=== PATIENT | female | born 1980 ===

== ENCOUNTER 2020-06-16 13:31 | Outpatient (REF) | payer OTHER, SELFPAY ==
--- NOTE | 2020-06-16 13:36 | CT_ITS ---
EXAMINATION: CT CHEST WITHOUT CONTRAST CLINICAL INFORMATION: Pulmonary nodule COMPARISON: Previous chest x-ray July 2018 TECHNIQUE: Multidetector volumetric CT imaging of the chest was done. Axial MIP volume rendering provided. Sagittal and coronal reformatted images were obtained. This CT examination was performed using dose optimization techniques as appropriate, variously including the following: *Automated exposure control *Adjustment of mA and/or kV according to patient size (this includes techniques or standardized protocols for targeted exams where dose is matched to indication/reason for exam; i.e. 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 The lungs are otherwise clear. MEDIASTINUM: The mediastinum is normal. PLEURA: There is no pleural effusion. No pleural mass or thickening. AXILLA: No lymphadenopathy. UPPER ABDOMEN: Unremarkable. OSSEOUS STRUCTURES: There is curvature of the thoracic spine to the right. CT/CT chest wo con IMPRESSION: Small right upper lobe pulmonary nodule. Comparison with outside exam recommended. According to the UPDATED 2017 Fleischner Society recommendations, the advised follow-up imaging for less than 6 mm nodule: Low risk, no chest CT follow-up needed and high risk, optional chest CT follow-up in 12 months.
== END 2020-06-16 13:32 | disposition home or self-care (01) ==
LOC: HO.CT 13:31
PROVIDERS: Visit Provider Internal Medicine Pulmonary Disease
DX: R91.1 Solitary pulmonary nodule (principal)
CPT/HCPCS: 71250

== ENCOUNTER → 2020-06-30 11:39 | Outpatient (BNVA) | payer OTHER, SELFPAY | PROVIDERS: Visit Provider Internal Medicine Pulmonary Disease | DX: R91.1 Solitary pulmonary nodule (principal) | CPT/HCPCS: 99212 ==

== ENCOUNTER → 2020-12-18 10:45 | Outpatient (BNVA) | payer OTHER, SELFPAY | PROVIDERS: Visit Provider Internal Medicine Pulmonary Disease ==

== ENCOUNTER 2021-06-29 09:28 | Outpatient (REF) | payer OTHER, SELFPAY ==
--- NOTE | ~2021-06-29 | CT_ITS ---
EXAMINATION: CT CHEST WITHOUT CONTRAST CLINICAL INFORMATION: Solitary pulmonary nodule COMPARISON: None TECHNIQUE: Multidetector volumetric CT imaging of the chest was done. Axial MIP volume rendering provided. Sagittal and coronal reformatted images were obtained. This CT examination was performed using dose optimization techniques as appropriate, variously including the following: *Automated exposure control *Adjustment of mA and/or kV according to patient size (this includes techniques or standardized protocols for targeted exams where dose is matched to indication/reason for exam; i.e. extremities or head) *Use of iterative reconstruction technique DLP: 128 mGy-cm FINDINGS: LUNGS: Stable 5 mm part solid nodule within the middle lobe is seen on series 5, image 208. There are bilateral patchy and rounded groundglass opacities showing peripheral predominance. One of the groundglass opacities within the left upper lobe shows early central consolidative change measuring up to 10 mm. No bronchial wall thickening or bronchiectasis. No pneumothorax. MEDIASTINUM: Normal heart size. No pericardial effusion. No mediastinal or hilar adenopathy. PLEURA: There is no pleural effusion. No pleural mass or thickening. AXILLA: No lymphadenopathy. UPPER ABDOMEN: Unremarkable. OSSEOUS STRUCTURES: No acute or suspicious osseous abnormalities. CT/CT chest wo con IMPRESSION: * Stable 5 mm part solid nodule within the middle lobe. * New bilateral peripherally predominant groundglass opacities, with early patchy central consolidative change within one of the patchy opacities within the left upper lobe. Suspect atypical infectious process. Early/mild COVID pneumonitis typically shows these findings.
== END 2021-06-29 09:29 | disposition home or self-care (01) ==
LOC: HO.CT 09:28
PROVIDERS: Visit Provider Internal Medicine Pulmonary Disease
DX: R91.1 Solitary pulmonary nodule (principal)
CPT/HCPCS: 71250

== ENCOUNTER → 2021-07-16 11:44 | Outpatient (BNVA) | payer OTHER, SELFPAY | PROVIDERS: PCP Physician Assistant Medical; Visit Provider Internal Medicine Pulmonary Disease ==

== ENCOUNTER 2021-10-26 10:14 | Outpatient (REF) | payer OTHER, SELFPAY ==
[2021-10-26 12:53] LABS: C Reactive Protein 0.04 mg/dL (< or = 0.50)
[2021-10-26 13:17] LABS: Erythrocyte Sedimentation Rate 9 MM/HR (0-20)
[2021-10-26 13:39] LABS: Creatinine Urine 43.28 mg/dL; Microalbumin Urine < 5.0 mg/L
[2021-10-27 12:31] LABS: Anti Nuclear Antibody Screen NEGATIVE (NEGATIVE)
== END 2021-10-26 10:15 | disposition home or self-care (01) ==
LOC: HO.LAB 10:14
PROVIDERS: PCP Physician Assistant Medical; Visit Provider Internal Medicine Rheumatology
DX: M25.569 Pain in unspecified knee (principal); M79.603 Pain in arm, unspecified; R31.29 Other microscopic hematuria
CPT/HCPCS: 36415; 82043; 85652; 86038; 86039; 86140; 99202

== ENCOUNTER 2022-01-27 08:50 | Outpatient (REF) | payer OTHER, SELFPAY ==
--- NOTE | ~2022-01-27 | XR_ITS ---
EXAMINATION: XR KNEE, RIGHT XR KNEE, LEFT CLINICAL INFORMATION: Bilateral knee pain COMPARISON: None TECHNIQUE: Each knee is imaged in 3 views. There are total of 6 views. FINDINGS: Right: Normal bony mineralization. No fracture, dislocation, or effusion. No focal joint narrowing or erosive change or chondrocalcinosis. No lateralization or tilting patella. Left: Normal bony mineralization. No fracture, dislocation, or effusion. No focal joint narrowing or erosive change or chondrocalcinosis. No lateralization or tilting patella. XR/XR knee RT 3V IMPRESSION: Normal bilateral knees.
--- NOTE | ~2022-01-27 | XR_ITS ---
EXAMINATION: XR KNEE, RIGHT XR KNEE, LEFT CLINICAL INFORMATION: Bilateral knee pain COMPARISON: None TECHNIQUE: Each knee is imaged in 3 views. There are total of 6 views. FINDINGS: Right: Normal bony mineralization. No fracture, dislocation, or effusion. No focal joint narrowing or erosive change or chondrocalcinosis. No lateralization or tilting patella. Left: Normal bony mineralization. No fracture, dislocation, or effusion. No focal joint narrowing or erosive change or chondrocalcinosis. No lateralization or tilting patella. XR/XR knee LT 3V IMPRESSION: Normal bilateral knees.
== END 2022-01-27 08:51 | disposition home or self-care (01) ==
LOC: HO.XRAY 08:50
PROVIDERS: PCP Physician Assistant Medical; Visit Provider Internal Medicine Rheumatology
DX: M25.562 Pain in left knee (principal); M25.561 Pain in right knee
CPT/HCPCS: 73562

== ENCOUNTER → 2022-02-17 08:47 | Outpatient (BNVA) | payer OTHER, SELFPAY | PROVIDERS: PCP Physician Assistant Medical; Visit Provider Internal Medicine Rheumatology | DX: R20.0 Anesthesia of skin (principal); L30.9 Dermatitis, unspecified; R21 Rash and other nonspecific skin eruption; M25.531 Pain in right wrist | CPT/HCPCS: 99212 ==

== ENCOUNTER → 2022-03-30 12:54 | Outpatient (BNVA) | payer OTHER, SELFPAY | PROVIDERS: PCP Physician Assistant Medical; Visit Provider Internal Medicine Pulmonary Disease | DX: R91.1 Solitary pulmonary nodule (principal); J38.3 Other diseases of vocal cords; L30.9 Dermatitis, unspecified | CPT/HCPCS: 36415; 82785; 85025; 86003; 99212 ==

== ENCOUNTER 2022-03-30 13:18 | Outpatient (REF) | payer OTHER, SELFPAY ==
[2022-03-30 13:30] LABS: MANUAL DIFF FLAG NO
[2022-03-30 14:47] LABS: Basophils Percent Auto 0.2 % (0-2); Eosinophils Absolute Auto 0.2 X10*3/uL (0.0-0.4); Eosinophils Percent Auto 3.4 % (0-4); Hematocrit 38.3 % (37.0-47.0); Hemoglobin 13.3 g/dl (12.0-16.0); Lymphocytes Absolute Auto 1.6 X10*3/uL (1.2-4.9); Lymphocytes Percent Auto 37.2 % (20-40); Mean Corpuscular HGB Conc 34.7 g/dl (31.0-35.0); Mean Corpuscular Hemoglobin 33.2 pg (27.0-33.0); Mean Corpuscular Volume 95.5 fL (80.0-98.0); Mean Platelet Volume 10.3 fL (9.4-12.3); Monocytes Absolute Auto 0.3 X10*3/uL (0.1-1.2); Monocytes Percent Auto 6.4 % (2-11); Neutrophils Absolute Auto 2.3 x10*3/uL (2.0-8.3); Neutrophils Percent Auto 52.8 % (45-73); Platelet Count 260 X10*3/uL (160-400); Red Blood Count 4.01 X10*6/uL (4.20-5.50); Red Cell Distribution Width 11.8 % (11.0-16.0); White Blood Count 4.4 X10*3/uL (4.8-10.8)
== END 2022-03-30 13:19 | disposition home or self-care (01) ==
LOC: HO.LAB 13:18
PROVIDERS: PCP Physician Assistant Medical; Visit Provider Internal Medicine Pulmonary Disease
DX: Z13.89 Encounter for screening for other disorder (principal)
CPT/HCPCS: 36415; 82785; 85025; 86003

== ENCOUNTER → 2022-05-31 09:50 | Outpatient (BNVA) | payer OTHER, SELFPAY | PROVIDERS: PCP Physician Assistant Medical; Referring Provider Physician Assistant Medical; Visit Provider Internal Medicine Rheumatology | DX: M25.539 Pain in unspecified wrist (principal); M77.8 Other enthesopathies, not elsewhere classified | CPT/HCPCS: 99212 ==

== ENCOUNTER 2022-06-09 09:58 | Outpatient (REF) | payer OTHER, SELFPAY ==
--- NOTE | ~2022-06-09 | CT_ITS ---
EXAMINATION: CT CHEST WITHOUT CONTRAST CLINICAL INFORMATION: Post Covid condition COMPARISON: Previous chest CT scans June 2020 and June 2021 TECHNIQUE: Multidetector volumetric CT imaging of the chest was done. Axial MIP volume rendering provided. Sagittal and coronal reformatted images were obtained. This CT examination was performed using dose optimization techniques as appropriate, variously including the following: *Automated exposure control *Adjustment of mA and/or kV according to patient size (this includes techniques or standardized protocols for targeted exams where dose is matched to indication/reason for exam; i.e. 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 This is stable. The lungs are otherwise clear. Previously identified areas of groundglass attenuation June 2021 are no longer seen. No endobronchial or endotracheal lesion. No evidence of interstitial or fibrotic lung disease, emphysema or bronchiectasis. MEDIASTINUM: The mediastinum is normal. CORONARY ARTERY CALCIFICATION: None visualized on this study. PLEURA: There is no pleural effusion. No pleural mass or thickening. AXILLA: No lymphadenopathy. UPPER ABDOMEN: Unremarkable. OSSEOUS STRUCTURES: Unremarkable. CT/CT chest wo IV con IMPRESSION: Stable 5 mm right middle lobe nodule previous exams. The lungs are otherwise clear. Previously identified groundglass opacities on June 2021 exam have resolved area Fleischner guidelines were followed.
== END 2022-06-09 09:59 | disposition home or self-care (01) ==
LOC: HO.CT 09:58
PROVIDERS: Visit Provider Internal Medicine Pulmonary Disease
DX: U09.9 Post COVID-19 condition, unspecified (principal)
CPT/HCPCS: 71250

== ENCOUNTER 2022-06-22 11:10 | Outpatient (REF) | payer OTHER, SELFPAY | END 2022-06-22 11:11 | disposition home or self-care (01) | LOC: HO.MRI 11:10 | PROVIDERS: Visit Provider Internal Medicine Rheumatology | DX: R91.1 Solitary pulmonary nodule (principal); J38.3 Other diseases of vocal cords; G47.30 Sleep apnea, unspecified; M25.531 Pain in right wrist | CPT/HCPCS: 99212 ==

== ENCOUNTER 2022-08-05 13:11 | Outpatient (REF) | payer OTHER, SELFPAY ==
[2022-08-05 15:28] LABS: Lipase 32 U/L (8-78)
[2022-08-05 16:29] LABS: Folate 17.1 ng/mL (> or = 4.0); Vitamin B12 684 pg/mL (200-900)
[2022-08-08 14:13] LABS: Thyroid Peroxidase Antibodies 3 IU/mL (<9)
[2022-08-08 21:19] LABS: Transglutaminase IgA <1.0 U/mL
[2022-08-11 14:49] LABS: Vitamin D 25-OH, D2 5 ng/mL; Vitamin D 25-OH, D3 20 ng/mL; Vitamin D 25-OH, Total 25 ng/mL (30-100)
== END 2022-08-05 13:12 | disposition home or self-care (01) ==
LOC: HO.LAB 13:11
PROVIDERS: PCP Physician Assistant Medical; Visit Provider Nurse Practitioner Family
DX: R10.13 Epigastric pain (principal); K58.2 Mixed irritable bowel syndrome; K21.9 Gastro-esophageal reflux disease without esophagitis; R19.7 Diarrhea, unspecified; R79.89 Other specified abnormal findings of blood chemistry; E55.9 Vitamin D deficiency, unspecified
CPT/HCPCS: 36415; 82306; 82607; 82746; 83690; 86364; 86376; 99202

== ENCOUNTER 2022-08-08 12:10 | Outpatient (REF) | payer OTHER, SELFPAY ==
[2022-08-17 23:07] LABS: Pancreatic Elastase-1 >500 mcg/g
== END 2022-08-08 12:11 | disposition home or self-care (01) ==
LOC: HO.LNP 12:10
PROVIDERS: Visit Provider Nurse Practitioner Family
DX: R10.9 Unspecified abdominal pain (principal)
CPT/HCPCS: 82656

== ENCOUNTER → 2022-08-23 10:40 | Outpatient (BNVA) | payer OTHER, SELFPAY | PROVIDERS: PCP Physician Assistant Medical; Visit Provider Nurse Practitioner Family | DX: K58.1 Irritable bowel syndrome with constipation (principal); K21.9 Gastro-esophageal reflux disease without esophagitis; R10.13 Epigastric pain | CPT/HCPCS: 99212 ==

== ENCOUNTER 2022-10-11 11:20 | Outpatient (REF) | payer OTHER, SELFPAY ==
[2022-10-13 11:59] LABS: H Pylori Breath Test Negative (Negative)
== END 2022-10-11 11:21 | disposition home or self-care (01) ==
LOC: HO.LNP 11:20
PROVIDERS: PCP Physician Assistant Medical; Visit Provider Nurse Practitioner Family
DX: K58.2 Mixed irritable bowel syndrome (principal); K21.9 Gastro-esophageal reflux disease without esophagitis; R10.13 Epigastric pain
CPT/HCPCS: 83013; 99212

== ENCOUNTER → 2022-12-07 12:44 | Outpatient (REF) | payer OTHER, SELFPAY | LOC: HO.SL 12:44 | PROVIDERS: PCP Physician Assistant Medical; Visit Provider Internal Medicine Pulmonary Disease | DX: Z13.89 Encounter for screening for other disorder (principal) ==

== ENCOUNTER 2023-01-16 08:52 | Outpatient (AMB) | payer OTHER, SELFPAY ==
[2023-01-16 09:00] VITALS: BP 108/62; PULSE 79; BMI 24.3
--- NOTE | 2023-01-16 09:00 | MHC.OFFVIS ---
Intake Vital Signs 01/16/23 09:00 Height 5 ft Weight 124 lb 5.451 oz BMI 24.3 BP 108/62 Blood Pressure Location Lt brachial Position Sitting Pulse 79 Intake Visit Reasons: Follow Up Intake Note: Alyssa presents in office as a est.patient for a f/u PT CC: pt reports having a lot of gas & on/off abdominal pain pt denies any other GI Issues Cost Analyst Required: No Accompanied by: Self / Same As Patient Allergies No Known Allergies [No Known Allergies*] Allergy (Verified 01/16/23 09:00) HPI Follow Up HPI Details LAST VISIT IBS (irritable bowel syndrome) Occasional postprandial abdominal cramping. Patient was encouraged to try to decrease her stress and use techniques that help her dealing with stress. Patient reports abdominal bloating postprandially. Discussed with patient again low FODMAP diet his. Food recommended as well as food to avoid discussed with patient GERD (gastroesophageal reflux disease) Patient continues to have epigastric discomfort with dyspepsia, without dysphagia or odynophagia. Patient was encouraged to avoid dietary triggers. Patient admits to eating a large amount of chocolate and sometimes been on food and eating large amounts. Discussed with patient avoiding late night snacking, staying upright for minimum 3 hours after meals discussed with her. Will do H pylori testing in treat empirically if positive. Epigastric discomfort Patient reports epigastric discomfort. Patient was encouraged to eat small amounts. Avoid dietary triggers like chocolate and other food that may be aggravating. H pylori testing, treatment pending on results. I will start her on Nexium. Patient was encouraged to take it every morning half an hour before breakfast. I will see her in 2 months, sooner on as needed basis. Patient is agreeable to this plan and verbalizes understanding of instructions. She was given the opportunity to ask questions and all questions answered. ? Thank you for allowing me to participate in her care Plan Orders Orders H Pylori Breath Test 10/11/22 Medications New esomeprazole magnesium (Nexium 24HR) 20 mg PO DAILY 30 tabs 2RF TODAY'S VISIT: Patient is here today for follow-up. Patient reports that she has been feeling better, however she had few episodes where she had severe postprandial epigastric discomfort. Patient believes that this might of happen due to what she ate. Patient states that 1 time she ate excessive quantity of peanut butter sauce and had severe epigastric discomfort and postprandial abdominal bloating. Patient is experiencing tremendous amount of stress traveling to [place] with her son who is autistic. Patient voices frustration with his health and sometimes behavior and inability to help him. Patient reports that at the time when she had abdominal discomfort her pain was in the right upper quadrant. She felt very bloated/swollen. Patient also reports that she is trying to fast with nothing to eat from 18:00 to 06:00. Patient states that at one time she ate yogurt before 06:00 and states that she had epigastric discomfort and bloating. Patient denies any nausea or vomiting. Reports occasional dyspepsia without dysphagia or odynophagia. Patient denies melena, hematochezia, unintentional weight loss or ribbon like stools. 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) Do you presently have visiting nurse or other home services: No 75 years or older and lives alone: No Alcohol intake: never Patient Tobacco Use Status: Never used Tobacco e-Cigarette/Vaping Use: Never Used service: No Review of Systems Const Denies weight gain and Denies weight loss ENT Reports no additional complaints, Denies dysphagia and Denies odynophagia Card Reports no additional complaints Resp Reports no additional complaints GI Reports abdominal pain, Denies belching, Denies melena, Reports bloating, Denies change in bowel habits, Denies dysphagia, Denies excessive flatus, Denies dyspepsia, Reports heartburn, Denies diarrhea, Denies loose stools, Denies nausea, Denies odynophagia and Denies vomiting Reports no additional complaints Musc Reports no additional complaints Neuro Reports no additional complaints Psych Reports no additional complaints Endo Reports no additional complaints Physical Exam Vital Signs: Last Vital Signs Pulse 79 01/16/23 09:00 BP 108/62 01/16/23 09:00 BMI result Body Mass Index 24.3 Const General: healthy appearing, no acute distress and well developed Nutritional Appearance: well nourished Orientation/consciousness: patient oriented x3 HEENT Head: Yes normal to inspection, Yes normocephalic and Yes atraumatic Face and sinus: Yes normal facial exam Mouth: Normal oral and palatal mucosa present Throat: Yes posterior oropharynx normal, Yes tonsils normal and Yes uvula midline Eyes General: appearance normal, both eyes and all related structures Neck Neck: Yes normal visual inspection, Yes full ROM and Yes trachea midline Thyroid: Thyroid normal Resp Effort & Inspection: normal respiratory effort, able to speak in complete sentences, no tracheal deviation and symmetric chest movement Auscultation: clear to auscultation bilaterally Cardio Rate: regular rate Heart sounds: S1 normal heart sound present and S2 normal heart sound present GI Inspection: Yes normal to inspection and No distended Palpation (GI): Soft to palpation, not firm, nontender and No hepatosplenomegaly present Auscultation: normal bowel sounds General: Yes no CVA tenderness Back/Spine/Pelvis Back: no CVA tenderness Skin General skin exam: elasticity normal, turgor normal and dry skin Neuro General: patient oriented x3 Psych Appearance: grossly normal Mental Status: mental status grossly normal Speech and movement: Normal speech and movement present Affect: normal affect Assessment & Plan Assessment & Plan (1) IBS (irritable bowel syndrome): Code(s): K58.9 - Irritable bowel syndrome without diarrhea Qualifiers: Irritable bowel syndrome type: without diarrhea Qualified Code(s): K58.9 - Irritable bowel syndrome without diarrhea Plan: Continue low FODMAP diet. Patient does have list of food that is recommended as well as list of food to avoid at home. Patient admits that she could be better with making choices on what she eats. (2) GERD (gastroesophageal reflux disease): Code(s): K21.9 - Gastro-esophageal reflux disease without esophagitis Qualifiers: Esophagitis presence: esophagitis presence not specified Qualified Code(s): K21.9 - Gastro-esophageal reflux disease without esophagitis Plan: Continue avoiding dietary triggers. Staying upright for minimum 3 hours after meals discussed with patient. Patient was encouraged to eat smaller meals. Continue Nexium (3) Epigastric discomfort: Code(s): R10.13 - Epigastric pain Plan: As mentioned above patient will need to control the month of food that she eats. Avoid dietary triggers. Patient does report epigastric pain and right upper quadrant discomfort postprandially I will send her abdominal ultrasound to rule out cholelithiasis, cholecystitis, biliary colic. Abdominal exam negative for Delgado sign. I will see her in 3 months, sooner on as needed basis. Patient is agreeable to this plan and verbalizes understanding of instructions. She was given the opportunity to ask questions and all questions answered. Thank you for allowing me to participate in her care Orders: Orders US abdomen complete Today R10.9 - Unspecified abdominal pain Coding Level of Care Code Est Pt Level 4 (27577) Diagnoses IBS (irritable bowel syndrome) K58.9 Irritable bowel syndrome type: without diarrhea GERD (gastroesophageal reflux disease) K21.9 Esophagitis presence: esophagitis presence not specified Epigastric discomfort R10.13 Time Spent (min) 35 Comment 25 minutes spent with patient and additional 10 minutes spent reviewing her records
== END 2023-01-16 12:12 | disposition home or self-care (01) ==
PROVIDERS: PCP Physician Assistant Medical; Visit Provider Nurse Practitioner Family
DX: K58.9 Irritable bowel syndrome, unspecified (principal); K21.9 Gastro-esophageal reflux disease without esophagitis; R10.13 Epigastric pain
CPT/HCPCS: 99214

== ENCOUNTER → 2023-01-16 08:52 | Outpatient (BNVA) | payer OTHER, SELFPAY | PROVIDERS: PCP Physician Assistant Medical; Visit Provider Nurse Practitioner Family | DX: K58.9 Irritable bowel syndrome, unspecified (principal); K21.9 Gastro-esophageal reflux disease without esophagitis; R10.13 Epigastric pain | CPT/HCPCS: 99212 ==

== ENCOUNTER 2023-01-31 08:29 | Outpatient (REF) | payer OTHER, SELFPAY ==
--- NOTE | ~2023-01-31 | US_ITS ---
EXAMINATION: US ABDOMEN COMPLETE CLINICAL INFORMATION: Unspecified abdominal pain. COMPARISON: CT abdomen/pelvis 06/30/2018. TECHNIQUE: Real-time imaging of the abdominal viscera. FINDINGS: PANCREAS: Normal. ABDOMINAL AORTA: The proximal, mid, and distal segments are normal in caliber. INFERIOR VENA CAVA: Visualized portions are normal. LIVER: The liver is normal in size. The liver contour is normal. Slightly increased liver parenchymal echogenicity. No focal hepatic lesion. There is no intrahepatic biliary duct dilatation seen. GALLBLADDER: Normal. The gallbladder is physiologically distended without evidence of stones, sludge, polyps, wall thickening or pericholecystic fluid. COMMON BILE DUCT: Normal in caliber measuring 0.3 cm in diameter. RIGHT KIDNEY: Normal. No hydronephrosis. No renal calculi or focal parenchymal lesions. The kidney measures 10.0 cm in maximum dimension. LEFT KIDNEY: Normal. No hydronephrosis. No renal calculi or focal parenchymal lesions. The kidney measures 10.5 cm in maximum dimension. SPLEEN: Normal. The spleen measures 9.2 cm in maximum dimension. FREE FLUID: None. US/US abdomen complete IMPRESSION: 1. Slightly increased liver parenchymal echogenicity which is nonspecific but could be seen in the setting of hepatic steatosis or hepatocellular disease. Correlate with liver function tests. 2. Otherwise, normal examination.
== END 2023-01-31 08:30 | disposition home or self-care (01) ==
LOC: HO.US 08:29
PROVIDERS: PCP Physician Assistant Medical; Visit Provider Nurse Practitioner Family
DX: R10.9 Unspecified abdominal pain (principal)
CPT/HCPCS: 76700

== ENCOUNTER → 2023-03-23 10:02 | Outpatient (REF) | payer OTHER, SELFPAY | LOC: HO.SL 10:02 | PROVIDERS: PCP Physician Assistant Medical; Visit Provider Internal Medicine Pulmonary Disease | DX: G47.30 Sleep apnea, unspecified (principal); G47.10 Hypersomnia, unspecified | CPT/HCPCS: 95806 ==

== ENCOUNTER → 2023-03-23 10:15 | Outpatient (BNV) | payer OTHER, SELFPAY | PROVIDERS: PCP Physician Assistant Medical; Visit Provider Internal Medicine | DX: G47.10 Hypersomnia, unspecified (principal); R06.83 Snoring | CPT/HCPCS: 95806 ==

== ENCOUNTER 2023-03-28 10:22 | Outpatient (AMB) | payer OTHER, SELFPAY ==
--- NOTE | 2023-03-28 10:29 | MHC.OFFVIS ---
Intake Vital Signs 03/28/23 10:32 Height 5 ft Weight 119 lb 0.794 oz BMI 23.2 Blood Pressure Location Lt brachial Position Sitting Intake Visit Reasons: 3 month fu Intake Note: Alyssa presents in the office as a 3 month follow up. CC: She states that she has been doing okay but now she has been fasting and drinking barrow warm water. She started getting a burning in her throat and she states the heartburn was very severe. Before that she was having nausea and then she had a pain in the right side of her abdomen. Lots of gasses for no reason. She feels like her throat has been burning a lot lately. Supervisor Screen Printing Required: No Allergies No Known Allergies [No Known Allergies*] Allergy (Verified 03/28/23 10:33) HPI 3 month fu HPI Details LAST VISIT IBS (irritable bowel syndrome) Continue low FODMAP diet. Patient does have list of food that is recommended as well as list of food to avoid at home. Patient admits that she could be better with making choices on what she eats. GERD (gastroesophageal reflux disease) Continue avoiding dietary triggers. Staying upright for minimum 3 hours after meals discussed with patient. Patient was encouraged to eat smaller meals. Continue Nexium Epigastric discomfort As mentioned above patient will need to control the month of food that she eats. Avoid dietary triggers. Patient does report epigastric pain and right upper quadrant discomfort postprandially I will send her abdominal ultrasound to rule out cholelithiasis, cholecystitis, biliary colic. Abdominal exam negative for Delgado sign. I will see her in 3 months, sooner on as needed basis. Patient is agreeable to this plan and verbalizes understanding of instructions. She was given the opportunity to ask questions and all questions answered. ? TODAY'S VISIT: Patient is here today for follow-up. Patient reports that she was doing well, however few weeks ago patient started having epigastric discomfort. She stopped taking her PPI and states that she has been going on under lot of stress. Her parents are all way and she is taking care of her autistic son herself. Patient worries a lot about him. Patient reports that she has been eating healthier. Avoiding eating anything spicy. Occasionally patient will snack on crackers. Patient states that she sometimes is under lot of stress and she will binge eat then. Patient reports sore throat. Patient states that she has been doing fasting and drinking lemon water in the morning. Patient states that she has been exercising and trying to relieve the stress by exercise and meditate. Patient denies any nausea or vomiting. Reports Martin spending epigastric pain and occasional bloating. Patient reports that she is moving her bowels normally without any issues. Patient reports dyspepsia without dysphagia or odynophagia. 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) Do you presently have visiting nurse or other home services: No Alcohol intake: never Patient Tobacco Use Status: Never used Tobacco e-Cigarette/Vaping Use: Never Used service: No Review of Systems Const Denies weight gain and Denies weight loss ENT Reports no additional complaints, Denies dysphagia and Denies odynophagia Card Reports no additional complaints Resp Reports no additional complaints GI Reports abdominal pain (Epigastric), Denies belching, Denies melena, Denies bloating, Denies change in bowel habits, Denies dysphagia, Denies excessive flatus, Reports dyspepsia, Reports heartburn, Denies diarrhea, Denies loose stools, Denies nausea, Denies odynophagia and Denies vomiting Reports no additional complaints Musc Reports no additional complaints Neuro Reports no additional complaints Psych Reports no additional complaints Endo Reports no additional complaints Physical Exam Vital Signs: BMI result Body Mass Index 23.2 Const General: healthy appearing, no acute distress, well developed and anxious Nutritional Appearance: well nourished Orientation/consciousness: patient oriented x3 HEENT Head: Yes normal to inspection, Yes normocephalic and Yes atraumatic Face and sinus: Yes normal facial exam Mouth: Normal oral and palatal mucosa present Throat: Yes posterior oropharynx normal, Yes tonsils normal and Yes uvula midline Eyes General: appearance normal, both eyes and all related structures Neck Neck: Yes normal visual inspection, Yes full ROM and Yes trachea midline Thyroid: Thyroid normal Resp Effort & Inspection: normal respiratory effort, able to speak in complete sentences, no tracheal deviation and symmetric chest movement Auscultation: clear to auscultation bilaterally Cardio Rate: regular rate Heart sounds: S1 normal heart sound present and S2 normal heart sound present GI Inspection: Yes normal to inspection and No distended Palpation (GI): Soft to palpation, not firm, nontender and No hepatosplenomegaly present Auscultation: normal bowel sounds General: Yes no CVA tenderness Back/Spine/Pelvis Back: no CVA tenderness Skin General skin exam: elasticity normal, turgor normal and dry skin Neuro General: patient oriented x3 Psych Appearance: grossly normal Mental Status: mental status grossly normal Speech and movement: Normal speech and movement present Assessment & Plan Assessment & Plan (1) IBS (irritable bowel syndrome): Code(s): K58.9 - Irritable bowel syndrome without diarrhea Qualifiers: Irritable bowel syndrome type: without diarrhea Qualified Code(s): K58.9 - Irritable bowel syndrome without diarrhea Plan: Discussed with patient will FODMAP diet. Patient will continue avoiding carbs and sugars. (2) GERD (gastroesophageal reflux disease): Code(s): K21.9 - Gastro-esophageal reflux disease without esophagitis Qualifiers: Esophagitis presence: esophagitis presence not specified Qualified Code(s): K21.9 - Gastro-esophageal reflux disease without esophagitis Plan: Patient will start taking Nexium again. Discussed with patient avoiding dietary triggers in late night snacking. Staying upright for minimum 3 hours after meals discussed with patient. Patient will be sent for upper endoscopy to rule out esophagitis, gastritis, duodenitis, peptic or gastric ulcers, Plunkett's, H pylori. (3) Epigastric discomfort: Code(s): R10.13 - Epigastric pain Plan: Continue avoiding dietary triggers. Patient will avoid eating late at night and avoid binge eating. I will see patient after upper endoscopy, sooner on as needed basis. Patient is agreeable to this plan and verbalizes understanding of instructions. She was given the opportunity to ask questions and all questions answered. Thank you for allowing me to participate in her care Medications: Refilled esomeprazole magnesium (Nexium 24HR) 20 mg PO DAILY 30 tabs 2RF Coding Level of Care Code Est Pt Level 4 (17103) Diagnoses Irritable bowel syndrome without diarrhea K58.9 Irritable bowel syndrome type: without diarrhea Gastroesophageal reflux disease, unspecified whether esophagitis present K21.9 Esophagitis presence: esophagitis presence not specified Epigastric discomfort R10.13 Time Spent (min) 40 Comment 25 minutes spent with patient and additional 15 minutes spent reviewing her records
[2023-03-28 10:32] VITALS: BMI 23.2
== END 2023-03-28 11:59 | disposition home or self-care (01) ==
PROVIDERS: PCP Physician Assistant Medical; Visit Provider Nurse Practitioner Family
DX: K58.9 Irritable bowel syndrome, unspecified (principal); K21.9 Gastro-esophageal reflux disease without esophagitis; R10.13 Epigastric pain
CPT/HCPCS: 99214

== ENCOUNTER → 2023-03-28 10:22 | Outpatient (BNVA) | payer OTHER, SELFPAY | PROVIDERS: PCP Physician Assistant Medical; Visit Provider Nurse Practitioner Family | DX: K21.9 Gastro-esophageal reflux disease without esophagitis (principal); K58.9 Irritable bowel syndrome, unspecified; R10.13 Epigastric pain | CPT/HCPCS: 99212 ==

== ENCOUNTER 2023-05-10 10:05 | Outpatient (AMB) | payer OTHER, SELFPAY ==
--- NOTE | 2023-05-10 10:11 | A.OFFVIS_ITS ---
Intake Vital Signs 05/10/23 10:12 Height 5 ft Weight 124 lb 12.506 oz BMI 24.4 BP 112/68 Blood Pressure Location Rt brachial Position Sitting Pulse 91 Pulse Source Pulse Oximeter Temp 97.5 F Temp Source Skin Pulse Oximetry (%) 99 Intake Visit Reasons: Arthralgia Intake Note: Pt last seen 05/31/[address] Thibodeaux, presents today for follow up. C/o pain in right wrist, right great toe pain. Difficulty when doing yoga. Meloxicam 7.5 mg daily. Canadian [employer] Tier Required: Yes Canadian Bacon Tier Name: Dustin [id number] Accompanied by: Self / Same As Patient Allergies No Known Allergies [No Known Allergies*] Allergy (Verified 05/10/23 10:17) Medication List - Last Reconciled 05/10/23 by Jennifer Krishnan MD acetaminophen (Tylenol Extra Strength) 1,000 mg PO Q6H PRN albuterol sulfate 90 mcg/actuation 2 puffs inhalation Q4-6H PRN 30 days Brace,wrist As directed esomeprazole magnesium (Nexium 24HR) 20 mg PO DAILY polyethylene glycol 3350 (Miralax) 17 grams PO DAILY sennosides (Natural Senna Laxative) 17.2 mg (2 x 8.6 mg) PO BEDTIME HPI HPI Comments History of Present Illness Details Patient returns for follow-up. She was last seen by Dr. Thibodeaux last year. The right wrist MRI was done in August of 2022 which showed right ECU tenosynovitis and a longitudinal tear. Patient states that she was doing well until 3 weeks ago when she started having recurrent right wrist pain and swelling. She denies any other painful or swollen joints. Per last office note by Dr. Thibodeaux: The patient returns with complaints of right wrist pain. This has been bothering her now since February. Initially it was seemingly associated with trying to do some weightlifting. Now it continues to be a problem with some lateral wrist pain when she uses the hand more rigorously. This would include lifting her arm overhead and combing her hair, lifting objects out in front of her, and writing. She has not really seen any swelling. There are very occasional paresthesias in the fingers. There is a tendency for the pain to radiate on the volar aspect up to the elbow and also down to the fingers. She has not noticed any triggering. There has not been any swelling, redness or bruising of the fingers, knuckles or wrist area. She does take occasional ibuprofen for this but is afraid to take it more often because of a history of heartburn. She also uses Tylenol with some benefit. She did see her primary doctor and also an orthopedist at [facility]. They x-rayed the wrist and was normal. They ordered nerve conduction studies which were done last week at [facility]. [facility] Medical History (Updated 05/10/23 @ 10:53 by Jennifer Krishnan MD) Microscopic hematuria Surgical History Hx of colonoscopy Social History Household Members: Children Housing: Apartment Are you a primary home health care physician to a significant other at home: Yes (son sid) Do you presently have visiting nurse or other home services: No 75 years or older and lives alone: No Alcohol intake: never Patient Tobacco Use Status: Never used Tobacco e-Cigarette/Vaping Use: Never Used service: No Review of Systems [facility] [place], [place] Reports arthralgias and Reports joint swelling Physical Exam Vital Signs: Last Vital Signs Temp 97.5 F 05/10/23 10:12 Pulse 91 05/10/23 10:12 BP 112/68 05/10/23 10:12 Pulse Ox 99 05/10/23 10:12 BMI result Body Mass Index 24.4 Const General: cooperative and healthy appearing Nutritional Appearance: average body habitus Orientation/consciousness: patient oriented x3 Limitations: no limitations HEENT Head: Yes normocephalic and Yes atraumatic Mouth: moist mucous membranes Resp Effort & Inspection: normal respiratory effort and able to speak in complete sentences Skin General skin exam: no rashes or lesions noted Neuro General: patient oriented x3 Extrem Other: Upon evaluation of the wrist. Patient has normal range of motion of her LEs. She has prominence of the right ulnar styloid but there is no associated swelling, warmth or tenderness. No active synovitis otherwise Normal nailfold capillaroscopy Results Reviewed Results Reviewed: [facility] Result Report Patient: Alyssa Dean Date of Service:D 04/04/22 ? ? Patient Gender: Female Ordering Provider: Tristen Alejandro : 1980 ? ? ? Final X-RAY EXAM OF WRIST, COMPLETE Exam Date: 04/04/2022 1:04 PM Ordering Diagnosis: Right wrist pain ? Right wrist, 3 views. ? History pain. ? Comparison with prior examination from 08/26/2020. There is no evidence of fractures, dislocations or abnormal soft tissue calcifications. Alignment is maintained. ? CONCLUSIONS: Normal examination of the right wrist. ? Reading Radiologist: Electronically signed by: MD ike Arellano Nerve conduction study/EMG from [facility] on 05/26/2022: Normal motor and sensory nerve conduction study of the right upper extremity. Normal EMG of the right C5-T1 innervated muscles Labs from [facility]: 05/05/22: Lyme antibody negative, ESR 3, CRP<0.29 Laboratory Tests 10/26/21 10/26/21 10/26/21 11:41 11:41 11:41 ESR 9 C-Reactive Protein 0.04 ANNA Screen NEGATIVE Right wrist MRI 07/26/2022? Impression:? Longitudinal partial tear of the distal extensor carpi ulnaris tendon with marked associated tenosynovitis.? No appreciable subluxation Assessment & Plan Assessment & Plan (1) Flexor carpi ulnaris tendinitis: Code(s): M77.8 - Other enthesopathies, not elsewhere classified Plan: This is a 42-year-old female with (2) Extensor carpi ulnaris tendinitis: Code(s): M77.8 - Other enthesopathies, not elsewhere classified Plan: 42-year-old female presents for evaluation right wrist swelling and tenderness at the ulnar styloid. Right wrist MRI showed right ECU tenosynovitis and a longitudinal partial tear. Symptoms of pain and swelling self-resolved without any treatment. Today there is no tenderness, erythema, warmth or swelling of that area she has normal range of motion of her wrist. There is no active synovitis otherwise. At this point her symptoms are rather consistent with an injury. This might still be a very early inflammatory arthritis. Advised patient to come back to the office as needed if she develops any new or worsening joint pain, stiffness or swelling Plan I spent 26 minutes reviewing patient's chart, evaluating patient, counseling patient and documenting in the chart Coding Level of Care Code Est Pt Level 4 (71388) Diagnoses Flexor carpi ulnaris tendinitis M77.8 Extensor carpi ulnaris tendinitis M77.8
[2023-05-10 10:12] VITALS: BP 112/68; PULSE 91; TEMP 36.4; O2SAT 99; BMI 24.4
== END 2023-05-10 10:50 | disposition home or self-care (01) ==
PROVIDERS: PCP Physician Assistant Medical; Visit Provider Student in an Organized Health Care Education/Training Program
DX: M77.8 Other enthesopathies, not elsewhere classified (principal)
CPT/HCPCS: 99214

== ENCOUNTER → 2023-05-10 10:05 | Outpatient (BNVA) | payer OTHER, SELFPAY | PROVIDERS: PCP Physician Assistant Medical; Visit Provider Student in an Organized Health Care Education/Training Program | DX: M77.8 Other enthesopathies, not elsewhere classified (principal) | CPT/HCPCS: 99212 ==

== ENCOUNTER 2023-05-25 12:47 | Day surgery (SDC) | payer OTHER, SELFPAY ==
[2023-05-23 13:15] VITALS: BMI 23.2
--- NOTE | 2023-05-24 10:56 | HO.ANESPROP2 ---
Documented by User: Angela Johnson NP 05/24/23 10:57 HPI - Anesthesia Eval Consult details Narrative: 42yo F for Upper Endoscopy PMFSH Active Problems Active Problems: All Active Problems (Updated 05/10/23 @ 10:53 by Jennifer Krishnan MD) Extensor carpi ulnaris tendinitis (Acute) Sleep-disordered breathing (Acute) Vocal cord dysfunction (Acute) Eczema (Acute) Pain in wrist joint (Acute) Microscopic hematuria (Acute) Post covid-19 condition, unspecified (Acute) Pulmonary nodule (Acute) Past Medical History Medical History Hx of solitary pulmonary nodule Microscopic hematuria Surgical History Surgical History Hx of colonoscopy Social History Social History Household Members: Children Housing: Apartment Are you a primary reproductive healthcare assistant to a significant other at home: Yes (son autist) Do you presently have visiting nurse or other home services: No Alcohol intake: never Patient Tobacco Use Status: Never used Tobacco e-Cigarette/Vaping Use: Never Used Use of substances other than those prescribed or required for medical reasons: No Are you DNR?: No Advance Directives: No Advance Directives Information Provided: Yes service: No Meds Allergies Allergy/AdvReac Type Severity Reaction Status Date / Time No Known Allergies Allergy Verified 05/10/23 10:17 [No Known Allergies*] Home Medications Medication Instructions Recorded Confirmed Last Taken Type acetaminophen 500 mg tablet 1,000 mg PO Q6H PRN 10/26/21 02/17/22 Unknown History (Tylenol Extra Strength) Exam Exam Date and Time: May 24, 2023 1056 Height,Weight and Vital Signs: Height 5 ft Weight 53.977 kg Assessment and Plan Assessment Anesthesia Assessment: Chart Reviewed Documented by User: Doris Feliz MD 05/25/23 13:34 [facility] Past Medical History Medical History Hx of solitary pulmonary nodule Microscopic hematuria Family History Family history of problems with anesthesia: No Surgical History Surgical History Hx of colonoscopy History of Problems with Anesthesia: No Social History Social History Household Members: Children Housing: Apartment Are you a primary reproductive healthcare assistant to a significant other at home: Yes (son autist) Do you presently have visiting nurse or other home services: No Alcohol intake: never Patient Tobacco Use Status: Never used Tobacco e-Cigarette/Vaping Use: Never Used Use of substances other than those prescribed or required for medical reasons: No Are you DNR?: No Advance Directives: No Advance Directives Information Provided: Yes service: No Meds Allergies Allergy/AdvReac Type Severity Reaction Status Date / Time No Known Allergies Allergy Verified 05/10/23 10:17 [No Known Allergies*] Home Medications Medication Instructions Recorded Confirmed Last Taken Type acetaminophen 500 mg tablet 1,000 mg PO Q6H PRN 10/26/21 02/17/22 Unknown History (Tylenol Extra Strength) Exam Airway Mallampati Class: II TM Dist: >3cm Neck ROM: Full Heart: rrr Lungs: cta Assessment and Plan Assessment Anesthesia Assessment: Anesthesia Plan Discussed Final Anesthetic Review Family History of Problems with Anesthesia: No History of Problems with Anesthesia: No ASA Class: II Final Preanesthetic Review: No Changes in Pt Med Stat, Meds/Allgs Chart Reviewed, Consent Obtained/Reviewed and Anes Risks/Benef Reviewed Patient Risk: Low Procedure Risk: Low Anesthetic Plan Anesthetic Plan: MAC: Disposition: Standard PACU
[2023-05-25 13:04] LABS: UPreg QC Valid YES; Urine Pregnancy NEGATIVE (NEGATIVE)
[2023-05-25 13:06] VITALS: BP 101/55; PULSE 73; RESP 16; TEMP 36.8; O2SAT 97
[2023-05-25] MEDS: Lactated Ringers 1,000 ML 100 ML IVCONT (13:14)
--- NOTE | 2023-05-25 13:28 | P.HPSUR_ITS ---
Pre-Procedural Eval Section A Date of Service: 05/25/23 Section B Chief Complaint: Gastro-esophageal reflux disease without esophagit Relevant Family History (Specify if Yes): No Relevant Social History: None Present Medications: see Short Stay Collaborative assessment Medical History: Significant History (Hx of solitary pulmonary nodule Microscopic hematuria) History of Previous Operations: Relevant previous surgery/procedure and date(s) (colonoscopy) Allergies: Allergies Allergy/AdvReac Type Severity Reaction Status Date / Time No Known Allergies Allergy Verified 05/10/23 10:17 [No Known Allergies*] Review of Systems Sugical H&P ROS: Negative: Constitution, Cardiovascular, Respiratory, Neurological, Psychiatric, Hem-Onc, Allergic/Immunologic, Gastrointestinal, Genitourinary, Musculoskeletal, Integumentary, Endocrine and Eyes/Ears/Nose/Thro at Exam Surgical H&P Exam: Normal: HEENT, Normal: Heart, Normal: Lungs, Normal: Extremities, Normal: Abdomen, Normal: Skin and Normal: Neurological Plan Diagnosis/Plan: Unchanged I have reviewed the history and physical and performed a pertinent physical examination on my patient. No changes have occurred unless specified. Time Spent With Patient Time: Total time managing care of this patient today ____ minutes.
[2023-05-25 13:38] VITALS: BMI 23.2
--- NOTE | 2023-05-25 13:57 | W.PM.OPN ---
Operative Note Operative Note Date of Service: 05/25/23 Narrative: Procedure Description: EGD Indication: GERD Anesthesia: MAC FLEXIBLE TRANSORAL UPPER GASTROINTESTINAL ENDOSCOPY UPPER ENDOSCOPY Consent: Indications for the procedure and potential complications of bleeding, perforation, reaction to medications and missed diagnosis were discussed with the patient and informed consent was obtained. Instrument: Olympus GIF H 190 J mid size upper endoscope Monitoring: Vital signs and clinical assessment, continuous EKG monitoring, Pulse oximetry, Carbon Dioxide monitoring and blood pressure monitoring were done throughout the procedure. Procedure: The patient was placed in the left lateral decubitis position and pre-procedure medications were administered and a bite block was placed. The endoscope was inserted into the mouth and advanced under direct vision to the third part of duodenum. A careful inspection was made as the upper endoscope was withdrawn including a retroflexed examination of the proximal stomach; Findings and interventions are described below. Findings: Larynx:normal Esophagus: GE junction at 36 cm, diaphragm hiatus at 36 cm, irregular Z line, bx taken from GEJ, distal and proximal esophagus Stomach: Mild patchy gastric erythema. Biopsies were obtained. Grade 2 flap valve on retroflexed examination of the cardia. Small pancreatic rest noted near antrum. Duodenum: Normal bulb and descending duodenum, bx taken Intervention: Biopsies as noted above Impression/Findings: pancreatic rest mild gastritis PLAN: await bx her sx are controlled right now, can decide on treatment plan once bx back --not been taking PPI
[2023-05-25 14:05] VITALS: BP 93/49; PULSE 71; RESP 16; TEMP 36.8; O2SAT 97
[2023-05-25 14:20] VITALS: BP 107/64; PULSE 70; RESP 14; O2SAT 98
[2023-05-25 14:35] VITALS: BP 105/66; PULSE 70; RESP 18; TEMP 36.7; O2SAT 98
== END 2023-05-25 15:10 | disposition home or self-care (01) ==
PROVIDERS: Nurse Practitioner; PCP Physician Assistant Medical; Visit Provider Internal Medicine Gastroenterology
PROC: 0DJ08ZZ Inspection of Upper Intestinal Tract, Via Natural or Artificial Opening Endoscopic (ICD-10-PCS; CPT 43235; principal; 2023-05-25 13:50)
DX: K29.70 Gastritis, unspecified, without bleeding (principal); K22.89 Other specified disease of esophagus; K86.89 Other specified diseases of pancreas; K21.9 Gastro-esophageal reflux disease without esophagitis
CPT/HCPCS: 43239; 81025; 88305; 88342; J2704

== ENCOUNTER → 2023-05-25 12:47 | Outpatient (BNV) | payer OTHER, SELFPAY | PROVIDERS: PCP Physician Assistant Medical; Visit Provider Internal Medicine Gastroenterology | DX: K21.9 Gastro-esophageal reflux disease without esophagitis (principal); K29.70 Gastritis, unspecified, without bleeding; K86.89 Other specified diseases of pancreas | CPT/HCPCS: 43239 ==

== ENCOUNTER 2023-07-12 09:41 | Outpatient (REF) | payer OTHER, SELFPAY ==
--- NOTE | ~2023-07-12 | CT_ITS ---
EXAMINATION: CT CHEST WITHOUT CONTRAST CLINICAL INFORMATION: Follow up lung nodules. COMPARISON: CT chest 06/09/2022 along with studies dating back to 06/16/2020. TECHNIQUE: Multidetector volumetric CT imaging of the chest was done. Axial MIP volume rendering provided. Sagittal and coronal reformatted images were obtained. This CT examination was performed using dose optimization techniques as appropriate, variously including the following: *Automated exposure control *Adjustment of mA and/or kV according to patient size (this includes techniques or standardized protocols for targeted exams where dose is matched to indication/reason for exam; i.e. extremities or head) *Use of iterative reconstruction technique DLP: 122 mGy-cm FINDINGS: LUNGS: A 5 mm nodule in the right middle lobe is unchanged compared with the prior (7:242 compare prior 7:261). In fact, this is unchanged on scans dating back to 2019. A tiny 3 mm perifissural lymph node along the major fissure at the right lung base is unchanged (7:337 compare prior 7:358). No new or concerning lung masses are seen. Gallbladder is unremarkable. MEDIASTINUM: The mediastinum is normal. CORONARY ARTERY CALCIFICATION: None visualized on this study. PLEURA: There is no pleural effusion. No pleural mass or thickening. AXILLA: No lymphadenopathy. UPPER ABDOMEN: Unremarkable. OSSEOUS STRUCTURES: Unremarkable. CT/CT chest wo IV con IMPRESSION: 1. Stable 5 mm right middle lobe nodule. No new or concerning lung masses are seen. 2. Incidental note made of a tiny 3 mm perifissural lymph node along the major fissure at the right lung base unchanged. 3. No concerning or worrisome finding is present. Fleischner guidelines were followed.
== END 2023-07-12 09:42 | disposition home or self-care (01) ==
LOC: HO.CT 09:41
PROVIDERS: PCP Physician Assistant Medical; Visit Provider Internal Medicine Pulmonary Disease
DX: R91.1 Solitary pulmonary nodule (principal)
CPT/HCPCS: 71250

== ENCOUNTER 2023-07-18 09:46 | Outpatient (AMB) | payer OTHER, SELFPAY ==
--- NOTE | 2023-07-18 10:00 | A.OFFVIS_ITS ---
Intake Vital Signs 07/18/23 10:02 Height 5 ft 1 in Weight 121 lb 4.068 oz BMI 22.9 BP 128/61 Blood Pressure Location Lt brachial Position Sitting Pulse 87 Intake Visit Reasons: S/P EGD, Dr. Valdez Intake Note: Alyssa presents in the office as a follow up EGD. CC: She states that she heard the nurses talking when she was knocked out. She heard about something on her pancreas. She missed her last appt because she nd her son had COVID. Assisted Living Home Director Required: No Allergies No Known Allergies [No Known Allergies*] Allergy (Verified 07/18/23 10:00) HPI S/P EGD, Dr. Valdez HPI Details LAST VISIT IBS (irritable bowel syndrome) Discussed with patient will FODMAP diet. Patient will continue avoiding carbs and sugars. GERD (gastroesophageal reflux disease) Patient will start taking Nexium again. Discussed with patient avoiding dietary triggers in late night snacking. Staying upright for minimum 3 hours after meals discussed with patient. Patient will be sent for upper endoscopy to rule out esophagitis, gastritis, duodenitis, peptic or gastric ulcers, Plunkett's, H pylori. Epigastric discomfort Continue avoiding dietary triggers. Patient will avoid eating late at night and avoid binge eating. I will see patient after upper endoscopy, sooner on as needed basis. Patient is agreeable to this plan and verbalizes understanding of instructions. She was given the opportunity to ask questions and all questions answered. ? Thank you for allowing me to participate in her care Plan Medications Refilled esomeprazole magnesium (Nexium 24HR) 20 mg PO DAILY 30 tabs 2RF UPPER ENDOSCOPY Findings: Larynx:normal Esophagus: GE junction at 36 cm, diaphragm hiatus at 36 cm, irregular Z line, bx taken from GEJ, distal and proximal esophagus Stomach: Mild patchy gastric erythema. Biopsies were obtained. Grade 2 flap valve on retroflexed examination of the cardia. Small pancreatic rest noted near antrum. Duodenum: Normal bulb and descending duodenum, bx taken Intervention: Biopsies as noted above Impression/Findings: pancreatic rest mild gastritis PATHOLOGY RESULTS Diagnosis A. Duodenum, biopsy: Duodenal mucosa with preserved villi and no specific change. B. Stomach, biopsy: Gastric antral mucosa with reactive changes and minimal chronic inactive gastritis; negative for H pylori, intestinal metaplasia and dysplasia. C. Gastroesophageal junction, biopsy: Squamocolumnar mucosa with mild chronic inflammation; negative for intestinal metaplasia and dysplasia. D. Esophagus, distal, biopsy: Squamous mucosa with no specific change; no columnar mucosa present. E. Esophagus, proximal, biopsy: Squamous mucosa, and columnar mucosa consistent with inlet patch; negative for intestinal metaplasia and dysplasia TODAY'S VISIT Patient is here today for follow-up and to discuss upper endoscopy results. Upper endoscopy results discussed with patient. Patient reports that she has been feeling better. Change her diet. Patient stopped eating chocolate, however patient does admit to eating crackers at time. She likes to binge eat and back sometimes. Patient denies dyspepsia, dysphagia or odynophagia. Patient denies melena, hematochezia, unintentional weight loss or ribbon like stools. Occasional postprandial abdominal bloating depending on what she eats. Patient reports that she is moving her bowels better now. Patient reports drinking plenty fluids. Patient reports to have a good appetite. Patient is not taking her Nexium. 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 Hx of solitary pulmonary nodule Microscopic hematuria Surgical History History of esophagogastroduodenoscopy (EGD) Hx of colonoscopy Social History Household Members: Children Housing: Apartment Are you a primary child care provider to a significant other at home: Yes (son sid) Do you presently have visiting nurse or other home services: No 75 years or older and lives alone: No Alcohol intake: never Patient Tobacco Use Status: Never used Tobacco e-Cigarette/Vaping Use: Never Used service: No Review of Systems Const Denies weight gain and Denies weight loss ENT Reports no additional complaints, Denies dysphagia and Denies odynophagia Card Reports no additional complaints Resp Reports no additional complaints GI Denies abdominal pain, Denies belching, Denies melena, Denies bloating, Denies change in bowel habits, Denies dysphagia, Denies excessive flatus, Denies dyspepsia, Denies heartburn, Denies diarrhea, Denies loose stools, Denies nausea, Denies odynophagia and Denies vomiting Reports no additional complaints Musc Reports no additional complaints Neuro Reports no additional complaints Psych Reports no additional complaints Endo Reports no additional complaints Physical Exam Vital Signs: Last Vital Signs Pulse 87 07/18/23 10:02 BP 128/61 07/18/23 10:02 BMI result Body Mass Index 22.9 Const General: healthy appearing, no acute distress and well developed Nutritional Appearance: well nourished Orientation/consciousness: patient oriented x3 HEENT Head: Yes normal to inspection, Yes normocephalic and Yes atraumatic Face and sinus: Yes normal facial exam Mouth: Normal oral and palatal mucosa present Throat: Yes posterior oropharynx normal, Yes tonsils normal and Yes uvula midline Eyes General: appearance normal, both eyes and all related structures Neck Neck: Yes normal visual inspection, Yes full ROM and Yes trachea midline Thyroid: Thyroid normal Resp Effort & Inspection: normal respiratory effort, able to speak in complete sentences, no tracheal deviation and symmetric chest movement Auscultation: clear to auscultation bilaterally Cardio Rate: regular rate GI Inspection: Yes normal to inspection and No distended Palpation (GI): Soft to palpation, not firm, nontender and No hepatosplenomegaly present Auscultation: normal bowel sounds General: Yes no CVA tenderness Back/Spine/Pelvis Back: no CVA tenderness Skin General skin exam: elasticity normal, turgor normal and dry skin Neuro General: patient oriented x3 Psych Appearance: grossly normal Mental Status: mental status grossly normal 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 (2) IBS (irritable bowel syndrome): Code(s): K58.9 - Irritable bowel syndrome without diarrhea Qualifiers: Irritable bowel syndrome type: without diarrhea Qualified Code(s): K58.9 - Irritable bowel syndrome without diarrhea (3) GERD (gastroesophageal reflux disease): Code(s): K21.9 - Gastro-esophageal reflux disease without esophagitis Qualifiers: Esophagitis presence: without esophagitis Qualified Code(s): K21.9 - Gastro-esophageal reflux disease without esophagitis (4) Epigastric discomfort: Code(s): R10.13 - Epigastric pain (5) Dyspepsia: Code(s): R10.13 - Epigastric pain (6) Postprandial abdominal bloating: Code(s): R14.0 - Abdominal distension (gaseous) Plan Discussed with patient the importance of avoiding dietary trigger. Avoiding carbs as much as possible and lactose. I will have patient try mastic gum if she read her not take PPI. Patient has no esophagitis, mild inflammation at GE junction and in and home without H pylori. Pancreatic rest found in and some of the stomach without any dysplasia. That could also be contributing to her dyspepsia. Patient was encouraged to avoid dietary triggers. I will see patient in 3 months, sooner on as needed basis. Patient is agreeable to this plan and verbalizes understanding of instructions. She was given the opportunity to ask questions and all questions answered. 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
[2023-07-18 10:02] VITALS: BP 128/61; PULSE 87; BMI 22.9
== END 2023-07-18 10:40 | disposition home or self-care (01) ==
PROVIDERS: PCP Physician Assistant Medical; Visit Provider Nurse Practitioner Family
DX: Q45.3 Other congenital malformations of pancreas and pancreatic duct (principal); K58.9 Irritable bowel syndrome, unspecified; K21.9 Gastro-esophageal reflux disease without esophagitis; R10.13 Epigastric pain; R14.0 Abdominal distension (gaseous)
CPT/HCPCS: 99214

== ENCOUNTER → 2023-07-18 09:46 | Outpatient (BNVA) | payer OTHER, SELFPAY | PROVIDERS: PCP Physician Assistant Medical; Visit Provider Nurse Practitioner Family | DX: Q45.3 Other congenital malformations of pancreas and pancreatic duct (principal); K58.9 Irritable bowel syndrome, unspecified; K21.9 Gastro-esophageal reflux disease without esophagitis; R10.13 Epigastric pain; R14.0 Abdominal distension (gaseous) | CPT/HCPCS: 99212 ==

== ENCOUNTER 2023-08-03 10:08 | Outpatient (AMB) | payer OTHER, SELFPAY ==
--- NOTE | 2023-08-03 10:10 | MHC.OFFVIS ---
Intake Vital Signs 08/03/23 10:12 Weight 121 lb 4.068 oz BP 100/60 Blood Pressure Location Lt brachial Position Sitting Pulse 87 Pulse Source Pulse Oximeter Pulse Oximetry (%) 97 Oxygen Delivery Method Room Air Intake Visit Reasons: CT Chest Follow Up Allergies No Known Allergies [No Known Allergies*] Allergy (Verified 08/03/23 10:14) Medication List - Last Reconciled 08/03/23 by Rebekah Plummer LPN acetaminophen (Tylenol Extra Strength) 1,000 mg PO Q6H PRN Brace,wrist As directed cetirizine 10 mg PO DAILY cholecalciferol (vitamin D3) (Vitamin D3) 20 mcg PO DAILY esomeprazole magnesium 20 mg PO DAILY PRN ketoconazole 2% 1 appl topical 2XW polyethylene glycol 3350 (Miralax) 17 grams PO DAILY PRN sennosides (Natural Senna Laxative) 17.2 mg PO BEDTIME PRN tretinoin 0.1% (Retin-A) [address] HPI CT Chest Follow Up HPI Details 42-year-old lady, nonsmoker, with prior secondhand exposure to tobacco for about 11 years and current cannabis use, followed for pulmonary nodules on the background of family history of first-degree relative with lung cancer and sleep difficulties. Patient did have her sleep study that demonstrated no underlying obstructive sleep apnea. She does complain of difficulty staying asleep. Patient did have follow-up CT scan in July of 2023 that showed stable pulmonary nodules. 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 Microscopic hematuria Surgical History History of esophagogastroduodenoscopy (EGD) Hx of colonoscopy Social History Household Members: Children Housing: Apartment Are you a primary child care assistant to a significant other at home: Yes (son sid) Do you presently have visiting nurse or other home services: No 75 years or older and lives alone: No Alcohol intake: never Patient Tobacco Use Status: Never used Tobacco e-Cigarette/Vaping Use: Never Used service: No Review of Systems Const Denies daytime sleepiness, Denies excessive sweating, Denies fatigue, Denies fever(s), Denies lethargy, Denies malaise, Denies night sweats, Denies snoring, Denies weight loss and Reports other (Difficulty staying asleep) Eyes Denies blurry vision and Denies itchy eyes ENT Denies nasal congestion, Denies post nasal drip, Denies sinus pain, Denies sinus pressure and Denies other ( Thrush) Card Denies chest pain, Denies pedal edema, Denies dyspnea, Denies orthopnea and Denies paroxysmal nocturnal dyspnea Resp Denies cough, Denies hemoptysis, Denies excessive phlegm production, Denies dyspnea, Denies snoring and Denies wheezing GI Denies abdominal pain and Denies heartburn Musc Denies myalgias, Denies arthralgias and Denies joint swelling Skin/Breast Denies rash Neuro Denies memory loss and Denies seizure-like activity Psych Denies abnormal sleep pattern, Denies anxiety and Denies memory loss Endo Denies excessive sweating, Denies fatigue and Denies heat intolerance Daniel/Lymph Denies easy bruising Aller/Immun Denies itchy eyes, Denies seasonal rhinorrhea and Denies wheezing Physical Exam Vital Signs: Last Vital Signs Pulse 87 08/03/23 10:12 BP 100/60 08/03/23 10:12 Pulse Ox 97 08/03/23 10:12 Oxygen Delivery Method Room Air 08/03/23 10:12 Const General: no acute distress and alert Nutritional Appearance: not obese Orientation/consciousness: Other orientation findings ( oriented) HEENT Head: Yes atraumatic Eyes General: appearance normal, both eyes and all related structures Sclerae: sclerae normal EOM: EOMs intact bilaterally Neck Neck: Yes supple Lymphatic: no lymphadenopathy noted Resp Effort & Inspection: normal respiratory effort and no use of accessory muscles Auscultation: clear to auscultation bilaterally Cardio Rate: regular rate Rhythm: regular rhythm Heart sounds: no gallops, no murmurs and no rubs Skin General skin exam: other ( warm) Extrem General: No clubbing, No cyanosis and No edema Assessment & Plan Assessment & Plan (1) Insomnia: Code(s): G47.00 - Insomnia, unspecified Plan: Secondary insomnia with difficulty staying asleep. Will try empiric trazodone. (2) Pulmonary nodule: Code(s): R91.1 - Solitary pulmonary nodule Plan: Results of follow-up CT chest reviewed, stable pulmonary nodules. Will repeat scan in 12 months. Medications: New trazodone 50 mg PO BEDTIME PRN 30 tabs 6RF sleep Coding Level of Care Code Est Pt Level 4 (23109) Diagnoses Insomnia G47.00 Pulmonary nodule R91.1
[2023-08-03 10:12] VITALS: BP 100/60; PULSE 87; O2SAT 97
== END 2023-08-03 10:29 | disposition home or self-care (01) ==
PROVIDERS: PCP Physician Assistant Medical; Visit Provider Internal Medicine Pulmonary Disease
DX: G47.00 Insomnia, unspecified (principal); R91.1 Solitary pulmonary nodule
CPT/HCPCS: 99214

== ENCOUNTER → 2023-08-03 10:08 | Outpatient (BNVA) | payer OTHER, SELFPAY | PROVIDERS: PCP Physician Assistant Medical; Visit Provider Internal Medicine Pulmonary Disease | DX: G47.00 Insomnia, unspecified (principal); R91.1 Solitary pulmonary nodule | CPT/HCPCS: 99212 ==

== ENCOUNTER 2023-10-17 10:08 | Outpatient (AMB) | payer OTHER, SELFPAY ==
--- NOTE | 2023-10-17 10:10 | A.OFFVIS_ITS ---
Intake Vital Signs 10/17/23 10:13 Height 5 ft 1 in Weight 119 lb 0.794 oz BMI 22.5 BP 130/58 L Blood Pressure Location Lt brachial Position Sitting Pulse 99 Intake Visit Reasons: 3 month follow up Intake Note: Alyssa presents in the office as a 3 month follow up. CC: She states that she is having some concerns - she states that she is having a lot of gas. She states that it is all the time and embarrassing. She states that she just lets it go and she is unable to hold it. No diarrhea and no accidents with her bowels. She states that she is constantly urinating as well but she knows that is a OBGYN concern. 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 Avoiding carbs as much as possible and lactose. I will have patient try mastic gum if she read her not take PPI. Patient has no esophagitis, mild inflammation at GE junction and in and home without H pylori. Pancreatic rest found in and some of the stomach without any dysplasia. That could also be contributing to her dyspepsia. Patient was encouraged to avoid dietary triggers. I will see patient in 3 months, sooner on as needed basis. Patient is agreeable to this plan and verbalizes understanding of instructions. She was given the opportunity to ask questions and all questions answered. TODAY'S VISIT Patient is here today for follow-up. Patient continue to have postprandial abdominal bloating and feels like she is very gassy. Patient continues to eat carbohydrates even though she tries to stay away from it. Patient reports that she is moving her bowels better now. Occasionally taking MiraLax on as needed basis. Patient denies diarrhea or constipation. Occasional acid reflux trying to stay away from food causes. Patient no longer is taking any PPI. 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 Hx of solitary pulmonary nodule Microscopic hematuria Surgical History History of esophagogastroduodenoscopy (EGD) Hx of colonoscopy Social History Household Members: Children Housing: Apartment Are you a primary infant childcare provider to a significant other at home: Yes (son sid) Do you presently have visiting nurse or other home services: No 75 years or older and lives alone: No Alcohol intake: never Patient Tobacco Use Status: Never used Tobacco e-Cigarette/Vaping Use: Never Used service: No Review of Systems Const Denies weight gain and Denies weight loss ENT Reports no additional complaints, Denies dysphagia and Denies odynophagia Card Reports no additional complaints Resp Reports no additional complaints GI Denies abdominal pain, Denies belching, Denies melena, Reports bloating, Denies change in bowel habits, Reports tenesmus, Denies dysphagia, Denies excessive flatus, Denies dyspepsia, Denies heartburn, Denies diarrhea, Denies loose stools, Denies nausea, Denies odynophagia and Denies vomiting Reports no additional complaints Musc Reports no additional complaints Neuro Reports no additional complaints Psych Reports no additional complaints Endo Reports no additional complaints Physical Exam Vital Signs: Last Vital Signs Pulse 99 10/17/23 10:13 BP 130/58 L 10/17/23 10:13 BMI result Body Mass Index 22.5 Const General: healthy appearing, no acute distress and well developed Nutritional Appearance: well nourished Orientation/consciousness: patient oriented x3 Resp Effort & Inspection: normal respiratory effort, able to speak in complete sentences, no tracheal deviation and symmetric chest movement Auscultation: clear to auscultation bilaterally Cardio Rate: regular rate GI Inspection: Yes normal to inspection and No distended Palpation (GI): Soft to palpation, not firm, nontender and No hepatosplenomegaly present Auscultation: normal bowel sounds General: Yes no CVA tenderness Back/Spine/Pelvis Back: no CVA tenderness Skin General skin exam: elasticity normal, turgor normal and dry skin Neuro General: patient oriented x3 Psych Appearance: grossly normal Mental Status: mental status grossly normal 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 (2) IBS (irritable bowel syndrome): Code(s): K58.9 - Irritable bowel syndrome without diarrhea Qualifiers: Irritable bowel syndrome type: without diarrhea Qualified Code(s): K58.9 - Irritable bowel syndrome without diarrhea (3) GERD (gastroesophageal reflux disease): Code(s): K21.9 - Gastro-esophageal reflux disease without esophagitis Qualifiers: Esophagitis presence: esophagitis presence not specified Qualified Code(s): K21.9 - Gastro-esophageal reflux disease without esophagitis (4) Epigastric discomfort: Code(s): R10.13 - Epigastric pain (5) Dyspepsia: Code(s): R10.13 - Epigastric pain (6) Postprandial abdominal bloating: Code(s): R14.0 - Abdominal distension (gaseous) Plan Continue avoiding dietary triggers in late night snacking. Continue avoiding carbs and lactose. Continue MiraLax as needed. Stress reduction as this seems to be contributing to patient's GI symptoms. I will see patient in 4 months, sooner on as needed basis. Patient is agreeable to this plan and verbalizes understanding of instructions. She was given the opportunity to ask questions and all questions answered. 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
[2023-10-17 10:13] VITALS: BP 130/58; PULSE 99; BMI 22.5
== END 2023-10-17 10:45 | disposition home or self-care (01) ==
PROVIDERS: PCP Physician Assistant Medical; Visit Provider Nurse Practitioner Family
DX: Q45.3 Other congenital malformations of pancreas and pancreatic duct (principal); K58.9 Irritable bowel syndrome, unspecified; K21.9 Gastro-esophageal reflux disease without esophagitis; R10.13 Epigastric pain; R14.0 Abdominal distension (gaseous)
CPT/HCPCS: 99213

== ENCOUNTER → 2023-10-17 10:08 | Outpatient (BNVA) | payer OTHER, SELFPAY | PROVIDERS: PCP Physician Assistant Medical; Visit Provider Nurse Practitioner Family | DX: Q45.3 Other congenital malformations of pancreas and pancreatic duct (principal); K58.9 Irritable bowel syndrome, unspecified; K21.9 Gastro-esophageal reflux disease without esophagitis; R10.13 Epigastric pain; R14.0 Abdominal distension (gaseous) | CPT/HCPCS: 99212 ==

== ENCOUNTER 2023-11-03 11:21 | Outpatient (AMB) | payer OTHER, SELFPAY ==
--- NOTE | 2023-11-03 11:22 | MHC.OFFVIS ---
Vital Signs 11/03/23 11:28 Height 5 ft 1 in Weight 123 lb 0.287 oz BMI 23.2 BP 120/67 Blood Pressure Location Lt brachial Position Sitting Pulse 80 Intake Visit Reasons: abdominal pain Intake Note: This patient presents for an assessment for abdominal pain. Patient c/o; reports dysphagia, reports abdominal pain, reports chronic pain LUQ, reports no nausea or vomiting, reports was driving this morning and she started to get the pain on her pancreas , reports pain intermittent. 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 Continue avoiding carbs and lactose. Continue MiraLax as needed. Stress reduction as this seems to be contributing to patient's GI symptoms. I will see patient in 4 months, sooner on as needed basis. Patient is agreeable to this plan and verbalizes understanding of instructions. She was given the opportunity to ask questions and all questions answered. ? TODAY'S VISIT Patient is here today for requested visit. Patient called couple days ago requesting visit for symptoms of abdominal pain and bloating. Lipase and liver profile ordered couple days ago. Patient has not done it yet. Patient reports left lower quadrant pain, able to move the bathrooms however she admits to be constipated. Able to have a bowel movement if she strains. Patient is not taking MiraLax. She is worried that she has pancreatitis. Patient denies any nausea or vomiting. Denies any epigastric pain. No left upper quadrant pain or tenderness. Patient reports that her son was out from school last week and he was home with her the whole time during school vacation. Patient gets very stressed out when he is home. He is 9 years old now and he is autistic and handful. Patient states that her parents were able to help her that week with him. Patient reports that she is trying to eat good, however she did eat lot of bread last week and also onions with her son wishes. Patient reports to be very bloated feeling like there is all in the left lumbar region. Patient denies melena, hematochezia. Reports occasional dyspepsia depending on what she eats without dysphagia or odynophagia. 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 Hx of solitary pulmonary nodule Microscopic hematuria Surgical History History of esophagogastroduodenoscopy (EGD) Hx of colonoscopy Social History Household Members: Children Housing: Apartment Are you a primary critical care educator to a significant other at home: Yes (son sid) Do you presently have visiting nurse or other home services: No 75 years or older and lives alone: No Alcohol intake: never Patient Tobacco Use Status: Never used Tobacco e-Cigarette/Vaping Use: Never Used service: No Review of Systems Const Denies weight gain and Denies weight loss ENT Reports no additional complaints, Denies dysphagia and Denies odynophagia Card Reports no additional complaints Resp Reports no additional complaints GI Reports abdominal pain (LLQ), Denies belching, Denies melena, Reports bloating, Denies change in bowel habits, Reports constipation, Denies dysphagia, Denies excessive flatus, Reports dyspepsia, Denies heartburn, Denies diarrhea, Denies loose stools, Denies nausea, Denies odynophagia and Denies vomiting Reports no additional complaints Musc Reports no additional complaints Neuro Reports no additional complaints Psych Reports no additional complaints Endo Reports no additional complaints Physical Exam Vital Signs: Last Vital Signs Pulse 80 11/03/23 11:28 BP 120/67 11/03/23 11:28 BMI result Body Mass Index 23.2 Const General: healthy appearing, no acute distress and well developed Nutritional Appearance: well nourished Orientation/consciousness: patient oriented x3 Resp Effort & Inspection: normal respiratory effort, able to speak in complete sentences, no tracheal deviation and symmetric chest movement Auscultation: clear to auscultation bilaterally Cardio Rate: regular rate GI Inspection: Yes normal to inspection and No distended Palpation (GI): Soft to palpation, not firm, nontender and No hepatosplenomegaly present Auscultation: normal bowel sounds General: Yes no CVA tenderness Back/Spine/Pelvis Back: no CVA tenderness Skin General skin exam: elasticity normal, turgor normal and dry skin Neuro General: patient oriented x3 Psych Appearance: grossly normal Mental Status: mental status grossly normal Affect: Anxious affect present 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 Category: Medical (2) IBS (irritable bowel syndrome): Code(s): K58.9 - Irritable bowel syndrome without diarrhea Qualifiers: Irritable bowel syndrome type: without diarrhea Qualified Code(s): K58.9 - Irritable bowel syndrome without diarrhea (3) GERD (gastroesophageal reflux disease): Code(s): K21.9 - Gastro-esophageal reflux disease without esophagitis Qualifiers: Esophagitis presence: esophagitis presence not specified Qualified Code(s): K21.9 - Gastro-esophageal reflux disease without esophagitis (4) Epigastric discomfort: Code(s): R10.13 - Epigastric pain (5) Dyspepsia: Code(s): R10.13 - Epigastric pain (6) Postprandial abdominal bloating: Code(s): R14.0 - Abdominal distension (gaseous) Plan Patient was advised to take MiraLax daily and she can take docusate sodium in the evening. Patient was encouraged to go to the lab today and get blood work done. Lipase and liver profile was ordered. Patient has no tenderness to abdominal area. Hypoactive bowel sounds which tells me that she is constipated. Continue low FODMAP diet as discussed previously with patient. Stress reduction. Patient reports to me that she was told by a doctor that she might be autistic. Patient is upset about this. Patient admits to feeling anxious almost all the time. We did discuss in the past about her trying to going see someone so she can talk to and patient states that she does not feel comfortable talking to anybody. Patient has follow-up appointment in February with me. I will call patient with her lab results as well as her CT scan results. She is agreeable to this plan and verbalizes understanding of instructions. She was given the opportunity to ask questions and all questions answered. 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
[2023-11-03 11:28] VITALS: BP 120/67; PULSE 80; BMI 23.2
== END 2023-11-03 12:06 | disposition home or self-care (01) ==
PROVIDERS: PCP Physician Assistant Medical; Visit Provider Nurse Practitioner Family
DX: Q45.3 Other congenital malformations of pancreas and pancreatic duct (principal); K58.9 Irritable bowel syndrome, unspecified; K21.9 Gastro-esophageal reflux disease without esophagitis; R10.13 Epigastric pain; R14.0 Abdominal distension (gaseous)
CPT/HCPCS: 99214

== ENCOUNTER 2023-11-03 11:21 | Outpatient (REF) | payer OTHER, SELFPAY ==
[2023-11-03 13:22] LABS: Alanine Aminotransferase 16 U/L (0-31); Albumin Level 4.1 g/dL (3.5-5.0); Alkaline Phosphatase 73 U/L (39-117); Aspartate Amino Transferase 22 U/L (5-31); Bilirubin Direct 0.2 mg/dL (0.0-0.5); Bilirubin Total 0.7 mg/dL (0.0-1.0); Lipase 44 U/L (8-78); Total Protein 7.4 g/dL (6.5-8.0)
[2023-11-08 13:08] LABS: Vitamin D 25-OH, D2 4 ng/mL; Vitamin D 25-OH, D3 20 ng/mL; Vitamin D 25-OH, Total 24 ng/mL (30-100)
== END 2023-11-03 11:22 | disposition home or self-care (01) ==
LOC: HO.LAB 11:21
PROVIDERS: PCP Physician Assistant Medical; Visit Provider Nurse Practitioner Family
DX: R10.13 Epigastric pain (principal); R10.9 Unspecified abdominal pain; R14.0 Abdominal distension (gaseous); K21.9 Gastro-esophageal reflux disease without esophagitis; K58.9 Irritable bowel syndrome, unspecified; Q45.3 Other congenital malformations of pancreas and pancreatic duct; R74.01 Elevation of levels of liver transaminase levels; E55.9 Vitamin D deficiency, unspecified
CPT/HCPCS: 36415; 80076; 82306; 83690

== ENCOUNTER 2023-11-22 11:50 | Outpatient (REF) | payer OTHER, SELFPAY ==
--- NOTE | ~2023-11-22 | CT_ITS ---
EXAMINATION: CT ABDOMEN AND PELVIS WITH CONTRAST CLINICAL INFORMATION: Unspecified abdominal pain COMPARISON: CT chest from 07/12/2023 ultrasound abdomen from 01/31/2023 TECHNIQUE: Multidetector volumetric images were obtained from the superior aspect of the liver through the pubic symphysis following administration 85 mL of Omnipaque 350 intravenous contrast. Sagittal and coronal reformatted images were obtained on the technologist's workstation. Oral contrast: No This CT examination was performed using dose optimization techniques as appropriate, variously including the following: *Automated exposure control *Adjustment of mA and/or kV according to patient size (this includes techniques or standardized protocols for targeted exams where dose is matched to indication/reason for exam; i.e. extremities or head) *Use of iterative reconstruction technique DLP: 293 mGy-cm FINDINGS: LUNG BASES: Atelectatic changes left lower lobe. No pneumothorax. No large effusion. Slight elevation the right hemidiaphragm. LIVER, GALLBLADDER, AND BILIARY TREE: The liver is normal in size and shape. Slightly decreased hepatic attenuation suggesting hepatic steatosis. No focal hepatic lesion or biliary ductal dilatation is present. The gallbladder is unremarkable with no evidence of radiopaque gallstones, gallbladder wall thickening, or obvious pericholecystic inflammatory changes. PANCREAS: Unremarkable. SPLEEN: Unremarkable. ADRENAL GLANDS: Unremarkable. KIDNEYS AND URETERS: The kidneys are normal in size, shape, and attenuation. No hydronephrosis, hydroureter, or calculi seen. No perinephric stranding. BLADDER: Unremarkable. GASTROINTESTINAL TRACT: Moderate fecal loading throughout the colon. The small and large bowel are unremarkable. The appendix is unremarkable. ABDOMINAL WALL: No significant hernia is appreciated. LYMPH NODES: No enlarged lymph nodes per size criteria. VASCULAR: Abdominal aorta is nonaneurysmal. PELVIC VISCERA: Anteverted uterus. Bilateral adnexal/ovarian hypodense foci the largest on the right side measuring 1.5 cm. Findings are overwhelmingly likely to represent a normal ovarian follicle. No follow-up imaging recommended. OSSEOUS STRUCTURES: Unremarkable. CT/CT abdomen pelvis w IV con IMPRESSION: 1. No acute process of the abdomen or pelvis identified. 2. Slightly decreased hepatic attenuation suggesting hepatic steatosis. 3. Moderate fecal loading throughout the colon.
[2023-11-22] MEDS: iohexoL 350 MG/ML 100 ML INFUS..BTL 85 ML IV (14:40)
[2023-11-22] MEDS: Barium Sulfate Oral (Berry) 450 ML ORAL.SUSP 900 ML PO (14:41)
== END 2023-11-22 11:51 | disposition home or self-care (01) ==
LOC: HO.CT 11:50
PROVIDERS: Visit Provider Nurse Practitioner Family
DX: R10.32 Left lower quadrant pain (principal)
CPT/HCPCS: 74177; Q9967

== ENCOUNTER 2024-02-13 09:38 | Outpatient (AMB) | payer OTHER, SELFPAY ==
[2024-02-13 10:07] VITALS: BP 97/76; PULSE 87; BMI 22.5
--- NOTE | 2024-02-13 10:07 | MHC.OFFVIS ---
Vital Signs 02/13/24 10:07 Height 5 ft 1 in Weight 119 lb BMI 22.5 BP 97/76 Blood Pressure Location Lt brachial Position Sitting Pulse 87 Intake Visit Reasons: difficulty swallowing Intake Note: Alyssa presents in the office as a follow up for Difficulty Swallowing. CC: She is here because she is having trouble swallowing for 4 days straight. She states that it started. Before that she was having pains in the stomach that feels like someone is punching her abdomen - lots of burning in the stomach. Son is becoming more aggressive. She has not been avoiding onions and red sauce. She states that she feels like there is a ball in her throat. She states that a year or so ago and she fasted for judaism reasons - she states that she was almost to 60 hrs - she was unable to lift a finger and very weak. 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 Patient was encouraged to go to the lab today and get blood work done. Lipase and liver profile was ordered. Patient has no tenderness to abdominal area. Hypoactive bowel sounds which tells me that she is constipated. Continue low FODMAP diet as discussed previously with patient. Stress reduction. Patient reports to me that she was told by a doctor that she might be autistic. Patient is upset about this. Patient admits to feeling anxious almost all the time. We did discuss in the past about her trying to going see someone so she can talk to and patient states that she does not feel comfortable talking to anybody. Patient has follow-up appointment in February with me. I will call patient with her lab results as well as her CT scan results. She is agreeable to this plan and verbalizes understanding of instructions. She was given the opportunity to ask questions and all questions answered. ? Thank you for allowing me to participate in her care Orders Orders CT abdomen pelvis w IV con Today R10.32, R10.9 Medications New docusate sodium 100 mg PO DAILY 30 caps 3RF K59.00 TODAY'S VISIT: Patient is here today for requested visit. Patient reports that she has been feeling very sick in the past few days. Patient reports that her symptoms started about 4 days ago. Epigastric discomfort and cramping severe no matter what she eats. Patient reports that she is under a lot of stress currently. Patient states that her son is autistic and becomes more aggressive towards for. Patient had support from her parents, however they left the country to travel for couple months. Patient is not taking any PPIs at this point or any H2 blockers. Patient reports that she is having hard time making decision of what food to eat. We have discussed in the past low FODMAP diet and avoiding onions and red sauce. Patient states that she is and was eating that frequently. Patient reports that now she is having trouble swallowing certain food. Patient denies any odynophagia. Reports reflux and dyspepsia pretty severe. Patient reports that she is moving her bowels okay for the most part. Occasional constipation. Discussed with patient her last CT scan that showed moderate stool in her colon. Patient admits that she is not feeling like she empties her bowels completely. 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 Hx of solitary pulmonary nodule Microscopic hematuria Surgical History History of esophagogastroduodenoscopy (EGD) Hx of colonoscopy Social History Household Members: Children Housing: Apartment Are you a primary care professional to a significant other at home: Yes (son sid) Do you presently have visiting nurse or other home services: No Alcohol intake: never Patient Tobacco Use Status: Never used Tobacco e-Cigarette/Vaping Use: Never Used service: No Review of Systems Const Denies weight gain and Denies weight loss ENT Reports no additional complaints, Reports dysphagia and Denies odynophagia Card Reports no additional complaints Resp Reports no additional complaints GI Reports abdominal pain (Epigastric), Denies belching, Denies melena, Reports bloating, Denies change in bowel habits, Reports constipation, Reports dysphagia, Denies excessive flatus, Reports dyspepsia, Reports heartburn, Denies diarrhea, Denies loose stools, Denies nausea, Denies odynophagia and Denies vomiting Reports no additional complaints Musc Reports no additional complaints Neuro Reports no additional complaints Psych Reports no additional complaints Endo Reports no additional complaints Physical Exam Vital Signs: Last Vital Signs Pulse 87 02/13/24 10:07 BP 97/76 02/13/24 10:07 BMI result Body Mass Index 22.5 Const General: healthy appearing, no acute distress and well developed Nutritional Appearance: well nourished Orientation/consciousness: patient oriented x3 Resp Effort & Inspection: normal respiratory effort, able to speak in complete sentences, no tracheal deviation and symmetric chest movement Auscultation: clear to auscultation bilaterally Cardio Rate: regular rate GI Inspection: Yes normal to inspection and No distended Palpation (GI): Soft to palpation, not firm, nontender and No hepatosplenomegaly present Auscultation: normal bowel sounds General: Yes no CVA tenderness Back/Spine/Pelvis Back: no CVA tenderness Skin General skin exam: elasticity normal, turgor normal and dry skin Neuro General: patient oriented x3 Psych Appearance: grossly normal Mental Status: mental status grossly normal Affect: Anxious affect present Results Reviewed Results Reviewed: CT SCAN OF ABDOMEN AND PELVIS FINDINGS: LUNG BASES: Atelectatic changes left lower lobe. No pneumothorax. No large effusion. Slight elevation the right hemidiaphragm. LIVER, GALLBLADDER, AND BILIARY TREE: The liver is normal in size and shape. Slightly decreased hepatic attenuation suggesting hepatic steatosis. No focal hepatic lesion or biliary ductal dilatation is present. The gallbladder is unremarkable with no evidence of radiopaque gallstones, gallbladder wall thickening, or obvious pericholecystic inflammatory changes. PANCREAS: Unremarkable. SPLEEN: Unremarkable. ADRENAL GLANDS: Unremarkable. KIDNEYS AND URETERS: The kidneys are normal in size, shape, and attenuation. No hydronephrosis, hydroureter, or calculi seen. No perinephric stranding. BLADDER: Unremarkable. GASTROINTESTINAL TRACT: Moderate fecal loading throughout the colon. The small and large bowel are unremarkable. The appendix is unremarkable. ABDOMINAL WALL: No significant hernia is appreciated. LYMPH NODES: No enlarged lymph nodes per size criteria. VASCULAR: Abdominal aorta is nonaneurysmal. PELVIC VISCERA: Anteverted uterus. Bilateral adnexal/ovarian hypodense foci the largest on the right side measuring 1.5 cm. Findings are overwhelmingly likely to represent a normal ovarian follicle. No follow-up imaging recommended. OSSEOUS STRUCTURES: Unremarkable. CT/CT abdomen pelvis w IV con IMPRESSION: 1. No acute process of the abdomen or pelvis identified. 2. Slightly decreased hepatic attenuation suggesting hepatic steatosis. 3. Moderate fecal loading throughout the colon. 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 Category: Medical (2) IBS (irritable bowel syndrome): Code(s): K58.9 - Irritable bowel syndrome without diarrhea Qualifiers: Irritable bowel syndrome type: without diarrhea Qualified Code(s): K58.9 - Irritable bowel syndrome without diarrhea (3) GERD (gastroesophageal reflux disease): Code(s): K21.9 - Gastro-esophageal reflux disease without esophagitis Qualifiers: Esophagitis presence: esophagitis presence not specified Qualified Code(s): K21.9 - Gastro-esophageal reflux disease without esophagitis (4) Epigastric discomfort: Code(s): R10.13 - Epigastric pain (5) Dyspepsia: Code(s): R10.13 - Epigastric pain (6) Postprandial abdominal bloating: Code(s): R14.0 - Abdominal distension (gaseous) (7) Dysphagia: Code(s): R13.10 - Dysphagia, unspecified Qualifiers: Dysphagia type: pharyngoesophageal phase Qualified Code(s): R13.14 - Dysphagia, pharyngoesophageal phase Plan Patient will start taking Nexium every day. Avoid dietary triggers and late night snacking. Staying upright for minimum 3 hours after meals discussed with patient. Will check vitamin-D, B12, folate. Patient feels like she is anemic will check CBC. Patient also states that her white count has been low. Will send her for barium swallow. Patient will return to the office in 2 months, sooner on as needed basis. Patient is agreeable to this plan and verbalizes understanding of instructions. She was given the opportunity to ask questions and all questions answered. Thank you for allowing me to participate in her care Orders: Orders Vitamin D 25-OH (D2 and D3) 02/15/24 E55.9 - Vitamin D deficiency, unspecified TSH reflex Free T4 02/15/24 K59.00 - Constipation, unspecified FL barium swallow 02/13/24 R13.10 - Dysphagia, unspecified Complete Blood Count no Diff 02/15/24 K21.9 - Gastro-esophageal reflux disease without esophagitis Vitamin B12 and Folate 02/15/24 R19.7 - Diarrhea, unspecified Medications: New esomeprazole magnesium (Nexium) 20 mg PO DAILY 30 caps 4RF K21.9 - Gastro-esophageal reflux disease without esophagitis Coding Level of Care Code Est Pt Level 4 (79089) Diagnoses 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
== END 2024-02-13 10:49 | disposition home or self-care (01) ==
PROVIDERS: Visit Provider Nurse Practitioner Family
DX: Q45.3 Other congenital malformations of pancreas and pancreatic duct (principal); K58.9 Irritable bowel syndrome, unspecified; K21.9 Gastro-esophageal reflux disease without esophagitis; R10.13 Epigastric pain; R14.0 Abdominal distension (gaseous); R13.14 Dysphagia, pharyngoesophageal phase
CPT/HCPCS: 99214

== ENCOUNTER → 2024-02-13 09:38 | Outpatient (BNVA) | payer OTHER, SELFPAY | PROVIDERS: Visit Provider Nurse Practitioner Family | DX: R13.14 Dysphagia, pharyngoesophageal phase (principal); R10.13 Epigastric pain; K21.9 Gastro-esophageal reflux disease without esophagitis; K58.9 Irritable bowel syndrome, unspecified; R14.0 Abdominal distension (gaseous); Q45.3 Other congenital malformations of pancreas and pancreatic duct | CPT/HCPCS: 99212 ==

== ENCOUNTER 2024-02-15 08:43 | Outpatient (REF) | payer OTHER, SELFPAY ==
[2024-02-15 09:36] LABS: Hemoglobin 13.1 g/dl (12.0-16.0); Mean Corpuscular HGB Conc 35.4 g/dl (31.0-35.0); Mean Corpuscular Volume 90.5 fL (80.0-98.0); Mean Platelet Volume 9.7 fL (9.4-12.3); Platelet Count 241 X10*3/uL (160-400); Red Blood Count 4.09 X10*6/uL (4.20-5.50); Red Cell Distribution Width 11.9 % (11.0-16.0); White Blood Count 3.6 X10*3/uL (4.8-10.8)
[2024-02-15 10:30] LABS: TSH reflex Free T4 1.54 uIU/mL (0.32-4.0)
[2024-02-15 11:16] LABS: Folate 14.7 ng/mL (> or = 4.0); Vitamin B12 612 pg/mL (200-900)
[2024-02-20 13:48] LABS: Vitamin D 25-OH, D2 <4 ng/mL; Vitamin D 25-OH, D3 25 ng/mL; Vitamin D 25-OH, Total 25 ng/mL (30-100)
== END 2024-02-15 08:44 | disposition home or self-care (01) ==
LOC: HO.LAB 08:43
PROVIDERS: PCP Physician Assistant Medical; Visit Provider Nurse Practitioner Family
DX: K21.9 Gastro-esophageal reflux disease without esophagitis (principal); K59.00 Constipation, unspecified; R19.7 Diarrhea, unspecified; E55.9 Vitamin D deficiency, unspecified
CPT/HCPCS: 36415; 82306; 82607; 82746; 84443; 85027

== ENCOUNTER 2024-03-08 09:07 | Outpatient (REF) | payer OTHER, SELFPAY ==
--- NOTE | ~2024-03-08 | FL_ITS ---
EXAMINATION: XR FLUOROSCOPY UPPER GI WITH AIR CLINICAL INFORMATION: Dysphagia. Globus sensation. COMPARISON: None TECHNIQUE: Fluoroscopic air contrast upper GI examination was performed utilizing standard techniques with thin and thick barium and effervescent granules. Numerous spot images were obtained. FINDINGS: Lateral cine images of the oropharynx and hypopharynx demonstrate normal swallow mechanism with normal epiglottic inversion and soft palate elevation. No tracheal penetration, glottic or subglottic aspiration identified. No nasopharyngeal reflux present. Hypopharyngeal structures appear normal without evidence of mass or diverticulum. There was no significant cricopharyngeal achalasia. Dual and single contrast images of the esophagus demonstrate normal caliber, contour, and mucosal pattern. No evidence of stricture, mass, or ulcerations identified. Esophageal peristalsis was normal. No evidence of hiatus hernia identified. No significant gastroesophageal reflux was seen during the course of the examination and on reflux views. Dual contrast and single contrast images of the stomach demonstrated a normal contour. The gastric rugal folds have a thickened appearance, representing gastritis. There are multiple tiny foci of contrast pooling in the fundus of the stomach that could represent small superficial apthous ulcers. No masses are present. Contrast freely passed into the gastric antrum and duodenal bulb without delay. Single and air-contrast images of the duodenal bulb demonstrate no abnormality. The duodenal sweep has a normal appearance, course, and mucosal fold appearance. The imaged proximal jejunum has a normal fold pattern and caliber. FLUOROSCOPY TIME: 3 minutes 56 seconds Number of Spot Images: 7 Number of Cine: 12 DOSE AREA PRODUCT: 1548 uGy-m2 (microgray-meter squared) FL/FL barium swallow with air IMPRESSION: 1. Thickened appearance of the gastric rugal folds. In addition there are multiple tiny foci of contrast pooling in the fundus of the stomach. These findings are suggestive of erosive gastritis. Recommend correlation with EGD. This procedure was performed by Miles Jorge PA-C, and supervised by Dr. Valiente Electronically signed by: Hamlet Valiente MD 03/08/2024 03:53 PM EDT
== END 2024-03-08 09:08 | disposition home or self-care (01) ==
LOC: HO.XRAY 09:07
PROVIDERS: PCP Physician Assistant Medical; Visit Provider Nurse Practitioner Family
DX: R13.10 Dysphagia, unspecified (principal)
CPT/HCPCS: 74221

== ENCOUNTER → 2024-03-08 09:08 | Outpatient (BNV) | payer OTHER, SELFPAY | PROVIDERS: PCP Physician Assistant Medical; Visit Provider Radiology Diagnostic Radiology | DX: R13.10 Dysphagia, unspecified (principal) | CPT/HCPCS: 74246 ==

== ENCOUNTER 2024-04-03 13:08 | Outpatient (AMB) | payer OTHER, SELFPAY ==
[2024-04-03 13:19] VITALS: BP 110/76; PULSE 82; O2SAT 98; BMI 23.2
--- NOTE | 2024-04-03 13:19 | A.OFFVIS_ITS ---
Vital Signs 04/03/24 13:19 Height 5 ft 1 in Weight 123 lb 0.287 oz BMI 23.2 BP 110/76 Blood Pressure Location Rt brachial Position Sitting Pulse 82 Pulse Source Pulse Oximeter Pulse Oximetry (%) 98 Oxygen Delivery Method Room Air Intake Visit Reasons: 1 month follow up Intake Note: Alyssa presents in office today for a scheduled 1 mos FUV. CC: Pt is here to discuss the results of their recent BA FL. Pt reports that they are still having difficulties with their BM and flatulence. Pt is also having a lot of stress per recent life events. Pt is taking omeprazole however now taking on a PRN basis. Pt would also like to discuss their last EGD results. Pt is concerned about the results and possibly needing a second opinion. Pt would also like to discuss their new Rx for paroxetine. Pt would like to make sure that this is OK for them to take. 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 Avoid dietary triggers and late night snacking. Staying upright for minimum 3 hours after meals discussed with patient. Will check vitamin-D, B12, folate. Patient feels like she is anemic will check CBC. Patient also states that her white count has been low. Will send her for barium swallow. Patient will return to the office in 2 months, sooner on as needed basis. Patient is agreeable to this plan and verbalizes understanding of instructions. She was given the opportunity to ask questions and all questions answered. ? Thank you for allowing me to participate in her care Orders Orders Vitamin D 25-OH (D2 and D3) 02/15/24 E55.9 TSH reflex Free T4 02/15/24 K59.00 FL barium swallow 02/13/24 R13.10 Complete Blood Count no Diff 02/15/24 K21.9 Vitamin B12 and Folate 02/15/24 R19.7 Medications New esomeprazole magnesium (Nexium) 20 mg PO DAILY 30 caps 4RF K21.9 TODAY'S VISIT: Patient is here today for follow-up and to discuss lab results and barium swallow results. Patient continues to have epigastric pain. Patient states that she is under lot of stress and sometimes is not eating like she should. She admits sometimes eating on a go and whatever it is available. Patient still is dealing with stressful situations with her son. Now that he is in school thinks will be little better and she will be able to have some time for herself. Patient states that she is not taking PPI only occasionally when she feels the symptoms. Patient denies any nausea or vomiting. Denies melena, hematochezia, unintentional weight loss or ribbon like stools. Patient is concerned about her epigastric pain any time she eats she does admit to eat sweets and lot of pasta. Did rule out celiac in the past and H pylori. Barium swallow did not show any significant reflux, did show possible gastritis due to contrast pooling in the fundus of the stomach. 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 Hx of solitary pulmonary nodule Microscopic hematuria Surgical History History of esophagogastroduodenoscopy (EGD) Hx of colonoscopy Social History Household Members: Children Housing: Apartment Are you a primary complex care nurse practitioner to a significant other at home: Yes (son sid) Do you presently have visiting nurse or other home services: No 75 years or older and lives alone: No Alcohol intake: never Patient Tobacco Use Status: Never used Tobacco e-Cigarette/Vaping Use: Never Used service: No Review of Systems Const Denies weight gain and Denies weight loss ENT Reports no additional complaints, Denies dysphagia and Denies odynophagia Card Reports no additional complaints Resp Reports no additional complaints GI Reports abdominal pain (Epigastric), Denies belching, Denies melena, Reports bloating, Denies change in bowel habits, Denies dysphagia, Denies excessive flatus, Reports dyspepsia, Reports heartburn, Denies diarrhea, Denies loose stools, Denies nausea, Denies odynophagia and Denies vomiting Musc Reports no additional complaints Neuro Reports no additional complaints Psych Reports no additional complaints Endo Reports no additional complaints Physical Exam Vital Signs: Last Vital Signs Pulse 82 04/03/24 13:19 BP 110/76 04/03/24 13:19 Pulse Ox 98 04/03/24 13:19 Oxygen Delivery Method Room Air 04/03/24 13:19 BMI result Body Mass Index 23.2 Const General: healthy appearing, no acute distress and well developed Nutritional Appearance: well nourished Orientation/consciousness: patient oriented x3 Resp Effort & Inspection: normal respiratory effort, able to speak in complete sentences, no tracheal deviation and symmetric chest movement Auscultation: clear to auscultation bilaterally Cardio Rate: regular rate GI Inspection: Yes normal to inspection and No distended Palpation (GI): Soft to palpation, not firm, nontender and No hepatosplenomegaly present Auscultation: normal bowel sounds General: Yes no CVA tenderness Back/Spine/Pelvis Back: no CVA tenderness Skin General skin exam: elasticity normal, turgor normal and dry skin Neuro General: patient oriented x3 Psych Appearance: grossly normal Mental Status: mental status grossly normal Affect: Anxious affect present Results Reviewed Results Reviewed: UPPER GI IMPRESSION: 1. Thickened appearance of the gastric rugal folds. In addition there are multiple tiny foci of contrast pooling in the fundus of the stomach. These findings are suggestive of erosive gastritis. Recommend correlation with EGD. 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 Category: Medical (2) IBS (irritable bowel syndrome): Code(s): K58.9 - Irritable bowel syndrome, unspecified Qualifiers: Irritable bowel syndrome type: without diarrhea Qualified Code(s): K58.9 - Irritable bowel syndrome without diarrhea (3) GERD (gastroesophageal reflux disease): Code(s): K21.9 - Gastro-esophageal reflux disease without esophagitis Qualifiers: Esophagitis presence: esophagitis presence not specified Qualified Code(s): K21.9 - Gastro-esophageal reflux disease without esophagitis (4) Epigastric discomfort: Code(s): R10.13 - Epigastric pain (5) Dyspepsia: Code(s): R10.13 - Epigastric pain (6) Postprandial abdominal bloating: Code(s): R14.0 - Abdominal distension (gaseous) (7) Dysphagia: Code(s): R13.10 - Dysphagia, unspecified Qualifiers: Dysphagia type: pharyngoesophageal phase Qualified Code(s): R13.14 - Dysphagia, pharyngoesophageal phase Plan Patient will start taking PPI daily. Encouraged her to avoid dietary triggers. Smaller meals and more often. If patient will continue symptoms we can give her famotidine or sucralfate. Patient does not like to take any medications we will hold off on sending it to pharmacy. Patient will avoid eating late at night. Staying upright for minimum 3 hours after meals discussed with patient. Patient will be sent for upper endoscopy to rule out duodenitis, gastritis, celiac, esophagitis, Plunkett's, H pylori. Patient is agreeable to this plan and verbalizes understanding of instructions. She was given the opportunity to ask questions and all questions answered. 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
== END 2024-04-03 14:53 | disposition home or self-care (01) ==
PROVIDERS: Visit Provider Nurse Practitioner Family
DX: Q45.3 Other congenital malformations of pancreas and pancreatic duct (principal); K58.9 Irritable bowel syndrome, unspecified; K21.9 Gastro-esophageal reflux disease without esophagitis; R10.13 Epigastric pain; R14.0 Abdominal distension (gaseous); R13.14 Dysphagia, pharyngoesophageal phase
CPT/HCPCS: 99214

== ENCOUNTER → 2024-04-03 13:08 | Outpatient (BNVA) | payer OTHER, SELFPAY | PROVIDERS: Visit Provider Nurse Practitioner Family | DX: K58.9 Irritable bowel syndrome, unspecified (principal); K21.9 Gastro-esophageal reflux disease without esophagitis; Q45.3 Other congenital malformations of pancreas and pancreatic duct; R10.13 Epigastric pain; R14.0 Abdominal distension (gaseous); R13.14 Dysphagia, pharyngoesophageal phase | CPT/HCPCS: 99212 ==

== ENCOUNTER 2024-04-11 09:33 | Day surgery (SDC) | payer OTHER, SELFPAY ==
[2024-04-09 14:48] VITALS: BMI 23.2
--- NOTE | 2024-04-09 14:56 | HO.ANESPROP2 ---
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 Hx of solitary pulmonary nodule Microscopic hematuria Family History Family history of problems with anesthesia: No Surgical History Surgical History History of esophagogastroduodenoscopy (EGD) Hx of colonoscopy History of Problems with Anesthesia: No Social History Social History Household Members: Children Housing: Apartment Are you a primary home health care respiratory therapist to a significant other at home: Yes (son sid) Do you presently have visiting nurse or other home services: No Alcohol intake: never Patient Tobacco Use Status: Never used Tobacco e-Cigarette/Vaping Use: Never Used Use of substances other than those prescribed or required for medical reasons: No Are you DNR?: No Advance Directives: No Advance Directives Information Provided: Yes Recently lost weight without trying: No Nutrition Risks: No Nutritional Risk service: No Meds Allergies Allergy/AdvReac Type Severity Reaction Status Date / Time Milk Containing Products Allergy Mild Unknown Verified 04/03/24 13:19 (Dairy) Home Medications ?Medication ?Instructions ?Recorded ?Confirmed ?Last Taken ?Type acetaminophen 500 mg tablet 1,000 mg PO Q6H PRN Pain 10/26/21 04/09/24 Unknown History (Tylenol Extra Strength) cetirizine 10 mg tablet 10 mg PO DAILY 07/18/23 04/09/24 Unknown History ketoconazole 2 % shampoo 1 appl topical 2XW 07/18/23 04/09/24 Unknown History polyethylene glycol 3350 17 17 g PO DAILY PRN Constipation 07/18/23 04/09/24 Unknown History gram/dose oral powder (Miralax) sennosides 8.6 mg tablet (Natural 17.2 mg PO BEDTIME PRN constipation 07/18/23 04/09/24 Unknown History Senna Laxative) tretinoin 0.1 % topical cream 1 appl topical BEDTIME 08/03/23 04/09/24 Unknown History (Retin-A) cholecalciferol (vitamin D3) 25 25 mcg PO DAILY 04/03/24 04/09/24 Unknown History mcg (1,000 unit) tablet (Vitamin D3) paroxetine HCl 10 mg tablet 10 mg PO DAILY 04/03/24 04/09/24 Unknown History trazodone 50 mg tablet 50 - 150 mg PO BEDTIME PRN Insomnia 04/03/24 04/09/24 Unknown History Exam Height,Weight and Vital Signs: Height 5 ft 1 in Weight 55.792 kg Assessment and Plan Assessment Anesthesia Assessment: Chart Reviewed Final Anesthetic Review Family History of Problems with Anesthesia: No History of Problems with Anesthesia: No Documented by User: Tammy Spicer MD 04/11/24 10:44 [facility] Past Medical History Medical History History of episiotomy 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 Hx of solitary pulmonary nodule Microscopic hematuria Surgical History Surgical History History of esophagogastroduodenoscopy (EGD) Hx of colonoscopy Social History Social History Household Members: Children Housing: Apartment Are you a primary home health care respiratory therapist to a significant other at home: Yes (son autist) Do you presently have visiting nurse or other home services: No Alcohol intake: never Patient Tobacco Use Status: Never used Tobacco e-Cigarette/Vaping Use: Never Used Use of substances other than those prescribed or required for medical reasons: No Are you DNR?: No Advance Directives: No Advance Directives Information Provided: Yes Recently lost weight without trying: No Nutrition Risks: No Nutritional Risk service: No Meds Allergies Allergy/AdvReac Type Severity Reaction Status Date / Time Milk Containing Products Allergy Mild Unknown Verified 04/03/24 13:19 (Dairy) Home Medications ?Medication ?Instructions ?Recorded ?Confirmed ?Last Taken ?Type acetaminophen 500 mg tablet 1,000 mg PO Q6H PRN Pain 10/26/21 04/09/24 Unknown History (Tylenol Extra Strength) cetirizine 10 mg tablet 10 mg PO DAILY 07/18/23 04/09/24 Unknown History ketoconazole 2 % shampoo 1 appl topical 2XW 07/18/23 04/09/24 Unknown History polyethylene glycol 3350 17 17 g PO DAILY PRN Constipation 07/18/23 04/09/24 Unknown History gram/dose oral powder (Miralax) sennosides 8.6 mg tablet (Natural 17.2 mg PO BEDTIME PRN constipation 07/18/23 04/09/24 Unknown History Senna Laxative) tretinoin 0.1 % topical cream 1 appl topical BEDTIME 08/03/23 04/09/24 Unknown History (Retin-A) cholecalciferol (vitamin D3) 25 25 mcg PO DAILY 04/03/24 04/09/24 Unknown History mcg (1,000 unit) tablet (Vitamin D3) paroxetine HCl 10 mg tablet 10 mg PO DAILY 04/03/24 04/09/24 Unknown History trazodone 50 mg tablet 50 - 150 mg PO BEDTIME PRN Insomnia 04/03/24 04/09/24 Unknown History Exam Airway Mallampati Class: II TM Dist: >3cm Neck ROM: Full Loose/Missing/Broken Teeth: No Heart: RRR Lungs: CTA Assessment and Plan Assessment Anesthesia Assessment: Anesthesia Plan Discussed Final Anesthetic Review NPO: Yes ASA Class: II Final Preanesthetic Review: Meds/Allgs Chart Reviewed, Consent Obtained/Reviewed and Anes Risks/Benef Reviewed Patient Risk: Low Procedure Risk: Intermediate Anesthetic Plan Anesthetic Plan: MAC: Disposition: Standard PACU
[2024-04-11 09:58] VITALS: BMI 24.2
[2024-04-11 10:19] LABS: UPreg QC Valid YES; Urine Pregnancy NEGATIVE (NEGATIVE)
[2024-04-11 10:27] VITALS: BP 89/57; PULSE 76; RESP 16; TEMP 36.4; O2SAT 100
[2024-04-11 10:29] VITALS: BP 85/55; PULSE 70
[2024-04-11 10:32] VITALS: BP 88/56; PULSE 68
[2024-04-11] MEDS: Lactated Ringers 1,000 ML 100 ML IVCONT (10:41)
--- NOTE | 2024-04-11 10:41 | PC.NURSE ---
anti aware of bp. patient is asymptomatic.
--- NOTE | 2024-04-11 10:53 | MHC.SHP ---
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 Hx of solitary pulmonary nodule Microscopic hematuria) History of Previous Operations: Relevant previous surgery/procedure and date(s) (History of esophagogastroduodenoscopy (EGD) Hx of colonoscopy) Allergies: Allergies Allergy/AdvReac Type Severity Reaction Status Date / Time Milk Containing Products Allergy Mild Unknown Verified 04/03/24 13:19 (Dairy) Review of Systems Sugical H&P ROS: Negative: Constitution, Cardiovascular, Respiratory, Neurological, Psychiatric, Hem-Onc, Allergic/Immunologic, Gastrointestinal, Genitourinary, Musculoskeletal, Integumentary, Endocrine and Eyes/Ears/Nose/Throat Exam Surgical H&P Exam: Normal: HEENT, Normal: Heart, Normal: Lungs, Normal: Extremities, Normal: Abdomen, Normal: Skin and Normal: Neurological Plan Diagnosis/Plan: Unchanged I have reviewed the history and physical and performed a pertinent physical examination on my patient. No changes have occurred unless specified. Time Spent With Patient Time: Total time managing care of this patient today ____ minutes.
--- NOTE | 2024-04-11 11:25 | W.PM.OPN ---
Operative Note Operative Note Date of Service: 04/11/24 Narrative: Procedure Description: EGD Indication: dyspepsia Anesthesia: MAC FLEXIBLE TRANSORAL UPPER GASTROINTESTINAL ENDOSCOPY UPPER ENDOSCOPY Consent: Indications for the procedure and potential complications of bleeding, perforation, reaction to medications and missed diagnosis were discussed with the patient and informed consent was obtained. Instrument: Olympus GIF H 190 J mid size upper endoscope Monitoring: Vital signs and clinical assessment, continuous EKG monitoring, Pulse oximetry, Carbon Dioxide monitoring and blood pressure monitoring were done throughout the procedure. Procedure: The patient was placed in the left lateral decubitis position and pre-procedure medications were administered and a bite block was placed. The endoscope was inserted into the mouth and advanced under direct vision to the third part of duodenum. A careful inspection was made as the upper endoscope was withdrawn including a retroflexed examination of the proximal stomach; Findings and interventions are described below. Findings: Larynx: mild erythema over the cords Esophagus: GE junction at 37 cm, diaphragm hiatus at 37 cm, bx taken from GEj, distal and proximal esophagus. 3-4 mm papilloma noted at 22 cm and removed with cold forceps. Few proximal inlet patches noted. Stomach: patch erythema . Biopsies were obtained. Grade 2 flap valve on retroflexed examination of the cardia. Duodenum: Normal bulb and descending duodenum, Intervention: Biopsies as noted above, Impression/Findings: gastritis esophageal papilloma esophageal inlet patches PLAN: confirm PPI compliance, and correct administration, maybe change the preparation GERD precautions repeat EGD in 1 year due to papilloma
[2024-04-11 11:30] VITALS: BP 100/62; PULSE 76; RESP 16; TEMP 36.4; O2SAT 97
[2024-04-11 11:45] VITALS: BP 114/75; PULSE 76; RESP 16; TEMP 36.4; O2SAT 100
== END 2024-04-11 12:25 | disposition home or self-care (01) ==
PROVIDERS: Nurse Practitioner; PCP Physician Assistant Medical; Visit Provider Internal Medicine Gastroenterology
PROC: 0DJ08ZZ Inspection of Upper Intestinal Tract, Via Natural or Artificial Opening Endoscopic (ICD-10-PCS; CPT 43235; principal; 2024-04-11 10:30)
DX: R10.13 Epigastric pain (principal); R14.0 Abdominal distension (gaseous); K44.9 Diaphragmatic hernia without obstruction or gangrene; R13.14 Dysphagia, pharyngoesophageal phase; J38.3 Other diseases of vocal cords; D13.0 Benign neoplasm of esophagus; K21.9 Gastro-esophageal reflux disease without esophagitis; K29.60 Other gastritis without bleeding; Q39.8 Other congenital malformations of esophagus; Q45.3 Other congenital malformations of pancreas and pancreatic duct; R91.1 Solitary pulmonary nodule; R31.29 Other microscopic hematuria; K58.9 Irritable bowel syndrome, unspecified; Z79.899 Other long term (current) drug therapy
CPT/HCPCS: 43239; 81025; 88305; 88313; 88342; J1100; J1596; J2003; J2704

== ENCOUNTER → 2024-04-11 09:33 | Outpatient (BNV) | payer OTHER, SELFPAY | PROVIDERS: PCP Physician Assistant Medical; Visit Provider Internal Medicine Gastroenterology | DX: K30 Functional dyspepsia (principal); K29.70 Gastritis, unspecified, without bleeding; K22.81 Esophageal polyp; Q39.8 Other congenital malformations of esophagus | CPT/HCPCS: 43239 ==

== ENCOUNTER 2024-05-10 14:12 | Outpatient (AMB) | payer OTHER, SELFPAY ==
--- NOTE | 2024-05-10 14:16 | MHC.OFFVIS ---
Vital Signs 05/10/24 14:22 Height 5 ft 8 in Weight 126 lb 5.198 oz BMI 19.2 BP 90/60 Blood Pressure Location Rt brachial Position Sitting Respiration 16 Pulse 82 Pulse Source Pulse Oximeter Pulse Oximetry (%) 98 Oxygen Delivery Method Room Air Intake Visit Reasons: Hand pain Intake Note: Patient presents for hand pain. Allergies Milk Containing Products (Dairy) Allergy (Mild, Verified 05/10/24 14:19) Unknown Medication List - Last Reconciled 05/10/24 by Kirti Mercado MD acetaminophen (Tylenol Extra Strength) 1,000 mg PO Q6H PRN Brace,wrist As directed cetirizine 10 mg PO DAILY cholecalciferol (vitamin D3) (Vitamin D3) 25 mcg PO DAILY esomeprazole magnesium (Nexium) 20 mg PO DAILY ketoconazole 2% 1 appl topical 2XW paroxetine HCl 10 mg PO DAILY polyethylene glycol 3350 (Miralax) 17 grams PO DAILY PRN sennosides (Natural Senna Laxative) 17.2 mg PO BEDTIME PRN trazodone 50 - 150 mg PO BEDTIME PRN HPI Comments Details: Patient is a 43-year-old female with history of extensor carpi ulnaris tendinitis who presents today for follow-up Interval History: Last seen 05/[address] Jennifer Krishnan. At that time she was following up for extensive carpi ulnaris tendinitis. With improvement in her symptoms. Today patient presents with left forearm pain. She is an avid exercise person. Does Pilates and yoga. States that she has been noticing pain in her left forearm for the past 2 weeks inability to turn her arm or lift heavy objects. She denies prolonged morning stiffness of the hands or involving any other joint. Rheumatologic History: Patient initially presented in October 2021 with arm pain. Evaluation including MRI showed flexor carpi ulnaris tendinitis. No other evidence to suggest autoimmune disease such as rheumatoid arthritis. 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 Hx of solitary pulmonary nodule Microscopic hematuria Surgical History History of esophagogastroduodenoscopy (EGD) Hx of colonoscopy Family History (Updated 05/10/24 @ 14:22 by DERRICK Dimas) Father Cancer of lung Cancer of kidney Social History Household Members: Children Housing: Apartment Are you a primary ocular care technician to a significant other at home: Yes (son sid) Do you presently have visiting nurse or other home services: No 75 years or older and lives alone: No Alcohol intake: never Patient Tobacco Use Status: Never used Tobacco e-Cigarette/Vaping Use: Never Used service: No Review of Systems Const Details: Review of Systems Constitutional: Denies fever, chills, weight loss ENT: Denies vision changes, eye pain or eye redness, dental caries, dry mouth GI: Denies nausea, vomiting, diarrhea, abdominal pain, change in BM Pulm: Denies SOB, HWANG, hemoptysis, wheezing Cards: Denies chest pain, palpitations Skin: Denies Raynaud's, rash, nail changes, photosensitivity, RN NEUROLOGY: Denies headaches, weakness, paresthesias, recurrent falls MSK: as per HPI All other systems reviewed and are unremarkable except noted above Physical Exam Vital Signs: Last Vital Signs Pulse 82 05/10/24 14:22 Resp 16 05/10/24 14:22 BP 90/60 05/10/24 14:22 Pulse Ox 98 05/10/24 14:22 Oxygen Delivery Method Room Air 05/10/24 14:22 BMI result Body Mass Index 19.2 Physical Examination CONSTITUITIONAL Patient alert and cooperative. Well appearing and in no apparent painful distress HEENT Conjunctiva and sclera clear. ?Pupils equal round and reactive to light. ?No lymphadenopathy. ?Normal dentition. No oral or nasal ulcers noted. No evidence of discoid rash to the naveen of ears CHEST/RESPIRATORY SYSTEM Normal respiratory effort and able to speak in complete sentences. ?Clear to auscultation bilaterally. ?No crackles, rales, rhonchi, wheezes heard. CARDIAC SYSTEM Regular rate and rhythm. ?S1 and S2 heard no murmurs. 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 ?No deformities noted. ?No synovitis noted to the MCPs, PIPs or DIPs. ?No tenderness to palpation of these joints. Wrists: ?Full range of motion at the wrists without pain. ?No tenderness to palpation or synovitis noted to the wrists. Elbows: Full range of motion without pain. No tenderness, weakness, swelling, increased warmth or erythema. Pain with resisted pronation and pain with palpation of the anterior forearm. Shoulders: Full range of motion without pain. No tenderness, weakness, swelling, increased warmth or erythema. Hips: Full range of motion without pain. Hip bursa: No tenderness to palpation Knees: ?Full range of motion. ?No tenderness, swelling, increased warmth or erythema.?No effusion or crepitations Ankles: Full range of motion. ?No tenderness, swelling, increased warmth or erythema.? Feet: ?Negative squeeze test. ?No tenderness to palpation or swelling of the MTPs. Tender points:??No tenderness to palpation of the neck, shoulders, chest, elbows, hips, buttocks or knees. SKIN Skin intact without rashes. 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 Likely on a background of her Pilates and yoga activities. 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 Does a lot of the alveolar lifting. Recommended her resting the arm for 2 weeks at least. Ibuprofen prescribed. PT prescribed. (2) Extensor carpi ulnaris tendinitis: Code(s): M77.8 - Other enthesopathies, not elsewhere classified Category: Medical Plan: #Extensor carpi ulnaris tendinitis This has improved since the last visit. No evidence of tendinitis on exam today. I know there was concern for potential autoimmune cause but at this time I do not think she has an autoimmune cause for her recurrent tendinitis of different areas. She is very active and I think these could all be exercise or trauma induced. 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
[2024-05-10 14:22] VITALS: BP 90/60; PULSE 82; RESP 16; O2SAT 98; BMI 19.2
== END 2024-05-10 15:15 | disposition home or self-care (01) ==
LOC: HO.RHE 14:12
PROVIDERS: PCP Physician Assistant Medical; Visit Provider Student in an Organized Health Care Education/Training Program
DX: G56.12 Other lesions of median nerve, left upper limb (principal); M77.8 Other enthesopathies, not elsewhere classified
CPT/HCPCS: 99214

== ENCOUNTER → 2024-05-10 14:12 | Outpatient (BNVA) | payer OTHER, SELFPAY | PROVIDERS: PCP Physician Assistant Medical; Visit Provider Student in an Organized Health Care Education/Training Program | DX: M77.8 Other enthesopathies, not elsewhere classified (principal); G56.12 Other lesions of median nerve, left upper limb | CPT/HCPCS: 99212 ==

== ENCOUNTER 2024-06-12 12:50 | Outpatient (AMB) | payer OTHER, SELFPAY ==
--- NOTE | 2024-06-12 12:51 | MHC.OFFVIS ---
Vital Signs 06/12/24 12:53 Height 5 ft 8 in Weight 123 lb 7.342 oz BMI 18.8 BP 94/60 Blood Pressure Location Lt brachial Position Sitting Pulse 83 Intake Visit Reasons: Pt req earlier appt. FUV. Intake Note: Alyssa presents in the office as a follow up - patient requested sooner appt. CC: Pains in the stomach, she does not empty her bowels fully when she has a BM. She states that she feels like someone is punching her in the stomach. Belching when she wakes up in the morning and wants to discuss her EGD results. Supervisor Correspondence Section Required: No Allergies Milk Containing Products (Dairy) Allergy (Mild, Verified 06/12/24 12:54) Unknown HPI HPI Pt req earlier appt. FUV.: Details: LAST VISIT: Chronic idiopathic constipation Continue Senokot. Patient was also encouraged to increase fluid intake and activity to promote better bowel motility. IBS (irritable bowel syndrome) Continue low FODMAP diet. Patient was also encouraged to lose weight. Increase fluid intake and activity to promote better bowel motility. GERD (gastroesophageal reflux disease) Omeprazole 20 mg half an hour before breakfast and half an hour before dinner. Discussed with patient triggers and late night snacking. Staying upright for minimum 3 hours after meals discussed with patient. I will see patient in 6 months, sooner on as needed basis. Patient is agreeable to this plan and verbalizes understanding of instructions. She was given the opportunity to ask questions and all questions answered. ? Thank you for allowing me to participate in her care Plan Medications New omeprazole 20 mg PO BID 180 caps 0RF Refilled sennosides (Natural Senna Laxative) 17.2 mg (2 x 8.6 mg) PO BEDTIME 180 tabs 3RF constipation K59.00 - Constipation, unspecified Discontinued polyethylene glycol 3350 Discontinued Reason: Patient no longer taking 17 grams PO DAILY 510 grams 2RF UPPER ENDOSCOPY Findings: Larynx: mild erythema over the cords Esophagus: GE junction at 37 cm, diaphragm hiatus at 37 cm, bx taken from GEj, distal and proximal esophagus. 3-4 mm papilloma noted at 22 cm and removed with cold forceps. Few proximal inlet patches noted. Stomach: patch erythema . Biopsies were obtained. Grade 2 flap valve on retroflexed examination of the cardia. Duodenum: Normal bulb and descending duodenum, Intervention: Biopsies as noted above, Impression/Findings: gastritis esophageal papilloma esophageal inlet patches PLAN: confirm PPI compliance, and correct administration, maybe change the preparation GERD precautions repeat EGD in 1 year due to papilloma PATHOLOGY Diagnosis A. Duodenum, biopsy: Duodenal mucosa with mildly increased intraepithelial lymphocytes and preserved villous architecture. See comment. B. Stomach, biopsy: Antral-type and oxyntic mucosa with moderate chronic inactive inflammation; no Helicobacter organisms seen. C. EG junction, biopsy: - Cardiac-type mucosa with moderate chronic inactive inflammation; no intestinal metaplasia seen. - Squamous mucosa within normal limits. D. Esophagus, distal, biopsy: Squamous epithelium within normal limits; no inflammation seen. E. Esophagus, ?papilloma?: Squamous papilloma; no atypia identified. F. Esophagus, proximal, biopsy: Squamous epithelium within normal limits; no inflammation seen. COMMENT: The findings in the duodenum are non-specific. The differential diagnosis is broad and includes infection (e.g. viral or H. pylori), medication/drugs (e.g. NSAIDs), gluten sensitivity/celiac disease, bacterial overgrowth, tropical sprue, immunodeficiency syndromes (e.g. IgA deficiency, CVID), autoimmune enteropathy, Crohns and collagen vascular disease, among others. Please correlate with clinical and other laboratory findings TODAY'S VISIT Patient is here today for follow-up and to discuss upper endoscopy results. Patient reports that she continues to have epigastric pain postprandially. Patient stopped taking esomeprazole as she found it that it was not effective. She was taken 20 mg daily. Upper endoscopy discussed with patient as mentioned above patient had papilloma at 22 cm that was removed. Biopsy did not show any atypical cells. Patient admits that she occasionally will eat spicy food. Patient reports occasional dyspepsia without dysphagia or odynophagia. Occasional nausea in the morning. Reports postprandial abdominal bloating. Patient denies melena, hematochezia, unintentional weight loss or ribbon like stools. Patient reports changes in the bowel pattern. More constipated now. More frequent abdominal bloating. Occasional postprandial loose stool depending on what she eats. 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 at home: Yes (son sid) Do you presently have visiting nurse or other home services: No Alcohol intake: never Patient Tobacco Use Status: Never used Tobacco e-Cigarette/Vaping Use: Never Used service: No Review of Systems Const Denies weight gain and Denies weight loss ENT Reports no additional complaints, Denies dysphagia and Denies odynophagia Card Reports no additional complaints Resp Reports no additional complaints GI Reports abdominal pain (epigastric), Denies belching, Denies melena, Reports bloating, Denies change in bowel habits, Reports constipation, Denies dysphagia, Denies excessive flatus, Reports dyspepsia, Reports heartburn, Denies diarrhea, Denies loose stools, Denies nausea, Denies odynophagia and Denies vomiting Reports no additional complaints Musc Reports no additional complaints Neuro Reports no additional complaints Psych Reports no additional complaints Endo Reports no additional complaints Physical Exam Vital Signs: Last Vital Signs Pulse 83 06/12/24 12:53 BP 94/60 06/12/24 12:53 BMI result Body Mass Index 18.8 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 Category: Medical (2) IBS (irritable bowel syndrome): Code(s): K58.9 - Irritable bowel syndrome, unspecified Qualifiers: Irritable bowel syndrome type: with constipation Qualified Code(s): K58.1 - Irritable bowel syndrome with constipation (3) GERD (gastroesophageal reflux disease): Code(s): K21.9 - Gastro-esophageal reflux disease without esophagitis Qualifiers: Esophagitis presence: esophagitis presence not specified Qualified Code(s): K21.9 - Gastro-esophageal reflux disease without esophagitis (4) Epigastric discomfort: Code(s): R10.13 - Epigastric pain (5) Dyspepsia: Code(s): R10.13 - Epigastric pain (6) Postprandial abdominal bloating: Code(s): R14.0 - Abdominal distension (gaseous) (7) Squamous cell papilloma of esophagus: Code(s): D13.0 - Benign neoplasm of esophagus Category: Medical (8) Esophageal inlet patch: Code(s): Q39.8 - Other congenital malformations of esophagus Category: Medical Plan Long discussion and education about compliance with PPI therapy. Mild gastritis with inactive chronic inflammation in her stomach without H pylori seen on upper endoscopy. Patient will start pantoprazole daily. Patient was encouraged to avoid dietary triggers and late night snacking. Staying upright for minimum 3 hours after meals discussed with patient. Patient will take famotidine at bedtime. Will do this treatment for 2 months and have patient return for re-evaluation and hopefully she will have improvement in symptoms. Patient was also encouraged to increase fluid intake and activity to promote better bowel motility. Patient can increase fiber intake or take [id number] fiber with probiotics. Follow-up in 2 months. Will send patient for a colonoscopy. Message sent to surgical schedulers to book procedure for end of October/November. Patient is agreeable to plan of care and verbalizes understanding of instructions. He was given the opportunity to ask questions and all questions answered. 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
[2024-06-12 12:53] VITALS: BP 94/60; PULSE 83; BMI 18.8
== END 2024-06-12 13:27 | disposition home or self-care (01) ==
PROVIDERS: PCP Physician Assistant Medical; Visit Provider Nurse Practitioner Family
DX: Q45.3 Other congenital malformations of pancreas and pancreatic duct (principal); K58.1 Irritable bowel syndrome with constipation; K21.9 Gastro-esophageal reflux disease without esophagitis; R10.13 Epigastric pain; R14.0 Abdominal distension (gaseous); D13.0 Benign neoplasm of esophagus; Q39.8 Other congenital malformations of esophagus
CPT/HCPCS: 99214

== ENCOUNTER → 2024-06-12 12:50 | Outpatient (BNVA) | payer OTHER, SELFPAY | PROVIDERS: PCP Physician Assistant Medical; Visit Provider Nurse Practitioner Family ==

== ENCOUNTER 2024-08-02 12:55 | Outpatient (REF) | payer OTHER, SELFPAY ==
--- NOTE | ~2024-08-02 | CT_ITS ---
CLINICAL HISTORY: R91.1 - Solitary pulmonary nodule CT chest without contrast Comparison: None Findings: The heart size is normal. The visualized thyroid and mediastinum are unremarkable. No consolidation or effusion. No pulmonary nodules are noted. The visualized upper abdomen is unremarkable. The bones are intact. IMPRESSION: 1. Unremarkable chest CT. This document has been electronically signed by: Kamar Marx MD on 08/05/2024 09:14:18
--- OUTSIDE RECORDS SUMMARY | 2024-08-02 14:43 | XMS_ITS | Clinical Summary ---
Author Organization [facility] Address [address] [place] [address] Care Team Providers Care Storage Receipt Poster Name Role Phone Tristen Alejandro PA-C Primary Care Provider Allergies No known active allergies Medications Medication Sig Dispensed Refills Start Date End Date Status ProAir HFA 108 (90 Base) MCG/ACT inhaler INHALE 2 PUFF EVERY 4 TO 6 HOURS NEEDED FOR SHORTNESS OF BREATH OR WHEEZING 0 12/10/2021 Active diclofenac (VOLTAREN) 75 MG EC tablet Take 75 mg by mouth 2 (two) times a day. 0 11/29/2021 Active lansoprazole (PREVACID) 30 MG capsule 0 02/07/2022 Active topiramate (TOPAMAX) 25 MG tablet 0 02/11/2022 Active Active Problems No known active problems Family History Medical History Relation Name Comments Cancer Father KIDNEY/LUNG Hypertension Father Diabetes Mother Relation Name Status Comments Father Mother Social History Tobacco Use Types Packs/Day Years Used Date Smoking Tobacco: Never Smokeless Tobacco: Never Alcohol Use Standard Drinks/Week Comments Not Currently 0 (1 standard drink = 0.6 oz pur e alcohol) Sex and Gender Information Value Date Recorded Sex Assigned at Not on file Gender Identity Not on file Sexual Orientation Not on file Job Start Date Occupation Industry Not on file Not on file Not on file Last Filed Vital Signs Vital Sign Reading Time Taken Comments Blood Pressure 113/70 02/18/2022 1:15 PM EDT Pulse 82 02/18/2022 1:15 PM EDT Temperature 36.5 ??C (97.7 ??F) 02/18/2022 1:15 PM ED T Respiratory Rate - - Oxygen Saturation 99% 02/18/2022 1:15 PM EDT Inhaled Oxygen Concentration - - Weight 59.1 kg (130 lb 6.4 oz) 02/18/2022 1:15 P M EDT Height 149.9 cm (4' 11 ) 02/18/2022 1:15 PM EDT Body Mass Index 26.34 02/18/2022 1:15 PM EDT Plan of Treatment Health Maintenance Due Date Last Done Comments Hepatitis B Vaccines (1 of 3 - 3-dose series) 1979 Hepatitis C Screening 1979 COVID-19 Vaccine (#1) 05/24/1980 Depression Screening 1991 Preventative Health Evaluation 11/21/1997 DTap / Tdap / Td (1 - Tdap) 11/21/1998 Cervical Cancer Screening (P ap Smear) 11/21/2000 Influenza Vaccine (#1) 2024 Pneumococcal Vaccine Aged Out No long er eligible based on patient's age to complete this topic RSV Ped < 20 months Aged Out No longe r eligible based on patient's age to complete this topic Care Teams Storage Receipt Poster Relationship Specialty Start Date End Date Tristen Alejandro PA-C PCP - General Medical Services 10/13/21
--- OUTSIDE RECORDS SUMMARY | 2024-08-02 14:43 | XMS_ITS | Clinical Summary ---
Author Organization [facility] Address [address] [place] [address] Phone Care Team Providers Care Needle Control Cheniller Name Role Phone Dexter Jones MD Primary Care Provider [phone] Allergies Active Allergy Reactions Criticality Noted Date Comments Lactose 03/27/2018 Medications Medication Sig Dispensed Refills Start Date End Date Status cholecalciferol (VITAMIN D-3) 25 mcg (1,000 unit) tablet Take 1 tablet (1,000 Units total) by mouth 1 (one) time each day. 01/17/2024 Active docusate sodium (COLACE) 100 mg capsule Take 1 capsule (100 mg total) by mouth 1 (one) time each day. 11/03/2023 Active IBUPROFEN ORAL Take 1 tablet by mouth every 6 hours as needed for Pain for up to 30 days. 06/30/2021 Active ketoconazole (NIZORAL) 2 % shampoo Use as a shampoo 3 x weekly 06/24/2021 Active PARoxetine (PAXIL) 10 mg tablet Take 1 Tablet by mouth every morning for 180 days. - Oral Active traZODone (DESYREL) 50 mg tablet Take 1-3 Tablets by mouth at bedtime as needed for Sleep. - Oral Active Active Problems Problem Noted Date Diagnosed Date Early menopause occurring in patient age younger than 45 years 09/14/2022 Overview (04/15/2024): 2023 FSH 114 Fibromyalgia 01/04/2022 Pelvic pain 12/24/2021 Overview (04/15/2024): Last Assessment & Plan: Pelvic ultrasound ordered to assess low pelvic discomfort. I discussed with the patient that based on her description of the pain it may very well be musculoskeletal. She was instructed to take Tylenol and/or Motrin and use heat pads. She is to follow-up with PCP if symptoms worsen. Irregular menses 12/24/2021 Overview (04/15/2024): Last Assessment & Plan: Discussed normal frequency and length of menses Counseled on the effects of stress, changes in sleep, diet, and exercise on the endocrine system GC/CT, TSH and prolactin recently found to be normal. Testosterone ordered today to r/o PCOS Discussed with patient that irregular bleeding is very likely related to the tremendous stress she has been under since her Father moved in with her last year. Discussed relaxation techniques. I encouraged the patient to seek out resources to help her care for her Father to decrease her burden. We discussed the importance of regular menses to prevent endometrial hyperplasia or malignancy in the future. We discussed the use of hormonal contraceptive options for cycle control. She would like to defer treatment at this time. She will return for further discussion of treatment options if menses become less frequently than she is getting now (she states she gets her menses at least every 2-3 months). Wheeze 07/14/2021 Pelvic mass 10/25/2020 Overview (04/15/2024): Last Assessment & Plan: I explained to Alyssa that there is no evidence of Java Analyst involvement with the mass that is described. Given its very small size, I agree with Dr. Alejo that this likely represents an incidental finding of no clinical significance. I recommended she follow up with Dr. lAejo or Dr. Love if she has further abdominal pain or rectal bleeding. She agreed. Abnormal EEG 04/20/2020 Overview (04/15/2024): EEG 03/11/2020 low-voltage fast EEG with occasional generalized paroxysmal theta bursts. Nonintractable headache 04/20/2020 Chronic abdominal pain 08/27/2018 Pulmonary nodule 08/27/2018 Anxiety 06/13/2018 Overview (04/15/2024): 07/05/2019 Followed by [facility]- therapy q 1-2 wks , Awaiting psychiatric eval to begin med regime GERD (gastroesophageal reflux disease) 8 Hematochezia 06/13/2018 Introital dyspareunia 06/13/2018 Lactose intolerance 06/13/2018 Low back pain 06/13/2018 Small intestinal bacterial overgrowth 06/13/2018 Urinary incontinence 06/13/2018 Rosacea 03/28/2018 Varicose vein of leg 03/27/2018 Encounters Date Type Department Care Team Description 05/23/2024 10:20 AM EST - 05/23/2024 11:59 PM [facility] Hospital Encounter [facility] [address] [phone] Encounter for screening mammogram for breast cancer Discharge Disposition: Home or Self Care 05/23/2024 Telephone Obstetrics & Gynecology - [address] [phone] Silke Gerber CNM Breast Problem 05/17/2024 Telephone Adult Medicine [address] [phone] Tristen Alejandro PA PT1 05/17/2024 Telephone Adult Medicine [address] [phone] Tristen Alejandro PA Fitting for DME 05/16/2024 Telephone Adult Medicine [address] [phone] Tristen Alejandro PA pain 05/13/2024 Telephone Adult Medicine [address] [phone] Tristen Alejandro PA Forms/questionnaire s from Last 3 Months Surgical History Surgery Date Site/Laterality Comments COLONOSCOPY 02/10/2017 PROCEDURE: HISTORICAL COLONOSCOPY; COMMENT: Normal UPPER GASTROINTESTINAL ENDOSCOPY 08/29/2016 PROCEDURE: UPPER GI ENDOSCOPY/EXAM; COMMENT: abnormal - H Pylori ESOPHAGOGASTRODUODENOSCOPY 08/11/2021 PROCEDURE: SD EGD TRANSORAL BIOPSY SINGLE/MULTIPLE; COMMENT: normal, random biopsy pending ESOPHAGOGASTRODUODENOSCOPY 12/30/2021 PROCEDURE: SD EGD TRANSORAL BIOPSY SINGLE/MULTIPLE; COMMENT: normal, biopsy pending OTHER SURGICAL HISTORY 05/25/2023 PROCEDURE: OUTSIDE ENDOSCOPY; COMMENT: dr. dolan mild gastritis OTHER SURGICAL HISTORY 04/11/2024 PROCEDURE: OUTSIDE ENDOSCOPY; COMMENT: dr. gore -gastritis, esophageal papilloma, esophageal inlet patches Medical History Medical History Date Comments GERD (gastroesophageal reflu x disease) DX:GERD (gastroesophageal re flux disease) Lactose intolerance DX:Lactose i ntolerance Anxiety DX:Anxiety Abdominal pain 03/27/2018 DX:Abdominal miladys n Anxiety 06/13/2018 DX:Anxiety GERD (gastroesophageal reflu x disease) 06/13/2018 DX:GERD (gastroesophageal re flux disease) Hematochezia 06/13/2018 DX:Hematochezia History of Helicobacter pylo ri infection 06/13/2018 DX:History of Helicobacter p ylori infection Introital dyspareunia 06/13/2018 DX:[place] al dyspareunia Lactose intolerance 06/13/2018 DX:Lactose i ntolerance Low back pain 06/13/2018 DX:Low back pain Psychosocial stressors 03/28/2018 DX:Psycho social stressors; COMMENT: Living in snf wih 3 year old son who has autism Rosacea 03/28/2018 DX:Rosacea Small intestinal bacterial overgrowth 06/13/2018 DX:Small intestinal bacterial overgrowth Urinary incontinence 06/13/2018 DX:Urinary incontinence Varicose vein of leg 03/27/2018 DX:Varicose vein of leg Homeless 08/27/2018 DX:Homeless Pulmonary nodule 08/27/2018 DX:Pulmonary no dule 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 Liver disease Maternal Grandfather Diabetes Mother Breast cancer Mother's side cousin in 50s Other: autism Son Colon cancer Neg Hx Ovarian cancer Neg Hx Relation Name Status Comments Brother 1 Alive Brother 2 Alive Father Alive Maternal Grandfather Maternal Grandmother Mother Alive Mother's side Alive Paternal Grandfather Paternal Grandmother Sister Alive Son Social History Tobacco Use Types Packs/Day Years Used Date Smoking Tobacco: Never Smokeless Tobacco: Never Alcohol Use Standard Drinks/Week Comments No 0 (1 standard drink = 0.6 oz pur e alcohol) Sex and Gender Information Value Date Recorded Sex Assigned at Not on file Gender Identity Not on file Sexual Orientation Not on file Job Start Date Occupation Industry Not on file Not on file Not on file Obstetrics History Para Term AB IAB SAB Ectopic Multiple Livin g Live Births 1 Last Filed Vital Signs Vital Sign Reading Time Taken Comments Blood Pressure 100/65 04/10/2024 11:13 AM EDT Pulse 84 04/10/2024 11:13 AM EDT Temperature - - Respiratory Rate - - Oxygen Saturation - - Inhaled Oxygen Concentration - - Weight 68 kg (150 lb) 05/23/2024 10:37 AM EST Height 152.4 cm (5') 05/23/2024 10:37 AM EST Body Mass Index 29.29 05/23/2024 10:37 AM EST Plan of Treatment Upcoming Encounters Date Type Department Care Team (Late st Contact Info) Description 08/28/2024 10:30 AM EST Office Visit Adult Medicine [facility] [address] [place] [address] Tristen Alejandro PA [address] [place] [address] Health Maintenance Due Date Last Done Comments DTaP,Tdap,and Td Vaccines (1 - Tdap) 11/21/1998 Hepatitis B Vaccines (1 of 3 - 19+ 3-dose series) 11/21/1998 Social Influencers of Health Screening 06/18/2022 COVID-19 Vaccine ( - season) 2024 Influenza Vaccine (#1) 2024 Depression Screening 06/28/2025 06/28/2024, 03/27/20 Breast Cancer Screening 05/23/2026 05/23/20, 05/17/2023, 02/20/2020, Additional history exists Cervical Cancer Screening: HPV 09/25/2028 09/26/2023 Cholesterol Screening (Lipid Panel) 04/10/2029 04/10/2024, 04/10/2024 Colorectal Cancer Screening: Colonoscopy 01/21/2031 01/21/2021 HIV Screening Completed 04/30/2021 Hepatitis C Screening Completed 04/30/2021 HIB Vaccines Aged Out No longer eligi ble based on patient's age to complete this topic HPV Vaccines Aged Out No longer eligi ble based on patient's age to complete this topic Hepatitis A Vaccines Aged Out No long er eligible based on patient's age to complete this topic IPV Vaccines Aged Out No longer eligi ble based on patient's age to complete this topic MMR Vaccines Aged Out No longer eligi ble based on patient's age to complete this topic Meningococcal ACWY Vaccine Aged Out N o longer eligible based on patient's age to complete this topic Pneumococcal Vaccine: Pediatrics (0 to 5 Years) and At-Risk Patients (6 to 64 Years) Aged Out No longer eligible based on patient's age to complete this topic RSV Immunization Patients Under 20 months Aged Out No longer eligible based on patient's age to complete this topic Varicella Vaccines Aged Out No longer eligible based on patient's age to complete this topic Procedures Procedure Name Priority Date/Time Associated Diagnosis Comments EXTERNAL ENDOSCOPY REPORT 06/12/2024 MG MAMMO DIGITAL SCREENING W APPLE BILAT Routine 05/23/2024 10:44 AM EST Encounter for screening mammogram for breast cancer LIPID PANEL Routine 04/10/2024 DEPRESSION SCREENING Routine 03/27/2024 HPV Routine 09/26/2023 HEPATITIS C SCREENING Routine 04/30/2021 HIV SCREENING Routine 04/30/2021 COLONOSCOPY Routine 01/21/2021 from Last 3 Months or Most Recently Relevant to Health Maintenance Results * External Endoscopy (06/12/2024) Anatomical Region Laterality Modality Endoscopy Provider [facility]~PROCEDURE ORD ERABLES * MG Mammo Digital Screening w Apple bilat (05/23/2024 10:44 AM EST) Anatomical Region Laterality Modality Breast Bilateral Mammography 05/23/2024 2:45 PM EST Impressions 05/23/2024 2:50 PM EST No mammographic evidence of malignancy. ?? No suspicious interval change. A negative mammogram in the presence of a clinically suspicious palpable abnormality does not preclude the possibility of malignancy or alter the indications for biopsy. ASSESSMENT: ?? BI-RADS 1: NEGATIVE RECOMMENDATION(S): 1: Routine screening mammogram BILATERAL in 1 year. -------- FINAL REPORT -------- Dictated By: Levi Boyd Dictated Date: 05/23/2024 14:45 ET Assigned Physician: Levi Boyd Reviewed and Electronically Signed By: Levi Boyd Signed Date: 05/23/2024 14:50 ET Workstation ID: [id number] Transcribed By: Self Edit Transcribed Date: 05/23/2024 14:45 ET Narrative 05/23/2024 2:50 PM EST EXAM: ??SCREENING MAMMOGRAPHY, BILATERAL HISTORY: ??SCREENING. ??Cousin with history of breast cancer. COMPARISON: ??05/17/2023, 05/13/2022, 07/13/2021, 07/28/2020 TECHNIQUE: Synthesized CC and MLO projections of each breast. ??Tomosynthesis of each breast in the CC and MLO projections. ADDITIONAL IMAGING: None Computer-aided detection was employed with the iCAD ??profound AI 3-D. TISSUE DENSITY: There are scattered areas of fibroglandular density. (BI-RADS category B) FINDINGS: RIGHT BREAST: No suspicious mass. No suspicious calcification. No distortion. ?? No additional suspicious right breast findings LEFT BREAST: No suspicious mass. No suspicious calcification. No distortion. ?? No additional suspicious left breast findings Procedure Note Levi Boyd MD - 05/23/2024 EXAM: SCREENING MAMMOGRAPHY, BILATERAL HISTORY: SCREENING. Cousin with history of breast cancer. COMPARISON: 05/17/2023, 05/13/2022, 07/13/2021, 07/28/2020 TECHNIQUE: Synthesized CC and MLO projections of each breast.Tomosynthesis of each breast in the CC and MLO projections. ADDITIONAL IMAGING: None Computer-aided detection was employed with the iCAD profound AI 3-D. TISSUE DENSITY: There are scattered areas of fibroglandular density.(BI-RADS category B) FINDINGS: RIGHT BREAST: No suspicious mass. No suspicious calcification. No distortion. Noadditional suspicious right breast findings LEFT BREAST: No suspicious mass. No suspicious calcification. No distortion. Noadditional suspicious left breast findings IMPRESSION: No mammographic evidence of malignancy. No suspicious interval change. A negative mammogram in the presence of a clinically suspicious palpableabnormality does not preclude the possibility of malignancy or alter theindications for biopsy. ASSESSMENT: BI-RADS 1: NEGATIVE RECOMMENDATION(S): 1: Routine screening mammogram BILATERAL in 1 year. -------- FINAL REPORT -------- Dictated By: Levi Boyd Dictated Date: 05/23/2024 14:45 ET Assigned Physician: Levi Boyd Reviewed and Electronically Signed By: Levi Boyd Signed Date: 05/23/2024 14:50 ET Workstation ID: [id number] Transcribed By: Self Edit Transcribed Date: 05/23/2024 14:45 ET Tristen FLOREZ IMG BI PROCEDURES * (ABNORMAL) Lipid panel (04/10/2024) [facility] LDL/HDL Ratio 2 0 - 4 Triglycerides 69 0 - 150 mg/dL Cholesterol 257(A) 0 - 200 mg/dL HDL 116 40 mg/dL LDL Cholesterol 128(A) 0 - 100 mg/dL Blood Venous blood specimen / Unknown Historical Provider LAB BLOOD ORDERAB LES * Depression Screening (03/27/2024) [facility] Depression Screening abstracted Historical Provider MD TETE ALY [facility] Cervical Cancer Screening: HPV (09/26/2023) [facility] Cervical Cancer Screening: HPV negative, abstracted Historical Provider MD TETE ALY [facility] HIV Screening (04/30/2021) HIV Screening abstracted Historical Provider MD TETE ALY E * Hepatitis C Screening (04/30/2021) Hepatitis C Screening abstracted Historical Provider MD TETE ALY E * Colonoscopy (01/21/2021) Colonoscopy no interpretation , abstracted Anatomical Region Laterality Modality Other Historical Provider MD TETE ALY E from Last 3 Months or Most Recently Relevant to Health Maintenance Care Teams Needle Control Cheniller Relationship Specialty Start Date End Date Dexter Jones MD [address] [place] [address] PCP - General Family Medicine 07/12/24
== END 2024-08-02 12:56 | disposition home or self-care (01) ==
LOC: HO.CT 12:55
PROVIDERS: PCP Family Medicine; Visit Provider Internal Medicine Pulmonary Disease
DX: R91.1 Solitary pulmonary nodule (principal)
CPT/HCPCS: 71250

== ENCOUNTER → 2024-08-02 13:01 | Outpatient (BNV) | payer OTHER, SELFPAY | PROVIDERS: PCP Family Medicine; Visit Provider Radiology Diagnostic Radiology | DX: R91.1 Solitary pulmonary nodule (principal) | CPT/HCPCS: 71250 ==

== ENCOUNTER 2024-08-27 12:48 | Outpatient (AMB) | payer OTHER, SELFPAY ==
[2024-08-27 12:59] VITALS: BP 110/60; PULSE 90; O2SAT 96; BMI 29.6
--- NOTE | 2024-08-27 12:59 | MHC.OFFVIS ---
Vital Signs 08/27/24 12:59 Height 4 ft 8 in Weight 132 lb BMI 29.6 BP 110/60 Blood Pressure Location Rt brachial Position Sitting Pulse 90 Pulse Source Doppler Pulse Oximetry (%) 96 Oxygen Delivery Method Room Air Intake Visit Reasons: dyspnea Allergies Milk Containing Products (Dairy) Allergy (Mild, Verified 08/27/24 13:03) Unknown HPI HPI dyspnea: Details: 42-year-old lady, nonsmoker, with prior secondhand exposure to tobacco for about 11 years and current cannabis use, followed for pulmonary nodules on the background of family history of first-degree relative with lung cancer and sleep difficulties. Patient did have her sleep study that demonstrated no underlying obstructive sleep apnea. After the last office visit patient had follow-up CT scan in December of 2024 that did not demonstrate pulmonary nodules. Today she has complain of bronchitic symptoms. 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 Hx of solitary pulmonary nodule Microscopic hematuria Surgical History History of esophagogastroduodenoscopy (EGD) Hx of colonoscopy Family History Father Cancer of lung Cancer of kidney Social History Household Members: Children Housing: Apartment Are you a primary home care provider to a significant other at home: Yes (son autist) Do you presently have visiting nurse or other home services: No 75 years or older and lives alone: No Alcohol intake: never Patient Tobacco Use Status: Never used Tobacco e-Cigarette/Vaping Use: Never Used service: No Review of Systems Const Denies daytime sleepiness, Denies excessive sweating, Denies fatigue, Denies fever(s), Denies lethargy, Denies malaise, Denies night sweats, Denies snoring and Denies weight loss Eyes Denies blurry vision and Denies itchy eyes ENT Denies nasal congestion, Denies post nasal drip, Denies sinus pain, Denies sinus pressure and Denies other ( Thrush) Card Denies chest pain, Denies pedal edema, Denies dyspnea, Denies orthopnea and Denies paroxysmal nocturnal dyspnea Resp Denies cough, Denies hemoptysis, Denies excessive phlegm production, Denies dyspnea, Denies snoring and Denies wheezing GI Denies abdominal pain and Denies heartburn Musc Denies myalgias, Denies arthralgias and Denies joint swelling Skin/Breast Denies rash Neuro Denies memory loss and Denies seizure-like activity Psych Denies abnormal sleep pattern, Denies anxiety and Denies memory loss Endo Denies excessive sweating, Denies fatigue and Denies heat intolerance Daniel/Lymph Denies easy bruising Aller/Immun Denies itchy eyes, Denies seasonal rhinorrhea and Denies wheezing Physical Exam Vital Signs: Last Vital Signs Pulse 90 08/27/24 12:59 BP 110/60 08/27/24 12:59 Pulse Ox 96 08/27/24 12:59 Oxygen Delivery Method Room Air 08/27/24 12:59 BMI result Body Mass Index 29.6 Const General: no acute distress and alert Nutritional Appearance: not obese Orientation/consciousness: Other orientation findings ( oriented) HEENT Head: Yes atraumatic Eyes General: appearance normal, both eyes and all related structures Sclerae: sclerae normal EOM: EOMs intact bilaterally Neck Neck: Yes supple Lymphatic: no lymphadenopathy noted Resp Effort & Inspection: normal respiratory effort and no use of accessory muscles Auscultation: clear to auscultation bilaterally Cardio Rate: regular rate Rhythm: regular rhythm Heart sounds: no gallops, no murmurs and no rubs Skin General skin exam: other ( warm) Extrem General: No clubbing, No cyanosis and No edema Assessment & Plan Assessment & Plan (1) Pulmonary nodule: Code(s): R91.1 - Solitary pulmonary nodule Category: Medical Plan: Results of CT chest from July of 2024 reviewed, no worrisome nodules noted. Does not require imaging follow-up at this time. (2) Bronchitis: Code(s): J40 - Bronchitis, not specified as acute or chronic Category: Medical Plan: Will treat with a course of prednisone. Medications: New prednisone 40 mg (2 x 20 mg) PO DAILY 10 tabs 0RF Coding Level of Care Code Est Pt Level 4 (34639) Diagnoses Pulmonary nodule R91.1 Bronchitis J40
--- OUTSIDE RECORDS SUMMARY | 2024-08-27 13:40 | XMS_ITS | Encounter Summary ---
Author Organization [facility] Address [address] [place] [address] Care Team Providers Care Computer Operator Name Role Phone Tristen Alejandro PA-C Primary Care Provider [phone] Reason for Visit * Reason Comments E-prescribe Rx Request Encounter Details Date Type Department Care Team Description 04/01/2021 Refill Adult Medicine [facility] [address] [place] [id number] Tristen Alejandro PA-C [address] [place] [id number] E-prescribe Rx Request Social History Tobacco Use Types Packs/Day Years Used Date Smoking Tobacco: Never Smokeless Tobacco: Never Alcohol Use Standard Drinks/Week Comments No 0 (1 standard drink = 0.6 oz pur e alcohol) Alcohol Habits Answer Date Recorded How often do you have a drink containing alcohol ? Never 03/24/2020 How many drinks containing a lcohol do you have on a typical day when you are drinking? Not asked 03/24/2020 How often do you have six or more drinks on one occasion? Not asked 03/24/2020 Intimate Partner Violence Answer Date R ecorded Within the last year, have y ou been afraid of your partner or ex-partner? No 07/05/2019 Within the last year, have y ou been humiliated or emotionally abused in other ways by your partner or ex-partner? No Within the last year, have y ou been kicked, hit, slapped, or otherwise physically hurt by your partner or ex-partner? No 07/05/2019 Within the last year, have y ou been raped or forced to have any kind of sexual activity by your partner or ex-partner? No 07/05/2019 Sex Assigned at Date Recorded Not on file Job Start Date Occupation Industry Not on file Not on file Not on file documented as of this encounter Miscellaneous Notes * Telephone Encounter - Kerry Camarena M.A. - 04/03/2021 8:38 PM EDT pt states not taking Lexapro. Refused and sent to pcp for fyi * Telephone Encounter - Raeann Kam - 04/02/2021 4:29 PM EDT PATIENT DOES NOT WANT TO TAKE THIS MEDICATION AND STATES SHE HAS NOT TAKEN IT documented in this encounter Plan of Treatment Not on file documented as of this encounter Visit Diagnoses Not on filedocumented in this encounter Additional Health Concerns Infection Onset Date Last Indicated Resolved Time COVID-19 Comment:Patient reports positive COVID test on 06/1206/12/2021 06/18/2021 08/24/2021 1:[address] COVID-19 Comment:Positive test on 06/0806/08/2023 06/09/2023 11:25 AM EDT documented as of this encounter Care Teams Computer Operator Relationship Specialty Start Date End Date Tristen Alejandro PA-C [address] [place] [id number] PCP - General Internal Medicine 11/18/20 documented as of this encounter
--- OUTSIDE RECORDS SUMMARY | 2024-08-27 13:40 | XMS_ITS | Encounter Summary ---
Author Organization [facility] Address [address] [place] [address] Care Team Providers Care Manager Security And Safety Name Role Phone Radha Ramirez MD Primary Care Provider [phone] Tristen Alejandro PA-C Primary Care Provider [phone] Radha Ramirez MD Primary Care Provider [phone] Tristen Alejandro PA-C Primary Care Provider [phone] Encounter Details Date Type Department Care Team Description 10/01/2020 SCAN Medical Records [address] [place] [address] Isauro Kaur MD Social History Tobacco Use Types Packs/Day Years [...] file Not on file Not on file COVID-19 Exposure Response Date Recorded In the last month, have you been in contact with someone who was confirmed or suspected to have Coronavirus / COVID-19? No / Unsure 09/23/2020 1:20 PM EDT documented as of this encounter Plan of Treatment Not on file documented as of this encounter Visit Diagnoses Not on filedocumented in this encounter Additional Health Concerns Infection Onset Date Last Indicated Resolved Time COVID-19 Comment:Patient reports positive COVID test on 06/1206/12/2021 06/18/2021 08/24/2021 1:[address] COVID-19 Comment:Positive test on 06/0806/08/2023 06/09/2023 11:25 AM EDT documented as of this encounter Care Teams Manager Security And Safety Relationship Specialty Start Date End Date Radha Ramirez MD [address] [place] [address] PCP - General Internal Medicine 07/08/20 10/27/20 Tristen Alejandro PA-C [address] [place] [address] PCP - General Internal Medicine 10/28/20 11/16/20 Radha Ramirez MD [address] [place] [address] PCP - General Internal Medicine 11/17/20 11/17/20 Tristen Alejandro PA-C [address] [place] [address] PCP - General Internal Medicine 11/18/20 documented as of this encounter
--- OUTSIDE RECORDS SUMMARY | 2024-08-27 13:40 | XMS_ITS | Encounter Summary ---
Author Organization [facility] Address [address] [place] [address] Care Team Providers Care Wheel Polisher Name Role Phone Tristen Aljeandro PA-C Primary Care Provider [phone] Encounter Details Date Type Department Care Team Description 04/07/2022 Orders Only Medical Records [address] [place] [address] Abstract, Provider Bloating Social History Tobacco Use Types Packs/Day Years [...] Exposure Response Date Recorded In the last 10 days, have larry u been in contact with someone who was confirmed or suspected to have Coronavirus/COVID-19? No / Unsure 04/04/2022 12:54 PM EDT documented as of this encounter Plan of Treatment Not on file documented as of this encounter Procedures Procedure Name Priority Date/Time Associated Diagnosis Comments CHG RADIOLOGIC EXAM UPR GI T RC DOUBLE CONTRAST STUDY Routine 04/07/2022 Bloating documented in this encounter Results * CHG RADIOLOGIC EXAM UPR GI TRC DOUBLE CONTRAST STUDY (04/07/2022) Irena Lozano MD OUTSIDE RADIOLOGY documented in this encounter Visit Diagnoses Diagnosis Bloating Flatulence, eructation, and gas pain documented in this encounter Additional Health Concerns Infection Onset Date Last Indicated Resolved Time COVID-19 Comment:Positive test on 06/0806/08/2023 06/09/2023 4 11:25 AM EDT documented as of this encounter Care Teams Wheel Polisher Relationship Specialty Start Date End Date Tristen Alejandro PA-C [address] [place] [address] PCP - General Internal Medicine 11/18/20 documented as of this encounter
--- OUTSIDE RECORDS SUMMARY | 2024-08-27 13:40 | XMS_ITS | Encounter Summary ---
Author Organization [facility] Address [address] [place] [address] Care Team Providers Care Extrusion Engineer Name Role Phone Tristen Alejandro PA-C Primary Care Provider [phone] Encounter Details Date Type Department Care Team Description 05/25/2023 Hospital Medical Records [address] [place] [address] Ankush Valdez MD Social History Tobacco Use Types Packs/Day [...] Recorded In the last 10 days, have yo u been in contact with someone who was confirmed or suspected to have Coronavirus/COVID-19? No / Unsure 05/11/2023 10:06 AM EDT documented as of this encounter Plan of Treatment Not on file documented as of this encounter Visit Diagnoses Not on filedocumented in this encounter Additional Health Concerns Infection Onset Date Last Indicated Resolved Time COVID-19 Comment:Positive test on 06/0806/08/2023 06/09/2023 11:25 AM EDT documented as of this encounter Care Teams Extrusion Engineer Relationship Specialty Start Date End Date Tristen Alejandro PA-C [address] [place] [address] PCP - General Internal Medicine 11/18/20 documented as of this encounter
--- OUTSIDE RECORDS SUMMARY | 2024-08-27 13:40 | XMS_ITS | Encounter Summary ---
Author Organization [facility] Address [address] [place] [address] Care Team Providers Care Soda Column Operator Name Role Phone Tristen Alejandro PA-C Primary Care Provider [phone] Reason for Visit * Reason Onset Date Comments Letter 06/06/2022 Encounter Details Date Type Department Care Team Description 06/06/2022 Telephone Adult Medicine [facility] [address] [place], [place] [id number] Tristen Alejandro PA-C [address] [place] [address] Letter Social History Tobacco Use Types Packs/Day Years [...] encounter Miscellaneous Notes * Telephone Encounter - Giovanna Rodriguez - 06/20/2022 2:40 PM EST No release has been scanned in to emr and the original letter is no longer in ppu Not sure what happened with letter * Telephone Encounter - La SommerP.NJose - 06/20/2022 1:59 PM EST Spoke with Giovanna Bermudez and she will check to see if MARIMAR is scanned and ok to fax if it was signed... * Telephone Encounter - Mavis Mccallum - 06/20/2022 11:16 AM EST Patient states she came in and signed an MARIMAR. Patient was wondering if letter has been sent yet. Please advise * Telephone Encounter - Miles Delcid - 06/10/2022 2:00 PM EST Patient coming in Monday to sign release , states she was already called about this today and will be coming in 06/13/22 to sign release , States if not 06/13/22 then 06/14/22 please advise * Telephone Encounter - Giovanna Rodriguez - 06/09/2022 4:46 PM EST Was there a signed release giving us permission to fax?? Otherwise We can not fax it , will place in ppu * Telephone Encounter - Sheba Griffith - 06/09/2022 11:23 AM EST Patient would like this faxed to: [phone] as soon as possible. Jury Duty date is scheduled for06/24/22 * Telephone Encounter - Tristen Alejandro PA-C - 06/07/2022 3:50 PM EST Ok will print * Telephone Encounter - Malik Barrera - 06/07/2022 3:18 PM EST Bsr sent to [facility] pool, re routed. Patient would like a call once we received a fax confirmation * Telephone Encounter - Miles Delcid - 06/06/2022 1:33 PM EST Letter requested for: Excusing from Jury Reason for letter: Mental Health Issues Specific notations needed in body of letter: Patient is excused from jury service Date needed for completion: as soon as possible When completed: Fax to other office/MD at fax # [phone] Badge # [id number] [phone] attention to office submissioner Requiring letter to be signed by provider to make it so she cant do to jury service documented in this encounter Plan of Treatment Not on file documented as of this encounter Visit Diagnoses Not on filedocumented in this encounter Additional Health Concerns Infection Onset Date Last Indicated Resolved Time COVID-19 Comment:Positive test on 06/0806/08/2023 06/09/2023 11:25 AM EDT documented as of this encounter Care Teams Soda Column Operator Relationship Specialty Start Date End Date Tristen Alejandro PA-C [address] [place] [address] PCP - General Internal Medicine 11/18/20 documented as of this encounter
--- OUTSIDE RECORDS SUMMARY | 2024-08-27 13:40 | XMS_ITS | Encounter Summary ---
Author Organization [facility] Address [address] [place] [address] Care Team Prov[address] Care [address] Mechanical Engineer Name Role Phone Tristen Alejandro PA-C Primary Care Provider [phone] Encounter Details Date Type Department Care Team Description 07/16/2021 Cardiac Cath Lab Manager Report Medical Records [address] [place] [address] Emre Geronimo MD Social History Tobacco Use Types Packs/Day [...] have Coronavirus / COVID-19? No / Unsure 07/14/2021 12:47 PM EST documented as of this encounter Plan of [...] documented as of this encounter Care Teams Rd Mechanical Engineer Relationship Specialty Start Date End Date Tristen Alejandro PA-C [address] [place] [address] PCP - General Internal Medicine 11/18/20 documented as of this encounter
--- OUTSIDE RECORDS SUMMARY | 2024-08-27 13:40 | XMS_ITS | Encounter Summary ---
Author Organization [facility] Address [address] [place] [address] Care Team Providers Care Bedspread Inspector Name Role Phone Tristen Alejandro PA-C Primary Care Provider [phone] Reason for Visit * Reason Onset Date Comments APPOINTMENT 07/05/2021 Encounter Details Date Type Department Care Team Description 07/05/2021 Telephone OBGYN - [place] [address] [place], [place] [id number] Benny Hernandez, DO APPOINTMENT Social History Tobacco Use Types Packs/Day Years [...] or suspected to have Coronavirus / COVID-19? Yes 06/30/2021 10:14 AM EST documented as of this encounter Miscellaneous Notes * Telephone Encounter - Celia Conner - 07/05/2021 10:35 AM EST Pt trying to be seen sooner by adult med, asking for a call back to be seen by Aretha Torres, may bereached at the above number documented in this encounter Plan of Treatment Not on file documented as of this encounter Visit Diagnoses Not on filedocumented in this encounter Additional Health Concerns Infection Onset Date Last Indicated Resolved Time COVID-19 Comment:Patient reports positive COVID test on 06/1206/12/2021 06/18/2021 08/24/2021 1:[address] COVID-19 Comment:Positive test on 06/0806/08/2023 06/09/2023 11:25 AM EDT documented as of this encounter Care Teams Bedspread Inspector Relationship Specialty Start Date End Date Tristen Alejandro PA-C [address] [place] [address] PCP - General Internal Medicine 11/18/20 documented as of this encounter
--- OUTSIDE RECORDS SUMMARY | 2024-08-27 13:40 | XMS_ITS | Encounter Summary ---
Author Organization [facility] Address [address] [place] [address] Care Team Providers Care Salon Designer Name Role Phone Tristen Alejandro PA-C Primary Care Provider [phone] Reason for Visit * Reason Onset Date Comments Provider Call Back 07/19/2022 Encounter Details Date Type Department Care Team Description 07/19/2022 Telephone Gastroenterology - [place] [address] [facility] [address] [place] [address] Irena Lozaon MD Provider Call Back Social History Tobacco Use Types Packs/Day Years [...] In the last 10 days, have larry amin been in contact with someone who was confirmed or suspected to have Coronavirus/COVID-19? No / Unsure 07/12/2022 9:50 AM EST documented as of this encounter Miscellaneous Notes * Telephone Encounter - Cyndee Gaitan M.A. - 07/25/2022 10:43 AM EST Tried calling Patient to see how she is feeling since beginning the gaviscon, left a message to call the office * Telephone Encounter - Cyndee Gaitan M.A. - 07/20/2022 11:12 AM EST I know I did make her aware of this she wanted me toask from that time and all the stress she has been having if she could have a Ulcer now from all the stress she has been going through * Telephone Encounter - Cyndee Gaitan M.A. - 07/20/2022 10:14 AM EST Patient states she would like to try the liquid gaviscon, Patient is asking do you think this couldbe a ulcer she did have a upper 12/30/21. Is there any other way she can rule out if there is a ulcer other then a Upper please advise Medication is pending * Telephone Encounter - Cyndee Gaitan M.A. - 07/19/2022 3:06 PM EST Patient states Famotidine is not working for her after she eats she feels like as if she was punch in the stomach , along with back pain and feeling nausous. Pain last for a a few hours. Patient is also is gassy and is belching a lot. Please advise * Telephone Encounter - Daisha Lomeli - 07/19/2022 2:47 PM EST Pt called st famotidine (PEPCID) 20 MG tablet is not working and it feels like she is being punchedin the stomach for a long time after eating along with back pain nausea and a lot of belching. Please advise [phone] documented in this encounter Plan of Treatment Not on file documented as of this encounter Visit Diagnoses Not on filedocumented in this encounter Additional Health Concerns Infection Onset Date Last Indicated Resolved Time COVID-19 Comment:Positive test on 06/0806/08/2023 06/09/2023 4 11:25 AM EDT documented as of this encounter Care Teams Salon Designer Relationship Specialty Start Date End Date Tristen Alejandro PA-C [address] [place] [address] PCP - General Internal Medicine 11/18/20 documented as of this encounter
--- OUTSIDE RECORDS SUMMARY | 2024-08-27 13:40 | XMS_ITS | Encounter Summary ---
Author Organization [facility] Address [address] [place] [address] Care Team Providers Care Senior Mobile Developer Name Role Phone Tristen Alejandro PA-C Primary Care Provider [phone] Reason for Visit * Reason Comments E-prescribe Rx Request Encounter Details Date Type Department Care Team Description 02/08/2023 Refill Gastroenterology - [address] [place] [address] Irena Lozano MD E-prescribe Rx Request Social History Tobacco Use [...] suspected to have Coronavirus/COVID-19? No / Unsure 01/26/2023 1:18 PM EDT documented as of this encounter Miscellaneous Notes * Telephone Encounter - Cyndee Gaitan M.A. - 02/08/2023 10:01 AM EDT Thomas - 09/29/2022 Nov - unknown documented in this encounter Plan of Treatment Not on file documented as of this encounter Visit Diagnoses Not on filedocumented in this encounter Additional Health Concerns Infection Onset Date Last Indicated Resolved Time COVID-19 Comment:Positive test on 06/0806/08/2023 06/09/2023 11:25 AM EDT documented as of this encounter Care Teams Senior Mobile Developer Relationship Specialty Start Date End Date Tristen Alejandro PA-C [address] [place] [address] PCP - General Internal Medicine 11/18/20 documented as of this encounter
--- OUTSIDE RECORDS SUMMARY | 2024-08-27 13:40 | XMS_ITS | Encounter Summary ---
Author Organization [facility] Address [address] [place] [address] Care Team Providers Care Miller Kiln Dried Salt Name Role Phone Radha Ramirez MD Primary Care Provider [phone] Tristen Alejandro PA-C Primary Care Provider [phone] Radha Ramirez MD Primary Care Provider [phone] Tristen Alejandro PA-C Primary Care Provider [phone] Radha Ramirez MD Primary Care Provider [phone] Tristen Alejandro PA-C Primary Care Provider [phone] Reason for Visit * Reason Onset Date Comments TEST RESULTS 02/14/2020 Encounter Details Date Type Department Care Team Description 02/14/2020 Telephone Gastroenterology - [place] [address] [facility] [address] [place] [address] Francisco Chau MD [address] [place] [address] [id number] TEST RESULTS Social History Tobacco Use Types Packs/Day Years [...] encounter Miscellaneous Notes * Telephone Encounter - Dilma Hoang M.A. - 02/18/2020 10:55 AM EDT Called patient left message for a call back * Telephone Encounter - Bhavik Crow PA-C - 02/17/2020 2:[address] Chau sent her the results 6 days ago. It states: The gastric biopsies taken during the endoscopy show mild inflammation which may have been caused by irritants. These irritants are such as gastric acid, bile, nonsteroidal medications example ibuprofen, Aleve, caffeine, nicotine or alcohol. Please try to avoid these irritants as much as possible. You may also use an ayol-wcb-liwebnv acid reducing agent such as Zantac or Pepcid, Tums, omeprazole etc. when necessary. ??Please follow up in order to discuss these findings with the referring physician at [facility] gastroenterology clinic. Pt can make a f/u appt with me if still having problems. Can be a video visit * Telephone Encounter - Dilma Hoang M.A. - 02/17/2020 9:37 AM EDT Patient would like results of EDG. Patient is still having syptoms. I asked Lucille to rebook her follow up * Telephone Encounter - Lucille Qureshi - 02/17/2020 9:26 AM EDT Patient called again for the results of this test. Patient continues to have pain and is concerned about her symptoms. Patient would like a call back from the doctor. * Telephone Encounter - Von Leo - 02/14/2020 2:56 PM EDT Inform patient: ANY URGENT OR ABNORMAL RESULTS WIILL RESULT IN A CALL BACK TO THE PATIENT ARON. Type of test: :EDG Date test was performed: 01/28/2020 Where was the test performed: [facility] Who ordered this test?: Anahi Chau Is the doctor here today?: YES Can the message wait until the doctor returns?: NO IF PATIENT'S PCP IS NOT IN INSTRUCT PATIENT THAT THEY WILL RECEIVE A CALL BACK WHEN THE PCP IS IN THE OFFICE NEXT. documented in this encounter Plan of Treatment Not on file documented as of this encounter Visit Diagnoses Not on filedocumented in this encounter Additional Health Concerns Infection Onset Date Last Indicated Resolved Time COVID-19 Comment:Patient reports positive COVID test on 06/1206/12/2021 06/18/2021 08/24/2021 1:[address] COVID-19 Comment:Positive test on 06/0806/08/2023 06/09/2023 11:25 AM EDT documented as of this encounter Care Teams Miller Kiln Dried Salt Relationship Specialty Start Date End Date Radha Ramirez MD [address] [place] [address] PCP - General Internal Medicine 03/27/19 05/03/20 Tristen Alejandro PA-C [address] [place] [address] PCP - General Internal Medicine 05/04/20 07/07/20 Radha Ramirez MD [address] [place] [address] PCP - General Internal Medicine 07/08/20 10/27/20 Tristen Alejandro PA-C [address] [place] [address] PCP - General Internal Medicine 10/28/20 11/16/20 Radha Ramirez MD [address] [place] [address] PCP - General Internal Medicine 11/17/20 11/17/20 Tristen Alejandro PA-C [address] [place] [address] PCP - General Internal Medicine 11/18/20 documented as of this encounter
--- OUTSIDE RECORDS SUMMARY | 2024-08-27 13:40 | XMS_ITS | Encounter Summary ---
Author Organization [facility] Address [address] [place] [address] Care Team Providers Care Devops Name Role Phone Radha Ramirez MD Primary Care Provider [phone] Tristen Alejandro PA-C Primary Care Provider [phone] Radha Ramirez MD Primary Care Provider [phone] Tristen Alejandro PA-C Primary Care Provider [phone] Radha Ramirez MD Primary Care Provider [phone] Tristen Alejandro PA-C Primary Care Provider [phone] Reason for Visit * Reason Onset Date Comments APPOINTMENT 02/07/2020 Encounter Details Date Type Department Care Team Description 02/07/2020 Telephone Medicine/Pediatrics [address] [id number] Radha Ramirez MD [address] [place] [address] [id number] APPOINTMENT Social History Tobacco Use Types Packs/Day [...] encounter Miscellaneous Notes * Telephone Encounter - Nely Duncan - 02/07/2020 10:34 AM EDT Once the referrals department works on this order we will notify patient of referral details. Orders are worked in the order they are received. Thank You, Nely Referrals Utility Hand * Telephone Encounter - Amanda Vargas R.N. - 02/07/2020 10:26 AM EDT Spoke wit patient and informed if symptoms r worsening should go to ER also infomred will get letter in mail with appt day and time takes a few weeks to get all approval for insurance and set up appt,. But will send message to refferals. * Telephone Encounter - Sangeeta Mendiola NP - 02/07/2020 10:19 AM EDT I did have a suspicion for anxiety component when I saw her. But if sx worsen please go to ED * Telephone Encounter - Sangeeta Mendiola NP - 02/07/2020 10:17 AM EDT Can we please triage - go to ED if worsening. Also is there a scheduling pool to route this to regarding status of referral? * Telephone Encounter - Hailee Cohen - 02/07/2020 10:13 AM EDT Pt calling in states she seen Sangeeta Pickering On 02/02 was referred out to Neurology and States provider told her to cb on Monday if she hadnt heard about appt. Caller also states that she is feeling even more dizziness than the day of appt. documented in this encounter Plan of Treatment Not on file documented as of this encounter Visit Diagnoses Not on filedocumented in this encounter Additional Health Concerns Infection Onset Date Last Indicated Resolved Time COVID-19 Comment:Patient reports positive COVID test on 06/1206/12/2021 06/18/2021 08/24/2021 1:[address] COVID-19 Comment:Positive test on 06/0806/08/2023 06/09/2023 11:25 AM EDT documented as of this encounter Care Teams Devops Relationship Specialty Start Date End Date Radha Ramirez MD [address] [place] [address] PCP - General Internal Medicine 03/27/19 05/03/20 Tristen Alejandro PA-C [address] [place] [address] PCP - General Internal Medicine 05/04/20 07/07/20 Radha Ramirez MD [address] [place] [address] PCP - General Internal Medicine 07/08/20 10/27/20 Tristen Alejandro PA-C [address] [place] [address] PCP - General Internal Medicine 10/28/20 11/16/20 Radha Ramirez MD [address] [place] [address] PCP - General Internal Medicine 11/17/20 11/17/20 Tristen Alejandro PA-C [address] [place] [address] PCP - General Internal Medicine 11/18/20 documented as of this encounter
--- OUTSIDE RECORDS SUMMARY | 2024-08-27 13:40 | XMS_ITS | Encounter Summary ---
Author Organization [facility] Address [address] [place] [address] Care Team Providers Care Simulation Tech Name Role Phone Radha Ramirez MD Primary Care Provider [phone] Tristen Alejandro PA-C Primary Care Provider [phone] Radha Ramirez MD Primary Care Provider [phone] Tristen Alejandro PA-C Primary Care Provider [phone] Radha Ramirez MD Primary Care Provider [phone] Tristen Alejandro PA-C Primary Care Provider [phone] Encounter Details Date Type Department Care Team Description 02/27/2020 Integration Analyst Report Medical Records [address] [place] [address] Clare Mejia MD Social History Tobacco Use Types Packs/Day [...] on file documented as of this encounter Plan of [...] documented as of this encounter Care Teams Simulation Tech Relationship Specialty Start Date End Date Radha Ramirez MD [address] [place] [address] PCP - General Internal Medicine 03/27/19 05/03/20 Tristen Alejandro PA-C [address] [place] [address] PCP - General Internal Medicine 05/04/20 07/07/20 Radha Ramirez MD [address] [place] [address] PCP - General Internal Medicine 07/08/20 10/27/20 Tristen Alejandro PA-C [address] [place] [address] PCP - General Internal Medicine 10/28/20 11/16/20 Radha Ramirez MD [address] [place] [address] PCP - General Internal Medicine 11/17/20 11/17/20 Tristen Alejandro PA-C [address] [place] [address] PCP - General Internal Medicine 11/18/20 documented as of this encounter
--- OUTSIDE RECORDS SUMMARY | 2024-08-27 13:40 | XMS_ITS | Encounter Summary ---
Author Organization [facility] Address [address] [place] [address] Care Team Providers Care Emergency Management Program Specialist Name Role Phone Tristen Alejandro PA-C Primary Care Provider [phone] Encounter Details Date Type Department Care Team Description 05/13/2022 Orders Only OBGYN - [facility] [address] [place] [address] Alison Palomino, [facility] [address] [place] [address] Mastalgia Social History Tobacco Use Types Packs/Day Years [...] suspected to have Coronavirus/COVID-19? No / Unsure 05/05/2022 12:16 PM EDT documented as of this encounter Plan of Treatment Not on file documented as of this encounter Procedures Procedure Name Priority Date/Time Associated Diagnosis Comments SONO BREAST, COMPLETE Routine 05/13/2022 Mastalgia DX MAMMO INCL CAD BI Routine 05/13/2022 Mastalgia documented in this encounter Results * SONO BREAST, COMPLETE (05/13/2022) Alison Palomino CNM MAMMOGRAPHY * DX MAMMO INCL CAD BI (05/13/2022) Alison Palomino CNM MAMMOGRAPHY documented in this encounter Visit Diagnoses Diagnosis Mastalgia Mastodynia documented in this encounter Additional Health Concerns Infection Onset Date Last Indicated Resolved Time COVID-19 Comment:Positive test on 06/0806/08/2023 06/09/2023 4 11:25 AM EDT documented as of this encounter Care Teams Emergency Management Program Specialist Relationship Specialty Start Date End Date Tristen Alejandro PA-C [address] [place] [address] PCP - General Internal Medicine 11/18/20 documented as of this encounter
--- OUTSIDE RECORDS SUMMARY | 2024-08-27 13:40 | XMS_ITS | Encounter Summary ---
Author Organization [facility] Address [address] [place] [address] Care Team Providers Care Control Tower Operator Name Role Phone Tristen Alejandro PA-C Primary Care Provider [phone] Radha Ramirez MD Primary Care Provider [phone] Tristen Alejandro PA-C Primary Care Provider [phone] Encounter Details Date Type Department Care Team Description 11/02/2020 Release of Information Medical Records [address] [place] [id number] [place] [address] Social History Tobacco Use Types Packs/Day Years [...] have Coronavirus / COVID-19? No / Unsure 11/02/2020 10:05 AM EDT documented as of this encounter [...] documented as of this encounter Care Teams Control Tower Operator Relationship Specialty Start Date End Date Tristen Alejandro PA-C [address] [place] [address] PCP - General Internal Medicine 10/28/20 11/16/20 Radha Ramirez MD [address] [place] [address] PCP - General Internal Medicine 11/17/20 11/17/20 Tristen Alejandro PA-C [address] [place] [address] PCP - General Internal Medicine 11/18/20 documented as of this encounter
--- OUTSIDE RECORDS SUMMARY | 2024-08-27 13:40 | XMS_ITS | Encounter Summary ---
Author Organization [facility] Address [address] [place] [address] Care Team Providers Care It Consulting Director Name Role Phone Tristen Alejandro PA-C Primary Care Provider [phone] Encounter Details Date Type Department Care Team Description 01/18/2022 Teacher Asst Report Medical Records [address] [place] [address] Meir Georges MD Social History Tobacco Use Types Packs/Day [...] suspected to have Coronavirus/COVID-19? No / Unsure 01/04/2022 9:44 AM EDT documented as of this encounter Plan of Treatment Not on file documented as of this encounter Visit Diagnoses Not on filedocumented in this encounter Additional Health Concerns Infection Onset Date Last Indicated Resolved Time COVID-19 Comment:Positive test on 06/0806/08/2023 06/09/2023 11:25 AM EDT documented as of this encounter Care Teams It Consulting Director Relationship Specialty Start Date End Date Tristen Alejandro PA-C [address] [place] [address] PCP - General Internal Medicine 11/18/20 documented as of this encounter
--- OUTSIDE RECORDS SUMMARY | 2024-08-27 13:40 | XMS_ITS | Encounter Summary ---
Author Organization [facility] Address [address] [place] [address] Care Team Providers Care County Home Demonstration Agent Name Role Phone Tristen Alejandro PA-C Primary Care Provider [phone] Encounter Details Date Type Department Care Team Description 05/10/2023 Acid Pump Operator Report Medical Records [address] [place] [address] Jennifer Krishnan MD Social History Tobacco Use Types Packs/Day [...] documented as of this encounter Care Teams County Home Demonstration Agent Relationship Specialty Start Date End Date Tristen Alejandro PA-C [address] [place] [address] PCP - General Internal Medicine 11/18/20 documented as of this encounter
--- OUTSIDE RECORDS SUMMARY | 2024-08-27 13:40 | XMS_ITS | Encounter Summary ---
Author Organization [facility] Address [address] [place] [address] Care Team Providers Care Robot Designer Name Role Phone Tristen Alejandro PA-C Primary Care Provider [phone] Encounter Details Date Type Department Care Team Description 08/13/2021 Orders Only Medical Records [address] [place] [address] Irena Lozano MD Social History Tobacco Use Types Packs/Day [...] have Coronavirus / COVID-19? No / Unsure 08/09/2021 12:19 PM EST documented as of this encounter Plan of Treatment Not on file documented as of this encounter Procedures Procedure Name Priority Date/Time Associated Diagnosis Comments OUTSIDE PATHOLOGY Routine 08/11/2021 documented in this encounter Results * OUTSIDE PATHOLOGY (08/11/2021) Irena Lozano MD OUTSIDE LAB documented in this encounter Visit Diagnoses Not on filedocumented in this encounter Additional Health Concerns Infection Onset Date Last Indicated Resolved Time COVID-19 Comment:Patient reports positive COVID test on 06/1206/12/2021 06/18/2021 08/24/2021 1:[address] COVID-19 Comment:Positive test on 06/0806/08/2023 06/09/2023 11:25 AM EDT documented as of this encounter Care Teams Robot Designer Relationship Specialty Start Date End Date Tristen Alejandro PA-C [address] [place] [address] PCP - General Internal Medicine 11/18/20 documented as of this encounter
--- OUTSIDE RECORDS SUMMARY | 2024-08-27 13:40 | XMS_ITS | Encounter Summary ---
Author Organization [facility] Address [address] [place] [address] Care Team Providers Care Mule Driver Name Role Phone Rupa Potter MD Primary Care Provider Un available Radha Ramirez MD Primary Care Provider Tristen Alejandro PA-C Primary Care Provider [phone] Radha Ramirez MD Primary Care Provider Tristen Alejandro PA-C Primary Care Provider [phone] Radha Ramirez MD Primary Care Provider Tristen Alejandro PA-C Primary Care Provider [phone] Reason for Visit * Reason Onset Date Comments Pain, LLQ ABDOMINAL 06/30/2018 nausea 06/30/2018 Encounter Details Date Type Department Care Team Description 06/30/2018 Telephone Adult Urgent Care - [address] [address] Rupa Potter MD Pain, LLQ ABDOMINAL; nausea Social History Tobacco Use Types Packs/Day Years [...] encounter Miscellaneous Notes * Telephone Encounter - Gwen Lomeli L.P.N. - 06/30/2018 8:48 AM EST Left lower back area X 2 weeks Nausea Almost fainted Feels like something in her back 7-8/10 pain scale States pain comes and goes Patient advised to seek care at the Emergency Room. * Telephone Encounter - Karlene Castaneda - 06/30/2018 8:37 AM EST Symptoms patient is presenting: left side pain. Makes her feel something she needs to pass out. If pain or injury related was it due to an accident at work or from a motor vehicle accident? NO If yes, gather 3rd democrat insurance information Date of accident/Injury: na How long has patient had these symptoms?: this week PCP: Rupa Potter Payor: [employer] FFS / Plan: [employer] / Product Type: MEDICAID RISK documented in this encounter Plan of Treatment Not on file documented as of this encounter Visit Diagnoses Not on filedocumented in this encounter Additional Health Concerns Infection Onset Date Last Indicated Resolved Time COVID-19 Comment:Patient reports positive COVID test on 06/1206/12/2021 06/18/2021 08/24/2021 1:[address] COVID-19 Comment:Positive test on 06/0806/08/2023 06/09/2023 11:25 AM EDT documented as of this encounter Care Teams Mule Driver Relationship Specialty Start Date End Date Rupa Potter MD PCP - General Internal Medicine 04/08/18 Radha Ramirez MD [address] [place] [address] PCP - General Internal Medicine 03/27/19 05/03/20 Tristen Alejandro PA-C [address] [place] [address] PCP - General Internal Medicine 05/04/20 07/07/20 Radha Ramirez MD [address] [place] [address] PCP - General Internal Medicine 07/08/20 10/27/20 Tristen Alejandro PA-C [address] [place] [address] PCP - General Internal Medicine 10/28/20 11/16/20 Radha Ramirez MD [address] [place] [address] PCP - General Internal Medicine 11/17/20 11/17/20 Tristen Alejandro PA-C [address] [place] [address] PCP - General Internal Medicine 11/18/20 documented as of this encounter
--- OUTSIDE RECORDS SUMMARY | 2024-08-27 13:40 | XMS_ITS | Encounter Summary ---
Author Organization [facility] Address [address] [place] [address] Care Team Providers Care Serology Teacher Name Role Phone Radha Ramirez MD Primary Care Provider [phone] Tristen Alejandro PA-C Primary Care Provider [phone] Radha Ramirez MD Primary Care Provider [phone] Tristen Alejandro PA-C Primary Care Provider [phone] Radha Ramirez MD Primary Care Provider [phone] Tristen Alejandro PA-C Primary Care Provider [phone] Reason for Visit * Reason Onset Date Comments TEST RESULTS 04/29/2019 Encounter Details Date Type Department Care Team Description 04/29/2019 Telephone Adult Medicine [address] [id number] Radha Ramirez MD [address] [place] [address] [id number] TEST RESULTS Social History Tobacco Use Types [...] encounter Miscellaneous Notes * Telephone Encounter - Sangeeta Mendiola NP - 04/29/2019 2:[address] scan just done less than hr ago. Waiting on reults. * Telephone Encounter - Autumn Guy M.A. - 04/29/2019 2:25 PM EDT Patient just had this doen at 2 p.m., would you please call her when you receive the results. Sandro * Telephone Encounter - Gail Guardado - 04/29/2019 2:10 PM EDT Inform patient: ANY URGENT OR ABNORMAL RESULTS WIILL RESULT IN A CALL BACK TO THE PATIENT ARON. Patient very anxious to get the results ARON. Asking for a call Type of test: :ct scan Date test was performed: 04/29/19 Where was the test performed: rb Who ordered this test?: Viola Mendiola Is the doctor here today?: YES Can [...] documented as of this encounter Care Teams Serology Teacher Relationship Specialty Start Date End Date Radha Ramirez MD [address] [place] [address] PCP - General Internal Medicine 03/27/19 05/03/20 Tristen Alejandro PA-C [address] [place] [address] PCP - General Internal Medicine 05/04/20 07/07/20 Radha Ramirez MD [address] [place] [address] PCP - General Internal Medicine 07/08/20 10/27/20 Tristen Alejandro PA-C [address] [place] [address] PCP - General Internal Medicine 10/28/20 11/16/20 Radha Ramirez MD [address] [place] [address] PCP - General Internal Medicine 11/17/20 11/17/20 Tristen Alejandro PA-C [address] [place] [address] PCP - General Internal Medicine 11/18/20 documented as of this encounter
--- OUTSIDE RECORDS SUMMARY | 2024-08-27 13:40 | XMS_ITS | Encounter Summary ---
Author Organization [facility] Address [address] [place] [address] Care Team Providers Care Tint Layer Name Role Phone Rupa Potter MD Primary Care Provider Un available Radha Ramirez MD Primary Care Provider [phone] Tristen Alejandro PA-C Primary Care Provider [phone] Radha Ramirez MD Primary Care Provider Tristen Alejandro PA-C Primary Care Provider [phone] Radha Ramirez MD Primary Care Provider [phone] Tristen Alejandro PA-C Primary Care Provider [phone] Reason for Visit * Reason Onset Date Comments Abdominal Pain 11/12/2018 vaginal problems 11/12/2018 Walk In 11/12/2018 Encounter Details Date Type Department Care Team Description 11/12/2018 Telephone Adult Medicine [address] [phone] Rupa Potter MD Abdominal Pain; vaginal problems; Walk In Social History Tobacco Use Types Packs/Day Years [...] encounter Miscellaneous Notes * Telephone Encounter - Wanda Benton RN - 11/12/2018 10:00 AM EDT Patient has had heavy feeling in her abdomen with nausea x 5 days. Starts with a sharp pin mid upper abdomen hen has feeling like she needs to vomit. No vomiting. No diarrhea. Has had fatigue. Is eating and drinking as normal. Denies fever. Patient states she has had unprotected sex recently and has concern for . Had STD testing after that incident that was negative . Took home pregnancytest yesterday and is negative. Is very anxious about being . States is due for her mense this week. Also had a breakfast sandwich on and is concerned for food born illness. Has frequent urination, no burning with urination but urine has a funny odor. Recent yeast infection that cleared up. Denies chest pain, shortness of breath. Patient scheduled with Raheel menchacaorrow at 10am Patient will call if she develops worsening symptoms * Telephone Encounter - Joy Gamboa - 11/12/2018 9:45 AM EDT Symptoms patient is presenting: PATIENT HAVE ABDOMINAL PAIN If pain or injury related was it due to an accident at work or from a motor vehicle accident? NO If yes, gather 3rd libertarian insurance information Date of accident/Injury: How long has patient had these symptoms?: 11/07/18 PCP: Rupa Potter Payor: [employer] FFS / [facility] [employer] / Product Type: MEDICAID RISK documented [...] documented as of this encounter Care Teams Tint Layer Relationship Specialty Start Date End Date Rupa Potter MD PCP - General Internal Medicine 04/08/18 Radha Ramirez MD [address] [place] [address] PCP - General Internal Medicine 03/27/19 05/03/20 Tristen Alejandro PA-C [address] [place] [address] PCP - General Internal Medicine 05/04/20 07/07/20 Radha Ramirez MD [address] [place] [address] PCP - General Internal Medicine 07/08/20 10/27/20 Tristen Alejandro PA-C [address] [place] [address] PCP - General Internal Medicine 10/28/20 11/16/20 Radha Ramirez MD [address] [place] [address] PCP - General Internal Medicine 11/17/20 11/17/20 Tristen Alejandro PA-C [address] [place] [address] PCP - General Internal Medicine 11/18/20 documented as of this encounter
--- OUTSIDE RECORDS SUMMARY | 2024-08-27 13:40 | XMS_ITS | Encounter Summary ---
Author Organization [facility] Address [address] [place] [address] Care Team Providers Care Certified Adaptive Physical Educator Name Role Phone Tristen Aleajndro PA-C Primary Care Provider [phone] Encounter Details Date Type Department Care Team Description 06/14/2022 Telephone Adult [facility] [address] [place] [address] Tristen Alejandro PA-C [address] [place] [address] Social History Tobacco Use Types Packs/Day Years [...] documented as of this encounter Care Teams Certified Adaptive Physical Educator Relationship Specialty Start Date End Date Tristen Alejandro PA-C [address] [place] [address] PCP - General Internal Medicine 11/18/20 documented as of this encounter
--- OUTSIDE RECORDS SUMMARY | 2024-08-27 13:40 | XMS_ITS | Encounter Summary ---
Author Organization [facility] Address [address] [place] [address] Care Team Providers Care Roller Cleaner Name Role Phone Rupa Potter MD Primary Care Provider Un available Tristen García Primary Care Provider Unavail able Rupa Potter MD Primary Care Provider Un available Radha Ramirez MD Primary Care Provider [phone] Tristen Alejandro PA-C Primary Care Provider [phone] Radha Ramirez MD Primary Care Provider Tristen Alejandro PA-C Primary Care Provider [phone] Radha Ramirez MD Primary Care Provider [phone] Trisetn Alejandro PA-C Primary Care Provider [phone] Encounter Details Date Type Department Care Team Description 08/29/2016 Hospital Medical Records [address] [place] [address] Abstract, Provider Social History Tobacco Use Types Packs/Day Years [...] documented as of this encounter Care Teams Roller Cleaner Relationship Specialty Start Date End Date Rupa Potter MD PCP - General Internal Medicine 03/23/18 Tristen García PCP - General Internal Medicine 03/24/18 04/06/18 Rupa Potter MD PCP - General Internal Medicine 04/08/18 Radha Ramirez MD [address] [place] [address] PCP - General Internal Medicine 03/27/19 05/03/20 Tristen Alejandro PA-C [address] [place] [address] PCP - General Internal Medicine 05/04/20 07/07/20 Radha Ramirez MD [address] [place] [address] PCP - General Internal Medicine 07/08/20 10/27/20 Tristen Alejandro PA-C [address] [place] [address] PCP - General Internal Medicine 10/28/20 11/16/20 Radha Ramirez MD [address] [place] [address] PCP - General Internal Medicine 11/17/20 11/17/20 Tristen Alejandro PA-C [address] [place] [address] PCP - General Internal Medicine 11/18/20 documented as of this encounter
--- OUTSIDE RECORDS SUMMARY | 2024-08-27 13:40 | XMS_ITS | Encounter Summary ---
Author Organization [facility] Address [address] [place] [address] Care Team Providers Care Carcass Trimmer Name Role Phone Tristen Alejandro PA-C Primary Care Provider [phone] Encounter Details Date Type Department Care Team Description 03/07/2022 Telephone Gastroenterology - [place] [address] [facility] [address] [place] [address] Irena Lozano MD Social History Tobacco Use [...] Telephone Encounter - Cyndee Gaitan M.A. - 03/08/2022 1:20 PM EDT Patient is scheduled for Upper GI series over [facility], Patient needs to arrive over atPatient registration for 8:10am. Patient is to have nothing to eat or drink after midnight. Need tobring a photo ID and insurance card. Called and made Patient aware. * Telephone Encounter - Irena Lozano MD - 03/07/2022 6:54 PM EDT Will order an UGI series for further evaluation. This will show if there is an obstruction. * Telephone Encounter - Cyndee Gaitan M.A. - 03/07/2022 3:59 PM EDT Patient is calling in , she states that for the last 4 days. Patient feels like something is stuck in her belly. She becomes bloated after she eats solid foods , very gassy. Lower left abdomin feels like there is pressure as if someone was pressing on her abdomin its not a pain but a discomfort. She had a third opinion on from Dr. Goldsmith regarding Fibromyalgia, he did confirm Patient does have Fibr omyalgia could all her issue she is having be associated with Fibromyalgia ? Patient would like to be seen sooner but I have no sooner appointments available with any provider. Please advise documented in this encounter Plan of Treatment Not on file documented as of this encounter Results * [facility]G RADIOLOGIC EXAM UPR GI TRC DOUBLE CONTRAST STUDY (04/07/2022) Irena Lozano MD OUTSIDE RADIOLOGY documented in this encounter Visit Diagnoses Diagnosis Bloating- Primary Flatulence, eructation, and gas pain documented in this encounter Additional Health Concerns Infection Onset Date Last Indicated Resolved Time COVID-19 Comment:Positive test on 06/0806/08/2023 06/09/2023 11:25 AM EDT documented as of this encounter Care Teams Carcass Trimmer Relationship Specialty Start Date End Date Tristen Alejandro PA-C [address] [place] [address] PCP - General Internal Medicine 11/18/20 documented as of this encounter
--- OUTSIDE RECORDS SUMMARY | 2024-08-27 13:40 | XMS_ITS | Encounter Summary ---
Author Organization [facility] Address [address] [place] [address] Care Team Providers Care Svp Name Role Phone Radha Ramirez MD Primary Care Provider [phone] Tristen Alejandro PA-C Primary Care Provider [phone] Radha Ramirez MD Primary Care Provider [phone] Tristen Alejandro PA-C Primary Care Provider [phone] Encounter Details Date Type Department Care Team Description 10/09/2020 Office Machines Sales Representative Report Medical Records [address] [place] [address] Wilner Gonzalez NP Social History Tobacco Use Types Packs/Day Years [...] have Coronavirus / COVID-19? No / Unsure 10/12/2020 1:31 PM EDT documented as of this encounter [...] documented as of this encounter Care Teams Svp Relationship Specialty Start Date End Date Radha Ramirez MD [address] [place] [address] PCP - General Internal Medicine 07/08/20 10/27/20 Tristen Alejandro PA-C [address] [place] [address] PCP - General Internal Medicine 10/28/20 11/16/20 Radha Ramirez MD [address] [place] [address] PCP - General Internal Medicine 11/17/20 11/17/20 Tristen Alejandro PA-C [address] [place] [address] PCP - General Internal Medicine 11/18/20 documented as of this encounter
--- OUTSIDE RECORDS SUMMARY | 2024-08-27 13:40 | XMS_ITS | Encounter Summary ---
Author Organization [facility] Address [address] [place] [address] Care Team Providers Care Urgent Care Nurse Practitioner Name Role Phone Radha Ramirez MD Primary Care Provider [phone] Tristen Alejandro PA-C Primary Care Provider [phone] Radha Ramirez MD Primary Care Provider [phone] Tristen Alejandro PA-C Primary Care Provider [phone] Radha Ramirez MD Primary Care Provider [phone] Tristen Alejandro PA-C Primary Care Provider [phone] Reason for Visit * Reason Onset Date Comments Balance 10/23/2019 eye problems 10/23/2019 Burning Eyes 10/23/2019 shaking hands 10/23/2019 Encounter Details Date Type Department Care Team Description 10/23/2019 Telephone Adult [address] [id number] Radha Ramirez MD [address] [place] [address] [phone] Balance; eye problems; Burning Eyes; shaking hands Social History Tobacco Use Types Packs/Day Years [...] encounter Miscellaneous Notes * Telephone Encounter - Mellisa Jacome R.N. - 10/23/2019 8:43 AM EDT .Pt is C/O balance is off, she feels like she is moving in slow motion, has generalized weakness, burning in her Eyes and blurred vision in her peripheral vision She has anxiety and called her therapist and is working on her anxiety but wanted her to call her doctor, she is very concerned about the situation in the world , she is alone and has a special needschild at home Pt denies any chest pain or SOB, denies any changes in HR, no recent N/V/D or head trauma, pt has no confusion or changes in speech, no weakness or numbness,in past she has had heaviness in her rightarm , denies headache has problems with the bright sunlight ., has no dizziness , pt has recently added Emergency C to her vitamins and changed or stopped medication or caffeine intake Advised home care following the dizziness Protocol. RN reinforced telephone consultation and advice. Reviewed with the patient the signs and symptoms to watch for that would require immediate attention. If symptoms change, worsen or increase in intensity, to call back immediately. Pt has not traveled , no positive contacts and pt has not been tested or told to quarantine, negative symptom * Telephone Encounter - Makeda Quispe - 10/23/2019 8:37 AM EDT Symptoms patient is having: Pt states for the past four days she has been walking like she is off balance tipsy , her eyes have been burning, shaky hands- holdong a pen feels heavy, today she experienced blurred vision in her left eye. States this happened before in May for 3 days. This is all causing her anxiety For ALL patients calling to schedule any appointment (routine, sick visit, follow up, consult, etc.) in the outpatient setting please ask the following questions. ??? Do you have fever, cough or shortness of breath? NO ??? Have you had close contact with someone with Coronavirus in the last 14 days? NO ??? Have you traveled abroad? NO ??? Have you been to [place] or in contact with anyone who has recently been in [place]? NO If YES to either, send the call to triage and do not book If pain or injury related was it due to an accident at work or from a motor vehicle accident? NO If yes, gather 3rd constitution party insurance information Date of accident/Injury: How long has patient had these symptoms?: PCP: Radha Ramirez Payor: [employer] FFS / Plan: [employer]ANCE / Product Type: MEDICAID RISK documented [...] documented as of this encounter Care Teams Urgent Care Nurse Practitioner Relationship Specialty Start Date End Date Radha Ramirez MD [address] [place] [address] 24454 PCP - General Internal Medicine 03/27/19 05/03/20 Tristen Alejandro PA-C [address] [place] [address] PCP - General Internal Medicine 05/04/20 07/07/20 Radha Ramirez MD [address] [place] [address] 19707 PCP - General Internal Medicine 07/08/20 10/27/20 Tristen Alejandro PA-C [address] [place] [address] 85180 PCP - General Internal Medicine 10/28/20 11/16/20 Radha Ramirez MD [address] [place] [address] 66140 PCP - General Internal Medicine 11/17/20 11/17/20 Tristen Alejandro PA-C [address] [place] [address]94 PCP - General Internal Medicine 11/18/20 documented as of this encounter
--- OUTSIDE RECORDS SUMMARY | 2024-08-27 13:40 | XMS_ITS | Encounter Summary ---
Author Organization [facility] Address [address] [place] [address] Care Team Providers Care Level Vial Curvature Gauger Name Role Phone Tristen Alejandro PA-C Primary Care Provider [phone] Encounter Details Date Type Department Care Team Description 01/05/2022 Orders Only Medical Records [address] [place] [address] Irena Lozano MD Social History Tobacco Use [...] Date/Time Associated Diagnosis Comments OUTSIDE PATHOLOGY Routine 12/30/2021 documented in this encounter Results * OUTSIDE PATHOLOGY (12/30/2021) Irena Lozano MD OUTSIDE LAB documented in this encounter Visit Diagnoses Not on filedocumented in this encounter Additional Health Concerns Infection Onset Date Last Indicated Resolved Time COVID-19 Comment:Positive test on 06/0806/08/2023 06/09/2023 11:25 AM EDT documented as of this encounter Care Teams Level Vial Curvature Gauger Relationship Specialty Start Date End Date Tristen Alejandro PA-C [address] [place] [address] PCP - General Internal Medicine 11/18/20 documented as of this encounter
--- OUTSIDE RECORDS SUMMARY | 2024-08-27 13:40 | XMS_ITS | Encounter Summary ---
Author Organization [facility] Address [address] [place] [address] Care Team Providers Care Swine Extension Field Specialist Name Role Phone Tristen Alejandro PA-C Primary Care Provider [phone] Encounter Details Date Type Department Care Team Description 05/31/2022 Public Policy Associate Report Medical Records [address] [place] [address] Meir Thibodeaux MD Social History Tobacco Use Types Packs/Day [...] documented as of this encounter Care Teams Swine Extension Field Specialist Relationship Specialty Start Date End Date Tristen Alejandro PA-C [address] [place] [address] PCP - General Internal Medicine 11/18/20 documented as of this encounter
--- OUTSIDE RECORDS SUMMARY | 2024-08-27 13:40 | XMS_ITS | Clinical Summary ---
Author Organization [facility] Address [address] [place] [address] Care Team Providers Care Veneer Jointer Operator Name Role Phone Tristen Alejandro PA-C Primary Care Provider [phone] Allergies Active Allergy Reactions Severity Noted Date Comments Lactose 03/27/2018 Medications Medication Sig Dispensed Refills Start Date End Date Status ketoconazole (NIZORAL) 2 % shampoo Use as a shampoo 3 x weekly 120 mL 11 06/24/2021 Active ibuprofen (ADVIL,MOTRIN) 600 MG tablet Take 1 tablet by mouth every 6 hours as needed for Pain for up to 30 days. 30 tablet 0 06/30/2021 Active docusate sodium (COLACE) 100 MG capsule Take 1 Capsule by mouth daily. 0 11/03/2023 Active Cholecalciferol (Vitamin D3) 25 MCG (1000 UT) Tab Take 1 Tablet by mouth daily. 30 Tablet 11 01/17/2024 Active paroxetine (Paxil) 10 MG tablet Take 1 Tablet by mouth every morning for 180 days. 30 Tablet 5 03/27/2024 09/23/2024 Active trazodone (DESYREL) 50 MG tablet Take 1-3 Tablets by mouth at bedtime as needed for Sleep. 90 Tablet 5 03/27/2024 Active Active Problems Problem Noted Date Early menopause occurring in patient age younger than 45 years 09/14/2022 Overview: 2023 FSH 114 Fibromyalgia 01/04/2022 Irregular menses 12/24/2021 Last Assessment & Plan: Discussed normal frequency [...] her menses at least every 2-3 months). Pelvic pain 12/24/2021 Last Assessment & Plan: Pelvic ultrasound ordered to assess low pelvic discomfort. I discussed with the patient that based on her description of the pain it may very well be musculoskeletal. She was instructed to take Tylenol and/or Motrin and use heat pads. She is to follow-up with PCP if symptoms worsen. Wheeze 07/14/2021 Pelvic mass 10/25/2020 Last Assessment & Plan: I explained to Alyssa that there is no evidence of Special Needs Bus Driver involvement with the mass that is described. Given its very small size, I agree with Dr. Alejo that this likely represents an incidental finding of no clinical significance. I recommended she follow up with Dr. Alejo or Dr. Love if she has further abdominal pain or rectal bleeding. She agreed. [facility] Overview: EEG 03/11/2020 low-voltage fast EEG with occasional generalized paroxysmal theta bursts. Nonintractable headache 04/20/2020 Pulmonary nodule/ [address] scan 08/27/2018 Chronic abdominal pain 08/27/2018 GERD (gastroesophageal reflux disease) 1 08/14/2017 Introital dyspareunia 06/13/2018 Anxiety 06/13/2018 Overview: 07/05/2019 Followed by [facility]- therapy q 1-2 wks , Awaiting psychiatric eval to begin med regime Urinary incontinence 06/13/2018 Low back pain 06/13/2018 History of Helicobacter pylori infection 06/13/2018 Overview: Treated 2017. Small intestinal bacterial overgrowth Lactose intolerance 06/13/2018 Hematochezia 06/13/2018 Rosacea 03/28/2018 Psychosocial stressors 03/28/2018 Overview: Living in intermediate wih 3 year old son who has autism 07/05/2019 No longer in a intermediate, but limited family supports in area Varicose vein of leg 03/27/2018 Resolved Problems Problem Noted Date Resolved Date COVID-19 07/14/2021 03/29/2022 Pancreatic abnormality 08/29/2018 9 Overview: On abdominal ultrasound but normal CAT scan, MRCP pending Homeless 08/27/2018 11/27/2018 Abdominal pain 03/27/2018 09/17/2018 Family History Medical History Relation Name Comments Cancer of the Lung Father kidney ca ncer. Hypertension Father High Cholestero l Liver Disease Maternal Grandfather Diabetes Mother CA Breast Mother's side cousin in 50s autism Son CA Colon Negative Hx CA Ovarian Negative Hx Relation Name Status Comments Brother 1 Alive Brother 2 Alive Father Alive Maternal Grandfather Maternal Grandmother Mother Alive Mother's side Alive Paternal Grandfather Paternal Grandmother Sister Alive Son Social History Tobacco Use Types Packs/Day Years Used Date Smoking Tobacco: Never Smokeless Tobacco: Never Tobacco Cessation:Counseling Given: Not Answered Alcohol Use Standard Drinks/Week Comments No 0 [...] Pulse 84 04/10/2024 11:13 AM EDT Temperature 36.3 ??C (97.4 ??F) 04/10/2024 11:13 AM E DT Respiratory Rate 14 04/10/2024 11:13 AM EDT Oxygen Saturation 98% 10/19/2023 1:43 PM EDT Inhaled Oxygen Concentration - - Weight 55.6 kg (122 lb 9.6 oz) 04/10/2024 11:13 AM EDT Height 152.4 cm (5') 04/10/2024 11:13 AM EDT Body Mass Index 23.94 04/10/2024 11:13 AM EDT Plan of Treatment Health Maintenance Due Date Last Done Comments DTAP/TDAP/TD (1 - Tdap) 11/21/1998 INFLUENZA (#1) 2024 09/23/2020 (Refu sed), 03/28/2018 (Refused) MAMMOGRAM 05/17/2024 05/17/2023, 02/2023 (External Completion), 05/13/2022, Additional history exists DEPRESSION SCREENING/FOLLOWUP 07/10/2024 03/27/2024, 08/08/2023, 02/06/2023, Additional history exists SOCIAL NEEDS SCREENING 07/10/2024 08/08/2023 Covid-19 Vaccine (#1) 12/18/2024 Postpo genevieve from 05/24/1980 (Patient Refused) BASELINE HEALTH EXAM 40-64 04/10/202604/10, 03/15/2024, 02/20/2024, Additional history exists CERVICAL CANCER SCREENING 09/25/20262023, 07/31/2020, 06/27/2018 CHOLESTEROL SCREENING 04/10/2029 04/10/2024 , 08/09/2023, 08/12/2022, Additional history exists COLON CANCER SCREENING 01/21/2031 01/21/2021, 2016 PNEUMOCOCCAL VACCINE FOR HIGH RISK PATIENTS (#1) 11/21/2044 Care Teams Veneer Jointer Operator Relationship Specialty Start Date End Date Tristen Alejandro PA-C [address] [place] [address] PCP - General Internal Medicine 11/18/20
--- OUTSIDE RECORDS SUMMARY | 2024-08-27 13:40 | XMS_ITS | Encounter Summary ---
Author Organization [facility] Address [address] [place] [address] Care Team Providers Care Senior Audit Manager Name Role Phone Tristen Alejandro PA-C Primary Care Provider [phone] Encounter Details Date Type Department Care Team Description 01/11/2022 Orders Only Gastroenterology - [place] [address] [facility] [address] [place] [address] Irena Lozano MD Pancreatic mass (Primary Dx) Social History Tobacco Use Types Packs/Day Years [...] documented as of this encounter Results * CONTRAST CAT SCAN OF ABDOMEN (02/22/2022) Irena Lozano MD CT SCANS documented in this encounter Visit Diagnoses Diagnosis Pancreatic mass- Primary Unspecified disease of pancreas documented in this encounter Additional Health Concerns Infection Onset Date Last Indicated Resolved Time COVID-19 Comment:Positive test on 06/0806/08/2023 06/09/2023 4 11:25 AM EDT documented as of this encounter Care Teams Senior Audit Manager Relationship Specialty Start Date End Date Tristen Alejandro PA-C [address] [place] [address] PCP - General Internal Medicine 11/18/20 documented as of this encounter
--- OUTSIDE RECORDS SUMMARY | 2024-08-27 13:40 | XMS_ITS | Encounter Summary ---
Author Organization [facility] Address [address] [place] [address] Care Team Providers Care Senior Net Architect Name Role Phone Rupa Potter MD Primary Care Provider Un available Radha Ramirez MD Primary Care Provider [phone] Tristen Alejandro PA-C Primary Care Provider [phone] Radha Ramirez MD Primary Care Provider [phone] Tristen Alejandro PA-C Primary Care Provider [phone] Radha Ramirez MD Primary Care Provider [phone] Tristen Alejandro PA-C Primary Care Provider [phone] Reason for Visit * Reason Onset Date Comments vaginal problems 11/26/2018 Encounter Details Date Type Department Care Team Description 11/26/2018 Telephone [facility] [place] [id number] Belia Panchal DO vaginal problems Social History Tobacco Use Types Packs/Day Years [...] encounter Miscellaneous Notes * Telephone Encounter - Bhargavi Davis R.N. - 11/28/2018 12:29 PM EDT If pt calls back, she needs an appointment to be seen. Next available with any provider. We cannot order an u/s without pt being seen first * Telephone Encounter - Kia Reyna L.P.N. - 11/26/2018 5:01 PM EDT Left msg to call * Telephone Encounter - Edwina Johnson - 11/26/2018 9:46 AM EDT Chief Complaint/problem: Pt called, recently seen by Dr. Panchal -- pt is asking for Dr. Panchal to order an ultrasound for the ongoing issues she is having (irregular menses) How long has the patient had this problem? ongoing Pt???s PRECISION MECHANICAL INSTRUMENT MAKER provider: Belia Panchal DO Last menstrual period (LMP) or EDC (due date): N/A documented in this encounter Plan of Treatment Not on file documented as of this encounter Visit Diagnoses Not on filedocumented in this encounter Additional Health Concerns Infection Onset Date Last Indicated Resolved Time COVID-19 Comment:Patient reports positive COVID test on 12/4 06/12/2021 06/18/2021 08/24/2021 1:[address] COVID-19 Comment:Positive test on 06/0806/08/2023 06/09/2023 11:25 AM EDT documented as of this encounter Care Teams Senior Net Architect Relationship Specialty Start Date End Date Rupa Potter MD PCP - General Internal Medicine 04/08/18 Radha Ramirez MD [address] [place] [address] PCP - General Internal Medicine 03/27/19 05/03/20 Tristen Alejandro PA-C [address] [place] [address] PCP - General Internal Medicine 05/04/20 07/07/20 Radha Ramirez MD [address] [place] [address] PCP - General Internal Medicine 07/08/20 10/27/20 Tristen Alejandro PA-C [address] [place] [address]88 PCP - General Internal Medicine 10/28/20 11/16/20 Radha Ramirez MD [address] [place] [address] 00[address]36 PCP - General Internal Medicine 11/17/20 11/17/20 Tristen Alejandro PA-C [address] [place] [address] PCP - General Internal Medicine 11/18/20 documented as of this encounter
--- OUTSIDE RECORDS SUMMARY | 2024-08-27 13:40 | XMS_ITS | Encounter Summary ---
Author Organization [facility] Address [address] [place] [address] Care Team Providers Care Paper Cutter Name Role Phone Tristen Alejandro PA-C Primary Care Provider [phone] Reason for Visit * Reason Onset Date Comments Mychart Rx Refill 05/05/2021 Encounter Details Date Type Department Care Team Description 05/05/2021 Refill Adult Medicine [address] [address] Tristen Alejandro PA-C [address] [place] [address] Mychart Rx Refill Social History Tobacco Use Types Packs/Day Years [...] have Coronavirus / COVID-19? No / Unsure 04/30/2021 10:21 AM EDT documented as of this encounter [...] documented as of this encounter Care Teams Paper Cutter Relationship Specialty Start Date End Date Tristen Alejandro PA-C [address] [place] [address] PCP - General Internal Medicine 11/18/20 documented as of this encounter
--- OUTSIDE RECORDS SUMMARY | 2024-08-27 13:40 | XMS_ITS | Encounter Summary ---
Author Organization [facility] Address [address] [place] [address] Care Team Providers Care Beading Installer Name Role Phone Radha Ramirez MD Primary Care Provider [phone] Tristen Alejandro PA-C Primary Care Provider [phone] Radha Ramirez MD Primary Care Provider [phone] Tristen Alejandro PA-C Primary Care Provider [phone] Encounter Details Date Type Department Care Team Description 07/28/2020 Orders Only General Surgery [address] [place] [address] Rebekah Beck MD [address] [place] [address] [id number] Mastalgia Social History Tobacco Use Types Packs/Day [...] have Coronavirus / COVID-19? No / Unsure 07/31/2020 1:29 PM EST documented as of this encounter Plan of Treatment Not on file documented as of this encounter Procedures Procedure Name Priority Date/Time Associated Diagnosis Comments DX MAMMO INCL CAD BI Routine 07/28/2020 Mastalgia documented in this encounter Results * DX MAMMO INCL CAD BI (07/28/2020) Rebekah Beck MD MAMMOGRAPHY documented in this encounter Visit Diagnoses Diagnosis Mastalgia Mastodynia documented in this encounter Additional Health Concerns Infection Onset Date Last Indicated Resolved Time COVID-19 Comment:Patient reports positive COVID test on 06/1206/12/2021 06/18/2021 08/24/2021 1:[address] COVID-19 Comment:Positive test on 06/0806/08/2023 06/09/2023 11:25 AM EDT documented as of this encounter Care Teams Beading Installer Relationship Specialty Start Date End Date Radha Ramirez MD [address] [place] [address] PCP - General Internal Medicine 07/08/20 10/27/20 Tristen Alejandro PA-C [address] [place] [address] PCP - General Internal Medicine 10/28/20 11/16/20 Radha Ramirez MD [address] [place] [address] PCP - General Internal Medicine 11/17/20 11/17/20 Tristen Alejandro PA-C [address] [place] [address] PCP - General Internal Medicine 11/18/20 documented as of this encounter
--- OUTSIDE RECORDS SUMMARY | 2024-08-27 13:40 | XMS_ITS | Encounter Summary ---
Author Organization [facility] Address [address] [place] [address] Care Team Providers Care Furnace Attendant Name Role Phone Tristen Alejandro PA-C Primary Care Provider [phone] Encounter Details Date Type Department Care Team Description 02/22/2022 Orders Only Gastroenterology - [place] [address] [facility] [address] [place] [address] Irena Lozano MD Pancreatic mass Social History Tobacco Use Types Packs/Day Years [...] Procedure Name Priority Date/Time Associated Diagnosis Comments CONTRAST CAT SCAN OF ABDOMEN Routine 02/22/2022 Pancreatic mass documented in this encounter Results * CONTRAST CAT SCAN OF ABDOMEN (02/22/2022) Irena Lozano MD CT SCANS documented in this encounter Visit Diagnoses Diagnosis Pancreatic mass Unspecified disease of pancreas documented in this encounter Additional Health Concerns Infection Onset Date Last Indicated Resolved Time COVID-19 Comment:Positive test on 06/0806/08/2023 06/09/2023 4 11:25 AM EDT documented as of this encounter Care Teams Furnace Attendant Relationship Specialty Start Date End Date Tristen Alejandro PA-C [address] [place] [address] PCP - General Internal Medicine 11/18/20 documented as of this encounter
--- OUTSIDE RECORDS SUMMARY | 2024-08-27 13:40 | XMS_ITS | Encounter Summary ---
Author Organization [facility] Address [address] [place] [address] Care Team Providers Care Manager Freelance Name Role Phone Tristen Alejandro PA-C Primary Care Provider [phone] Encounter Details Date Type Department Care Team Description 04/18/2023 Transfer Records Medical Records [address] [place] [address] Abstract, Provider Social History Tobacco Use Types [...] suspected to have Coronavirus/COVID-19? No / Unsure 03/22/2023 9:44 AM EDT documented as of this encounter Plan of Treatment Not on file documented as of this encounter Visit Diagnoses Not on filedocumented in this encounter Additional Health Concerns Infection Onset Date Last Indicated Resolved Time COVID-19 Comment:Positive test on 06/0806/08/2023 06/09/2023 11:25 AM EDT documented as of this encounter Care Teams Manager Freelance Relationship Specialty Start Date End Date Tristen Alejandro PA-C [address] [place] [address] PCP - General Internal Medicine 11/18/20 documented as of this encounter
--- OUTSIDE RECORDS SUMMARY | 2024-08-27 13:40 | XMS_ITS | Encounter Summary ---
Author Organization [facility] Address [address] [place] [address] Care Team Providers Care Test Engineer Nuclear Equipment Name Role Phone Radha Ramirez MD Primary Care Provider [phone] Tristen Alejandro PA-C Primary Care Provider [phone] Radha Ramirez MD Primary Care Provider [phone] Tristen Alejandro PA-C Primary Care Provider [phone] Encounter Details Date Type Department Care Team Description 07/20/2020 Suspect Artist Supervisor Report Medical Records [address] [place] [address] Wilner Gonzalez NP Social History Tobacco Use [...] have Coronavirus / COVID-19? No / Unsure 07/15/2020 1:46 PM EST documented as of this encounter [...] documented as of this encounter Care Teams Test Engineer Nuclear Equipment Relationship Specialty Start Date End Date Radha Ramirez MD [address] [place] [address] PCP - General Internal Medicine 07/08/20 10/27/20 Tristen Alejandro PA-C [address] [place] [address] PCP - General Internal Medicine 10/28/20 11/16/20 Radha Ramirez MD [address] [place] [address] PCP - General Internal Medicine 11/17/20 11/17/20 Tristen Alejandro PA-C [address] [place] [address] PCP - General Internal Medicine 11/18/20 documented as of this encounter
--- OUTSIDE RECORDS SUMMARY | 2024-08-27 13:41 | XMS_ITS | Encounter Summary ---
Author Organization [facility] Address [address] [place] [address] Care Team Providers Care Colon Therapist Name Role Phone Tristen Alejandro PA-C Primary Care Provider [phone] Encounter Details Date Type Department Care Team Description 09/15/2023 Cattle Examiner Report Medical Records [address] [place] [address] Wilner Gonzalez NP Social History Tobacco Use [...] documented as of this encounter Care Teams Colon Therapist Relationship Specialty Start Date End Date Tristen Alejandro PA-C [address] [place] [address] PCP - General Internal Medicine 11/18/20 documented as of this encounter
--- OUTSIDE RECORDS SUMMARY | 2024-08-27 13:41 | XMS_ITS | Encounter Summary ---
Author Organization [facility] Address [address] [place] [address] Care Team Providers Care Mfts Name Role Phone Tristen Alejandro PA-C Primary Care Provider +1 -[phone] Encounter Details Date Type Department Care Team Description 08/05/2022 Personal Injury Specialist Report Medical Records [address] [place] [address] Kika Sanchez, CHINESE HERBALIST Social History Tobacco Use Types Packs/Day Years [...] AM EST documented as of this encounter Plan of Treatment Not on file documented as of this encounter Visit Diagnoses Not on filedocumented in this encounter Additional Health Concerns Infection Onset Date Last Indicated Resolved Time COVID-19 Comment:Positive test on 06/0806/08/2023 06/09/2023 11:25 AM EDT documented as of this encounter Care Teams Mfts Relationship Specialty Start Date End Date Tristen Alejandro PA-C [address] [place] [address] PCP - General Internal Medicine 11/18/20 documented as of this encounter
--- OUTSIDE RECORDS SUMMARY | 2024-08-27 13:41 | XMS_ITS | Encounter Summary ---
Author Organization [facility] Address [address] [place] [address] Care Team Providers Care Water Chaser Name Role Phone Tristen Alejandro PA-C Primary Care Provider +1 -[phone] Encounter Details Date Type Department Care Team Description 04/11/2024 Hospital Medical Records [address] [place], [place] [id number] [place] [address] Social History Tobacco Use Types Packs/Day Years [...] Diagnoses Not on filedocumented in this encounter Care Teams Water Chaser Relationship Specialty Start Date End Date Tristen Alejandro PA-C [address] [place] [address] PCP - General Internal Medicine 11/18/20 documented as of this encounter
--- OUTSIDE RECORDS SUMMARY | 2024-08-27 13:41 | XMS_ITS | Encounter Summary ---
Author Organization [facility] Address [address] [place] [address] Care Team Providers Care Capital Markets Specialist Name Role Phone Tristen Alejandro PA-C Primary Care Provider +1 -[phone] Encounter Details Date Type Department Care Team Description 03/28/2024 Telephone OBGYN - [facility] [address] [place] [address] Chiara Lees CNM [address] [place] [address] Social History Tobacco Use Types Packs/Day Years [...] on filedocumented in this encounter Care Teams Capital Markets Specialist Relationship Specialty Start Date End Date Tristen Alejandro PA-C [address] [place] [address] PCP - General Internal Medicine 11/18/20 documented as of this encounter
--- OUTSIDE RECORDS SUMMARY | 2024-08-27 13:41 | XMS_ITS | Encounter Summary ---
Author Organization [facility] Address [address] [place] [address] Care Team Providers Care Agronomy Instructor Name Role Phone Tristen Alejandro PA-C Primary Care Provider +1 -[phone] Encounter Details Date Type Department Care Team Description 10/08/[address] [facility] [address] [place] [address] Tristen Alejandro PA-C [address] [place] [address] Social History Tobacco Use Types Packs/Day Years [...] documented as of this encounter Care Teams Agronomy Instructor Relationship Specialty Start Date End Date Tristen Alejandro PA-C [address] [place] [address] PCP - General Internal Medicine 11/18/20 documented as of this encounter
--- OUTSIDE RECORDS SUMMARY | 2024-08-27 13:41 | XMS_ITS | Encounter Summary ---
Author Organization [facility] Address [address] [place] [address] Care Team Providers Care Prefabricated Houses Trimmer Name Role Phone Tristen Alejandro PA-C Primary Care Provider +1 -[phone] Reason for Visit * Reason Onset Date Comments Provider Call Back 08/10/2022 Encounter Details Date Type Department Care Team Description 08/10/2022 Telephone Gastroenterology - [place] 175 [facility] [address] [place] [address] Bhavik Crow PA-C Provider Call Back Social History Tobacco Use [...] suspected to have Coronavirus/COVID-19? No / Unsure 08/12/2022 11:24 AM EST documented as of this encounter Plan of Treatment Not on file documented as of this encounter Visit Diagnoses Not on filedocumented in this encounter Additional Health Concerns Infection Onset Date Last Indicated Resolved Time COVID-19 Comment:Positive test on 06/0806/08/2023 06/09/2023 4 11:25 AM EDT documented as of this encounter Care Teams Prefabricated Houses Trimmer Relationship Specialty Start Date End Date Tristen Alejandro PA-C [address] [place] [address] PCP - General Internal Medicine 11/18/20 documented as of this encounter
--- OUTSIDE RECORDS SUMMARY | 2024-08-27 13:41 | XMS_ITS | Encounter Summary ---
Author Organization [facility] Address [address] [place] [address] Care Team Providers Care Contract Clerk Name Role Phone Tristen Alejandro PA-C Primary Care Provider +1 -[phone] Reason for Visit * Reason Onset Date Comments Prior Authorization 01/17/2024 CTA head and CTA neck Encounter Details Date Type Department Care Team Description 01/17/2024 Telephone Adult Medicine [facility] [address] [place] [address] Tristen Alejandro PA-C [address] [place] [address] Prior Authorization (CTA head and CTA neck) Social History Tobacco Use Types Packs/Day Years [...] encounter Miscellaneous Notes * Telephone Encounter - Kristin Benitez - 01/17/2024 12:56 PM EDT Per [facility] no auth required - call reference # [id number]. Tori is out of [facility]. Orders faxed to [facility] to schedule appt. They will call patient. documented in this encounter Plan of Treatment Not on file documented as of this encounter Visit Diagnoses Not on filedocumented in this encounter Care Teams Contract Clerk Relationship Specialty Start Date End Date Tristen Alejandro PA-C [address] [place] [address] PCP - General Internal Medicine 11/18/20 documented as of this encounter
--- OUTSIDE RECORDS SUMMARY | 2024-08-27 13:41 | XMS_ITS | Encounter Summary ---
Author Organization [facility] Address [address] [place] [address] Care Team Providers Care Team Assembly Line Machine Operator Name Role Phone Tristen Alejandro PA-C Primary Care Provider +1 -[phone] Encounter Details Date Type Department Care Team Description 09/13/2022 Commercial Relationship Manager Report Medical Records [address] [place] [address] Miles Verduzco MD Social History Tobacco Use Types Packs/Day [...] suspected to have Coronavirus/COVID-19? No / Unsure 09/13/2022 9:33 AM EST documented as of this encounter Plan of Treatment Not on file documented as of this encounter Visit Diagnoses Not on filedocumented in this encounter Additional Health Concerns Infection Onset Date Last Indicated Resolved Time COVID-19 Comment:Positive test on 06/0806/08/2023 06/09/2023 11:25 AM EDT documented as of this encounter Care Teams Team Assembly Line Machine Operator Relationship Specialty Start Date End Date Tristen Alejandro PA-C [address] [place] [address] PCP - General Internal Medicine 11/18/20 documented as of this encounter
--- OUTSIDE RECORDS SUMMARY | 2024-08-27 13:41 | XMS_ITS | Encounter Summary ---
Author Organization [facility] Address [address] [place] [address] Care Team Providers Care Neon Tube Bender Name Role Phone Tristen Alejandro PA-C Primary Care Provider +1 -[phone] Reason for Visit * Reason Comments E-prescribe Rx Request Encounter Details Date Type Department Care Team Description 11/02/2022 Refill Adult Medicine [facility] [address] [place] [address] Tristen Alejandro PA-C [address] [place] [address] E-prescribe Rx Request Social History Tobacco Use [...] encounter Miscellaneous Notes * Telephone Encounter - Autumn Guy M.A. - 11/08/2022 3:28 PM EDT Lab Results Component Value Date NA 138 08/12/2022 K 3.7 08/12/2022 CO2 28 08/12/2022 CL 104 08/12/2022 BUN 11 08/12/2022 CREAT 0.66 08/12/2022 GLU 81 08/12/2022 CA 9.0 08/12/2022 GFR 112 08/12/2022 ADENIKE 08/10/22 - PCP NOV 11/10/22 - Crow Gomez * Telephone Encounter - Mavis Xena - 11/07/2022 12:27 PM EDT Patient would like script to be: E-PRESCRIBED/FAXED TO PHARMACY WHEN WAS THE PATIENT'S LAST APPOINTMENT IN ADULT MEDICINE? 08/10/22 WHEN WAS THE LAST TIME THE PATIENT SAW THEIR PCP? Same as above Does patient have an upcoming appointment? Yes 11/10/22 (THE MEDICATION REQUESTED IS ON THE MED LIST ABOVE) All of the medications requested were on the CURRENT MEDS list Did you check the Pharmacy information above?: YES Patient wants: 90 -day supply Is this a mail order prescription request ? NO If the refill is from a FAXED refill request what is the RX # listed on the fax? N/A Patients current insurance carrier is: [facility] / Plan: [facility] / Product Type: MEDICAID RISK documented in this encounter Plan of Treatment Not on file documented as of this encounter Visit Diagnoses Not on filedocumented in this encounter Additional Health Concerns Infection Onset Date Last Indicated Resolved Time COVID-19 Comment:Positive test on 06/0806/08/2023 06/09/2023 11:25 AM EDT documented as of this encounter Care Teams Neon Tube Bender Relationship Specialty Start Date End Date Tristen Alejandro PA-C [address] [place] [address] PCP - General Internal Medicine 11/18/20 documented as of this encounter
--- OUTSIDE RECORDS SUMMARY | 2024-08-27 13:41 | XMS_ITS | Encounter Summary ---
Author Organization [facility] Address [address] [place] [address] Care Team Providers Care Corrugator Machine Operator Name Role Phone Tristen Alejandro PA-C Primary Care Provider +1 -[phone] Reason for Visit * Reason Onset Date Comments REFERRAL 11/01/2023 Testing for auti sm Encounter Details Date Type Department Care Team Description 11/01/2023 Telephone Adult Medicine [facility] [address] [place] [address] Tristen Alejandro PA-C [address] [place] [address] REFERRAL (Testing for autism) Social History Tobacco Use Types Packs/Day Years [...] encounter Miscellaneous Notes * Telephone Encounter - Nimo Rodriges R.N. - 11/01/2023 2:43 PM EDT Last visit with PCP 02/2023 has had multiple visits since with other providers ? Neuro psych eval for testing Left vm for pt to return my call. * Telephone Encounter - Sharron Bentley - 11/01/2023 2:38 PM EDT Patient is asking for a referral to a provider that tests for adult autism. Please advise * Telephone Encounter - Gail Guardado - 11/01/2023 2:28 PM EDT Caller requesting call back from provider: Aidan Alejandro Is the caller the patient? YES Reason: Asking for a referral for a local provider who tests for adults with autism Caller offered to speak with the nurse for assistance: YES Response: Patient offered to speak with nurse for assistance and patient agreed. Message forwarded to nurse. documented in this encounter Plan of Treatment Not on file documented as of this encounter Visit Diagnoses Not on filedocumented in this encounter Care Teams Corrugator Machine Operator Relationship Specialty Start Date End Date Tristen Alejandro PA-C [address] [place] [address] PCP - General Internal Medicine 11/18/20 documented as of this encounter
--- OUTSIDE RECORDS SUMMARY | 2024-08-27 13:41 | XMS_ITS | Clinical Summary ---
Author Organization [facility] Address [address] [place] [address] Phone Care Team Providers Care Core Microarchitect Name Role Phone Dexter Jones MD Primary Care Provider [phone] Allergies Active Allergy Reactions Criticality Noted Date Comments Lactose 03/27/2018 Medications cholecalciferol (VITAMIN D-3) 25 mcg (1,000 unit) [...] Alyssa that there is no evidence of Can Reforming Machine Operator involvement with the mass that is described. [...] 06/13/2018 Overview (04/15/2024): 07/05/2019 Followed by [facility]- therapy q 1-2 wks , Awaiting psychiatric eval to begin med regime GERD (gastroesophageal reflux disease) 8 Hematochezia 06/13/2018 Introital dyspareunia 06/13/2018 Lactose intolerance 06/13/2018 Low back pain 06/13/2018 Small intestinal bacterial overgrowth 06/13/2018 Urinary incontinence 06/13/2018 Rosacea 03/28/2018 Varicose vein of leg 03/27/2018 Surgical History Surgery Date Site/Laterality Comments COLONOSCOPY 02/10/2017 PROCEDURE: HISTORICAL COLONOSCOPY; COMMENT: Normal UPPER GASTROINTESTINAL ENDOSCOPY 08/29/2016 PROCEDURE: UPPER GI ENDOSCOPY/EXAM; COMMENT: abnormal - H Pylori ESOPHAGOGASTRODUODENOSCOPY 08/11/2021 PROCEDURE: TN EGD TRANSORAL BIOPSY SINGLE/MULTIPLE; COMMENT: normal, random biopsy pending ESOPHAGOGASTRODUODENOSCOPY 12/30/2021 PROCEDURE: TN EGD TRANSORAL BIOPSY SINGLE/MULTIPLE; COMMENT: normal, biopsy [...] 03/28/2018 DX:Psycho social stressors; COMMENT: Living in longterm wih 3 year old son who has [...] drink = 0.6 oz pur e alcohol) Comments No Sex and Gender Information Value Date Recorded Sex Assigned at Not on file Legal Sex Female 6:50 PM EST Gender Identity Not on file Sexual Orientation Not on file Obstetrics History Para Term [...] 10:30 AM EST Office Visit Adult Medicine [facility] [address] [place] [address] Tristen Alejandro PA [address] [place] [address] Health Maintenance Due Date Last Done Comments DTaP,Tdap,and Td Vaccines (1 - Tdap) 11/21/1998 Hepatitis B Vaccines (1 of 3 - 19+ 3-dose series) 11/21/1998 Social Influencers of Health Screening 06/18/2022 COVID-19 Vaccine (1 - 2023- season) 2024 Influenza Vaccine (#1) 2024 Depression [...] patient's age to complete this topic Meningococcal B Vacine Aged Out No lo nger eligible based on patient's age to complete [...] Laterality Modality Endoscopy Provider [facility]~PROCEDURE ORDERABLES Final Result * MG Mammo Digital Screening w [employer] [...] Signed Date: 05/23/2024 14:50 ET Workstation ID: [id number] Transcribed By: Self Edit Transcribed Date: 05/23/2024 [...] Signed Date: 05/23/2024 14:50 ET Workstation ID: [id number] Transcribed By: Self Edit Transcribed Date: 05/23/2024 14:45 ET Tristen FLOREZ IMG BI PROCEDURES Final R esult * (ABNORMAL) Lipid panel (04/10/2024) [facility] LDL/HDL Ratio 2 0 - 4 Triglycerides 69 0 - 150 mg/dL Cholesterol 257(A) 0 - 200 mg/dL HDL 116 >=40 mg/dL LDL Cholesterol 128(A) 0 - 100 mg/dL Blood Venous blood specimen / Unknown Result [facility] Provider LAB BLOOD ORDERABLES Geeta l Result * Depression Screening (03/27/2024) [facility] Depression Screening abstracted Result [facility] Provider HEALTH MAINTENANCE Final Result * Cervical Cancer Screening: HPV (09/26/2023) [facility] Cervical Cancer Screening: HPV negative, abstracted Result [facility] Provider HEALTH MAINTENANCE Final Result * HIV Screening (04/30/2021) [facility] HIV Screening abstracted Result [facility] Provider HEALTH MAINTENANCE Final Result * Hepatitis C Screening (04/30/2021) [facility] Hepatitis C Screening abstracted Result [facility] Provider HEALTH MAINTENANCE Final Result * Colonoscopy (01/21/2021) [facility] Colonoscopy no interpretation , abstracted Anatomical Region Laterality Modality Other Result [facility] Provider HEALTH MAINTENANCE Final Result from Last 3 Months or Most Recently Relevant to Health Maintenance Insurance [facility] MEDICAID - [place] Care Teams Core Microarchitect Relationship Specialty Start Date End Date Dexter Jones MD [address] [place] [phone] PCP - General Family Medicine 07/12/24
--- OUTSIDE RECORDS SUMMARY | 2024-08-27 13:41 | XMS_ITS | Encounter Summary ---
Author Organization [facility] Address [address] [place] [address] Care Team Providers Care Construction And Maintenance Inspector Name Role Phone Tristen Alejandro PA-C Primary Care Provider [phone] -[phone] Encounter Details Date Type Department Care Team Description 11/15/2021 Heavy Equipment Field Mechanic Report Medical Records [address] [place] [address] [facility] Social History Tobacco Use Types Packs/Day Years [...] suspected to have Coronavirus/COVID-19? No / Unsure 11/09/2021 11:06 AM EDT documented as of this encounter Plan of Treatment Not on file documented as of this encounter Visit Diagnoses Not on filedocumented in this encounter Additional Health Concerns Infection Onset Date Last Indicated Resolved Time COVID-19 Comment:Positive test on 06/0806/08/2023 06/09/2023 11:25 AM EDT documented as of this encounter Care Teams Construction And Maintenance Inspector Relationship Specialty Start Date End Date Tristen Alejandro PA-C [address] [place] [address] PCP - General Internal Medicine 11/18/20 documented as of this encounter
--- OUTSIDE RECORDS SUMMARY | 2024-08-27 13:41 | XMS_ITS | Encounter Summary ---
Author Organization [facility] Address [address] [place] [address] Care Team Providers Care Lease Purchase Truck Driver Name Role Phone Tristen Alejandro PA-C Primary Care Provider [phone] -[phone] Encounter Details Date Type Department Care Team Description 12/15/2020 Charge Entry Specialist Report Medical Records [address] [place] [address] Wilner Gonzalez NP Social History Tobacco Use [...] have Coronavirus / COVID-19? No / Unsure 11/18/2020 2:05 PM EDT documented as of this encounter [...] documented as of this encounter Care Teams Lease Purchase Truck Driver Relationship Specialty Start Date End Date Tristen Alejandro PA-C [address] [place] [address] PCP - General Internal Medicine 11/18/20 documented as of this encounter
--- OUTSIDE RECORDS SUMMARY | 2024-08-27 13:41 | XMS_ITS | Encounter Summary ---
Author Organization [facility] Address [address] [place] [address] Care Team Providers Care Cloth Bin Packer Name Role Phone Tristen Alejandro PA-C Primary Care Provider [phone] [phone] Reason for Visit * Reason Onset Date Comments Pain, Rib 11/06/2023 Upper left Encounter Details Date Type Department Care Team Description 11/06/2023 Pt. Non Urgent Medical Question Adult Medicine [address] [address] Tristen Alejandro PA-C [address] [place] [address] Social History Tobacco Use Types Packs/Day Years [...] encounter Miscellaneous Notes * Telephone Encounter - Sharron Bentley - 11/06/2023 11:22 AM EDTFrom: Alyssa Dean To: Aidan Alejandro Sent: 11/06/2023 11:20 AM EDT Subject: Alyssa Ramon I hope all is going well. I am reaching out to see if I could be sent for an xray for a pain I am feeling on my upper left rib not sure if it is my pancreas or what? But the pain comes and goes and it lasts for 4 seconds and it is a shooting horrible pain and I am also passing gas a lot . This painhas started since We I already saw Dr Naranjo from [facility] last Monday and she ordered cat scan not sure when I will be able to get it done. Do you think I could have an x ray or something you could do to speed things ups . I also think I got an injury on my right arm I keep hearing crack and when I do flexion movements it hurts a lot but it comes and goes. I really hope you can help me please to rule out there is nothing serious going here i n my upper left rib or right arm .Thanks for all your support Tristen Shah documented in this encounter Plan of Treatment Not on file documented as of this encounter Visit Diagnoses Not on filedocumented in this encounter Care Teams Cloth Bin Packer Relationship Specialty Start Date End Date Tristen Alejandro PA-C [address] [place] [address] PCP - General Internal Medicine 11/18/20 documented as of this encounter
--- OUTSIDE RECORDS SUMMARY | 2024-08-27 13:41 | XMS_ITS | Encounter Summary ---
Author Organization [facility] Address [address] [place] [address] Care Team Providers Care Lumber Sticker Name Role Phone Tristen Alejandro PA-C Primary Care Provider +1 -[phone] Reason for Visit * Reason Onset Date Comments APPOINTMENT 09/19/2022 Encounter Details Date Type Department Care Team Description 09/19/2022 Telephone Gastroenterology - [place] 175 [facility] [address] [place] [address] Tono Kirkland PA-C 175 [facility] [address] [place] [address] APPOINTMENT Social History Tobacco Use Types Packs/Day [...] encounter Miscellaneous Notes * Telephone Encounter - Elysia Bautista - 09/26/2022 8:57 AM EDT Spoke to patient and advised. I have her on a waitlist She will continue to take Protonix. * Telephone Encounter - Tono Kirkland PA-C - 09/23/2022 12:55 PM EDT Patient was last seen in June by Dr. Lozano. He should continue to take the Protonix and if she is having gassiness, that may be related to bowel movements if she is not moving her bowels every day. Would need to do a telehealth visit or an office visit which is ever sooner to further evaluate her symptoms before scheduling an endoscopy as I have not seen this patient previously * Telephone Encounter - Cyndee Gaitan M.A. - 09/23/2022 9:30 AM EDT Patient is calling in she does not know what to do anymore she says she eats very small meals, after se eats she has pain 3-4 hours after. She gets bloated and gassy. Weight loss, She would like to know if she can get set up for a endoscopy? She is becoming very scared * Telephone Encounter - Elysia Bautista - 09/19/2022 3:28 PM EDT Patient was placed on a waitlist. * Telephone Encounter - Lili Gaetano - 09/19/2022 1:52 PM EDT Pt called requesting soon appointment, please place in a cancellation list. Please advise [phone] documented in this encounter Plan of Treatment Not on file documented as of this encounter Visit Diagnoses Not on filedocumented in this encounter Additional Health Concerns Infection Onset Date Last Indicated Resolved Time COVID-19 Comment:Positive test on 06/0806/08/2023 06/09/2023 4 11:25 AM EDT documented as of this encounter Care Teams Lumber Sticker Relationship Specialty Start Date End Date Tristen Alejandro PA-C [address] [place] [address] PCP - General Internal Medicine 11/18/20 documented as of this encounter
--- OUTSIDE RECORDS SUMMARY | 2024-08-27 13:41 | XMS_ITS | Encounter Summary ---
Author Organization [facility] Address [address] [place] [address] Care Team Providers Care Heel Coverer Name Role Phone Tristen Alejandro PA-C Primary Care Provider [phone] [phone] Reason for Visit * Reason Onset Date Comments Provider Call Back 08/03/2022 Encounter Details Date Type Department Care Team Description 08/03/2022 Telephone Gastroenterology - [place] 175 [facility] [address] [place] [address] Irena Lozano MD Provider Call Back Social History Tobacco [...] encounter Miscellaneous Notes * Telephone Encounter - Cindy Mcdonald - 08/03/2022 9:28 AM EST Patient calling, states she is returning Dawns call. Please call number listed documented in this encounter Plan of Treatment Not on file documented as of this encounter Visit Diagnoses Not on filedocumented in this encounter Additional Health Concerns Infection Onset Date Last Indicated Resolved Time COVID-19 Comment:Positive test on 06/0806/08/2023 06/09/2023 11:25 AM EDT documented as of this encounter Care Teams Heel Coverer Relationship Specialty Start Date End Date Tristen Alejandro PA-C [address] [place] [address] PCP - General Internal Medicine 11/18/20 documented as of this encounter
--- OUTSIDE RECORDS SUMMARY | 2024-08-27 13:41 | XMS_ITS | Clinical Summary ---
Author Organization [facility] Address [address] [place] [address] Care Team Providers Care Guide Delegate Name Role Phone Tristen Alejandro PA-C Primary [...] age to complete this topic Care Teams Guide Delegate Relationship Specialty Start Date End Date Tristen Alejandro PA-C PCP - General Medical Services 10/13/21
== END 2024-08-27 13:30 | disposition home or self-care (01) ==
PROVIDERS: PCP Family Medicine; Visit Provider Internal Medicine Pulmonary Disease
DX: R91.1 Solitary pulmonary nodule (principal); J40 Bronchitis, not specified as acute or chronic
CPT/HCPCS: 99214

== ENCOUNTER → 2024-08-27 12:48 | Outpatient (BNVA) | payer OTHER, SELFPAY | PROVIDERS: PCP Family Medicine; Visit Provider Internal Medicine Pulmonary Disease ==

== ENCOUNTER 2024-08-30 12:42 | Outpatient (AMB) | payer OTHER, SELFPAY ==
--- NOTE | 2024-08-30 12:48 | A.OFFVIS_ITS ---
Vital Signs 08/30/24 13:14 Height 5 ft 8 in Weight 133 lb 2.547 oz BMI 20.2 BP 110/82 Blood Pressure Location Rt brachial Position Sitting Pulse 88 Pulse Source Pulse Oximeter Pulse Oximetry (%) 95 Oxygen Delivery Method Room Air Intake Visit Reasons: f/u Intake Note: ESTABLISHED PATIENT for dyspepsia / GERD mgmt. Chief Complaint; C/O similar episodes that they have previously experienced, reoccurrence recently. Sudden onsets of abd pain, burning sensation, belching + gas. Typically lasts anywhere from a half hour to a few hours but subsides. Pt reports this is likely affected by diet and anxiety/stressors. Pt inquiring regarding any potential gallbladder implications. Denies any other GI concerns. 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 Mild gastritis with inactive chronic inflammation in her stomach without H pylori seen on upper endoscopy. Patient will start pantoprazole daily. Patient was encouraged to avoid dietary triggers and late night snacking. Staying upright for minimum 3 hours after meals discussed with patient. Patient will take famotidine at bedtime. Will do this treatment for 2 months and have patient return for re- evaluation and hopefully she will have improvement in symptoms. Patient was also encouraged to increase fluid intake and activity to promote better bowel motility. Patient can increase fiber intake or take [id number] fiber with probiotics. Follow-up in 2 months. Will send patient for a colonoscopy. Message sent to surgical schedulers to book procedure for end of October/November. Patient is agreeable to plan of care and verbalizes understanding of instructions. He was given the opportunity to ask questions and all questions answered. ? Thank you for allowing me to participate in her care Medications New famotidine (Pepcid) 20 mg PO BEDTIME 30 tabs 3RF K21.9 pantoprazole take one tablet half an hour before breakfast 40 mg PO DAILY 30 tabs 3RF K21.9 Discontinued esomeprazole magnesium Discontinued Reason: Doctor's Order 20 mg PO DAILY 30 caps 4RF K21.9 TODAY'S VISIT Patient is here today for follow-up. Patient is reporting great amount of stress. Reports that her father was in the alf and was very sick and she had to visit him often. Patient is also reporting that her son is autistic and is becoming more aggressive and just recently he had to be placed on m edication to come him done. Patient reports that she is worry as patient's son is also having stomach problems and will need to go for colonoscopy that will be in couple weeks. Patient does admit that in the past few weeks she has been running around and has not been following a diet and frequently she will have abdominal pain and bloating as well as epigastric discomfort. Patient reports that she stopped taking pantoprazole, however she called our office couple weeks ago and we recommended for patient to continue taking every morning. Patient reports that she takes famotidine as needed. She reports good effect when she takes famotidine. Patient also feels like pantoprazole is helpful. Patient denies any nausea or vomiting. Reports that she is moving her bowels better, however occasionally she will be constipated. Patient is trying to take probiotic with fiber. Denies melena, hematochezia, unintentional weight loss or ribbon like stools. Patient seen her net lead architect few days ago and was placed on prednisone which she has not started yet. Patient had been coughing and has had mild shortness of breath. 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 Hx of solitary pulmonary nodule Microscopic hematuria Surgical History History of esophagogastroduodenoscopy (EGD) Hx of colonoscopy Family History Father Cancer of lung Cancer of kidney Social History Household Members: Children Housing: Apartment Are you a primary critical care paramedic to a significant other at home: Yes (son sid) Do you presently have visiting nurse or other home services: No 75 years or older and lives alone: No Alcohol intake: never Patient Tobacco Use Status: Never used Tobacco e-Cigarette/Vaping Use: Never Used service: No Review of Systems Const Denies weight gain and Denies weight loss ENT Reports no additional complaints, Denies dysphagia and Denies odynophagia Card Reports no additional complaints Resp Reports no additional complaints GI Reports abdominal pain (epigastric), Denies belching, Denies melena, Reports bloating, Denies change in bowel habits, Reports constipation, Denies dysphagia, Denies excessive flatus, Reports dyspepsia, Reports heartburn, Denies diarrhea, Denies loose stools, Denies nausea, Denies odynophagia and Denies vomiting Reports no additional complaints Musc Reports no additional complaints Neuro Reports no additional complaints Psych Reports no additional complaints Endo Reports no additional complaints Physical Exam Vital Signs: Last Vital Signs Pulse 88 08/30/24 13:14 BP 110/82 08/30/24 13:14 Pulse Ox 95 08/30/24 13:14 Oxygen Delivery Method Room Air 08/30/24 13:14 BMI result Body Mass Index 20.2 Const General: healthy appearing, no acute distress and well developed Nutritional Appearance: well nourished Orientation/consciousness: patient oriented x3 Resp Effort & Inspection: normal respiratory effort, able to speak in complete sentences, no tracheal deviation and symmetric chest movement Auscultation: clear to auscultation bilaterally Cardio Rate: regular rate GI Inspection: Yes normal to inspection and No distended Palpation (GI): Soft to palpation, not firm, nontender and No hepatosplenomegaly present Auscultation: normal bowel sounds General: Yes no CVA tenderness Back/Spine/Pelvis Back: no CVA tenderness Skin General skin exam: elasticity normal, turgor normal and dry skin Neuro General: patient oriented x3 Psych Other: Patient is tearful Appearance: grossly normal Mental Status: mental status grossly normal Affect: Anxious affect present 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 Category: Medical (2) Squamous cell papilloma of esophagus: Code(s): D13.0 - Benign neoplasm of esophagus Category: Medical (3) Esophageal inlet patch: Code(s): Q39.8 - Other congenital malformations of esophagus Category: Medical (4) IBS (irritable bowel syndrome): Code(s): K58.9 - Irritable bowel syndrome, unspecified Qualifiers: Irritable bowel syndrome type: without diarrhea Qualified Code(s): K58.9 - Irritable bowel syndrome, unspecified (5) GERD (gastroesophageal reflux disease): Code(s): K21.9 - Gastro-esophageal reflux disease without esophagitis Qualifiers: Esophagitis presence: esophagitis presence not specified Qualified Code(s): K21.9 - Gastro-esophageal reflux disease without esophagitis (6) Epigastric discomfort: Code(s): R10.13 - Epigastric pain (7) Dyspepsia: Code(s): R10.13 - Epigastric pain (8) Postprandial abdominal bloating: Code(s): R14.0 - Abdominal distension (gaseous) Plan Long discussion with patient about dietary triggers. Patient will try as best as she can to avoid them. Try to reduce stress. Patient was encouraged to call therapist and call services to help her with the care of her child who is autistic. Continue pantoprazole and famotidine. Patient has an appointment in September and we will discuss going for colonoscopy. If she continues with symptoms despite her therapy with PPI and H2 olman we can send her for upper endoscopy. Patient is agreeable to current plan of care and verbalizes understanding of instructions. She was given the opportunity to ask questions and all questions answered. 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
[2024-08-30 13:14] VITALS: BP 110/82; PULSE 88; O2SAT 95; BMI 20.2
--- OUTSIDE RECORDS SUMMARY | 2024-08-30 13:14 | XMS_ITS | Encounter Summary ---
Author Organization [facility] Address [address] [place] [address] Care Team Providers Care Rn Home Care Name Role Phone Tristen Alejandro PA-C Primary Care Provider [phone] Encounter Details Date Type Department Care Team Description 08/13/2021 Orders Only Medical Records [address] [place] [address] Irena Lozano MD Social History Tobacco Use [...] documented as of this encounter Care Teams Rn Home Care Relationship Specialty Start Date End Date Tristen Alejandro PA-C [address] [place] [address] PCP - General Internal Medicine 11/18/20 documented as of this encounter
--- OUTSIDE RECORDS SUMMARY | 2024-08-30 13:14 | XMS_ITS | Encounter Summary ---
Author Organization [facility] Address [address] [place] [address] Care Team Providers Care Dogman/Woman Name Role Phone Rupa Potter MD Primary Care Provider Un available Radha Ramirez MD Primary Care Provider [phone] Tristen Alejandro PA-C Primary Care Provider [phone] Radha Ramirez MD Primary Care Provider [phone] Tristen Alejandro PA-C Primary Care Provider [phone] Radha Ramirez MD Primary Care Provider Tristen Alejandro PA-C Primary Care Provider [phone] Encounter Details Date Type Department Care Team Description 08/17/2018 Orders Only Gastroenterology - [address] [place] [address] Bhavik Crow PA-C Social History Tobacco Use Types Packs/Day Years [...] documented as of this encounter Care Teams Dogman/Woman Relationship Specialty Start Date End Date Rupa Potter MD PCP - General Internal Medicine 04/08/18 Radha Ramirez MD [address] [place] [address] PCP - General Internal Medicine 03/27/19 05/03/20 Tristen Alejandro PA-C [address] [place] [address] PCP - General Internal Medicine 05/04/20 07/07/20 Radha Ramirez MD [address] [place] [address] PCP - General Internal Medicine 07/08/20 10/27/20 Tristen Alejandro PA-C [address] [place] [address] PCP - General Internal Medicine 10/28/20 11/16/20 Radha Ramirez MD [address] [place] [address] PCP - General Internal Medicine 11/17/20 11/17/20 Tristen Alejandro PA-C [address] [place] [address] PCP - General Internal Medicine 11/18/20 documented as of this encounter
--- OUTSIDE RECORDS SUMMARY | 2024-08-30 13:14 | XMS_ITS | Encounter Summary ---
Author Organization [facility] Address [address] [place] [address] Care Team Providers Care Onboarding Specialist Name Role Phone Rupa Potter MD Primary Care Provider Un available Radha Ramirez MD Primary Care Provider Tristen Alejandro PA-C Primary Care Provider [phone] Radha Ramirez MD Primary Care Provider [phone] Tristen Alejandro PA-C Primary Care Provider [phone] Radha Ramirez MD Primary Care Provider Tristen Alejandro PA-C Primary Care Provider [phone] Encounter Details Date Type Department Care Team Description 08/29/2018 Orders Only Gastroenterology - [address] [place] [address] Bhavik Crow PA-C Social History [...] documented as of this encounter Care Teams Onboarding Specialist Relationship Specialty Start Date End Date Rupa Potter MD PCP - General Internal Medicine 04/08/18 Radha Ramirez MD [address] [place] [address] PCP - General Internal Medicine 03/27/19 05/03/20 Tristen Alejandro PA-C [address] [place] [address] PCP - General Internal Medicine 05/04/20 07/07/20 Radha Ramirez MD [address] [place] [address] PCP - General Internal Medicine 07/08/20 10/27/20 Tristen Alejandro PA-C [address] [place] [address] PCP - General Internal Medicine 10/28/20 11/16/20 Radha Ramirez MD [address] [place] [address] PCP - General Internal Medicine 11/17/20 11/17/20 Tristen Alejandro PA-C [address] [place] [address] PCP - General Internal Medicine 11/18/20 documented as of this encounter
--- OUTSIDE RECORDS SUMMARY | 2024-08-30 13:14 | XMS_ITS | Encounter Summary ---
Author Organization [facility] Address [address] [place] [address] Care Team Providers Care Apparatus Operator Name Role Phone Tristen García Primary Care Provider Unavail able Rupa Potter MD Primary Care Provider Un available Radha Ramirez MD Primary Care Provider [phone] Tristen Alejandro PA-C Primary Care Provider [phone] Radha Ramirez MD Primary Care Provider [phone] Tristen Alejandro PA-C Primary Care Provider [phone] Radha Ramirez MD Primary Care Provider [phone] Tristen Alejandro PA-C Primary Care Provider [phone] Encounter Details Date Type Department Care Team Description 03/29/2018 Release of Information Medical Records [address] [place] [address] Abstract, Provider Social History Tobacco Use Types [...] documented as of this encounter Care Teams Apparatus Operator Relationship Specialty Start Date End Date Tristen García PCP - General Internal Medicine 03/24/18 04/06/18 Rupa Potter MD PCP - General Internal Medicine 04/08/18 Radha Ramirez MD [address] [place] [address] PCP - General Internal Medicine 03/27/19 05/03/20 Tristen Alejandro PA-C [address] [place] [address] PCP - General Internal Medicine 05/04/20 07/07/20 Radha Ramirez MD [address] [place] [address] PCP - General Internal Medicine 07/08/20 10/27/20 Tristen Alejandro PA-C [address] [place] [address] PCP - General Internal Medicine 10/28/20 11/16/20 Radha Ramirez MD [address] [place] [address] PCP - General Internal Medicine 11/17/20 11/17/20 Tristen Alejandro PA-C [address] [place] [address] PCP - General Internal Medicine 11/18/20 documented as of this encounter
--- OUTSIDE RECORDS SUMMARY | 2024-08-30 13:14 | XMS_ITS | Encounter Summary ---
Author Organization [facility] Address [address] [place] [address] Care Team Providers Care Planning Assistant Name Role Phone Tristen Alejandro PA-C Primary Care Provider [phone] Encounter Details Date Type Department Care Team Description 08/19/2021 Telephone Gastroenterology - [place] [address] [facility] [address] [place] [address] Irena Lozano MD Social History [...] documented as of this encounter Care Teams Planning Assistant Relationship Specialty Start Date End Date Tristen Alejandro PA-C [address] [place] [address] PCP - General Internal Medicine 11/18/20 documented as of this encounter
--- OUTSIDE RECORDS SUMMARY | 2024-08-30 13:14 | XMS_ITS | Encounter Summary ---
Author Organization [facility] Address [address] [place] [address] Care Team Providers Care Transportation Planner Name Role Phone Rupa Potter MD Primary Care Provider Un available Radha Ramirez MD Primary Care Provider [phone] Tristen Alejandro PA-C Primary Care Provider [phone] Radha Ramirez MD Primary Care Provider [phone] Tristen Alejandro PA-C Primary Care Provider [phone] Radha Ramirez MD Primary Care Provider Tristen Alejandro PA-C Primary Care Provider [phone] Reason for Visit * Reason Onset Date Comments Transfer Records 06/12/2018 Receiving from pcp in [place] Encounter Details Date Type Department Care Team Description 06/12/2018 Telephone Adult [address] [id number] Rupa Potter MD Transfer Records (Receiving from pcp in [place]) Social History Tobacco Use Types Packs/Day Years [...] encounter Miscellaneous Notes * Telephone Encounter - Hannah aWde PA-C - 06/12/2018 12:02 PM EST I would not recommend patient wait here in the office for the medical records as often times it cantake several hours, when we have them. The patient that they have been reviewed and will be scannedinto her chart. * Telephone Encounter - Keely Herrera - 06/12/2018 11:06 AM EST Pt states she contacted her pcp in [place], and they will fax her medical records in five minutes. Pt states she wants doctor to review her records before she goes home today. Pt just had an appointment with Hannah Wade. 05/13/18 documented in this encounter Plan of Treatment Not on file documented as of this encounter Visit Diagnoses Not on filedocumented in this encounter Additional Health Concerns Infection Onset Date Last Indicated Resolved Time COVID-19 Comment:Patient reports positive COVID test on 06/1206/12/2021 06/18/2021 08/24/2021 1:[address] COVID-19 Comment:Positive test on 06/0806/08/2023 06/09/2023 11:25 AM EDT documented as of this encounter Care Teams Transportation Planner Relationship Specialty Start Date End Date Rupa Potter MD PCP - General Internal Medicine 04/08/18 Radha Ramirez MD [address] [place] [address] PCP - General Internal Medicine 03/27/19 05/03/20 Tristen Alejandro PA-C [address] [place] [address] PCP - General Internal Medicine 05/04/20 07/07/20 Radha Ramirez MD [address] [place] [address] PCP - General Internal Medicine 07/08/20 10/27/20 Tristen Alejandro PA-C [address] [place] [address] PCP - General Internal Medicine 10/28/20 11/16/20 Radha Ramirez MD [address] [place] [address] PCP - General Internal Medicine 11/17/20 11/17/20 Tristen Alejandro PA-C [address] [place] [address] PCP - General Internal Medicine 11/18/20 documented as of this encounter
--- OUTSIDE RECORDS SUMMARY | 2024-08-30 13:14 | XMS_ITS | Encounter Summary ---
Author Organization [facility] Address [address] [place] [address] Care Team Providers Care Application Chemist Name Role Phone Rupa Potter MD Primary Care Provider Un available Radha Ramirez MD Primary Care Provider [phone] Tristen Alejandro PA-C Primary Care Provider [phone] Radha Ramirez MD Primary Care Provider [phone] Tristen Alejandro PA-C Primary Care Provider [phone] Radha Ramirez MD Primary Care Provider Tristen Alejandro PA-C Primary Care Provider [phone] Reason for Visit * Reason Onset Date Comments Testing 10/29/2018 MRI testing Encounter Details Date Type Department Care Team Description 10/29/2018 Telephone Gastroenterology - [place] [address] [facility] [address] [place] [address] Bhavik Crow PA-C Testing (MRI testing) Social History Tobacco Use Types Packs/Day Years [...] encounter Miscellaneous Notes * Telephone Encounter - Bhavik Crow PA-C - 10/30/2018 10:53 AM EDT I had discussed test results over the phone. Pt can follow up as needed. * Telephone Encounter - Minerva Soria M.A. - 10/29/2018 11:28 AM EDT Patient has cancelled with you multiple times and not rescheduled. Please review and advise/map documented in this encounter Plan of Treatment Not on file documented as of this encounter Visit Diagnoses Not on filedocumented in this encounter Additional Health Concerns Infection Onset Date Last Indicated Resolved Time COVID-19 Comment:Patient reports positive COVID test on 06/1206/12/2021 06/18/2021 08/24/2021 1:[address] COVID-19 Comment:Positive test on 06/0806/08/2023 06/09/2023 11:25 AM EDT documented as of this encounter Care Teams Application Chemist Relationship Specialty Start Date End Date Rupa Potter MD PCP - General Internal Medicine 04/08/18 Radha Ramirez MD [address] [place] [address] PCP - General Internal Medicine 03/27/19 05/03/20 Tristen Alejandro PA-C [address] [place] [address] PCP - General Internal Medicine 05/04/20 07/07/20 Radha Ramirez MD [address] [place] [address] PCP - General Internal Medicine 07/08/20 10/27/20 Tristen Alejandro PA-C [address] [place] [address] PCP - General Internal Medicine 10/28/20 11/16/20 Radha Ramirez MD [address] [place] [address] PCP - General Internal Medicine 11/17/20 11/17/20 Tristen Alejandro PA-C [address] [place] [address] PCP - General Internal Medicine 11/18/20 documented as of this encounter
--- OUTSIDE RECORDS SUMMARY | 2024-08-30 13:14 | XMS_ITS | Encounter Summary ---
Author Organization [facility] Address [address] [place] [address] Care Team Providers Care Lead Cook Name Role Phone Rupa Potter MD Primary Care Provider Un available Radha Ramirez MD Primary Care Provider [phone] Tristen Alejandro PA-C Primary Care Provider [phone] Radha Ramirez MD Primary Care Provider [phone] Tristen Alejandro PA-C Primary Care Provider [phone] Radha Ramirez MD Primary Care Provider [phone] Tristen Alejandro PA-C Primary Care Provider [phone] Encounter Details Date Type Department Care Team Description 08/17/2018 Telephone Gastroenterology - [place] [address] [facility] [address] [place] [address] Bhavik Crow PA-C Social History [...] documented as of this encounter Care Teams Lead Cook Relationship Specialty Start Date End Date Rupa Potter MD PCP - General Internal Medicine 04/08/18 Radha Ramirez MD [address] [place] [address] PCP - General Internal Medicine 03/27/19 05/03/20 Tristen Alejandro PA-C [address] [place] [address] PCP - General Internal Medicine 05/04/20 07/07/20 Radha Ramirez MD [address] [place] [address] PCP - General Internal Medicine 07/08/20 10/27/20 Tristen Alejandro PA-C [address] [place] [address] PCP - General Internal Medicine 10/28/20 11/16/20 Radha Ramirez MD [address] [place] [address] PCP - General Internal Medicine 11/17/20 11/17/20 Tristen Alejandro PA-C [address] [place] [address] PCP - General Internal Medicine 11/18/20 documented as of this encounter
--- OUTSIDE RECORDS SUMMARY | 2024-08-30 13:14 | XMS_ITS | Encounter Summary ---
Author Organization [facility] Address [address] [place] [address] Care Team Providers Care Bulk Pallet Builder Name Role Phone Radha Ramirez MD Primary Care Provider [phone] Tristen Alejandro PA-C Primary Care Provider [phone] Radha Ramirez MD Primary Care Provider [phone] Tristen Alejandro PA-C Primary Care Provider [phone] Reason for Visit * Reason Onset Date Comments Blood In Stool 09/14/2020 Encounter Details Date Type Department Care Team Description 09/14/2020 Telephone Gastroenterology - [place] [address] [facility] [address] [place] [address] Irena Lozano MD Blood In Stool Social History Tobacco Use Types Packs/Day Years [...] have Coronavirus / COVID-19? No / Unsure 09/16/2020 10:30 AM EST documented as of this encounter Miscellaneous Notes * Telephone Encounter - Cyndee Gaitan M.A. - 09/14/2020 3:17 PM EST Spoke to Patient made her aware what Dr. Lozano has advised , she agreed and understood * Telephone Encounter - Irena Lozano MD - 09/14/2020 1:41 PM EST Recommend Metamucil 1 tablespoon daily or Benefiber 2 teaspoons daily * Telephone Encounter - Irena Lozano MD - 09/14/2020 1:40 PM EST Recommend Metamucil 1 tablespoon daily or Benefiber 2teaspoons daily * Telephone Encounter - Cyndee Gaitan M.A. - 09/14/2020 1:16 PM EST Ana M spoke to Alyssa she states she is having anus pain , throbbing pain that shoots up her rectum when she is walking or sitting down, associated with ULQ stabbing pain. Has a BM about every 3 days When she does have a BM there is some blood in the stool and also on the toilet paper. She does not understand she says she watches what she is eating , drinking plenty of fluids increased her fiber intake. This has been a ongoing issue now for about a month. She is currently taking Doxycycline 20 mgs and Hydroxyzine 20 mgs Please advise * Telephone Encounter - Mari Molina - 09/14/2020 8:45 AM EST Patient would like to speak with MA regarding some symptoms she is having. She is concerned as she has been noticing some blood in her stool with increased abdominal pain. She is currently scheduled for a follow up 10/[address] Lozano, however she is very concerned. Please call back at number listed. Thanks documented in this encounter Plan of Treatment Not on file documented as of this encounter Visit Diagnoses Not on filedocumented in this encounter Additional Health Concerns Infection Onset Date Last Indicated Resolved Time COVID-19 Comment:Patient reports positive COVID test on 06/1206/12/2021 06/18/2021 08/24/2021 1:[address] COVID-19 Comment:Positive test on 06/0806/08/2023 06/09/2023 11:25 AM EDT documented as of this encounter Care Teams Bulk Pallet Builder Relationship Specialty Start Date End Date Radha Ramirez MD [address] [place] [address]47 PCP - General Internal Medicine 07/08/20 10/27/20 Tristen Alejandro PA-C [address] [place] [address] 62068 PCP - General Internal Medicine 10/28/20 11/16/20 Radha Ramirez MD [address] [place] [address] 54204 PCP - General Internal Medicine 11/17/20 11/17/20 Tristen Alejandro PA-C [address] [place] [address] 24559 PCP - General Internal Medicine 11/18/20 documented as of this encounter
--- OUTSIDE RECORDS SUMMARY | 2024-08-30 13:14 | XMS_ITS | Encounter Summary ---
Author Organization [facility] Address [address] [place] [address] Care Team Providers Care Proof Clerk Name Role Phone Rupa Potter MD Primary Care Provider Un available Radha Ramirez MD Primary Care Provider [phone] Tristen Alejandro PA-C Primary Care Provider [phone] Radha Ramirez MD Primary Care Provider [phone] Tristen Alejadnro PA-C Primary Care Provider [phone] Radha Ramirez MD Primary Care Provider [phone] Tristen Alejandro PA-C Primary Care Provider [phone] Reason for Visit * Reason Onset Date Comments vaginal problems 11/26/2018 Encounter Details Date Type Department Care Team Description 11/26/2018 Telephone [facility] - [place] [id number] Belia Panchal DO vaginal problems Social History [...] seen first * Telephone Encounter - Kia eRyna L.P.N. - 11/26/2018 5:01 PM EDT Left msg to call * Telephone Encounter - Edwina Johnson - 11/26/2018 9:46 AM EDT Chief Complaint/problem: Pt called, recently seen by Dr. Panchal -- pt is asking for Dr. Panchal to order an ultrasound for the ongoing issues she is having (irregular menses) How long has the patient had this problem? ongoing Pt???s INFANTRY ASSAULTMAN provider: Belia Panchal DO Last menstrual period [...] documented as of this encounter Care Teams Proof Clerk Relationship Specialty Start Date End Date Rupa Potter MD PCP - General Internal Medicine 04/08/18 Radha Ramirez MD [address] [place] [address] 31299 PCP - General Internal Medicine 03/27/19 05/03/20 Tristen Alejandro PA-C [address] [place] [address] 89498 PCP - General Internal Medicine 05/04/20 07/07/20 Radha Ramirez MD [address] [place] [address] 60909 PCP - General Internal Medicine 07/08/20 10/27/20 Tristen Alejandro PA-C [address] [place] [address] 72823 PCP - General Internal Medicine 10/28/20 11/16/20 Radha Ramirez MD [address] [place] [address] 73508 PCP - General Internal Medicine 11/17/20 11/17/20 Tristen Alejandro PA-C [address] [place] [address] 76449 PCP - General Internal Medicine 11/18/20 documented as of this encounter
--- OUTSIDE RECORDS SUMMARY | 2024-08-30 13:14 | XMS_ITS | Encounter Summary ---
Author Organization [facility] Address [address] [place] [address] Care Team Providers Care Cranberry Farm Supervisor Name Role Phone Tristen Alejandro PA-C Primary Care Provider [phone] Reason for Visit * Reason Onset Date Comments medication problems 08/16/2021 Encounter Details Date Type Department Care Team Description 08/16/2021 Refill Gastroenterology - [address] [place] [address] Irena Lozano MD medication problems Social History Tobacco Use Types Packs/Day [...] PM EST documented as of this encounter Miscellaneous Notes * Telephone Encounter - Diana Dennis - 08/16/2021 2:32 PM EST Who is calling? [facility] Name of the medication Lansoprazole DR 30 MG capsule What is the specific problem or interaction? Insurance plan limit exceeded. Alternative exceeded If the patient is having a problem with taking the med - how long has the problem been going on? N/A documented in this encounter Plan of [...] documented as of this encounter Care Teams Cranberry Farm Supervisor Relationship Specialty Start Date End Date Tristen Alejandro PA-C [address] [place] [address] PCP - General Internal Medicine 11/18/20 documented as of this encounter
--- OUTSIDE RECORDS SUMMARY | 2024-08-30 13:14 | XMS_ITS | Encounter Summary ---
Author Organization [facility] Address [address] [place] [address] Care Team Providers Care Rest Room Matron Name Role Phone Rupa Potter MD Primary Care Provider Un available Radha Ramirez MD Primary Care Provider [phone] Tristen Alejandro PA-C Primary Care Provider [phone] Radha Ramirez MD Primary Care Provider [phone] Tristen Alejandro PA-C Primary Care Provider [phone] Radha Ramirez MD Primary Care Provider Tristen Alejandro PA-C Primary Care Provider [phone] Reason for Visit * Reason Onset Date Comments er follow up 08/24/2018 Encounter Details Date Type Department Care Team Description 08/24/2018 Telephone Adult [address] [id number] Rupa Potter MD er follow up Social History Tobacco Use Types Packs/Day Years [...] encounter Miscellaneous Notes * Telephone Encounter - Regine Neil - 08/24/2018 2:18 PM EST ER follow-up appointment booked YES 08/27/2018 If ER or UC follow up, can be booked with APC or MD. If hospital admission follow up MUST be booked with a physician Appointment time: 12 noon PM Provider visit is scheduled with: Zenia Leavitt N.P. Hospital/ center patient was treated at: [facility] Date of visit: 08/17/2018 Was this only an ER/UC visit or was the patient admitted to the hospital? ER visit onlyER visit only If patient was admitted what was the date of discharge? N/A Reason/diagnosis for visit or stay: abd pain Was visit or stay related to an injury? NO If yes, what was the date of injury (DOI)? N/A If yes, was the injury due to N/A Tests performed: Lab: YES X-ray: YES EKG: YES Other tests. If yes, what?; N/A documented in this encounter Plan of [...] documented as of this encounter Care Teams Rest Room Matron Relationship Specialty Start Date End Date Rupa Potter MD PCP - General Internal Medicine 04/08/18 Radha Ramirez MD [address] [place] [address] 42289 PCP - General Internal Medicine 03/27/19 05/03/20 Tristen Alejandro PA-C [address] [place] [address] 19850 PCP - General Internal Medicine 05/04/20 07/07/20 Radha Ramirez MD [address] [place] [address] 09468 PCP - General Internal Medicine 07/08/20 10/27/20 Tristen Alejandro PA-C [address] [place] [address] 41286 PCP - General Internal Medicine 10/28/20 11/16/20 Radha Ramirez MD [address] [place] [address] 80960 PCP - General Internal Medicine 11/17/20 11/17/20 Tristen Alejandro PA-C [address] [place] [address] 12339 PCP - General Internal Medicine 11/18/20 documented as of this encounter
--- OUTSIDE RECORDS SUMMARY | 2024-08-30 13:14 | XMS_ITS | Encounter Summary ---
Author Organization [facility] Address [address] [place] [address] Care Team Providers Care Traveling Freight Agent Name Role Phone Tristen Alejandro PA-C Primary Care Provider [phone] Encounter Details Date Type Department Care Team Description 07/13/2023 Orders Only Medical Records [address] [place] [address] Araceli Hernández MD [address] [place] [address] Social History Tobacco Use Types Packs/Day Years [...] Name Priority Date/Time Associated Diagnosis Comments OUTSIDE MRI/MRA Routine 05/03/2023 documented in this encounter Results * OUTSIDE MRI/MRA (05/03/2023) Araceli Hernández MD RADIOLOGY documented in this encounter Visit Diagnoses Not on filedocumented in this encounter Additional Health Concerns Infection Onset Date Last Indicated Resolved Time COVID-19 Comment:Positive test on 06/0806/08/2023 06/09/2023 4 11:25 AM EDT documented as of this encounter Care Teams Traveling Freight Agent Relationship Specialty Start Date End Date Tristen Alejandro PA-C [address] [place] [address] PCP - General Internal Medicine 11/18/20 documented as of this encounter
--- OUTSIDE RECORDS SUMMARY | 2024-08-30 13:14 | XMS_ITS | Encounter Summary ---
Author Organization [facility] Address [address] [place] [address] Care Team Providers Care Regulatory Affairs Coordinator Name Role Phone Radha Ramirez MD Primary Care Provider [phone] Tristen Alejandro PA-C Primary Care Provider [phone] Radha Ramirez MD Primary Care Provider [phone] Tristen Alejandro PA-C Primary Care Provider [phone] Radha Ramirez MD Primary Care Provider [phone] Tristen Alejandro PA-C Primary Care Provider [phone] Reason for Visit * Reason Onset Date Comments Balance 10/23/2019 eye problems 10/23/2019 Burning Eyes 10/23/2019 shaking hands 10/23/2019 Encounter Details Date Type Department Care Team Description 10/23/2019 Telephone Adult [address] [id number] Radha Ramierz MD [address] [place] [address] [id number] Balance; eye problems; Burning Eyes; shaking hands [...] abroad? NO ??? Have you been to [place] or in contact with anyone who has recently been in [place]? NO If YES to either, send the call to triage and do not book If pain or injury related was it due to an accident at work or from a motor vehicle accident? NO If yes, gather 3rd libertarian insurance information Date of accident/Injury: How long has patient had these symptoms?: PCP: Radha Ramirez Payor: [employer] FFS / Plan: [email or web address] ALLIANCE / Product Type: MEDICAID RISK documented [...] documented as of this encounter Care Teams Regulatory Affairs Coordinator Relationship Specialty Start Date End Date Radha Ramirez MD [address] [place] [address] 89958 PCP - General Internal Medicine 03/27/19 05/03/20 Tristen Alejandro PA-C [address] [place] [address] 61370 PCP - General Internal Medicine 05/04/20 07/07/20 Radha Ramirez MD [address] [place] [address] 89580 PCP - General Internal Medicine 07/08/20 10/27/20 Tristen Alejnadro PA-C [address] [place] [address] 56647 PCP - General Internal Medicine 10/28/20 11/16/20 Radha Ramirez MD [address] [place] [address] 96043 PCP - General Internal Medicine 11/17/20 11/17/20 Tristen Alejandro PA-C [address] [place] [address] 92515 PCP - General Internal Medicine 11/18/20 documented as of this encounter
--- OUTSIDE RECORDS SUMMARY | 2024-08-30 13:14 | XMS_ITS | Encounter Summary ---
Author Organization [facility] Address [address] [place] [address] Care Team Providers Care Administration Vice President Name Role Phone Radha Ramirez MD Primary Care Provider [phone] Tristen Alejandro PA-C Primary Care Provider [phone] Radah Ramirez MD Primary Care Provider [phone] Tristen Alejandro PA-C Primary Care Provider [phone] Radha Ramirez MD Primary Care Provider [phone] Tristen Alejandro PA-C Primary Care Provider [phone] Reason for Visit * Reason Onset Date Comments gastrointestinal symptoms 11/26/2019 Encounter Details Date Type Department Care Team Description 11/26/2019 Telephone Gastroenterology - [place] [address] [facility] [address] [place] [address] Bhavik Crow PA-C gastrointestinal symptoms Social History Tobacco Use Types Packs/Day Years [...] Telephone Encounter - Cyndee Gaitan M.A. - 11/26/2019 11:55 AM EDT FYAlma Spoke with PT told her the shoulder pain should not be due to GERD , made her aware she has a x-rayput in place that has not been done yet and she should get that done to rile out shoulder pain. Shestates she hasnt gone to get it done yet due to no early childhood services coordinator. She was also made aware you increased her omeprazole up to 40 mgs daily. * Telephone Encounter - Bhavik Crow PA-C - 11/26/2019 11:18 AM EDT Pain in both her shoulders would not be due to GERD. She saw her PCP last month about the shoulder pain and he ordered an x-ray which hasn't been done. Please encourage pt to do so. As for the increased acidity, will increase her omeprazole to 20 mg BID. It was noted by her PCP that she has had increased anxiety. * Telephone Encounter - Darya Coleman - 11/26/2019 10:53 AM EDT Symptoms patient is having: patient is worried about a GERD flareup? States she is experiencing discomfort in her shoulder blade. She states 3 nights ago she felt it in both. She is not sure if this is due to a pulled muscle or her GERD because she has had some increased stomach acidity For ALL patients calling to schedule any appointment (routine, sick visit, follow up, consult, etc.) in the outpatient setting please ask the following questions. ??? Do you have fever of higher than 101, sore throat with difficulty swallowing or severe shortness of breath? NO If YES any of these above symptoms send a message to triage and do not book. Red dot. If no, an audio or video visit should be booked. ??? Have you had close contact with someone with Coronavirus in the last 14 days? NO ??? Have you traveled abroad? NO ??? Have you been to [place] or in contact with anyone who has recently been in [place]? NO If pain or injury related was it due to an accident at work or from a motor vehicle accident? NO If yes, gather 3rd republican insurance information Date of accident/Injury: n/a How long has patient had these symptoms?: about 4 days PCP: Radha Ramirez Payor: [employer] FFS / Plan: [employer] ALLIANCE / Product Type: MEDICAID RISK documented [...] documented as of this encounter Care Teams Administration Vice President Relationship Specialty Start Date End Date Radha Ramirez MD [address] [place] [address]100 PCP - General Internal Medicine 03/27/19 05/03/20 Tristen Alejandro PA-C [address] [place] [address] 68001 PCP - General Internal Medicine 05/04/20 07/07/20 Radha Ramirez MD [address] [place] [address] 16001 PCP - General Internal Medicine 07/08/20 10/27/20 Tristen Alejandro PA-C [address] [place] [address] PCP - General Internal Medicine 10/28/20 11/16/20 Radha Ramirez MD [address] [place] [address] PCP - General Internal Medicine 11/17/20 11/17/20 Tristen Alejandro PA-C [address] [place] [address] PCP - General Internal Medicine 11/18/20 documented as of this encounter
--- OUTSIDE RECORDS SUMMARY | 2024-08-30 13:14 | XMS_ITS | Encounter Summary ---
Author Organization [facility] Address [address] [place] [address] Care Team Providers Care Registered Nurse Cardiac Telemetry Name Role Phone Tristen Alejandro PA-C Primary Care Provider [phone] Encounter Details Date Type Department Care Team Description 06/02/2021 Orders Only Adult Medicine [address] [phone] Brennan Pabon PA-C Pharyngeal dysphagia; Acute pain of right knee Social History Tobacco Use Types Packs/Day Years [...] have Coronavirus / COVID-19? No / Unsure 06/05/2021 9:19 AM EST documented as of this encounter Plan of Treatment Not on file documented as of this encounter Procedures Procedure Name Priority Date/Time Associated Diagnosis Comments CHG RADIOLOGIC EXAM ESOPHAGUS SINGLE CONTRAST STUDY Routine 06/02/2021 Pharyngeal dysphagia Acute pain of right knee documented in this encounter Results * RADIOLOGIC EXAM ESOPHAGUS SINGLE CONTRAST STUDY (06/02/2021) Brennan Pabon PA-C RADIOLOGY documented in this encounter Visit Diagnoses Diagnosis Pharyngeal dysphagia Dysphagia, pharyngeal phase Acute pain of right knee documented in this encounter Additional Health Concerns Infection Onset Date Last Indicated Resolved Time COVID-19 Comment:Patient reports positive COVID test on 06/1206/12/2021 06/18/2021 08/24/2021 1:[address] COVID-19 Comment:Positive test on 06/0806/08/2023 06/09/2023 11:25 AM EDT documented as of this encounter Care Teams Registered Nurse Cardiac Telemetry Relationship Specialty Start Date End Date Tristen Alejandro PA-C [address] [place] [address]882 PCP - General Internal Medicine 11/18/20 documented as of this encounter
--- OUTSIDE RECORDS SUMMARY | 2024-08-30 13:14 | XMS_ITS | Encounter Summary ---
Author Organization [facility] Address [address] [place] [address] Care Team Providers Care Proposal Development Manager Name Role Phone Tristen Alejandro PA-C Primary Care Provider [phone] Encounter Details Date Type Department Care Team Description 05/10/2023 Business Systems Architect Report Medical Records [address] [place] [address] Jennifer Krishnan MD Social History Tobacco Use [...] documented as of this encounter Care Teams Proposal Development Manager Relationship Specialty Start Date End Date Tristen Alejandro PA-C [address] [place] [address] PCP - General Internal Medicine 11/18/20 documented as of this encounter
--- OUTSIDE RECORDS SUMMARY | 2024-08-30 13:14 | XMS_ITS | Encounter Summary ---
Author Organization [facility] Address [address] [place] [address] Care Team Providers Care Theater Projectionist Name Role Phone Radha Ramirez MD Primary Care Provider [phone] Tristen Alejandro PA-C Primary Care Provider [phone] Radha Ramirez MD Primary Care Provider [phone] Tristen Alejandro PA-C Primary Care Provider [phone] Encounter Details Date Type Department Care Team Description 10/01/2020 SCAN Medical Records [address] [place] [address] Isauro Kaur MD Social History Tobacco Use [...] documented as of this encounter Care Teams Theater Projectionist Relationship Specialty Start Date End Date Radha Ramirez MD [address] [place] [address]808 PCP - General Internal Medicine 07/08/20 10/27/20 Tristen Alejandro PA-C [address] [place] [address]142 PCP - General Internal Medicine 10/28/20 11/16/20 Radha Ramirez MD [address] [place] [address] 31816 PCP - General Internal Medicine 11/17/20 11/17/20 Tristen Alejandro PA-C [address] [place] [address] PCP - General Internal Medicine 11/18/20 documented as of this encounter
--- OUTSIDE RECORDS SUMMARY | 2024-08-30 13:14 | XMS_ITS | Encounter Summary ---
Author Organization [facility] Address [address] [place] [address] Care Team Providers Care Financial Services Consultant Name Role Phone Tristen Alejandro PA-C Primary Care Provider [phone] Encounter Details Date Type Department Care Team Description 05/13/2022 Orders Only OBGYN - [facility] [address] [place] [address] Alison Palom[place], [facility] [address] [place] [address] Mastalgia Social History Tobacco Use Types Packs/Day [...] documented as of this encounter Care Teams Financial Services Consultant Relationship Specialty Start Date End Date Tristen Alejandro PA-C [address] [place] [address]842 PCP - General Internal Medicine 11/18/20 documented as of this encounter
--- OUTSIDE RECORDS SUMMARY | 2024-08-30 13:14 | XMS_ITS | Encounter Summary ---
Author Organization [facility] Address [address] [place] [address] Care Team Providers Care Decorator Hand Name Role Phone Radha Ramirez MD Primary Care Provider [phone] Tristen Alejandro PA-C Primary Care Provider [phone] Radha Ramirez MD Primary Care Provider [phone] Tristen Alejandro PA-C Primary Care Provider [phone] Reason for Visit * Reason Onset Date Comments Prior Authorization 09/16/2020 Tretinoin 0. 05% Cream Encounter Details Date Type Department Care Team Description 09/16/2020 Telephone Dermatology - [address] [address] Etta Rodriguez PA-C Prior Authorization (Tretinoin 0.05% Cream) Social History Tobacco Use Types Packs/Day Years [...] encounter Miscellaneous Notes * Telephone Encounter - Clover Sauceda M.A. - 09/18/2020 2:49 PM EST Dx code:L70.9 Adult acne Prior authorization done on [facility] to for Tretinoin 0.05% cream. Approved from 09/18/2020-09/18/2021. Case # [id number]. * Telephone Encounter - Etta Castillo - 09/16/2020 2:44 PM EST Prior Authorization for Medication-do not complete and send this encounter unless you have the fax from the pharmacy. Is this a Cover My Meds request: [place] of Medication Tretinoin 0.05% Cream Dose of Medication What is the RX # from the faxed refill? How does patient take this med? What Pharmacy did the fax come from[facility] fax #: [phone] [employer] Party Information from fax: What Prescription Plan does the patient have? BIN/PCN if applicable: Cardholder ID: Person Code: Relationship Code: Help desk phone: documented in this encounter Plan of Treatment Not on file documented as of this encounter Visit Diagnoses Not on filedocumented in this encounter Additional Health Concerns Infection Onset Date Last Indicated Resolved Time COVID-19 Comment:Patient reports positive COVID test on 06/1206/12/2021 06/18/2021 08/24/2021 1:[address] COVID-19 Comment:Positive test on 06/0806/08/2023 06/09/2023 11:25 AM EDT documented as of this encounter Care Teams Decorator Hand Relationship Specialty Start Date End Date Radha Ramirez MD [address] [place] [address] PCP - General Internal Medicine 07/08/20 10/27/20 Tristen Alejandro PA-C [address] [place] [address] PCP - General Internal Medicine 10/28/20 11/16/20 Radha Ramirez MD [address] [place] [address] PCP - General Internal Medicine 11/17/20 11/17/20 Tristen Alejandro PA-C [address] [place] [address] PCP - General Internal Medicine 11/18/20 documented as of this encounter
--- OUTSIDE RECORDS SUMMARY | 2024-08-30 13:14 | XMS_ITS | Encounter Summary ---
Author Organization [facility] Address [address] [place] [address] Care Team Providers Care Inside Sales Executive Name Role Phone Tristen Alejandro PA-C Primary Care Provider [phone] Encounter Details Date Type Department Care Team Description 07/26/2023 Orders Only Medical Records [address] [place] [address] Emre Geronimo MD Social History Tobacco Use [...] Name Priority Date/Time Associated Diagnosis Comments OUTSIDE CT Routine 07/12/2023 documented in this encounter Results * OUTSIDE CT (07/12/2023) Emre Geronimo MD RADIOLOGY documented in this encounter Visit Diagnoses Not on filedocumented in this encounter Additional Health Concerns Infection Onset Date Last Indicated Resolved Time COVID-19 Comment:Positive test on 06/0806/08/2023 06/09/2023 4 11:25 AM EDT documented as of this encounter Care Teams Inside Sales Executive Relationship Specialty Start Date End Date Tristen Alejandro PA-C [address] [place] [address] PCP - General Internal Medicine 11/18/20 documented as of this encounter
--- OUTSIDE RECORDS SUMMARY | 2024-08-30 13:14 | XMS_ITS | Encounter Summary ---
Author Organization [facility] Address [address] [place] [address] Care Team Providers Care Regulatory Attorney Name Role Phone Radha Ramirez MD Primary Care Provider [phone] Tristen Alejandro PA-C Primary Care Provider [phone] Radha Ramirez MD Primary Care Provider [phone] Tristen Alejandro PA-C Primary Care Provider [phone] Encounter Details Date Type Department Care Team Description 07/20/2020 Leak Inspector Report Medical Records [address] [place] [address] Wilner Gonzalez NP Social History Tobacco Use [...] as of this encounter Care Teams Regulatory Attorney Relationship Specialty Start Date End Date Radha Ramirez MD [address] [place] [address] PCP - General Internal Medicine 07/08/20 10/27/20 Tristen Alejandro PA-C [address] [place] [address] PCP - General Internal Medicine 10/28/20 11/16/20 Radha Ramirez MD [address] [place] [address] PCP - General Internal Medicine 11/17/20 11/17/20 Tristen Alejandro PA-C [address] [place] [address] PCP - General Internal Medicine 11/18/20 documented as of this encounter
--- OUTSIDE RECORDS SUMMARY | 2024-08-30 13:14 | XMS_ITS | Encounter Summary ---
Author Organization [facility] Address [address] [place] [address] Care Team Providers Care Elementary School Librarian Name Role Phone Radha Ramirez MD Primary Care Provider [phone] Tristen Alejandro PA-C Primary Care Provider [phone] Radha Ramirez MD Primary Care Provider [phone] Tristen Alejandro PA-C Primary Care Provider [phone] Encounter Details Date Type Department Care Team Description 10/09/2020 Polysomnographic Tech Report Medical Records [address] [place] [address] Wilner Gonzalez NP Social History Tobacco Use [...] documented as of this encounter Care Teams Elementary School Librarian Relationship Specialty Start Date End Date Radha Ramirez MD [address] [place] [address] PCP - General Internal Medicine 07/08/20 10/27/20 Tristen Alejandro PA-C [address] [place] [address] PCP - General Internal Medicine 10/28/20 11/16/20 Radha Ramirez MD [address] [place] [address] PCP - General Internal Medicine 11/17/20 11/17/20 Tristen Alejandro PA-C [address] [place] [address] PCP - General Internal Medicine 11/18/20 documented as of this encounter
--- OUTSIDE RECORDS SUMMARY | 2024-08-30 13:14 | XMS_ITS | Encounter Summary ---
Author Organization [facility] Address [address] [place] [address] Care Team Providers Care Wind Farm Operations Manager Name Role Phone Tristen Alejandro PA-C Primary Care Provider [phone] Encounter Details Date Type Department Care Team Description 06/09/2022 Photography Professor Report Medical Records [address] [place] [address] Wilner Gonzalez NP Social History Tobacco Use [...] documented as of this encounter Care Teams Wind Farm Operations Manager Relationship Specialty Start Date End Date Trisetn Alejandro PA-C [address] [place] [address] PCP - General Internal Medicine 11/18/20 documented as of this encounter
--- OUTSIDE RECORDS SUMMARY | 2024-08-30 13:14 | XMS_ITS | Encounter Summary ---
Author Organization [facility] Address [address] [place] [address] Care Team Providers Care Hardness Tester Name Role Phone Tristen Alejandro PA-C Primary Care Provider [phone] Encounter Details Date Type Department Care Team Description 06/14/2022 Telephone Adult [facility] [address] [place] [address] Tristen Alejandro PA-C [address] [place] [address] Social History Tobacco Use Types Packs/Day Years [...] documented as of this encounter Care Teams Hardness Tester Relationship Specialty Start Date End Date Tristen Alejandro PA-C [address] [place] [address] PCP - General Internal Medicine 11/18/20 documented as of this encounter
--- OUTSIDE RECORDS SUMMARY | 2024-08-30 13:14 | XMS_ITS | Encounter Summary ---
Author Organization [facility] Address [address] [place] [address] Care Team Providers Care Rigging Man Name Role Phone Tirsten Alejandro PA-C Primary Care Provider [phone] Reason for Visit * Reason Onset Date Comments Provider Call Back 07/19/2022 Encounter Details Date Type Department Care Team Description 07/19/2022 Telephone Gastroenterology - [place] [address] [facility] [address] [place] [address] Irena Lozano MD Provider Call [...] and a lot of belching. Please advise [phone] documented in this encounter Plan of Treatment Not on file documented as of this encounter Visit Diagnoses Not on filedocumented in this encounter Additional Health Concerns Infection Onset Date Last Indicated Resolved Time COVID-19 Comment:Positive test on 06/0806/08/2023 06/09/2023 4 11:25 AM EDT documented as of this encounter Care Teams Rigging Man Relationship Specialty Start Date End Date Tristen Alejandro PA-C [address] [place] [address] PCP - General Internal Medicine 11/18/20 documented as of this encounter
--- OUTSIDE RECORDS SUMMARY | 2024-08-30 13:14 | XMS_ITS | Encounter Summary ---
Author Organization [facility] Address [address] [place] [address] Care Team Providers Care Ticket Sorter Name Role Phone Tristen Alejandro PA-C Primary Care Provider [phone] Encounter Details Date Type Department Care Team Description 06/23/2021 Hospital Medical Records [address] [place], [place] [id number] [place] [address] Social History Tobacco Use Types Packs/Day Years [...] Name Priority Date/Time Associated Diagnosis Comments OUTSIDE EKG Routine 06/23/2021 documented in this encounter Results * OUTSIDE EKG (06/23/2021) Provider Default CARDIOLOGY documented in this encounter Visit Diagnoses Not on filedocumented in this encounter Additional Health Concerns Infection Onset Date Last Indicated Resolved Time COVID-19 Comment:Patient reports positive COVID test on 06/1206/12/2021 06/18/2021 08/24/2021 1:[address] COVID-19 Comment:Positive test on 06/0806/08/2023 06/09/2023 11:25 AM EDT documented as of this encounter Care Teams Ticket Sorter Relationship Specialty Start Date End Date Tristen Alejandro PA-C [address] [place] [address] PCP - General Internal Medicine 11/18/20 documented as of this encounter
--- OUTSIDE RECORDS SUMMARY | 2024-08-30 13:14 | XMS_ITS | Encounter Summary ---
Author Organization [facility] Address [address] [place] [address] Care Team Providers Care Court Liaison Name Role Phone Rupa Potter MD Primary Care Provider Un available Tristen García Primary Care Provider Unavail able Rupa Potter MD Primary Care Provider Un available Radha Ramirez MD Primary Care Provider [phone] Tristen Alejandro PA-C Primary Care Provider [phone] Radha Ramirez MD Primary Care Provider [phone] Tristen Alejandro PA-C Primary Care Provider [phone] Radha Ramirez MD Primary Care Provider Tristen Alejandro PA-C Primary Care Provider [phone] Encounter Details Date Type Department Care Team Description 08/29/2016 Hospital Medical Records [address] [place] [address] Abstract, Provider Social History Tobacco Use Types [...] documented as of this encounter Care Teams Court Liaison Relationship Specialty Start Date End Date Rupa Potter MD PCP - General Internal Medicine 03/23/18 Tristen García PCP - General Internal Medicine 03/24/18 04/06/18 Rupa Potter MD PCP - General Internal Medicine 04/08/18 Radha Ramirez MD [address] [place] [address] PCP - General Internal Medicine 03/27/19 05/03/20 Tristen Alejandro PA-C [address] [place] [address] PCP - General Internal Medicine 05/04/20 07/07/20 Radha Ramirez MD [address] [place] [address] PCP - General Internal Medicine 07/08/20 10/27/20 Tristen Alejandro PA-C [address] [place] [address] PCP - General Internal Medicine 10/28/20 11/16/20 Radha Ramirez MD [address] [place] [address] PCP - General Internal Medicine 11/17/20 11/17/20 Tristen Alejandro PA-C [address] [place] [address] PCP - General Internal Medicine 11/18/20 documented as of this encounter
--- OUTSIDE RECORDS SUMMARY | 2024-08-30 13:14 | XMS_ITS | Encounter Summary ---
Author Organization [facility] Address [address] [place] [address] Care Team Providers Care Manager Solar Name Role Phone Tristen Alejandro PA-C Primary Care Provider [phone] Encounter Details Date Type Department Care Team Description 03/09/2023 Telephone Adult [facility] [address] [place] [address] Abdelrahman Park PA-C [address] [place] [address] Social History Tobacco Use Types Packs/Day Years [...] suspected to have Coronavirus/COVID-19? No / Unsure 03/09/2023 10:48 AM EDT documented as of this encounter Miscellaneous Notes * Telephone Encounter - Luisa Francis M.A. - 03/10/2023 10:57 AM EDT Requested faxed. * Telephone Encounter - Abdelrahman Park PA-C - 03/09/2023 11:24 AM EDT Please req wrist MRI from [facility] documented in this encounter Plan of Treatment Not on file documented as of this encounter Visit Diagnoses Not on filedocumented in this encounter Additional Health Concerns Infection Onset Date Last Indicated Resolved Time COVID-19 Comment:Positive test on 06/0806/08/2023 06/09/2023 11:25 AM EDT documented as of this encounter Care Teams Manager Solar Relationship Specialty Start Date End Date Tristen Alejandro PA-C [address] [place] [address] PCP - General Internal Medicine 11/18/20 documented as of this encounter
--- OUTSIDE RECORDS SUMMARY | 2024-08-30 13:15 | XMS_ITS | Encounter Summary ---
Author Organization [facility] Address [address] [place] [address] Care Team Providers Care Fish Cutting Machine Operator Name Role Phone Tristen Alejandro PA-C Primary Care Provider [phone] Encounter Details Date Type Department Care Team Description 03/07/2022 Telephone Gastroenterology - [place] [address] [facility] [address] [place] [address] Irena Lozano MD Social History [...] is scheduled for Upper GI series over [facility], Patient needs to arrive over atPatient registration [...] documented as of this encounter Care Teams Fish Cutting Machine Operator Relationship Specialty Start Date End Date Tristen Alejandro PA-C [address] [place] [address] PCP - General Internal Medicine 11/18/20 documented as of this encounter
--- OUTSIDE RECORDS SUMMARY | 2024-08-30 13:15 | XMS_ITS | Encounter Summary ---
Author Organization [facility] Address [address] [place] [address] Care Team Providers Care Tapper Shank Name Role Phone Radha Ramirez MD Primary Care Provider [phone] Tristen Alejandro PA-C Primary Care Provider [phone] Radha Ramirez MD Primary Care Provider [phone] Tristen Alejandro PA-C Primary Care Provider [phone] Radha Ramirez MD Primary Care Provider [phone] Tristen Alejandro PA-C Primary Care Provider [phone] Reason for Visit * Reason Onset Date Comments APPOINTMENT 01/20/2020 Encounter Details Date Type Department Care Team Description 01/20/2020 Telephone Gastroenterology - [place] [address] [facility] [address] [place] [address] Bhavik Crow PA-C APPOINTMENT Social History Tobacco Use Types Packs/Day [...] encounter Miscellaneous Notes * Telephone Encounter - [place] Olmedo - 01/21/2020 2:26 PM EDT Spoke with patient; she's all set. * Telephone Encounter - Jelena Villalta - 01/21/2020 10:05 AM EDT Patient calling back, please return call * Telephone Encounter - [place] Olmedo - 01/20/2020 11:02 AM EDT Returned patient's call; LVM for her to call again with questions. * Telephone Encounter - [place] Olmedo - 01/20/2020 10:47 AM EDT Patient scheduled 01/28/20 @ 2:30pm w/Kandi * Telephone Encounter - Arabella La - 01/20/2020 10:45 AM EDT Caller requesting call back from provider: Is the caller the patient? YES If caller is not the patient, what is the callers name? N/A Callers relationship to patient? N/A If person calling is not the patient themselves, is there a verbal release in FYI or permanent comments for this person: NO Reason for call back: Patient called and asked Specifically for Breezy Marquez attemtped twice to contact her -please contact patient re: Appt for endoscopy [phone] Patient request this Monday for procedure. Caller offered to speak with the nurse for assistance: NO Response: Patient questions egd for this mon if available. * Telephone Encounter - Danielle Nayak - 01/20/2020 10:16 AM EDT Patient returning call to schedule EGD documented in this encounter Plan of Treatment Not on file documented as of this encounter Visit Diagnoses Not on filedocumented in this encounter Additional Health Concerns Infection Onset Date Last Indicated Resolved Time COVID-19 Comment:Patient reports positive COVID test on 06/1206/12/2021 06/18/2021 08/24/2021 1:[address] COVID-19 Comment:Positive test on 06/0806/08/2023 06/09/2023 11:25 AM EDT documented as of this encounter Care Teams Tapper Shank Relationship Specialty Start Date End Date Radha Ramirez MD [address] [place] [address] PCP - General Internal Medicine 03/27/19 05/03/20 Tristen Alejandro PA-C [address] [place] [address] PCP - General Internal Medicine 05/04/20 07/07/20 Radha Ramirez MD [address] [place] [address] PCP - General Internal Medicine 07/08/20 10/27/20 Tristen Alejandro PA-C [address] [place] [address] PCP - General Internal Medicine 10/28/20 11/16/20 Radha Ramierz MD [address] [place] [address] PCP - General Internal Medicine 11/17/20 11/17/20 Tristen Alejandro PA-C [address] [place] [address] PCP - General Internal Medicine 11/18/20 documented as of this encounter
--- OUTSIDE RECORDS SUMMARY | 2024-08-30 13:15 | XMS_ITS | Encounter Summary ---
Author Organization [facility] Address [address] [place] [address] Care Team Providers Care Detail Technician Name Role Phone Tristen Alejandro PA-C Primary Care Provider [phone] Radha Ramirez MD Primary Care Provider [phone] Tristen Alejandro PA-C Primary Care Provider [phone] Encounter Details Date Type Department Care Team Description 11/02/2020 Release of Information Medical Records [address] [place] [id number] [place] [address] Social History Tobacco Use Types Packs/Day Years [...] documented as of this encounter Care Teams Detail Technician Relationship Specialty Start Date End Date Tristen Alejandro PA-C [address] [place] [address] PCP - General Internal Medicine 10/28/20 11/16/20 Radha Ramirez MD [address] [place] [address] PCP - General Internal Medicine 11/17/20 11/17/20 Tristen Alejandro PA-C [address] [place] [address] PCP - General Internal Medicine 11/18/20 documented as of this encounter
--- OUTSIDE RECORDS SUMMARY | 2024-08-30 13:15 | XMS_ITS | Encounter Summary ---
Author Organization [facility] Address [address] [place] [address] Care Team Providers Care Furniture Designer Name Role Phone Radha Ramirez MD Primary Care Provider [phone] Tristen Alejandro PA-C Primary Care Provider [phone] Radha Ramirez MD Primary Care Provider [phone] Tristen Alejandro PA-C Primary Care Provider [phone] Radha Ramirez MD Primary Care Provider [phone] Tristen Alejandro PA-C Primary Care Provider [phone] Reason for Visit * Reason Onset Date Comments gastrointestinal symptoms 03/11/2020 Encounter Details Date Type Department Care Team Description 03/11/2020 Telephone Gastroenterology - [place] 175 [facility] [address] [place] [address] Bhavik Crow PA-C gastrointestinal symptoms [...] encounter Miscellaneous Notes * Telephone Encounter - Jinny Ruizregard - 03/11/2020 1:28 PM EDT Symptoms patient is presenting: abdominal pain upper left side, For ALL patients calling to schedule any appointment (routine, sick visit, follow up, consult, etc.) in the outpatient setting please ask the following questions: ?? Do you have fever of higher than 101, sore throat with difficulty swallowing or severe shortnessof breath? NO If YES to any of these above symptoms, send a message to triage and do not book. Red dot. If no, an audio or video visit should be booked. ?? Have you had close contact with someone with Coronavirus in the last 14 days? NO ?? Have you traveled abroad? NO ?? Have you traveled recently to another state outside of [place], [place], [place], [place], [place], [place], [place]? NO o If yes, did you quarantine for 14 days or have a negative covid test? NO If yes to any of the above, patient is not to be scheduled in office until after 14 day quarantine or negative covid test. If pain or injury related was it due to an accident at work or from a motor vehicle accident? NO If yes, gather 3rd democrat insurance information Date of accident/Injury: N/A How long has patient had these symptoms?: 24 hours PCP: Radha Ramirez Payor: [employer] / Plan: [employer] / Product Type: MEDICAID RISK documented [...] documented as of this encounter Care Teams Furniture Designer Relationship Specialty Start Date End Date Radha Ramirez MD [address] [place] [address] PCP - General Internal Medicine 03/27/19 05/03/20 Tristen Alejandro PA-C [address] [place] [address] PCP - General Internal Medicine 05/04/20 07/07/20 Radha Ramirez MD [address] [place] [address] PCP - General Internal Medicine 07/08/20 10/27/20 Tristen Alejandro PA-C [address] [place] [address] PCP - General Internal Medicine 10/28/20 11/16/20 Radha Ramirez MD [address] [place] [address] PCP - General Internal Medicine 11/17/20 11/17/20 Tristen Alejandro PA-C [address] [place] [address] PCP - General Internal Medicine 11/18/20 documented as of this encounter
--- OUTSIDE RECORDS SUMMARY | 2024-08-30 13:15 | XMS_ITS | Encounter Summary ---
Author Organization [facility] Address [address] [place] [address] Care Team Providers Care End Finder Forming Department Name Role Phone Tristen Alejandro PA-C Primary Care Provider [phone] Encounter Details Date Type Department Care Team Description 01/16/2023 Command Post Craftsman Report Medical Records [address] [place] [address] Kika Sanchez, COOPERAGE SHOP SUPERVISOR Social History Tobacco Use Types Packs/Day Years [...] suspected to have Coronavirus/COVID-19? No / Unsure 12/21/2022 12:57 PM EDT documented as of this encounter Plan of Treatment Not on file documented as of this encounter Visit Diagnoses Not on filedocumented in this encounter Additional Health Concerns Infection Onset Date Last Indicated Resolved Time COVID-19 Comment:Positive test on 06/0806/08/2023 06/09/2023 11:25 AM EDT documented as of this encounter Care Teams End Finder Forming Department Relationship Specialty Start Date End Date Tristen Alejandro PA-C [address] [place] [address] PCP - General Internal Medicine 11/18/20 documented as of this encounter
--- OUTSIDE RECORDS SUMMARY | 2024-08-30 13:15 | XMS_ITS | Encounter Summary ---
Author Organization [facility] Address [address] [place] [address] Care Team Providers Care Social Professionals Name Role Phone Tristen Alejandro PA-C Primary Care Provider [phone] Reason for Visit * Reason Onset Date Comments Provider Call Back 08/03/2022 Encounter Details Date Type Department Care Team Description 08/03/2022 Telephone Gastroenterology - [place] [address] [facility] [address] [place] [address] Irena Lozano MD Provider Call [...] documented as of this encounter Care Teams Social Professionals Relationship Specialty Start Date End Date Tristen Alejandro PA-C [address] [place] [address] PCP - General Internal Medicine 11/18/20 documented as of this encounter
--- OUTSIDE RECORDS SUMMARY | 2024-08-30 13:15 | XMS_ITS | Encounter Summary ---
Author Organization [facility] Address [address] [place] [address] Care Team Providers Care Long Chain Dyeing Machine Operator Name Role Phone Tristen Alejandro PA-C Primary Care Provider [phone] Encounter Details Date Type Department Care Team Description 11/03/2023 Package Winder Report Medical Records [address] [place] [address] Kika Sanchez, BANKING CONSULTANT Social History Tobacco Use Types Packs/Day Years [...] on filedocumented in this encounter Care Teams Long Chain Dyeing Machine Operator Relationship Specialty Start Date End Date Tristen Alejandro PA-C [address] [place] [address] PCP - General Internal Medicine 11/18/20 documented as of this encounter
--- OUTSIDE RECORDS SUMMARY | 2024-08-30 13:15 | XMS_ITS | Encounter Summary ---
Author Organization [facility] Address [address] [place] [address] Care Team Providers Care Knife Edger Name Role Phone Tristen Alejandro PA-C Primary Care Provider [phone] Encounter Details Date Type Department Care Team Description 02/23/2022 Telephone Adult Medicine [facility] [address] [place] [address] Tristen Alejandro PA-C [address] [place] [address] Social History Tobacco Use Types Packs/Day Years [...] encounter Miscellaneous Notes * Telephone Encounter - Irena Lozano MD - 02/25/2022 10:12 AM EDT Please schedule office visit to discuss further. * Telephone Encounter - Cyndee Gaitan M.A. - 02/25/2022 9:26 AM EDT Spoke with Patient yesterday, she wanted to know her Pathology results I made her aware of her results. She would really like to know if you can send something in because her stomach is very bothersome she feels like she has inflamation in her stomach. Please advise documented in this encounter Plan of Treatment Not on file documented as of this encounter Visit Diagnoses Not on filedocumented in this encounter Additional Health Concerns Infection Onset Date Last Indicated Resolved Time COVID-19 Comment:Positive test on 06/0806/08/2023 06/09/2023 11:25 AM EDT documented as of this encounter Care Teams Knife Edger Relationship Specialty Start Date End Date Tristen Alejandro PA-C [address] [place] [address] PCP - General Internal Medicine 11/18/20 documented as of this encounter
--- OUTSIDE RECORDS SUMMARY | 2024-08-30 13:15 | XMS_ITS | Encounter Summary ---
Author Organization [facility] Address [address] [place] [address] Care Team Providers Care Fibrous Wallboard Inspector Name Role Phone Tristen Alejandro PA-C Primary Care Provider [phone] Reason for Visit * Reason Onset Date Comments Provider Call Back 04/15/2022 Encounter Details Date Type Department Care Team Description 04/15/2022 Telephone Gastroenterology - [place] [address] [facility] [address] [place] [address] Irena Lozano MD Provider Call [...] Telephone Encounter - Irena Lozano MD - 04/18/2022 8:36 AM EDT The pain can be associated with fibromyalgia. Actual acid reflux is not. The xray did NOT show any acid reflux. * Telephone Encounter - Cyndee Gaitan M.A. - 04/15/2022 4:20 PM EDT Made PAtient aware of her results for the uper GI were normal. She would like to know if her GERD can be associated with Fibromyalgia, Please advise thank you * Telephone Encounter - Daisha Lomeli - 04/15/2022 10:08 AM EDT Pt calling looking for xray results Please advise Pt when she gets out of work around 345-4pm [phone] documented in this encounter Plan of Treatment Not on file documented as of this encounter Visit Diagnoses Not on filedocumented in this encounter Additional Health Concerns Infection Onset Date Last Indicated Resolved Time COVID-19 Comment:Positive test on 06/0806/08/2023 06/09/2023 11:25 AM EDT documented as of this encounter Care Teams Fibrous Wallboard Inspector Relationship Specialty Start Date End Date Tristen Alejandro PA-C [address] [place] [address] PCP - General Internal Medicine 11/18/20 documented as of this encounter
--- OUTSIDE RECORDS SUMMARY | 2024-08-30 13:15 | XMS_ITS | Clinical Summary ---
Author Organization [facility] Address [address] [place] [address] Care Team Providers Care Starbucks Clerk Name Role Phone Tristen Alejandro PA-C Primary Care Provider [phone] Allergies Active Allergy Reactions Severity Noted Date [...] Alyssa that there is no evidence of Supervisory Cbp Officer involvement with the mass that is described. Given its very small size, I agree with Dr. Alejo that this likely represents an incidental finding of no clinical significance. I recommended she follow up with Dr. Alejo or Dr. Love if she has further abdominal pain or rectal bleeding. She agreed. Abnormal EEG- [facility] 04/20/2020 Overview: EEG 03/11/2020 low-voltage fast EEG with occasional generalized paroxysmal theta bursts. Nonintractable headache 04/20/2020 Pulmonary nodule/ [address] scan 08/27/2018 Chronic abdominal pain 08/27/2018 GERD (gastroesophageal reflux disease) 1 08/14/2017 Introital dyspareunia 06/13/2018 Anxiety 06/13/2018 Overview: 07/05/2019 Followed by [facility]- therapy q 1-2 wks , Awaiting psychiatric eval to begin med regime Urinary incontinence 06/13/2018 Low back pain 06/13/2018 History of Helicobacter pylori infection 06/13/2018 Overview: Treated 2017. Small intestinal bacterial overgrowth Lactose intolerance 06/13/2018 Hematochezia 06/13/2018 Rosacea 03/28/2018 Psychosocial stressors 03/28/2018 Overview: Living in [facility] wih 3 year old son who has autism 07/05/2019 No longer in a [facility], but limited family supports in area Varicose [...] HIGH RISK PATIENTS (#1) 11/21/2044 Care Teams Starbucks Clerk Relationship Specialty Start Date End Date Tristen Alejandro PA-C [address] [place] [address] PCP - General Internal Medicine 11/18/20
--- OUTSIDE RECORDS SUMMARY | 2024-08-30 13:15 | XMS_ITS | Encounter Summary ---
Author Organization [facility] Address [address] [place] [address] Care Team Providers Care Retail Business Manager Name Role Phone Tristen Alejandro PA-C Primary Care Provider [phone] Reason for Visit * Reason Onset Date Comments Pain, Rib 11/06/2023 Upper left Encounter Details Date Type Department Care Team Description 11/06/2023 Pt. Non Urgent Medical Question Adult Medicine [address] [address] Tristen Alejandro PA-C [address] [place] [address] Social History Tobacco Use Types Packs/Day Years [...] We I already saw Dr Naranjo from [facility] last Monday and she ordered cat scan [...] on filedocumented in this encounter Care Teams Retail Business Manager Relationship Specialty Start Date End Date Tristen Alejandro PA-C [address] [place] [address] PCP - General Internal Medicine 11/18/20 documented as of this encounter
--- OUTSIDE RECORDS SUMMARY | 2024-08-30 13:15 | XMS_ITS | Encounter Summary ---
Author Organization [facility] Address [address] [place] [address] Care Team Providers Care Petal Shaper Hand Name Role Phone Radha Ramirez MD Primary Care Provider [phone] Tristen Alejandro PA-C Primary Care Provider [phone] Radha Ramirez MD Primary Care Provider [phone] Tristen Alejandro PA-C Primary Care Provider [phone] Radha Ramirez MD Primary Care Provider Tristen Alejandro PA-C Primary Care Provider [phone] Reason for Visit * Reason Onset Date Comments APPOINTMENT 02/07/2020 Encounter Details Date Type Department Care Team Description 02/07/2020 Telephone Medicine/Pediatrics [address] [id number] Radha Ramirez MD [address] [place] [address] [phone] APPOINTMENT Social History Tobacco Use Types Packs/Day [...] they are received. Thank You, Nely Referrals Automobile Bumper Straightener * Telephone Encounter - Amanda Vargas R.N. [...] documented as of this encounter Care Teams Petal Shaper Hand Relationship Specialty Start Date End Date Radha Ramirez MD [address] [place] [address] PCP - General Internal Medicine 03/27/19 05/03/20 Tristen Alejandro PA-C [address] [place] [address] PCP - General Internal Medicine 05/04/20 07/07/20 Radha Ramirez MD [address] [place] [address] PCP - General Internal Medicine 07/08/20 10/27/20 Tristen Alejandro PA-C [address] [place] [address] PCP - General Internal Medicine 10/28/20 11/16/20 Radha Ramirez MD [address] [place] [address] PCP - General Internal Medicine 11/17/20 11/17/20 Tristen Alejandro PA-C [address] [place] [address] PCP - General Internal Medicine 11/18/20 documented as of this encounter
--- OUTSIDE RECORDS SUMMARY | 2024-08-30 13:15 | XMS_ITS | Encounter Summary ---
Author Organization [facility] Address [address] [place] [address] Care Team Providers Care Rn Digestive Name Role Phone Tristen Alejandro PA-C Primary Care Provider [phone] Reason for Visit * Reason Onset Date Comments REFERRAL 11/01/2023 Testing for auti sm Encounter Details Date Type Department Care Team Description 11/01/2023 Telephone Adult Medicine [facility] [address] [place] [address] Tristen Alejandro PA-C [address] [place] [address] REFERRAL (Testing for autism) Social History Tobacco [...] on filedocumented in this encounter Care Teams Rn Digestive Relationship Specialty Start Date End Date Tristen Alejandro PA-C [address] [place] [address] PCP - General Internal Medicine 11/18/20 documented as of this encounter
--- OUTSIDE RECORDS SUMMARY | 2024-08-30 13:15 | XMS_ITS | Encounter Summary ---
Author Organization [facility] Address [address] [place] [address] Care Team Providers Care Wood Fence Installer Name Role Phone Tristen Alejandro PA-C Primary Care Provider [phone] Reason for Visit * Reason Comments E-prescribe Rx Request Encounter Details Date Type Department Care Team Description 11/02/2022 Refill Adult Medicine [facility] [address] [place] [address] Tristen Alejandro PA-C [address] [place] [address] E-prescribe Rx Request Social History Tobacco Use [...] N/A Patients current insurance carrier is: [facility] [employer] [facility] FFS / Plan: [facility] / Product Type: MEDICAID RISK documented in this encounter Plan of Treatment Not on file documented as of this encounter Visit Diagnoses Not on filedocumented in this encounter Additional Health Concerns Infection Onset Date Last Indicated Resolved Time COVID-19 Comment:Positive test on 06/0806/08/2023 06/09/2023 11:25 AM EDT documented as of this encounter Care Teams Wood Fence Installer Relationship Specialty Start Date End Date Tristen Alejandro PA-C [address] [place] [address] PCP - General Internal Medicine 11/18/20 documented as of this encounter
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
--- OUTSIDE RECORDS SUMMARY | 2024-08-30 13:15 | XMS_ITS | Clinical Summary ---
Author Organization [facility] Address [address] [place] [address] Care Team Providers Care Museum Librarian Name Role Phone Tristen Alejandro PA-C Primary [...] age to complete this topic Care Teams Museum Librarian Relationship Specialty Start Date End Date Tristen Alejandro PA-C PCP - General Medical Services 10/13/21
--- OUTSIDE RECORDS SUMMARY | 2024-08-30 13:15 | XMS_ITS | Encounter Summary ---
Author Organization [facility] Address [address] [place] [address] Care Team Providers Care Correctional Therapy Director Name Role Phone Tristen Alejandro PA-C Primary Care Provider [phone] [phone] Encounter Details Date Type Department Care Team Description 08/05/2022 Application Developer Report Medical Records [address] [place] [address] Kika Sanchez, PAINTER HELPER SPRAY Social History Tobacco Use Types Packs/Day Years [...] documented as of this encounter Care Teams Correctional Therapy Director Relationship Specialty Start Date End Date Tristen Alejandro PA-C [address] [place] [address] PCP - General Internal Medicine 11/18/20 documented as of this encounter
--- OUTSIDE RECORDS SUMMARY | 2024-08-30 13:15 | XMS_ITS | Encounter Summary ---
Author Organization [facility] Address [address] [place] [address] Care Team Providers Care Color Matcher Name Role Phone Radha Ramirez MD Primary Care Provider [phone] Tristen Alejandro PA-C Primary Care Provider [phone] Radha Ramirez MD Primary Care Provider [phone] Tristen Alejandro PA-C Primary Care Provider [phone] Radha Ramirez MD Primary Care Provider [phone] Tristen Alejandro PA-C Primary Care Provider [phone] Encounter Details Date Type Department Care Team Description 02/27/2020 Company Pilot Report Medical Records [address] [place] [address] Clare Mejia MD Social History Tobacco Use [...] documented as of this encounter Care Teams Color Matcher Relationship Specialty Start Date End Date Radha Ramirez MD [address] [place] [address] PCP - General Internal Medicine 03/27/19 05/03/20 Tristen Alejandro PA-C [address] [place] [address] PCP - General Internal Medicine 05/04/20 07/07/20 Radha Ramirez MD [address] [place] [address] PCP - General Internal Medicine 07/08/20 10/27/20 Tristen Alejandro PA-C [address] [place] [address] PCP - General Internal Medicine 10/28/20 11/16/20 Radha Ramirez MD [address] [place] [address] PCP - General Internal Medicine 11/17/20 11/17/20 Tristen Alejandro PA-C [address] [place] [address] PCP - General Internal Medicine 11/18/20 documented as of this encounter
--- OUTSIDE RECORDS SUMMARY | 2024-08-30 13:15 | XMS_ITS | Encounter Summary ---
Author Organization [facility] Address [address] [place] [address] Care Team Providers Care Physician Executive Name Role Phone Radha Ramirez MD Primary Care Provider [phone] Tristen Alejandro PA-C Primary Care Provider [phone] Radha Ramirez MD Primary Care Provider [phone] Tristen Alejandro PA-C Primary Care Provider [phone] Radha Ramirez MD Primary Care Provider Tristen Alejandro PA-C Primary Care Provider [phone] Encounter Details Date Type Department Care Team Description 01/28/2020 Hospital Medical Records [address] [place] [address] Francisco Chau MD [address] [place] [address] [phone] Social History Tobacco Use Types Packs/Day Years [...] documented as of this encounter Care Teams Physician Executive Relationship Specialty Start Date End Date Radha Ramirez MD [address] [place] [address] PCP - General Internal Medicine 03/27/19 05/03/20 Tristen Alejandro PA-C [address] [place] [address] PCP - General Internal Medicine 05/04/20 07/07/20 Radha Ramirez MD [address] [place] [address] PCP - General Internal Medicine 07/08/20 10/27/20 Tristen Alejandro PA-C [address] [place] [address] PCP - General Internal Medicine 10/28/20 11/16/20 Radha Ramirez MD [address] [place] [address] PCP - General Internal Medicine 11/17/20 11/17/20 Tristen Alejandro PA-C [address] [place] [address] PCP - General Internal Medicine 11/18/20 documented as of this encounter
--- OUTSIDE RECORDS SUMMARY | 2024-08-30 13:15 | XMS_ITS | Encounter Summary ---
Author Organization [facility] Address [address] [place] [address] Care Team Providers Care Internal Wholesaler Name Role Phone Tristen Alejandro PA-C Primary Care Provider [phone] Reason for Visit * Reason Onset Date Comments Provider Call Back 01/07/2022 Encounter Details Date Type Department Care Team Description 01/07/2022 Telephone Gastroenterology - [place] [address] [facility] [address] [place] [address] Irena Lozano MD Provider Call [...] Telephone Encounter - Cyndee Gaitan M.A. - 01/07/2022 3:19 PM EDT [facility] Auth# [id number] 01/07/22 - 07/06/22 [facility] ?? Order faxed to [facility] Dept for booking. Notification mailed to patient. * Telephone Encounter - Irena Lozano MD - 01/07/2022 11:21 AM EDT NO MRI. Will order CT scan of pancreas. * Telephone Encounter - Cyndee Gaitan M.A. - 01/07/2022 9:[address] Lozano is out of office until Monday I will forward over this message to her , she will review and advise when in office * Telephone Encounter - Von Leo - 01/07/2022 9:02 AM EDT Pt calling in states she was advised to get MRI by Tristen Alejandro and was told insurance will not covered Pt was advised by PCP to call and ask for order to be placed Please advise Call pt at [phone] Thanks documented in this encounter Plan of Treatment Not on file documented as of this encounter Visit Diagnoses Diagnosis Epigastric pain- Primary Abdominal pain, epigastric Pancreatic mass Unspecified disease of pancreas documented in this encounter Additional Health Concerns Infection Onset Date Last Indicated Resolved Time COVID-19 Comment:Positive test on 06/0806/08/2023 06/09/2023 11:25 AM EDT documented as of this encounter Care Teams Internal Wholesaler Relationship Specialty Start Date End Date Tristen Alejandro PA-C [address] [place] [address] PCP - General Internal Medicine 11/18/20 documented as of this encounter
--- OUTSIDE RECORDS SUMMARY | 2024-08-30 13:15 | XMS_ITS | Encounter Summary ---
Author Organization [facility] Address [address] [place] [address] Care Team Providers Care Auxiliary Power Equipment Operator Name Role Phone Tristen Alejandro PA-C Primary Care Provider [phone] Encounter Details Date Type Department Care Team Description 01/26/2023 Telephone Adult [facility] [address] [place] [address] Tristen Alejandro PA-C [address] [place] [address] Social History Tobacco Use Types Packs/Day Years [...] documented as of this encounter Care Teams Auxiliary Power Equipment Operator Relationship Specialty Start Date End Date Tristen Alejandro PA-C [address] [place] [address] PCP - General Internal Medicine 11/18/20 documented as of this encounter
--- OUTSIDE RECORDS SUMMARY | 2024-08-30 13:15 | XMS_ITS | Encounter Summary ---
Author Organization [facility] Address [address] [place] [address] Care Team Providers Care Data Assistant Name Role Phone Tristen Alejandro PA-C Primary Care Provider [phone] Encounter Details Date Type Department Care Team Description 08/23/2022 Sample Display Preparer Report Medical Records [address] [place] [address] Kika Sanchez, DRILL BIT SHARPENER Social History Tobacco Use Types Packs/Day Years [...] suspected to have Coronavirus/COVID-19? No / Unsure 08/24/2022 1:26 PM EST documented as of this encounter Plan of Treatment Not on file documented as of this encounter Visit Diagnoses Not on filedocumented in this encounter Additional Health Concerns Infection Onset Date Last Indicated Resolved Time COVID-19 Comment:Positive test on 06/0806/08/2023 06/09/2023 11:25 AM EDT documented as of this encounter Care Teams Data Assistant Relationship Specialty Start Date End Date Tristen Alejandro PA-C [address] [place] [address] PCP - General Internal Medicine 11/18/20 documented as of this encounter
--- OUTSIDE RECORDS SUMMARY | 2024-08-30 13:15 | XMS_ITS | Encounter Summary ---
Author Organization [facility] Address [address] [place] [address] Care Team Providers Care Director Of Pupil Personnel Program Name Role Phone Tristen Alejandro PA-C Primary Care Provider [phone] Reason for Visit * Reason Onset Date Comments other 01/19/2024 Encounter Details Date Type Department Care Team Description 01/19/2024 Telephone General Surgery [address] [place] [address] Rebekah Beck MD [address] [place] [address] other Social History Tobacco Use Types Packs/Day Years [...] encounter Miscellaneous Notes * Telephone Encounter - Carmen Colin M.A. - 01/19/2024 3:37 PM EDT Schedule patient for a follow up * Telephone Encounter - Bhupendra Oropeza - 01/19/2024 11:33 AM EDT Patient called in stating that she is having left breast pain and is unsure why but she is concerned. Patient would like an appointment ARON to see Dr. Beck. Please contact patient. documented in this encounter Plan of Treatment Not on file documented as of this encounter Visit Diagnoses Not on filedocumented in this encounter Care Teams Director Of Pupil Personnel Program Relationship Specialty Start Date End Date Tristen Alejandro PA-C [address] [place] [address] PCP - General Internal Medicine 11/18/20 documented as of this encounter
--- OUTSIDE RECORDS SUMMARY | 2024-08-30 13:15 | XMS_ITS | Encounter Summary ---
Author Organization [facility] Address [address] [place] [address] Care Team Providers Care Rod Mill Tender Name Role Phone Tristen Alejandro PA-C Primary Care Provider +[phone] Encounter Details Date Type Department Care Team Description 09/13/2022 Manager People Report Medical Records [address] [place] [address] Miles Verduzco MD Social History Tobacco Use [...] documented as of this encounter Care Teams Rod Mill Tender Relationship Specialty Start Date End Date Tristen Alejandro PA-C [address] [place] [address] PCP - General Internal Medicine 11/18/20 documented as of this encounter
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
--- OUTSIDE RECORDS SUMMARY | 2024-08-30 13:15 | XMS_ITS | Encounter Summary ---
Author Organization [facility] Address [address] [place] [address] Care Team Providers Care Shopping Inspector Name Role Phone Tristen Alejandro PA-C Primary Care Provider +[phone] Encounter Details Date Type Department Care Team Description 02/22/2022 Orders Only Gastroenterology - [place] [address] [facility] [address] [place] [address] Irena Lozano MD Pancreatic mass [...] documented as of this encounter Care Teams Shopping Inspector Relationship Specialty Start Date End Date Tristen Alejandro PA-C [address] [place] [address] PCP - General Internal Medicine 11/18/20 documented as of this encounter
--- OUTSIDE RECORDS SUMMARY | 2024-08-30 13:15 | XMS_ITS | Encounter Summary ---
Author Organization [facility] Address [address] [place] [address] Care Team Providers Care Professional Nursing Assistant Name Role Phone Tristen Alejandro PA-C Primary Care Provider [phone] Reason for Visit * Reason Comments E-prescribe Rx Request Encounter Details Date Type Department Care Team Description 09/08/2021 Refill Gastroenterology - [address] [place] [address] Irena Lozano MD E-prescribe Rx [...] have Coronavirus / COVID-19? No / Unsure 08/26/2021 10:39 AM EST documented as of this encounter Plan of Treatment Not on file documented as of this encounter Visit Diagnoses Not on filedocumented in this encounter Additional Health Concerns Infection Onset Date Last Indicated Resolved Time COVID-19 Comment:Positive test on 06/0806/08/2023 06/09/2023 4 11:25 AM EDT documented as of this encounter Care Teams Professional Nursing Assistant Relationship Specialty Start Date End Date Tristen Alejandro PA-C [address] [place] [address] PCP - General Internal Medicine 11/18/20 documented as of this encounter
--- OUTSIDE RECORDS SUMMARY | 2024-08-30 13:15 | XMS_ITS | Clinical Summary ---
Author Organization [facility] Address [address] [place] [address] Phone Care Team Providers Care [facility] Name Role Phone Dexter Jones MD Primary Care Provider [phone] Allergies Active Allergy Reactions Criticality Noted Date [...] Alyssa that there is no evidence of Beauty Shop Manager involvement with the mass that is described. [...] Anxiety 06/13/2018 Overview (04/15/2024): 07/05/2019 Followed by [facility]- therapy q 1-2 wks , [...] abnormal - H Pylori ESOPHAGOGASTRODUODENOSCOPY 08/11/2021 PROCEDURE: UT EGD TRANSORAL BIOPSY SINGLE/MULTIPLE; COMMENT: normal, random biopsy pending ESOPHAGOGASTRODUODENOSCOPY 12/30/2021 PROCEDURE: UT EGD TRANSORAL BIOPSY SINGLE/MULTIPLE; COMMENT: normal, biopsy [...] 03/28/2018 DX:Psycho social stressors; COMMENT: Living in skilled nursing wih 3 year old son who has [...] 05/23/2024 10:37 AM EST Plan of Treatment Health Maintenance Due Date Last Done Comments DTaP,Tdap,and Td Vaccines (1 - Tdap) 11/21/1998 Hepatitis B Vaccines (1 of 3 - 19+ 3-dose series) 11/21/1998 Social Influencers of Health Screening 06/18/2022 COVID-19 Vaccine ( - 2023- season) 2024 Influenza Vaccine (#1) [...] Endoscopy (06/12/2024) Anatomical Region Laterality Modality Endoscopy us Provider [facility]~PROCEDURE ORDERABLES Final Result [...] Signed Date: 05/23/2024 14:50 ET Workstation ID: [id number] Transcribed By: Self Edit Transcribed Date: 05/23/2024 [...] None Computer-aided detection was employed with the FaceAlerta AI 3-D. TISSUE DENSITY: There are scattered [...] Levi Boyd Reviewed and Electronically Signed By: Leiv Boyd Signed Date: 05/23/2024 14:50 ET Workstation ID: [id number] Transcribed By: Self Edit Transcribed Date: 05/23/2024 14:45 ET Tristen FLOREZ IM BI PROCEDURES Final R esult * (ABNORMAL) Lipid panel (04/10/2024) LDL/HDL Ratio 2 0 - 4 Triglycerides 69 0 - 150 mg/dL Cholesterol 257(A) 0 - 200 mg/dL HDL 116 >=40 mg/dL LDL Cholesterol 128(A) 0 - 100 mg/dL Blood Venous blood specimen / Unknown [facility] Provider LAB BLOOD ORDERABLES Geeta l Result * Depression Screening (03/27/2024) Pathologist [facility] Depression Screening abstracted [facility] Provider HEALTH MAINTENANCE Final Result * Cervical Cancer Screening: HPV (09/26/2023) [facility] Cervical Cancer Screening: HPV negative, abstracted [facility] Provider HEALTH MAINTENANCE Final Result * HIV Screening (04/30/2021) [facility] HIV Screening abstracted Result [facility] Provider HEALTH MAINTENANCE Final Result * Hepatitis C Screening (04/30/2021) Pathologist [facility] Hepatitis C Screening abstracted [facility] Provider HEALTH MAINTENANCE Final Result * Colonoscopy (01/21/2021) Pathologist [facility] Colonoscopy no interpretation , abstracted Anatomical Region Laterality Modality Other [facility] Provider HEALTH MAINTENANCE Final Result from Last 3 Months or Most Recently Relevant to Health Maintenance Care Teams Hospital Cna Relationship Specialty Start Date End Date Dexter Jones MD [address] [place] [address] PCP - General Family Medicine 07/12/24
--- OUTSIDE RECORDS SUMMARY | 2024-08-30 13:15 | XMS_ITS | Encounter Summary ---
Author Organization [facility] Address [address] [place] [address] Care Team Providers Care Paint Grinder Stone Mill Name Role Phone Tristen Alejandro PA-C Primary Care Provider [phone] Reason for Visit * Reason Comments E-prescribe Rx Request Encounter Details Date Type Department Care Team Description 02/08/2023 Refill Gastroenterology - [address] [place] [address] Irena Lozano MD E-prescribe Rx [...] documented as of this encounter Care Teams Paint Grinder Stone Mill Relationship Specialty Start Date End Date Tristen Alejandro PA-C [address] [place] [address] PCP - General Internal Medicine 11/18/20 documented as of this encounter
--- OUTSIDE RECORDS SUMMARY | 2024-08-30 13:15 | XMS_ITS | Encounter Summary ---
Author Organization [facility] Address [address] [place] [address] Care Team Providers Care Electroplater Apprentice Name Role Phone Tristen Alejandro PA-C Primary Care Provider [phone] Encounter Details Date Type Department Care Team Description 12/15/2020 Behavioral Instructor Report Medical Records [address] [place] [address] Wilner Gonzalez NP Social History Tobacco Use [...] documented as of this encounter Care Teams Electroplater Apprentice Relationship Specialty Start Date End Date Tristen Alejandro PA-C [address] [place] [address] PCP - General Internal Medicine 11/18/20 documented as of this encounter
--- OUTSIDE RECORDS SUMMARY | 2024-08-30 13:15 | XMS_ITS | Encounter Summary ---
Author Organization [facility] Address [address] [place] [address] Care Team Providers Care Mechanical Spreader Operator Name Role Phone Tristen Alejandro PA-C Primary Care Provider [phone] Encounter Details Date Type Department Care Team Description 01/11/2022 Orders Only Gastroenterology - [place] [address] [facility] [address] [place] [address] Irena Lozano MD Pancreatic mass [...] documented as of this encounter Care Teams Mechanical Spreader Operator Relationship Specialty Start Date End Date Tristen Alejandro PA-C [address] [place] [address] PCP - General Internal Medicine 11/18/20 documented as of this encounter
--- OUTSIDE RECORDS SUMMARY | 2024-08-30 13:15 | XMS_ITS | Encounter Summary ---
Author Organization [facility] Address [address] [place] [address] Care Team Providers Care Guide Delegate Name Role Phone Tristen Alejandro PA-C Primary Care Provider [phone] Encounter Details Date Type Department Care Team Description 10/08/2021 Preventive Maintenance Engineer Report Medical Records [address] [place] [address] [place] Social History Tobacco [...] documented as of this encounter Care Teams Guide Delegate Relationship Specialty Start Date End Date Tristen Alejandro PA-C [address] [place] [address] PCP - General Internal Medicine 11/18/20 documented as of this encounter
== END 2024-08-30 15:02 | disposition home or self-care (01) ==
PROVIDERS: PCP Family Medicine; Visit Provider Nurse Practitioner Family
DX: Q45.3 Other congenital malformations of pancreas and pancreatic duct (principal); D13.0 Benign neoplasm of esophagus; Q39.8 Other congenital malformations of esophagus; K58.9 Irritable bowel syndrome, unspecified; K21.9 Gastro-esophageal reflux disease without esophagitis; R10.13 Epigastric pain; R14.0 Abdominal distension (gaseous)
CPT/HCPCS: 99214; G2211

== ENCOUNTER 2024-09-20 10:53 | Outpatient (AMB) | payer OTHER, SELFPAY ==
--- NOTE | 2024-09-20 11:28 | A.OFFVIS_ITS ---
Vital Signs 09/20/24 11:29 Height 5 ft 8 in Weight 130 lb 1.164 oz BMI 19.8 BP 116/68 Blood Pressure Location Rt brachial Position Sitting Pulse 94 Pulse Source Pulse Oximeter Pulse Oximetry (%) 99 Oxygen Delivery Method Room Air Intake Visit Reasons: f/u Intake Note: ESTABLISHED PATIENT for dyspepsia / GERD mgmt. Chief Complaint; C/O chronic sx persistence. Pt still experiencing reflux however improved since last visit. Pt also reports LUQ pain (sharp). No additional concerns at this time. 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 Patient will try as best as she can to avoid them. Try to reduce stress. Patient was encouraged to call therapist and call services to help her with the care of her child who is autistic. Continue pantoprazole and famotidine. Patient has an appointment in September and we will discuss going for colonoscopy. If she continues with symptoms despite her therapy with PPI and H2 olman we can send her for upper endoscopy. Patient is agreeable to current plan of care and verbalizes understanding of instructions. She was given the opportunity to ask questions and all questions answered. TODAY'S VISIT: Patient is here today for follow-up and to discuss going for colonoscopy. Patient is very upset as yesterday she lost her father after long chaudhry with lung cancer. Patient states that she is particularly upset because she was unable to be with him when he . Patient has been caring for her autistic son and was unable to stay with her father overnight. Patient reports that she has been taking pantoprazole every morning and famotidine at bedtime. Her symptoms of acid reflux have been under control for the most part. Occasionally left upper quadrant pain specially after she eats something like spaghetti with sauce. Patient admits that stress also is causing some of her symptoms, however definitely feeling better. Denies dyspepsia, dysphagia or odynophagia. Denies melena, hematochezia, unintentional weight loss or ribbon like stools. Patient was worried about polyps in her bladder and her PCP send her to see urologist. No appointment yet. Patient is on a waiting list. Patient is due to go for colonoscopy. She is bit nervous as she had trouble with anesthesia during her last endoscopy. Patient reports that she was pretty somnolent and staff was shaking her to wake her up. Patient reports this as very uncomfortable experience and would like to receive less medications. Patient reports that she was unable to stand up even when she got home. Patient reports that she is very sensitive to medications. Patient denies any other GI concerning symptoms. No history of sleep apnea. Not on any anticoagulation medication. 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 Hx of solitary pulmonary nodule Microscopic hematuria Surgical History History of esophagogastroduodenoscopy (EGD) Hx of colonoscopy Family History Father Cancer of lung Cancer of kidney Social History Household Members: Children Housing: Apartment Are you a primary hospice care consultant to a significant other at home: Yes (son autist) Do you presently have visiting nurse or other home services: No 75 years or older and lives alone: No Alcohol intake: never Patient Tobacco Use Status: Never used Tobacco e-Cigarette/Vaping Use: Never Used service: No Review of Systems Const Denies weight gain and Denies weight loss ENT Reports no additional complaints, Denies dysphagia and Denies odynophagia Card Reports no additional complaints Resp Reports no additional complaints GI Reports abdominal pain (LUQ), Denies belching, Denies melena, Denies bloating, Denies change in bowel habits, Denies dysphagia, Denies excessive flatus, Denies dyspepsia, Reports heartburn (Improved), Denies diarrhea, Denies loose stools, Denies nausea, Denies odynophagia and Denies vomiting Reports no additional complaints Musc Reports no additional complaints Neuro Reports no additional complaints Psych Reports no additional complaints Endo Reports no additional complaints Physical Exam Vital Signs: Last Vital Signs Pulse 94 09/20/24 11:29 BP 116/68 09/20/24 11:29 Pulse Ox 99 09/20/24 11:29 Oxygen Delivery Method Room Air 09/20/24 11:29 BMI result Body Mass Index 19.8 Const General: healthy appearing, no acute distress and well developed Nutritional Appearance: well nourished Orientation/consciousness: patient oriented x3 Resp Effort & Inspection: normal respiratory effort, able to speak in complete sentences, no tracheal deviation and symmetric chest movement Auscultation: clear to auscultation bilaterally Cardio Rate: regular rate GI Inspection: Yes normal to inspection and No distended Palpation (GI): Soft to palpation, not firm, nontender and No hepatosplenomegaly present Auscultation: normal bowel sounds General: Yes no CVA tenderness Back/Spine/Pelvis Back: no CVA tenderness Skin General skin exam: elasticity normal, turgor normal and dry skin Neuro General: patient oriented x3 Psych Other: Patient is tearful Appearance: grossly normal Mental Status: mental status grossly normal Affect: Sad affect present (Patient is crying, her dad yesterday) and Anxious affect present 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 Category: Medical (2) Squamous cell papilloma of esophagus: Code(s): D13.0 - Benign neoplasm of esophagus Category: Medical (3) Esophageal inlet patch: Code(s): Q39.8 - Other congenital malformations of esophagus Category: Medical (4) IBS (irritable bowel syndrome): Code(s): K58.9 - Irritable bowel syndrome, unspecified Qualifiers: Irritable bowel syndrome type: without diarrhea Qualified Code(s): K58.9 - Irritable bowel syndrome, unspecified (5) GERD (gastroesophageal reflux disease): Code(s): K21.9 - Gastro-esophageal reflux disease without esophagitis Qualifiers: Esophagitis presence: esophagitis presence not specified Qualified Code(s): K21.9 - Gastro-esophageal reflux disease without esophagitis (6) Epigastric discomfort: Code(s): R10.13 - Epigastric pain (7) Dyspepsia: Code(s): R10.13 - Epigastric pain (8) Postprandial abdominal bloating: Code(s): R14.0 - Abdominal distension (gaseous) (9) Screen for colon cancer: Code(s): Z12.11 - Encounter for screening for malignant neoplasm of colon Plan What to expect before during and after procedure discussed with patient. Patient received literature about colonoscopy. Prep discussed with patient and we will discuss with again next visit. Message sent to surgical schedulers at this point we are booking end of December. Patient will be scheduled in November to go over procedure again. We will re-evaluate effectiveness of PPI and H2 olman therapy. No need for upper endoscopy as she just had it 8 months ago. Patient is agreeable to current plan of care and verbalizes understanding of instructions. She was given the opportunity to ask questions and all questions answered. Thank you for allowing me to participate in her care FYI: As mentioned above in HPI patient reports severe somnolence after lost Anesthesia for her endoscopy. Please address and try to give less medication. Patient reports very sensitive even though she appears very nervous, may require less sedation Medications: New bisacodyl (Dulcolax (bisacodyl)) take 4 tabs at noon the day before your colonoscopy 20 mg (4 x 5 mg) PO ONCE 4 tabs 0RF 1 day Z12.11 - Encounter for screening for malignant neoplasm of colon polyethylene glycol 3350 (Miralax) As directed by gastroenterology department at [facility] 238 grams PO ONCE 238 grams 0RF Z12.11 - Encounter for screening for malignant neoplasm of colon Coding Level of Care Code Est Pt Level 4 (39685) Complex EM visit Add On G2211 Diagnoses 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
[2024-09-20 11:29] VITALS: BP 116/68; PULSE 94; O2SAT 99; BMI 19.8
--- OUTSIDE RECORDS SUMMARY | 2024-09-20 12:31 | XMS_ITS | Clinical Summary ---
Author Organization [facility] Address [address] [place] [address] Care Team Providers Care Lead Engineer Name Role Phone Tristen Alejandro PA-C [...] age to complete this topic Care Teams Lead Engineer Relationship Specialty Start Date End Date Tristen Alejandro PA-C PCP - General Medical Services 10/13/21
--- OUTSIDE RECORDS SUMMARY | 2024-09-20 12:31 | XMS_ITS | Clinical Summary ---
Author Organization [facility] Address [address] [place] [address] Phone Care Team Providers Care Air Traffic Systems Technician Name Role Phone Dexter Jones MD Primary Care Provider [phone] Allergies Active Allergy Reactions Criticality Noted Date [...] Alyssa that there is no evidence of Soda Fountain Operator involvement with the mass that is [...] Anxiety 06/13/2018 Overview (04/15/2024): 07/05/2019 Followed by [facility]- therapy q 1-2 wks , Awaiting [...] abnormal - H Pylori ESOPHAGOGASTRODUODENOSCOPY 08/11/2021 PROCEDURE: AL EGD TRANSORAL BIOPSY SINGLE/MULTIPLE; COMMENT: normal, random biopsy pending ESOPHAGOGASTRODUODENOSCOPY 12/30/2021 PROCEDURE: AL EGD TRANSORAL BIOPSY SINGLE/MULTIPLE; COMMENT: normal, biopsy [...] 03/28/2018 DX:Psycho social stressors; COMMENT: Living in custodial wih 3 year old son who has [...] Procedure Name Priority Date/Time Associated Diagnosis Comments MG MAMMO DIGITAL SCREENING W APPLE BILAT Routine 05/23/2024 10:44 AM EST Encounter for screening mammogram for breast cancer LIPID PANEL Routine 04/10/2024 DEPRESSION SCREENING Routine 03/27/2024 HPV Routine 09/26/2023 HEPATITIS C SCREENING Routine 04/30/2021 HIV SCREENING Routine 04/30/2021 COLONOSCOPY Routine 01/21/2021 from Last 3 Months or Most Recently Relevant to Health Maintenance Results * MG Mammo Digital Screening w [employer] [...] Signed Date: 05/23/2024 14:50 ET Workstation ID: [id number] Transcribed By: Self Edit Transcribed Date: 05/23/2024 [...] Signed Date: 05/23/2024 14:50 ET Workstation ID: [id number] Transcribed By: Self Edit Transcribed Date: 05/23/2024 14:45 ET Tristen FLOREZ IMG BI PROCEDURES Final R esult * (ABNORMAL) Lipid panel (04/10/2024) Pathologist [facility] LDL/HDL Ratio 2 0 - 4 Triglycerides 69 0 - 150 mg/dL Cholesterol 257(A) 0 - 200 mg/dL HDL 116 >=40 mg/dL LDL Cholesterol 128(A) 0 - 100 mg/dL Blood Venous blood specimen / Unknown Historical Provider LAB BLOOD ORDERABLES Geeta l Result * Depression Screening (03/27/2024) Pathologist [facility] Depression Screening abstracted [facility] Provider HEALTH MAINTENANCE Final Result * Cervical Cancer Screening: HPV (09/26/2023) [facility] Cervical Cancer Screening: HPV negative, abstracted [facility] Provider HEALTH MAINTENANCE Final Result * HIV Screening (04/30/2021) [facility] HIV Screening abstracted [facility] Provider HEALTH MAINTENANCE Final Result * Hepatitis C Screening (04/30/2021) [facility] Hepatitis C Screening abstracted [facility] Provider HEALTH MAINTENANCE Final Result * Colonoscopy (01/21/2021) [facility] Colonoscopy no interpretation , abstracted Anatomical Region Laterality Modality Other [facility] Provider HEALTH MAINTENANCE Final Result from Last 3 Months or Most Recently Relevant to Health Maintenance Care Teams Air Traffic Systems Technician Relationship Specialty Start Date End Date Dexter Jones MD [address] [place] [id number] PCP - General Family Medicine 07/12/24
== END 2024-09-20 12:24 | disposition home or self-care (01) ==
LOC: HO.HGI 10:54
PROVIDERS: PCP Family Medicine; Visit Provider Nurse Practitioner Family
DX: K30 Functional dyspepsia (principal); K21.9 Gastro-esophageal reflux disease without esophagitis; Q45.3 Other congenital malformations of pancreas and pancreatic duct; Q39.8 Other congenital malformations of esophagus; D13.0 Benign neoplasm of esophagus; K58.9 Irritable bowel syndrome, unspecified; R14.0 Abdominal distension (gaseous); Z12.11 Encounter for screening for malignant neoplasm of colon
CPT/HCPCS: 99214; G2211

== ENCOUNTER → 2024-09-20 10:53 | Outpatient (BNVA) | payer OTHER, SELFPAY | PROVIDERS: PCP Family Medicine; Visit Provider Nurse Practitioner Family ==

== ENCOUNTER 2024-09-24 09:34 | Outpatient (REF) | payer OTHER, SELFPAY ==
[2024-09-24 09:54] LABS: MANUAL DIFF FLAG NO
[2024-09-24 10:26] LABS: Eosinophils Absolute Auto 0.1 X10*3/uL (0.0-0.4); Eosinophils Percent Auto 1.8 % (0-4); Hematocrit 36.9 % (37.0-47.0); Hemoglobin 13.1 g/dl (12.0-16.0); Imm Gran Abs Auto 0.01 X10*3/uL (0.00-0.03); Imm Gran Pct Auto 0.3 % (0.0-0.4); Lymphocytes Absolute Auto 1.5 X10*3/uL (1.2-4.9); Mean Corpuscular HGB Conc 35.5 g/dl (31.0-35.0); Mean Corpuscular Hemoglobin 31.9 pg (27.0-33.0); Mean Corpuscular Volume 89.8 fL (80.0-98.0); Mean Platelet Volume 9.8 fL (9.4-12.3); Monocytes Absolute Auto 0.2 X10*3/uL (0.1-1.2); Monocytes Percent Auto 6.5 % (2-11); Neutrophils Absolute Auto 1.6 x10*3/uL (2.0-8.3); Neutrophils Percent Auto 48.4 % (45-73); Platelet Count 218 X10*3/uL (160-400); Red Blood Count 4.11 X10*6/uL (4.20-5.50); Red Cell Distribution Width 11.9 % (11.0-16.0); White Blood Count 3.4 X10*3/uL (4.8-10.8)
[2024-09-24 11:06] LABS: Alanine Aminotransferase 22 U/L (0-31); Albumin Level 4.3 g/dL (3.5-5.0); Alkaline Phosphatase 83 U/L (39-117); Anion Gap 11 (12-20); Aspartate Amino Transferase 29 U/L (5-31); Bilirubin Total 0.9 mg/dL (0.0-1.0); Blood Urea Nitrogen 9 mg/dL (9-16); Calcium 8.9 mg/dL (8.4-10.2); Carbon Dioxide 27 mmol/L (22-29); Chloride 107 mmol/L (96-108); Cholesterol 222 mg/dL (<200); Estimated Glomerular Filt Rate > 60; Glucose Random 90 mg/dL (60-115); HDL Cholesterol 80 mg/dL (>40); LDL Cholesterol Calculated 132 mg/dL (<100); Potassium 3.6 mmol/L (3.3-5.1); Sodium 141 mmol/L (135-145); Total Protein 7.9 g/dL (6.5-8.0); Triglycerides 51 mg/dL (<150); Vitamin D 25-OH Total 23.5 ng/mL (>30)
== END 2024-09-24 09:35 | disposition home or self-care (01) ==
LOC: HO.LAB 09:34
PROVIDERS: PCP Family Medicine; Visit Provider Family Medicine
DX: E78.5 Hyperlipidemia, unspecified (principal); E55.9 Vitamin D deficiency, unspecified
CPT/HCPCS: 36415; 80053; 80061; 82306; 85025

== ENCOUNTER 2024-11-11 11:13 | Outpatient (AMB) | payer OTHER, SELFPAY ==
--- NOTE | 2024-11-11 11:16 | MHC.OFFVIS ---
Vital Signs 11/11/24 11:17 Height 5 ft 8 in Weight 129 lb 8 oz BMI 19.7 BP 120/78 Blood Pressure Location Rt brachial Position Sitting Pulse 80 Pulse Source Pulse Oximeter Pulse Oximetry (%) 97 Oxygen Delivery Method Room Air Intake Visit Reasons: discuss colo prep Intake Note: ESTABLISHED PATIENT for dyspepsia / GERD mgmt. Chief Complaint; C/O an abnormal ballooning , inflammation type pain which she experiences in the LUQ. Pt comments that it does not feel like bloating but rather like swelling and burning. Pt reports GERD is typically well controlled over night but often will have issues within 1 hour of waking up first thing in the morning and after taking her PPI. Pt also has concerns regarding not being booked for colo yet. 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 Patient received literature about colonoscopy. Prep discussed with patient and we will discuss with again next visit. Message sent to surgical schedulers at this point we are booking end of December. Patient will be scheduled in November to go over procedure again. We will re-evaluate effectiveness of PPI and H2 olman therapy. No need for upper endoscopy as she just had it 8 months ago. Patient is agreeable to current plan of care and verbalizes understanding of instructions. She was given the opportunity to ask questions and all questions answered. ? Thank you for allowing me to participate in her care ? FYI: As mentioned above in HPI patient reports severe somnolence after lost Anesthesia for her endoscopy. Please address and try to give less medication. Patient reports very sensitive even though she appears very nervous, may require less sedation TODAY'S VISIT: Patient is here today for follow-up. Patient reports that she continues to have a epigastric pain and bloating. Patient takes Nexium in the morning and famotidine at bedtime. Patient is trying to avoid dietary triggers as much as possible. Patient is avoiding lactose. Reports very gassy if she drinks regular milk. Patient is drinking 1 decaf coffee a day without diarrhea. Patient is usually using lactose-free milk or almond milk. Patient reports that she is moving her bowels well without any issues. Denies any melena, hematochezia, unintentional weight loss or ribbon like stools. Patient denies dyspepsia, dysphagia or odynophagia. Patient denies any issues with anesthesia in the past. Denies history of sleep apnea. Not on any anticoagulation medication. Patient denies any cardiac or respiratory symptoms. 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 Hx of solitary pulmonary nodule Microscopic hematuria Surgical History History of esophagogastroduodenoscopy (EGD) Hx of colonoscopy Family History Father Cancer of lung Cancer of kidney Social History Household Members: Children Housing: Apartment Are you a primary child care to a significant other at home: Yes (son autist) Do you presently have visiting nurse or other home services: No 75 years or older and lives alone: No Alcohol intake: never Patient Tobacco Use Status: Never used Tobacco e-Cigarette/Vaping Use: Never Used service: No Review of Systems Const Denies weight gain and Denies weight loss ENT Reports no additional complaints, Denies dysphagia and Denies odynophagia Card Reports no additional complaints Resp Reports no additional complaints GI Reports abdominal pain (LUQ), Denies belching, Denies melena, Denies bloating, Denies change in bowel habits, Denies dysphagia, Denies excessive flatus, Denies dyspepsia, Reports heartburn (Improved), Denies diarrhea, Denies loose stools, Denies nausea, Denies odynophagia and Denies vomiting Reports no additional complaints Musc Reports no additional complaints Neuro Reports no additional complaints Psych Reports no additional complaints Endo Reports no additional complaints Physical Exam Const General: healthy appearing, no acute distress and well developed Nutritional Appearance: well nourished Orientation/consciousness: patient oriented x3 Resp Effort & Inspection: normal respiratory effort, able to speak in complete sentences, no tracheal deviation and symmetric chest movement Auscultation: clear to auscultation bilaterally Cardio Rate: regular rate GI Inspection: Yes normal to inspection and No distended Palpation (GI): Soft to palpation, not firm, nontender and No hepatosplenomegaly present Auscultation: normal bowel sounds General: Yes no CVA tenderness Back/Spine/Pelvis Back: no CVA tenderness Skin General skin exam: elasticity normal, turgor normal and dry skin Neuro General: patient oriented x3 Psych Other: Patient is tearful Appearance: grossly normal Mental Status: mental status grossly normal Affect: Sad affect present (Patient is crying, her dad yesterday) and Anxious affect present 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 Category: Medical (2) Squamous cell papilloma of esophagus: Code(s): D13.0 - Benign neoplasm of esophagus Category: Medical (3) Esophageal inlet patch: Code(s): Q39.8 - Other congenital malformations of esophagus Category: Medical (4) IBS (irritable bowel syndrome): Code(s): K58.9 - Irritable bowel syndrome, unspecified Qualifiers: Irritable bowel syndrome type: with both diarrhea and constipation Qualified Code(s): K58.2 - Mixed irritable bowel syndrome (5) GERD (gastroesophageal reflux disease): Code(s): K21.9 - Gastro-esophageal reflux disease without esophagitis Qualifiers: Esophagitis presence: esophagitis presence not specified Qualified Code(s): K21.9 - Gastro-esophageal reflux disease without esophagitis (6) Epigastric discomfort: Code(s): R10.13 - Epigastric pain (7) Dyspepsia: Code(s): R10.13 - Epigastric pain (8) Postprandial abdominal bloating: Code(s): R14.0 - Abdominal distension (gaseous) (9) Screen for colon cancer: Code(s): Z12.11 - Encounter for screening for malignant neoplasm of colon Plan Continue Nexium in the morning and famotidine at bedtime. Continue avoiding dietary triggers or melena snacking. Staying upright for minimum 3 hours after meals discussed with patient. Patient denies any issues with anesthesia in the past. No history of sleep apnea. Not on any anticoagulation medication. Patient will be sent for upper endoscopy as she continues to have epigastric pain despite taking the PPI and H2 olman. What to expect before during and after procedure discussed with patient. Stressed the importance of clear liquid diet and good bowel prep take before procedure. I will see patient after the procedure, as well as needed basis. She is agreeable to this plan and verbalizes understanding of instructions. She was given the opportunity to ask questions and all questions answered. 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
[2024-11-11 11:17] VITALS: BP 120/78; PULSE 80; O2SAT 97; BMI 19.7
--- OUTSIDE RECORDS SUMMARY | 2024-11-11 13:04 | XMS_ITS | Encounter Summary ---
Author Organization [employer] Address [address] [place] [address] Care Team Providers Care Icu Tech Name Role Phone Dexter Jones MD Primary Care Provider Encounter Details Date Type Department Care Team (Late st Contact Info) Description 10/09/2024 Lab Requisition [facility] - Main Lab [address] [facility] [place] [address] Tate Conrad PA [address] [place] [phone] Other microscopic hematuria Social History Tobacco Use Types Packs/Day Years Used Date Smoking Tobacco: Never Smokeless Tobacco: Never Alcohol Use Standard Drinks/Week Comments No 0 (1 standard drink = 0.6 oz pur e alcohol) Comments No Sex and Gender Information Value Date Recorded Sex Assigned at Not on file Legal Sex Female 6:50 PM EST Gender Identity Not on file Sexual Orientation Not on file documented as of this encounter Plan of Treatment Not on file documented as of this encounter Procedures Procedure Name Priority Date/Time Associated Diagnosis Comments AP OUTSIDE CONSULT Routine 10/08/2024 12 :00 AM EDT Other microscopic hematuria documented in this encounter Results * Anatomic pathology outside consult (10/08/2024 12:00 AM EDT) Final Diagnosis A. Urine, Voided, ([id number]): Negative for high grade urothelial carcinoma. 10/15/2024 4:06 PM EDT [facility] Clinical Information Other microscopic hematuria R31.29 Urine cytology 10/15/2024 4:06 PM EDT [facility] Gross Description A. Urine, Voided, ([id number]): Received one ThinPrep slide for cytology. 10/15/2024 4:06 PM EDT [facility] Disclaimer Unless otherwise specified, all tissue is 10% NB formalin fixed and paraffin embedded. Technical pathology services provided by [facility] at [address], [place] [address] (CLIA #[id number]/Sa elias Diaz MD, Medical Office Technologist) 10/15/2024 4:06 PM EDT [facility] Tissue Urine specimen from urethra / Unknown 10/08/2024 10/09/2024 1:36 PM EDT us Tate R Houston PA LAB PATHOLOGY ORDERABLES Final Result [facility] [address] [place] [address], documented in this encounter Visit Diagnoses Diagnosis Other microscopic hematuria documented in this encounter Care Teams Icu Tech Relationship Specialty Start Date End Date Dexter Jones MD [address] [place] [phone] PCP - General Family Medicine 07/12/24 documented as of this encounter
--- OUTSIDE RECORDS SUMMARY | 2024-11-11 13:04 | XMS_ITS | Clinical Summary ---
Author Organization [facility] Address [address] [place] [address] Phone Care Team Providers Care Executive Chairman Name Role Phone Dexter Jones MD Primary Care Provider [phone] Allergies Active Allergy Reactions Criticality Noted Date [...] a shampoo 3 x weekly 06/24/2021 Active traZODone (DESYREL) 50 mg tablet TAKE 1 TO 3 TABLET BY MOUTH AT BEDTIME NEEDED FOR SLEEP 270 tablet 1 10/07/2024 Active PARoxetine (PAXIL) 10 mg tablet TAKE 1 TABLET BY MOUTH EVERY MORNING FOR 180 DAYS. 90 tablet 1 10/07/2024 Active Active Problems Problem Noted Date Diagnosed [...] Alyssa that there is no evidence of [employer] involvement with the mass that is described. [...] Anxiety 06/13/2018 Overview (04/15/2024): 07/05/[address] [facility]- therapy q 1-2 wks , Awaiting psychiatric eval to begin med regime GERD (gastroesophageal reflux disease) 8 Hematochezia 06/13/2018 Introital dyspareunia 06/13/2018 Lactose intolerance 06/13/2018 Low back pain 06/13/2018 Small intestinal bacterial overgrowth 06/13/2018 Urinary incontinence 06/13/2018 Rosacea 03/28/2018 Varicose vein of leg 03/27/2018 Encounters Date Type Department Care Team Description 10/09/2024 Lab Requisition [facility] - Main Lab [address] [facility] [place] [address] Tate Conrad, PA Other microscopic hematuria from Last 3 Months Surgical History Surgery Date Site/Laterality Comments COLONOSCOPY 02/10/2017 PROCEDURE: HISTORICAL COLONOSCOPY; COMMENT: Normal UPPER GASTROINTESTINAL ENDOSCOPY 08/29/2016 PROCEDURE: UPPER GI ENDOSCOPY/EXAM; COMMENT: abnormal - H Pylori ESOPHAGOGASTRODUODENOSCOPY 08/11/2021 PROCEDURE: OR EGD TRANSORAL BIOPSY SINGLE/MULTIPLE; COMMENT: normal, random biopsy pending ESOPHAGOGASTRODUODENOSCOPY 12/30/2021 PROCEDURE: OR EGD TRANSORAL BIOPSY SINGLE/MULTIPLE; COMMENT: normal, biopsy [...] 03/28/2018 DX:Psycho social stressors; COMMENT: Living in alf wih 3 year old son who has [...] (1 - 2023- season) 2024 Influenza Vaccine (Season Ended) 2025 Depression Screening 06/28/2025 06/28/2024, 03/27/20 Breast Cancer Screening 05/23/2026 05/23/20 24, 05/17/2023, 02/20/2020, Additional history exists Cervical Cancer [...] age to complete this topic Meningococcal B Vaccine Aged Out No l onger eligible based on patient's age to complete [...] 12 :00 AM EDT Other microscopic hematuria MG MAMMO DIGITAL SCREENING W APPLE BILAT Routine 05/23/2024 10:44 AM EST Encounter for screening mammogram for breast cancer LIPID PANEL Routine 04/10/2024 HM DEPRESSION SCREENING Routine 03/27/2024 HPV Routine 09/26/2023 HEPATITIS C SCREENING Routine 04/30/2021 HIV SCREENING Routine 04/30/2021 COLONOSCOPY Routine 01/21/2021 from Last 3 Months or Most Recently Relevant to Health Maintenance Results * Anatomic pathology outside consult (10/08/2024 12:00 AM EDT) Final Diagnosis A. Urine, Voided, ([id number]): Negative for high grade urothelial carcinoma. 10/15/2024 4:06 PM EDT [facility] Clinical Information Other microscopic hematuria R31.29 Urine cytology 10/15/2024 4:06 PM EDT [facility] Gross Description A. Urine, Voided, ([id number]): Received one ThinPrep slide for cytology. 10/15/2024 4:06 PM EDT [facility] Disclaimer Unless otherwise specified, all tissue is 10% NB formalin fixed and paraffin embedded. Technical pathology services provided by [facility] at [address] [place] [address] [address], [place] [address] (CLIA #[id number]/Sa elias Diaz MD, Fleet Sales Associate) 10/15/2024 4:06 PM EDT [facility] Tissue Urine specimen from urethra / Unknown 10/08/2024 10/09/2024 1:36 PM EDT us Tate FLOREZ LAB PATHOLOGY ORDERABLES Final Result [facility] [address] [place] [address], * MG Mammo Digital Screening w [employer] [...] Signed Date: 05/23/2024 14:50 ET Workstation ID: [id number] Transcribed By: Self Edit Transcribed Date: 05/23/2024 [...] suspicious left breast findings Procedure Note Levi Byod MD - 05/23/2024 EXAM: SCREENING MAMMOGRAPHY, BILATERAL [...] Signed Date: 05/23/2024 14:50 ET Workstation ID: [id number] Transcribed By: Self Edit Transcribed Date: 05/23/2024 14:45 ET Tristen FLOREZ IMG BI PROCEDURES Final R esult * (ABNORMAL) Lipid panel (04/10/2024) Pathologist [facility] LDL/HDL Ratio 2 0 - 4 Triglycerides 69 0 - 150 mg/dL Cholesterol 257(A) 0 - 200 mg/dL HDL 116 >=40 mg/dL LDL Cholesterol 128(A) 0 - 100 mg/dL Blood Venous blood specimen / Unknown Result [facility] Historical Provider LAB BLOOD ORDERABLES Geeta l Result * Depression Screening (03/27/2024) Pathologist [facility] Depression Screening abstracted us Historical Provider HEALTH MAINTENANCE Final Result * Cervical Cancer Screening: HPV (09/26/2023) Pathologist [facility] Cervical Cancer Screening: HPV negative, abstracted Historical Provider HEALTH MAINTENANCE Final Result * HIV Screening (04/30/2021) Pathologist [facility] HIV Screening abstracted Historical Provider HEALTH MAINTENANCE Final Result * Hepatitis C Screening (04/30/2021) Pathologist [facility] Hepatitis C Screening abstracted Historical Provider HEALTH MAINTENANCE Final Result * Colonoscopy (01/21/2021) Pathologist [facility] Colonoscopy no interpretation , abstracted Anatomical Region Laterality Modality Other Historical Provider HEALTH MAINTENANCE Final Result from Last 3 Months or Most Recently Relevant to Health Maintenance Insurance [facility] Care Teams Executive Chairman Relationship Specialty Start Date End Date Dexter Jones MD [address] [place] [phone] PCP - General Family Medicine 07/12/24
--- OUTSIDE RECORDS SUMMARY | 2024-11-11 13:04 | XMS_ITS | Clinical Summary ---
Author Organization [facility] Address [address] [place] [address] Care Team Providers Care Master Machinist Name Role Phone Tristen Alejandro PA-C Primary [...] age to complete this topic Care Teams Master Machinist Relationship Specialty Start Date End Date Tristen Alejandro PA-C PCP - General Medical Services 10/13/21
== END 2024-11-11 12:04 | disposition home or self-care (01) ==
LOC: HO.HGI 11:14
PROVIDERS: PCP Family Medicine; Visit Provider Nurse Practitioner Family
DX: Q45.3 Other congenital malformations of pancreas and pancreatic duct (principal); D13.0 Benign neoplasm of esophagus; Q39.8 Other congenital malformations of esophagus; K58.2 Mixed irritable bowel syndrome; K21.9 Gastro-esophageal reflux disease without esophagitis
CPT/HCPCS: 99214; G2211

== ENCOUNTER → 2024-11-11 11:13 | Outpatient (BNVA) | payer OTHER, SELFPAY | PROVIDERS: PCP Family Medicine; Visit Provider Nurse Practitioner Family ==

== ENCOUNTER 2024-12-19 09:18 | Day surgery (SDC) | payer OTHER, SELFPAY ==
--- OUTSIDE RECORDS SUMMARY | 2024-11-18 06:54 | XMS_ITS | Encounter Summary ---
Author Organization [facility] Address [address] [place] [address] Care Team Providers Care Mint Wafer Depositor Name Role Phone Rupa Potter MD Primary Care Provider Un available Tristen García Primary Care Provider Unavail able Rupa Potter MD Primary Care Provider Un available Radha Ramirez MD Primary Care Provider [phone] Tristen Alejandro PA-C Primary Care Provider [phone] Radha Ramirez MD Primary Care Provider [phone] Tristen Alejandro PA-C Primary Care Provider [phone] Radha Ramirez MD Primary Care Provider Tristen Alejandro PA-C Primary Care Provider [phone] Encounter Details Date Type Department Care Team Description 08/29/2016 Hospital Medical Records [address] [place] [address] Abstract, Provider Social History Tobacco Use Types [...] documented as of this encounter Care Teams Mint Wafer Depositor Relationship Specialty Start Date End Date Rupa Potter MD PCP - General Internal Medicine 03/23/18 Tristen García PCP - General Internal Medicine 03/24/18 04/06/18 Rupa Potter MD PCP - General Internal Medicine 04/08/18 Radha Ramirez MD [address] [place] [address] PCP - General Internal Medicine 03/27/19 05/03/20 Tristen Alejandro PA-C [address] [place] [address] PCP - General Internal Medicine 05/04/20 07/07/20 Radha Ramirez MD [address] [place] [address] PCP - General Internal Medicine 07/08/20 10/27/20 Tristen Alejandro PA-C [address] [place] [address] PCP - General Internal Medicine 10/28/20 11/16/20 Radha Ramirez MD [address] [place] [address] PCP - General Internal Medicine 11/17/20 11/17/20 Tristen Alejandro PA-C [address] [place] [address] PCP - General Internal Medicine 11/18/20 documented as of this encounter
--- OUTSIDE RECORDS SUMMARY | 2024-11-18 06:54 | XMS_ITS | Encounter Summary ---
Author Organization [facility] Address [address] [place] [address] Care Team Providers Care Director Regulatory Compliance Name Role Phone Rupa Potter MD Primary Care Provider Un available Radha Ramirez MD Primary Care Provider Tristen Alejandro PA-C Primary Care Provider [phone] Radha Ramirez MD Primary Care Provider [phone] Tristen Alejandro PA-C Primary Care Provider [phone] Radha Ramirez MD Primary Care Provider Tristen Alejandro PA-C Primary Care Provider [phone] Encounter Details Date Type Department Care Team Description 08/17/2018 Orders Only Gastroenterology - [address] [place] [address] Bhavik Crow PA-C Social History [...] documented as of this encounter Care Teams Director Regulatory Compliance Relationship Specialty Start Date End Date Rupa Potter MD PCP - General Internal Medicine 04/08/18 Radha Ramirez MD [address] [place] [address] PCP - General Internal Medicine 03/27/19 05/03/20 Tristen Alejandro PA-C [address] [place] [address] PCP - General Internal Medicine 05/04/20 07/07/20 Radha Ramirez MD [address] [place] [address] PCP - General Internal Medicine 07/08/20 10/27/20 Tristen Alejandro PA-C [address] [place] [address] PCP - General Internal Medicine 10/28/20 11/16/20 Radha Ramirez MD [address] [place] [address] PCP - General Internal Medicine 11/17/20 11/17/20 Tristen Alejandro PA-C [address] [place] [address] PCP - General Internal Medicine 11/18/20 documented as of this encounter
--- OUTSIDE RECORDS SUMMARY | 2024-11-18 06:54 | XMS_ITS | Encounter Summary ---
Author Organization [facility] Address [address] [place] [address] Care Team Providers Care Review Engineer Name Role Phone Rupa Potter MD Primary Care Provider Un available Radha Ramirez MD Primary Care Provider Tristen Alejandro PA-C Primary Care Provider [phone] Radha Ramirez MD Primary Care Provider [phone] Tristen Alejandro PA-C Primary Care Provider [phone] Radha Ramirez MD Primary Care Provider Tristen Alejandro PA-C Primary Care Provider [phone] Encounter Details Date Type Department Care Team Description 08/29/2018 Orders Only Gastroenterology - [address] [place] [address] Bhavik Crow PA-C Social History [...] documented as of this encounter Care Teams Review Engineer Relationship Specialty Start Date End Date Rupa Potter MD PCP - General Internal Medicine 04/08/18 Radha Ramirez MD [address] [place] [address] PCP - General Internal Medicine 03/27/19 05/03/20 Tristen Alejandro PA-C [address] [place] [address] PCP - General Internal Medicine 05/04/20 07/07/20 Radha Ramirez MD [address] [place] [address] PCP - General Internal Medicine 07/08/20 10/27/20 Tristen Alejandro PA-C [address] [place] [address] PCP - General Internal Medicine 10/28/20 11/16/20 Radha Ramirez MD [address] [place] [address] PCP - General Internal Medicine 11/17/20 11/17/20 Tristen Alejandro PA-C [address] [place] [address] PCP - General Internal Medicine 11/18/20 documented as of this encounter
--- OUTSIDE RECORDS SUMMARY | 2024-11-18 06:54 | XMS_ITS | Encounter Summary ---
Author Organization [facility] Address [address] [place] [address] Care Team Providers Care Driller And Reamer Name Role Phone Tristen Alejandro PA-C Primary Care Provider [phone] Encounter Details Date Type Department Care Team Description 07/18/2022 Sheep Clipper Report Medical Records [address] [place] [address] Rober Sapphire Mosqueda Social History Tobacco Use Types Packs/Day Years [...] documented as of this encounter Care Teams Driller And Reamer Relationship Specialty Start Date End Date Tristen Alejandro PA-C [address] [place] [address] PCP - General Internal Medicine 11/18/20 documented as of this encounter
--- OUTSIDE RECORDS SUMMARY | 2024-11-18 06:54 | XMS_ITS | Encounter Summary ---
Author Organization [facility] Address [address] [place] [address] Care Team Providers Care Percher Name Role Phone Tristen Alejandro PA-C Primary Care Provider [phone] Encounter Details Date Type Department Care Team Description 07/13/2021 Orders Only Medical Records [address] [place] [address] Rebekah Beck MD [address] [place] [address] Social History Tobacco Use Types Packs/Day Years [...] Name Priority Date/Time Associated Diagnosis Comments OUTSIDE MAMMO Routine 07/13/2021 OUTSIDE ULTRASOUND Routine 07/13/2021 documented in this encounter Results * OUTSIDE MAMMO (07/13/2021) Rebekah Beck MD RADIOLOGY * OUTSIDE ULTRASOUND (07/13/2021) Rebekah Beck MD RADIOLOGY documented in this encounter Visit Diagnoses Not on filedocumented in this encounter Additional Health Concerns Infection Onset Date Last Indicated Resolved Time COVID-19 Comment:Patient reports positive COVID test on 06/1206/12/2021 06/18/2021 08/24/2021 1:[address] COVID-19 Comment:Positive test on 06/0806/08/2023 06/09/2023 11:25 AM EDT documented as of this encounter Care Teams Percher Relationship Specialty Start Date End Date Tristen Alejandro PA-C [address] [place] [address] 11687 PCP - General Internal Medicine 11/18/20 documented as of this encounter
--- OUTSIDE RECORDS SUMMARY | 2024-11-18 06:54 | XMS_ITS | Encounter Summary ---
Author Organization [facility] Address [address] [place] [address] Care Team Providers Care Machine Bander And Cellophaner Name Role Phone Radha Ramirez MD Primary Care Provider [phone] Tristen Alejandro PA-C Primary Care Provider [phone] Radha Ramirez MD Primary Care Provider [phone] Tristen Alejandro PA-C Primary Care Provider [phone] Radha Ramirez MD Primary Care Provider [phone] Tristen Alejandro PA-C Primary Care Provider [phone] Encounter Details Date Type Department Care Team Description 02/27/2020 Maintenance Service Supervisor Report Medical Records [address] [place] [address] Clare Mejia MD Social History Tobacco Use [...] documented as of this encounter Care Teams Machine Bander And Cellophaner Relationship Specialty Start Date End Date Radha Ramirez MD [address] [place] [address] 8[address]38 PCP - General Internal Medicine 03/27/19 05/03/20 Tristen Alejandro PA-C [address] [place] [address] 37191 PCP - General Internal Medicine 05/04/20 07/07/20 Radha Ramirez MD [address] [place] [address] 91055 PCP - General Internal Medicine 07/08/20 10/27/20 Tristen Alejandro PA-C [address] [place] [address] 20117 PCP - General Internal Medicine 10/28/20 11/16/20 Radha Ramirez MD [address] [place] [address] 27422 PCP - General Internal Medicine 11/17/20 11/17/20 Tristen Alejandro PA-C [address] [place] [address] 02999 PCP - General Internal Medicine 11/18/20 documented as of this encounter
--- OUTSIDE RECORDS SUMMARY | 2024-11-18 06:54 | XMS_ITS | Encounter Summary ---
Author Organization [facility] Address [address] [place] [address] Care Team Providers Care Manager Administrative Services Name Role Phone Rupa Potter MD Primary Care Provider Un available Radha Ramirez MD Primary Care Provider [phone] Tristen Alejandro PA-C Primary Care Provider [phone] Radha Ramirez MD Primary Care Provider Tristen Alejandro PA-C Primary Care Provider [phone] Radha Ramirez MD Primary Care Provider Tristen Alejandro PA-C Primary Care Provider +[phone] Reason for Visit * Reason Onset Date Comments Abdominal Pain 11/12/2018 vaginal problems 11/12/2018 Walk In 11/12/2018 Encounter Details Date Type Department Care Team Description 11/12/2018 Telephone Adult Medicine [address] [id number] Rupa Potter MD Abdominal Pain; vaginal problems; [...] Potter Payor: [facility] [employer] FFS / [facility] [employer] / Product Type: MEDICAID RISK documented [...] as of this encounter Care Teams Manager Administrative Services Relationship Specialty Start Date End Date Rupa Potter MD PCP - General Internal Medicine 04/08/18 Radha Ramirez MD [address] [place] [address] 72323 PCP - General Internal Medicine 03/27/19 05/03/20 Tristen Alejandro PA-C [address] [place] [address] 79351 PCP - General Internal Medicine 05/04/20 07/07/20 Radha Ramirez MD [address] [place] [address] 42462 PCP - General Internal Medicine 07/08/20 10/27/20 Tristen Alejandro PA-C [address] [place] [address] 80472 PCP - General Internal Medicine 10/28/20 11/16/20 Radha Ramirez MD [address] [place] [address] 52980 PCP - General Internal Medicine 11/17/20 11/17/20 Tristen Alejandro PA-C [address] [place] [address] 65627 PCP - General Internal Medicine 11/18/20 documented as of this encounter
--- OUTSIDE RECORDS SUMMARY | 2024-11-18 06:54 | XMS_ITS | Encounter Summary ---
Author Organization [facility] Address [address] [place] [address] Care Team Providers Care Inside Finisher Name Role Phone Tristen Alejandro PA-C Primary Care Provider [phone] Encounter Details Date Type Department Care Team Description 06/02/2021 Orders Only Adult Medicine [address] [phone] Brennan Pabon PA-C Pharyngeal dysphagia; Acute pain [...] as of this encounter Care Teams Inside Finisher Relationship Specialty Start Date End Date Tristen Alejandro PA-C [address] [place] [address] PCP - General Internal Medicine 11/18/20 documented as of this encounter
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
--- OUTSIDE RECORDS SUMMARY | 2024-11-18 06:54 | XMS_ITS | Encounter Summary ---
Author Organization [facility] Address [address] [place] [address] Care Team Providers Care Dice Table Operator Name Role Phone Radha Ramirez MD Primary Care Provider [phone] Tristen Alejandro PA-C Primary Care Provider [phone] Radha Ramirez MD Primary Care Provider [phone] Tristen Alejandro PA-C Primary Care Provider [phone] Radha Ramirez MD Primary Care Provider [phone] Tristen Alejandro PA-C Primary Care Provider [phone] Encounter Details Date Type Department Care Team Description 12/24/2019 Telephone Internal Medicine - [address], [address] [place] [address] Radha Ramirez MD [address] [place] [address] [id number] Social History Tobacco Use Types Packs/Day Years [...] documented as of this encounter Care Teams Dice Table Operator Relationship Specialty Start Date End Date Radha Ramirez MD [address] [place] [address] 8[address]20 PCP - General Internal Medicine 03/27/19 05/03/20 Tristen Alejandro PA-C [address] [place] [address] 17348 PCP - General Internal Medicine 05/04/20 07/07/20 Radha Ramirez MD [address] [place] [address] 35790 PCP - General Internal Medicine 07/08/20 10/27/20 Tristen Alejandro PA-C [address] [place] [address] 18312 PCP - General Internal Medicine 10/28/20 11/16/20 Radha Ramirez MD [address] [place] [address] 46016 PCP - General Internal Medicine 11/17/20 11/17/20 Tristen Alejandro PA-C [address] [place] [address] PCP - General Internal Medicine 11/18/20 documented as of this encounter
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
--- OUTSIDE RECORDS SUMMARY | 2024-11-18 06:54 | XMS_ITS | Encounter Summary ---
Author Organization [facility] Address [address] [place] [address] Care Team Providers Care Journeyman Wireman Name Role Phone Tristen Alejandro PA-C Primary Care Provider [phone] Encounter Details Date Type Department Care Team Description 07/13/2023 Orders Only Medical Records [address] [place] [address] Araceli Hernández MD [address] [place] [address] Social History Tobacco Use Types Packs/Day Years [...] documented as of this encounter Care Teams Journeyman Wireman Relationship Specialty Start Date End Date Tristen Alejandro PA-C [address] [place] [address] PCP - General Internal Medicine 11/18/20 documented as of this encounter
--- OUTSIDE RECORDS SUMMARY | 2024-11-18 06:54 | XMS_ITS | Encounter Summary ---
Author Organization [facility] Address [address] [place] [address] Care Team Providers Care Cold Press Operator Name Role Phone Radha Ramirez MD Primary Care Provider [phone] Tristen Alejandro PA-C Primary Care Provider [phone] Radha Ramirez MD Primary Care Provider [phone] Tristen Alejnadro PA-C Primary Care Provider [phone] Radha Ramirez MD Primary Care Provider Tristen Alejandro PA-C Primary Care Provider [phone] Reason for Visit * Reason Onset Date Comments TEST RESULTS 04/29/2019 Encounter Details Date Type Department Care Team Description 04/29/2019 Telephone Adult Medicine [address] [phone] Radha Ramirez MD [address] [place] [address] [id number] TEST RESULTS Social History Tobacco Use Types [...] documented as of this encounter Care Teams Cold Press Operator Relationship Specialty Start Date End Date Radha Ramirez MD [address] [place] [address] 52723 PCP - General Internal Medicine 03/27/19 05/03/20 Tristen Alejandro PA-C [address] [place] [address] 72687 PCP - General Internal Medicine 05/04/20 07/07/20 Radha Ramirez MD [address] [place] [address] 49946 PCP - General Internal Medicine 07/08/20 10/27/20 Tristen Alejandro PA-C [address] [place] [address] 79923 PCP - General Internal Medicine 10/28/20 11/16/20 Radha Ramirez MD [address] [place] [address] 08244 PCP - General Internal Medicine 11/17/20 11/17/20 Tristen Alejandro PA-C [address] [place] [address] 21587 PCP - General Internal Medicine 11/18/20 documented as of this encounter
--- OUTSIDE RECORDS SUMMARY | 2024-11-18 06:54 | XMS_ITS | Encounter Summary ---
Author Organization [facility] Address [address] [place] [address] Care Team Providers Care Director Of Global Sales Name Role Phone Tristen Alejandro PA-C Primary Care Provider [phone] Encounter Details Date Type Department Care Team Description 05/31/2022 Mortgage Funder Report Medical Records [address] [place] [address] Meir Thibodeaux MD Social History Tobacco Use [...] as of this encounter Care Teams Director Of Global Sales Relationship Specialty Start Date End Date Tristen Alejandro PA-C [address] [place] [address]10 PCP - General Internal Medicine 11/18/20 documented as of this encounter
--- OUTSIDE RECORDS SUMMARY | 2024-11-18 06:54 | XMS_ITS | Encounter Summary ---
Author Organization [facility] Address [address] [place] [address] Care Team Providers Care Manager Environmental Health And Safety Name Role Phone Tristen Alejandro PA-C Primary Care Provider [phone] Encounter Details Date Type Department Care Team Description 05/13/2022 Orders Only OBGYN - [facility] [address] [place] [address] Alison Palomino, MISAEL Morley Social History Tobacco Use Types Packs/Day Years [...] as of this encounter Care Teams Manager Environmental Health And Safety Relationship Specialty Start Date End Date Tristen Alejandro PA-C [address] [place] [address] 37024 PCP - General Internal Medicine 11/18/20 documented as of this encounter
--- OUTSIDE RECORDS SUMMARY | 2024-11-18 06:54 | XMS_ITS | Encounter Summary ---
Author Organization [facility] Address [address] [place] [address] Care Team Providers Care English Composition Teacher Name Role Phone Tristen Alejandro PA-C Primary Care Provider [phone] Encounter Details Date Type Department Care Team Description 06/22/2022 Profiler Operator Report Medical Records [address] [place] [address] Emre Geronimo MD Social History Tobacco Use [...] documented as of this encounter Care Teams English Composition Teacher Relationship Specialty Start Date End Date Tristen Alejandro PA-C [address] [place] [address] 61439 PCP - General Internal Medicine 11/18/20 documented as of this encounter
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
--- OUTSIDE RECORDS SUMMARY | 2024-11-18 06:54 | XMS_ITS | Encounter Summary ---
Author Organization [facility] Address [address] [place] [address] Care Team Providers Care Mortgage Accounting Clerk Name Role Phone Tristen Alejandro PA-C Primary Care Provider [phone] Reason for Visit * Reason Onset Date Comments Provider Call Back 04/15/2022 Encounter Details Date Type Department Care Team Description 04/15/2022 Telephone Gastroenterology - [place] [address] [facility] [address] [place] [address] Irena Lozano MD Provider Call [...] she gets out of work around 345-4pm [phone] documented in this encounter Plan of Treatment Not on file documented as of this encounter Visit Diagnoses Not on filedocumented in this encounter Additional Health Concerns Infection Onset Date Last Indicated Resolved Time COVID-19 Comment:Positive test on 06/0806/08/2023 06/09/2023 11:25 AM EDT documented as of this encounter Care Teams Mortgage Accounting Clerk Relationship Specialty Start Date End Date Tristen Alejandro PA-C [address] [place] [address] PCP - General Internal Medicine 11/18/20 documented as of this encounter
--- OUTSIDE RECORDS SUMMARY | 2024-11-18 06:54 | XMS_ITS | Encounter Summary ---
Author Organization [facility] Address [address] [place] [address] Care Team Providers Care Health And Fitness Professor Name Role Phone Tristen Alejandro PA-C Primary Care Provider [phone] Reason for Visit * Reason Onset Date Comments APPOINTMENT 07/05/2021 Encounter Details Date Type Department Care Team Description 07/05/2021 Telephone OBGYN - [place] [address] [place], [place] [phone] Benny Hernandez, DO APPOINTMENT Social History Tobacco [...] documented as of this encounter Care Teams Health And Fitness Professor Relationship Specialty Start Date End Date Tristen Alejandro PA-C [address] [place] [address] PCP - General Internal Medicine 11/18/20 documented as of this encounter
--- OUTSIDE RECORDS SUMMARY | 2024-11-18 06:54 | XMS_ITS | Encounter Summary ---
Author Organization [facility] Address [address] [place] [address] Care Team Providers Care Break Up Worker Name Role Phone Radha Ramirez MD Primary Care Provider [phone] Tristen Alejandro PA-C Primary Care Provider [phone] Radha Ramirez MD Primary Care Provider [phone] Tristen Alejandro PA-C Primary Care Provider [phone] Radha Ramirez MD Primary Care Provider [phone] Tristen Alejandro PA-C Primary Care Provider [phone] Encounter Details Date Type Department Care Team Description 01/28/2020 Hospital Medical Records [address] [place] [address] Francisco Chau MD [address] [place] [address] [id number] Social History Tobacco Use Types Packs/Day Years [...] documented as of this encounter Care Teams Break Up Worker Relationship Specialty Start Date End Date Radha Ramirez MD [address] [place] [address]91 PCP - General Internal Medicine 03/27/19 05/03/20 Tristen Alejandro PA-C [address] [place] [address] 14505 PCP - General Internal Medicine 05/04/20 07/07/20 Radha Ramirez MD [address] [place] [address] 13976 PCP - General Internal Medicine 07/08/20 10/27/20 Tristen Alejandro PA-C [address] [place] [address] 04775 PCP - General Internal Medicine 10/28/20 11/16/20 Radha Ramirez MD [address] [place] [address] 65774 PCP - General Internal Medicine 11/17/20 11/17/20 Tristen Alejandro PA-C [address] [place] [address]17 PCP - General Internal Medicine 11/18/20 documented as of this encounter
--- OUTSIDE RECORDS SUMMARY | 2024-11-18 06:54 | XMS_ITS | Encounter Summary ---
Author Organization [facility] Address [address] [place] [address] Care Team Providers Care Lisw Name Role Phone Tristen Alejandro PA-C Primary Care Provider +[phone] Encounter Details Date Type Department Care Team Description 02/22/2022 Orders Only Gastroenterology - [place] [address] [facility] [address] [place] [address] Irena Lozano MD Pancreatic mass [...] documented as of this encounter Care Teams Lisw Relationship Specialty Start Date End Date Tristen Alejandro PA-C [address] [place] [address] PCP - General Internal Medicine 11/18/20 documented as of this encounter
--- OUTSIDE RECORDS SUMMARY | 2024-11-18 06:54 | XMS_ITS | Encounter Summary ---
Author Organization [facility] Address [address] [place] [address] Care Team Providers Care Felting Machine Operator Name Role Phone Radha Ramirez MD Primary Care Provider [phone] Tristen Alejandro PA-C Primary Care Provider [phone] Radha Ramirez MD Primary Care Provider [phone] Tristen Alejandro PA-C Primary Care Provider [phone] Encounter Details Date Type Department Care Team Description 10/01/2020 SCAN Medical Records [address] [place] [address] Isauro Kaur MD Social History Tobacco Use [...] documented as of this encounter Care Teams Felting Machine Operator Relationship Specialty Start Date End Date Radha Ramirez MD [address] [place] [address] PCP - General Internal Medicine 07/08/20 10/27/20 Tristen Alejandro PA-C [address] [place] [address] 15460 PCP - General Internal Medicine 10/28/20 11/16/20 Radha Ramirez MD [address] [place] [address] 88818 PCP - General Internal Medicine 11/17/20 11/17/20 Tristen Alejandro PA-C [address] [place] [address] 32497 PCP - General Internal Medicine 11/18/20 documented as of this encounter
--- OUTSIDE RECORDS SUMMARY | 2024-11-18 06:54 | XMS_ITS | Encounter Summary ---
Author Organization [facility] Address [address] [place] [address] Care Team Providers Care Senior Analytical Chemist Name Role Phone Tristen Alejandro PA-C Primary Care Provider [phone] Encounter Details Date Type Department Care Team Description 05/25/2023 Hospital Medical Records [address] [place] [address] Ankush Valdez MD Social History Tobacco Use [...] as of this encounter Care Teams Senior Analytical Chemist Relationship Specialty Start Date End Date Tristen Alejandro PA-C [address] [place] [address] PCP - General Internal Medicine 11/18/20 documented as of this encounter
--- OUTSIDE RECORDS SUMMARY | 2024-11-18 06:54 | XMS_ITS | Encounter Summary ---
Author Organization [facility] Address [address] [place] [address] Care Team Providers Care Compensation Supervisor Name Role Phone Tristen Alejandro PA-C Primary Care Provider [phone] Encounter Details Date Type Department Care Team Description 03/09/2023 Telephone Adult [facility] [address] [place] [address] Abdelrahman Park PA-C [address] [place] [address]47 Social History Tobacco Use Types Packs/Day Years [...] AM EDT Please req wrist MRI from [facility] documented in this encounter Plan of Treatment Not on file documented as of this encounter Visit Diagnoses Not on filedocumented in this encounter Additional Health Concerns Infection Onset Date Last Indicated Resolved Time COVID-19 Comment:Positive test on 06/0806/08/2023 06/09/2023 11:25 AM EDT documented as of this encounter Care Teams Compensation Supervisor Relationship Specialty Start Date End Date Tristen Alejandro PA-C [address] [place] [address] PCP - General Internal Medicine 11/18/20 documented as of this encounter
--- OUTSIDE RECORDS SUMMARY | 2024-11-18 06:54 | XMS_ITS | Encounter Summary ---
Author Organization [facility] Address [address] [place] [address] Care Team Providers Care Shot Fireman Name Role Phone Tristen Alejandro PA-C Primary Care Provider [phone] Encounter Details Date Type Department Care Team Description 07/16/2021 Tobacco Stemmer Report Medical Records [address] [place] [address]78 Emre Geronimo MD Social History Tobacco Use [...] documented as of this encounter Care Teams Shot Fireman Relationship Specialty Start Date End Date Tristen Alejandro PA-C [address] [place] [address] 88751 PCP - General Internal Medicine 11/18/20 documented as of this encounter
--- OUTSIDE RECORDS SUMMARY | 2024-11-18 06:54 | XMS_ITS | Encounter Summary ---
Author Organization [facility] Address [address] [place] [address] Care Team Providers Care Claim Taker Name Role Phone Tristen García Primary Care Provider Unavail able Rupa Potter MD Primary Care Provider Un available Radha Ramirez MD Primary Care Provider [phone] Tristen Alejandro PA-C Primary Care Provider [phone] Radha Ramirez MD Primary Care Provider Tristen Alejandro PA-C Primary Care Provider [phone] Radha Ramirez MD Primary Care Provider [phone] Tristen Alejandro PA-C Primary Care Provider [phone] Encounter Details Date Type Department Care Team Description 03/29/2018 Release of Information Medical Records [address] [place] [address]90 Abstract, Provider Social History Tobacco Use Types [...] documented as of this encounter Care Teams Claim Taker Relationship Specialty Start Date End Date Tristen García PCP - General Internal Medicine 03/24/18 04/06/18 Rupa Potter MD PCP - General Internal Medicine 04/08/18 Radha Ramirez MD [address] [place] [address]120 PCP - General Internal Medicine 03/27/19 05/03/20 Tristen Alejandro PA-C [address] [place] [address]70 PCP - General Internal Medicine 05/04/20 07/07/20 Radha Ramirez MD [address] [place] [address] 01728 PCP - General Internal Medicine 07/08/20 10/27/20 rTisten Alejnadro PA-C [address] [place] [address] 62418 PCP - General Internal Medicine 10/28/20 11/16/20 Radha Ramirez MD [address] [place] [address] 06725 PCP - General Internal Medicine 11/17/20 11/17/20 Tristen Alejandro PA-C [address] [place] [address] PCP - General Internal Medicine 11/18/20 documented as of this encounter
--- OUTSIDE RECORDS SUMMARY | 2024-11-18 06:54 | XMS_ITS | Encounter Summary ---
Author Organization [facility] Address [address] [place] [address] Care Team Providers Care Allocation Analyst Name Role Phone Radha Ramirez MD Primary Care Provider [phone] Tristen Alejandro PA-C Primary Care Provider [phone] Radha Ramirez MD Primary Care Provider [phone] Tristen Alejandro PA-C Primary Care Provider [phone] Radha Ramirez MD Primary Care Provider [phone] Tristen Alejandro PA-C Primary Care Provider [phone] Reason for Visit * Reason Onset Date Comments medication problems 11/29/2019 Encounter Details Date Type Department Care Team Description 11/29/2019 Telephone Adult [address] [phone] Radha Ramirez MD [address] [place] [address] [phone] medication problems Social History Tobacco Use Types [...] Telephone Encounter - Bhavik Crow PA-C - 12/03/2019 9:09 AM EDT Ok will increase dose instead and have her take it once in the morning. * Telephone Encounter - Amanda Pedro M.A. - 11/29/2019 3:03 PM EDT Prescribed by GI * Telephone Encounter - Cindy Matias - 11/29/2019 10:18 AM EDT Who is calling? A pharmacist: Pharmacy: [facility] - Pharmacist Name: FAX - Pharmacy Name of the medication: omeprazole (PRILOSEC) 20 MG capsule What is the specific problem or interaction? Alternative Requested: Insurance will only pay for 30 capsules for 30 days, not 60. If the patient is having a problem [...] on 06/1206/12/2021 06/18/2021 08/24/2021 1:24 PM E COVID-19 Comment:Positive test on 06/0806/08/2023 06/09/2023 11:25 AM EDT documented as of this encounter Care Teams Allocation Analyst Relationship Specialty Start Date End Date Radha Ramirez MD [address] [place] [address] 22371 PCP - General Internal Medicine 03/27/19 05/03/20 Tristen Alejandro PA-C [address] [place] [address] 82477 PCP - General Internal Medicine 05/04/20 07/07/20 Radha Ramirez MD [address] [place] [address] 50662 PCP - General Internal Medicine 07/08/20 10/27/20 Tristen Alejandro PA-C [address] [place] [address] 67916 PCP - General Internal Medicine 10/28/20 11/16/20 Radha Ramirez MD [address] [place] [address] 35689 PCP - General Internal Medicine 11/17/20 11/17/20 Tristen Alejandro PA-C [address] [place] [address] 13518 PCP - General Internal Medicine 11/18/20 documented as of this encounter
--- OUTSIDE RECORDS SUMMARY | 2024-11-18 06:54 | XMS_ITS | Encounter Summary ---
Author Organization [facility] Address [address] [place] [address] Care Team Providers Care Hand Tool Filer Name Role Phone Tristen Alejandro PA-C Primary Care Provider [phone] Reason for Visit * Reason Onset Date Comments Provider Call Back 07/19/2022 Encounter Details Date Type Department Care Team Description 07/19/2022 Telephone Gastroenterology - [place] [address] [facility] [address] [place] [address] Irena Lozano MD Provider Call [...] and a lot of belching. Please advise [phone] documented in this encounter Plan of Treatment Not on file documented as of this encounter Visit Diagnoses Not on filedocumented in this encounter Additional Health Concerns Infection Onset Date Last Indicated Resolved Time COVID-19 Comment:Positive test on 06/0806/08/2023 06/09/2023 4 11:25 AM EDT documented as of this encounter Care Teams Hand Tool Filer Relationship Specialty Start Date End Date Tristen Alejandro PA-C [address] [place] [address] 43227 PCP - General Internal Medicine 11/18/20 documented as of this encounter
--- OUTSIDE RECORDS SUMMARY | 2024-11-18 06:54 | XMS_ITS | Encounter Summary ---
Author Organization [facility] Address [address] [place] [address] Care Team Providers Care Fast Food Cashier Name Role Phone Radha Ramirez MD Primary Care Provider [phone] Tristen Alejandro PA-C Primary Care Provider [phone] Radha Ramirez MD Primary Care Provider [phone] Tristen Alejandro PA-C Primary Care Provider [phone] Encounter Details Date Type Department Care Team Description 07/28/2020 Orders Only General Surgery [address] [place] [address] Rebekah Beck MD [address] [place] [address] [phone] Mastalgia Social History Tobacco Use Types Packs/Day [...] documented as of this encounter Care Teams Fast Food Cashier Relationship Specialty Start Date End Date Radha Ramirez MD [address] [place] [address] 29898 PCP - General Internal Medicine 07/08/20 10/27/20 Tristen Alejandro PA-C [address] [place] [address] 99795 PCP - General Internal Medicine 10/28/20 11/16/20 Radha Ramirez MD [address] [place] [address] 07793 PCP - General Internal Medicine 11/17/20 11/17/20 Tristen Alejandro PA-C [address] [place] [address] 58657 PCP - General Internal Medicine 11/18/20 documented as of this encounter
--- OUTSIDE RECORDS SUMMARY | 2024-11-18 06:54 | XMS_ITS | Encounter Summary ---
Author Organization [facility] Address [address] [place] [address] Care Team Providers Care Offset Plate Preparation Supervisor Name Role Phone Radha Ramirez MD Primary Care Provider [phone] Tristen Alejandro PA-C Primary Care Provider [phone] Radha Ramirez MD Primary Care Provider [phone] Tristen Alejandro PA-C Primary Care Provider [phone] Radha Ramirez MD Primary Care Provider [phone] Tristen Alejandro PA-C Primary Care Provider [phone] Reason for Visit * Reason Onset Date Comments APPOINTMENT 02/07/2020 Encounter Details Date Type Department Care Team Description 02/07/2020 Telephone Medicine/Pediatrics [address] [phone] Radha Ramirez MD [address] [place] [address] [phone] APPOINTMENT Social History Tobacco Use Types Packs/Day [...] they are received. Thank You, Nely Referrals Hand Filer Balance Wheel * Telephone Encounter - Amanda Vargas R.N. [...] documented as of this encounter Care Teams Offset Plate Preparation Supervisor Relationship Specialty Start Date End Date Radha Ramirez MD [address] [place] [address] 39212 PCP - General Internal Medicine 03/27/19 05/03/20 Tristen Alejandro PA-C [address] [place] [address] PCP - General Internal Medicine 05/04/20 07/07/20 Radha Ramirez MD [address] [place] [address] 960[address] PCP - General Internal Medicine 07/08/20 10/27/20 Tristen Alejandro PA-C [address] [place] [address] PCP - General Internal Medicine 10/28/20 11/16/20 Radha Ramirez MD [address] [place] [address] 72672 PCP - General Internal Medicine 11/17/20 11/17/20 Tristen Alejandro PA-C [address] [place] [address] PCP - General Internal Medicine 11/18/20 documented as of this encounter
--- OUTSIDE RECORDS SUMMARY | 2024-11-18 06:54 | XMS_ITS | Encounter Summary ---
Author Organization [facility] Address [address] [place] [address] Care Team Providers Care Chemical Equipment Controller Name Role Phone Tristen Alejandro PA-C Primary Care Provider [phone] Reason for Visit * Reason Onset Date Comments medication problems 08/16/2021 Encounter Details Date Type Department Care Team Description 08/16/2021 Refill Gastroenterology - [address] [place] [address] Irena Lozano MD medication problems [...] documented as of this encounter Care Teams Chemical Equipment Controller Relationship Specialty Start Date End Date Tristen Alejandro PA-C [address] [place] [address]10 PCP - General Internal Medicine 11/18/20 documented as of this encounter
--- OUTSIDE RECORDS SUMMARY | 2024-11-18 06:54 | XMS_ITS | Encounter Summary ---
Author Organization [facility] Address [address] [place] [address] Care Team Providers Care Grand Scribe Name Role Phone Tristen Alejandro PA-C Primary Care Provider [phone] Reason for Visit * Reason Onset Date Comments er follow up 08/06/2021 Encounter Details Date Type Department Care Team Description 08/06/2021 Telephone Adult Medicine [facility] [address] [place] [address] Tristen Alejandro PA-C [address] [place] [address]857 er follow up Social History Tobacco Use [...] encounter Miscellaneous Notes * Telephone Encounter - Sara Bright - 08/06/2021 1:40 PM EST Attempted to contact patient, unable to leave vm phone line went silent. * Telephone Encounter - Sonia Padilla - 08/06/2021 9:46 AM EST [facility] received report. ER follow-up appointment booked NO to be booked If ER or UC follow up, can be booked with APC or MD. If hospital admission follow up MUST be booked with a physician Appointment time: Provider visit is scheduled with: Hospital/UC center patient was treated at: [facility] Date of visit: 08/04/21 Was this only an ER/UC visit or was the patient admitted to the hospital? ER visit only If patient was admitted what was the date of discharge? N/A Reason/diagnosis for visit or stay: upper abdominal pain Was visit or stay related to an injury? If yes, what was the date of injury (DOI)? N/A If yes, was the injury due to Tests performed: Lab: X-ray: EKG: Other tests. If yes, what?; documented in this encounter Plan of Treatment Not on file documented as of this encounter Visit Diagnoses Not on filedocumented in this encounter Additional Health Concerns Infection Onset Date Last Indicated Resolved Time COVID-19 Comment:Patient reports positive COVID test on 06/1206/12/2021 06/18/2021 08/24/2021 1:[address] COVID-19 Comment:Positive test on 06/0806/08/2023 06/09/2023 11:25 AM EDT documented as of this encounter Care Teams Grand Scribe Relationship Specialty Start Date End Date Tristen Alejandro PA-C [address] [place] [address] PCP - General Internal Medicine 11/18/20 documented as of this encounter
--- OUTSIDE RECORDS SUMMARY | 2024-11-18 06:54 | XMS_ITS | Encounter Summary ---
Author Organization [facility] Address [address] [place] [address] Care Team Providers Care Asbestos Brake Lining Finisher Name Role Phone Tristen Alejandro PA-C Primary Care Provider [phone] Encounter Details Date Type Department Care Team Description 03/28/2023 Cable Worker Helper Report Medical Records [address] [place] [address] Kika Sanchez, DATABASES COMPUTER CONSULTANT Social History Tobacco Use Types Packs/Day [...] documented as of this encounter Care Teams Asbestos Brake Lining Finisher Relationship Specialty Start Date End Date Tristen Alejandro PA-C [address] [place] [address] 60050 PCP - General Internal Medicine 11/18/20 documented as of this encounter
--- OUTSIDE RECORDS SUMMARY | 2024-11-18 06:54 | XMS_ITS | Encounter Summary ---
Author Organization [facility] Address [address] [place] [address] Care Team Providers Care Radio Frequency Design Engineer Name Role Phone Tristen Alejandro PA-C Primary Care Provider [phone] Encounter Details Date Type Department Care Team Description 02/23/2022 Telephone Adult Medicine [facility] [address] [place] [address] Tristen Alejandro PA-C [address] [place] [address] Social History Tobacco Use Types Packs/Day Years [...] documented as of this encounter Care Teams Radio Frequency Design Engineer Relationship Specialty Start Date End Date Tristen Alejandro PA-C [address] [place] [address]99 PCP - General Internal Medicine 11/18/20 documented as of this encounter
--- OUTSIDE RECORDS SUMMARY | 2024-11-18 06:54 | XMS_ITS | Encounter Summary ---
Author Organization [facility] Address [address] [place] [address] Care Team Providers Care Speeder Hand Name Role Phone Tristen Alejandro PA-C Primary Care Provider [phone] Encounter Details Date Type Department Care Team Description 06/09/2022 Driver'S License Reviewing Officer Report Medical Records [address] [place] [address] Wilner Gonzalez NP Social History Tobacco Use [...] documented as of this encounter Care Teams Speeder Hand Relationship Specialty Start Date End Date Tristen Alejandro PA-C [address] [place] [address] 94363 PCP - General Internal Medicine 11/18/20 documented as of this encounter
--- OUTSIDE RECORDS SUMMARY | 2024-11-18 06:54 | XMS_ITS | Encounter Summary ---
Author Organization [facility] Address [address] [place] [address] Care Team Providers Care Newspaper Or Periodical Editor Name Role Phone Tristen Alejandro PA-C Primary Care Provider [phone] Encounter Details Date Type Department Care Team Description 06/23/2021 Hospital Medical Records [address] [place], [place] [phone] [place] [address] Social History Tobacco Use Types Packs/Day Years [...] documented as of this encounter Care Teams Newspaper Or Periodical Editor Relationship Specialty Start Date End Date Tristen Alejandro PA-C [address] [place] [address]149 PCP - General Internal Medicine 11/18/20 documented as of this encounter
--- OUTSIDE RECORDS SUMMARY | 2024-11-18 06:54 | XMS_ITS | Encounter Summary ---
Author Organization [facility] Address [address] [place] [address] Care Team Providers Care Cloth Sander Name Role Phone Radha Ramirez MD Primary Care Provider [phone] Tristen Alejandro PA-C Primary Care Provider [phone] Radha Ramirez MD Primary Care Provider [phone] Tristen Alejandro PA-C Primary Care Provider [phone] Radha Ramirez MD Primary Care Provider [phone] Tristen Alejandro PA-C Primary Care Provider [phone] Reason for Visit * Reason Onset Date Comments Medication 08/23/2019 Encounter Details Date Type Department Care Team Description 08/23/2019 Telephone Gastroenterology - [place] 175 [facility] [address] [place] [address] Bhavik Crow PA-C Medication Social History Tobacco Use Types Packs/Day Years [...] Telephone Encounter - Dilma Hoang M.A. - 08/26/2019 9:21 AM EST Called patient let her know that meds were sent to Pharmacy. * Telephone Encounter - Bhavik Crow PA-C - 08/23/2019 3:09 PM EST Prescribed a short course of omeprazole. This is not meant to be a long-term med * Telephone Encounter - Arabella La - 08/23/2019 1:08 PM EST Patient is a the pharmacy -states she wants Omeprzole-not nortiptyline. * Telephone Encounter - Bhavik Crow PA-C - 08/23/2019 12:39 PM EST It was not omeprazole. It was nortriptyline that we talked about starting but pt did not. This is to treat non ulcer dyspepsia. Please ask pt if this is what she would like. * Telephone Encounter - Lucille Qureshi - 08/23/2019 12:26 PM EST Caller requesting call back from provider: Is the caller the patient? YES If caller is not the patient, what is the callers name? N/A Callers relationship to patient? N/A If person calling is not the patient themselves, is there a verbal release in FYI or permanent comments for this person: NO Reason for call back: Patient called to ask Cam for omeprazaole for the issue of the pain in her chest, out of breath, passes gas, burping after eating. Patient did go to [facility] ER on last week and patient was told heart was fine, all tests were normal. Patient said Cam told her previously the chestpain is acid reflux. Patient did not fill the script for omeprazole from [facility] but now the patient wou ld like to try that. Please send prescription to patient's pharmacy. Caller offered to speak with the nurse [...] documented as of this encounter Care Teams Cloth Sander Relationship Specialty Start Date End Date Radha Ramirez MD [address] [place] [address]81 PCP - General Internal Medicine 03/27/19 05/03/20 Tristen Alejandro PA-C [address] [place] [address] PCP - General Internal Medicine 05/04/20 07/07/20 Radha Ramirez MD [address] [place] [address] 74482 PCP - General Internal Medicine 07/08/20 10/27/20 Tristen Alejandro PA-C [address] [place] [address] 63533 PCP - General Internal Medicine 10/28/20 11/16/20 Radha Ramirez MD [address] [place], [place] [phone] PCP - General Internal Medicine 11/17/20 11/17/20 Tristen Alejandro PA-C [address] [place], [place] [phone] PCP - General Internal Medicine 11/18/20 documented as of this encounter
--- OUTSIDE RECORDS SUMMARY | 2024-11-18 06:54 | XMS_ITS | Encounter Summary ---
Author Organization [facility] Address [address] [place] [address] Care Team Providers Care Sandwich Wrapper Name Role Phone Radha Ramirez MD Primary Care Provider [phone] Tristen Alejandro PA-C Primary Care Provider [phone] Radha Ramirez MD Primary Care Provider [phone] Tristen Alejandro PA-C Primary Care Provider [phone] Reason for Visit * Reason Onset Date Comments Blood In Stool 09/14/2020 Encounter Details Date Type Department Care Team Description 09/14/2020 Telephone Gastroenterology - [place] [address] [facility] [address] [place] [address] Irena Lozano MD Blood In [...] documented as of this encounter Care Teams Sandwich Wrapper Relationship Specialty Start Date End Date Radha Ramirez MD [address] [place] [address] PCP - General Internal Medicine 07/08/20 10/27/20 Tristen Alejandro PA-C [address] [place] [address] 22715 PCP - General Internal Medicine 10/28/20 11/16/20 Radha Ramirez MD [address] [place] [address] 67699 PCP - General Internal Medicine 11/17/20 11/17/20 Tristen Alejandro PA-C [address] [place] [address] 44283 PCP - General Internal Medicine 11/18/20 documented as of this encounter
--- OUTSIDE RECORDS SUMMARY | 2024-11-18 06:55 | XMS_ITS | Encounter Summary ---
Author Organization [facility] Address [address] [place] [address] Care Team Providers Care Drawing Instructor Name Role Phone Tristen Alejandro PA-C Primary Care Provider [phone] Encounter Details Date Type Department Care Team Description 01/11/2022 Orders Only Gastroenterology - [place] 175 [facility] [address] [place] [address] Irena Lozano MD Pancreatic mass [...] documented as of this encounter Care Teams Drawing Instructor Relationship Specialty Start Date End Date Tristen Alejandro PA-C [address] [place] [address]18 PCP - General Internal Medicine 11/18/20 documented as of this encounter
--- OUTSIDE RECORDS SUMMARY | 2024-11-18 06:55 | XMS_ITS | Encounter Summary ---
Author Organization [facility] Address [address] [place] [address] Care Team Providers Care Wireless Network Engineer Name Role Phone Tristen Alejandro PA-C Primary Care Provider [phone] Encounter Details Date Type Department Care Team Description 08/23/2022 Process Safety Manager Report Medical Records [address] [place] [address] Kika Sanchez, [employer] Social History Tobacco Use Types Packs/Day Years [...] documented as of this encounter Care Teams Wireless Network Engineer Relationship Specialty Start Date End Date Tristen Alejandro PA-C [address] [place] [address]958 PCP - General Internal Medicine 11/18/20 documented as of this encounter
--- OUTSIDE RECORDS SUMMARY | 2024-11-18 06:55 | XMS_ITS | Encounter Summary ---
Author Organization [facility] Address [address] [place] [address] Care Team Providers Care Nuclear Equipment Sales Engineer Name Role Phone Tristen Alejandro PA-C Primary Care Provider [phone] Reason for Visit * Reason Onset Date Comments Prior Authorization 01/30/2024 CT neck with contrast Encounter Details Date Type Department Care Team Description 01/30/2024 Telephone Adult Medicine [facility] [address] [place] [address] Tristen Alejandro PA-C [address] [place] [address] Prior Authorization (CT neck with contrast) Social History Tobacco Use Types Packs/Day Years [...] * Telephone Encounter - Kristin Benitez - 01/30/2024 9:18 AM EDT Order faxed to Kelly at [facility]. Per elzbieta no auth required documented in this encounter Plan of Treatment Not on file documented as of this encounter Visit Diagnoses Not on filedocumented in this encounter Care Teams Nuclear Equipment Sales Engineer Relationship Specialty Start Date End Date Tristen Alejandro PA-C [address] [place] [address] 20116 PCP - General Internal Medicine 11/18/20 documented as of this encounter
--- OUTSIDE RECORDS SUMMARY | 2024-11-18 06:55 | XMS_ITS | Encounter Summary ---
Author Organization [facility] Address [address] [place] [address] Care Team Providers Care Yoke Setter Name Role Phone Tristen Alejandro PA-C Primary Care Provider +1 -[phone] Encounter Details Date Type Department Care Team Description 09/13/2022 Lockstitch Back Maker Report Medical Records [address] [place] [address] Miles Verduzco MD Social History Tobacco Use [...] documented as of this encounter Care Teams Yoke Setter Relationship Specialty Start Date End Date Tristen Alejandro PA-C [address] [place] [address] PCP - General Internal Medicine 11/18/20 documented as of this encounter
--- OUTSIDE RECORDS SUMMARY | 2024-11-18 06:55 | XMS_ITS | Encounter Summary ---
Author Organization [facility] Address [address] [place] [address] Care Team Providers Care Net Sql Developer Name Role Phone Tristen Alejandro PA-C Primary Care Provider +1 -[phone] Encounter Details Date Type Department Care Team Description 11/15/2021 Rd Lab Technician Report Medical Records [address] [place] [address] [facility] Social History Tobacco [...] documented as of this encounter Care Teams Net Sql Developer Relationship Specialty Start Date End Date Tristen Alejandro PA-C [address] [place] [address] PCP - General Internal Medicine 11/18/20 documented as of this encounter
--- OUTSIDE RECORDS SUMMARY | 2024-11-18 06:55 | XMS_ITS | Encounter Summary ---
Author Organization [facility] Address [address] [place] [address] Care Team Providers Care Spanish Interpreter Name Role Phone Tristen Alejandro PA-C Primary Care Provider +1 -[phone] Encounter Details Date Type Department Care Team Description 10/17/2023 Flute Polisher Report Medical Records [address] [place] [id number] [place] [address] Social History Tobacco Use Types Packs/Day Years [...] on filedocumented in this encounter Care Teams Spanish Interpreter Relationship Specialty Start Date End Date Tristen Alejandro PA-C [address] [place] [address] PCP - General Internal Medicine 11/18/20 documented as of this encounter
--- OUTSIDE RECORDS SUMMARY | 2024-11-18 06:55 | XMS_ITS | Encounter Summary ---
Author Organization [facility] Address [address] [place] [address] Care Team Providers Care Bar Host/Hostess Name Role Phone Tristen Alejandro PA-C Primary Care Provider +1 -[phone] Encounter Details Date Type Department Care Team Description 08/14/2023 Orders Only Medical Records [address] [place] [address] Alison Palomino CNM Social History Tobacco Use Types Packs/Day Years [...] Date/Time Associated Diagnosis Comments OUTSIDE MAMMO Routine 05/17/2023 documented in this encounter Results * OUTSIDE MAMMO (05/17/2023) Alison Palomino CNM RADIOLOGY documented in this encounter Visit Diagnoses Not on filedocumented in this encounter Additional Health Concerns Infection Onset Date Last Indicated Resolved Time COVID-19 Comment:Positive test on 06/0806/08/2023 06/09/2023 4 11:25 AM EDT documented as of this encounter Care Teams Bar Host/Hostess Relationship Specialty Start Date End Date Tristen Alejandro PA-C [address] [place] [address] PCP - General Internal Medicine 11/18/20 documented as of this encounter
--- OUTSIDE RECORDS SUMMARY | 2024-11-18 06:55 | XMS_ITS | Clinical Summary ---
Author Organization [facility] Address [address] [place] [address] Phone Care Team Providers Care Architecture Analyst Name Role Phone Dexter Jones MD Primary Care Provider [phone] Allergies Active Allergy Reactions Criticality Noted Date [...] Alyssa that there is no evidence of Treatment Coordinator involvement with the mass that is described. [...] Anxiety 06/13/2018 Overview (04/15/2024): 07/05/2019 Followed by [facility]- therapy q 1-2 wks , Awaiting psychiatric eval to begin med regime GERD (gastroesophageal reflux disease) 8 Hematochezia 06/13/2018 Introital dyspareunia 06/13/2018 Lactose intolerance 06/13/2018 Low back pain 06/13/2018 Small intestinal bacterial overgrowth 06/13/2018 Urinary incontinence 06/13/2018 Rosacea 03/28/2018 Varicose vein of leg 03/27/2018 Encounters Date Type Department Care Team Description 10/09/2024 Lab Requisition [facility] - Main Lab [address] [facility] [place] [address] Tate Conrad, PA Other microscopic hematuria from Last 3 Months Surgical History Surgery Date Site/Laterality Comments COLONOSCOPY 02/10/2017 PROCEDURE: HISTORICAL COLONOSCOPY; COMMENT: Normal UPPER GASTROINTESTINAL ENDOSCOPY 08/29/2016 PROCEDURE: UPPER GI ENDOSCOPY/EXAM; COMMENT: abnormal - H Pylori ESOPHAGOGASTRODUODENOSCOPY 08/11/2021 PROCEDURE: NV EGD TRANSORAL BIOPSY SINGLE/MULTIPLE; COMMENT: normal, random biopsy pending ESOPHAGOGASTRODUODENOSCOPY 12/30/2021 PROCEDURE: NV EGD TRANSORAL BIOPSY SINGLE/MULTIPLE; COMMENT: normal, biopsy [...] 03/28/2018 DX:Psycho social stressors; COMMENT: Living in residential wih 3 year old son who has [...] AM EDT) Final Diagnosis A. Urine, Voided, ([id number]): Negative for high grade urothelial carcinoma. 10/15/2024 4:06 PM EDT [facility] Clinical Information Other microscopic hematuria R31.29 Urine cytology 10/15/2024 4:06 PM EDT [facility] Gross Description A. Urine, Voided, ([id number]): Received one ThinPrep slide for cytology. 10/15/2024 4:06 PM EDT [facility] Disclaimer Unless otherwise specified, all tissue is 10% NB formalin fixed and paraffin embedded. Technical pathology services provided by [facility] at [address] [place] [address] [address], [place] [address] (CLIA #[id number]/Sa elias Diaz MD, Immigration Patrol Inspector) 10/15/2024 4:06 PM EDT [facility] Tissue Urine specimen from urethra / Unknown 10/08/2024 10/09/2024 1:36 PM EDT us Tate FLOREZ LAB PATHOLOGY ORDERABLES Final Result [facility] [address] [place] [address], * MG Mammo Digital Screening w Apple [...] Signed Date: 05/23/2024 14:50 ET Workstation ID: [id number] Transcribed By: Self Edit Transcribed Date: 05/23/2024 [...] Signed Date: 05/23/2024 14:50 ET Workstation ID: [id number] Transcribed By: Self Edit Transcribed Date: 05/23/2024 14:45 ET Tristen FLOREZ IMG BI PROCEDURES Final R esult * (ABNORMAL) Lipid panel (04/10/2024) Pathologist [facility] LDL/HDL Ratio 2 0 - 4 Triglycerides 69 0 - 150 mg/dL Cholesterol 257(A) 0 - 200 mg/dL HDL 116 >=40 mg/dL LDL Cholesterol 128(A) 0 - 100 mg/dL Blood Venous blood specimen / Unknown Result [facility] Historical Provider LAB BLOOD ORDERABLES Geeta l Result * Depression Screening (03/27/2024) Pathologist [facility] Depression Screening abstracted us Historical Provider HEALTH MAINTENANCE Final Result * Cervical Cancer Screening: HPV (09/26/2023) Pathologist [facility] Cervical Cancer Screening: HPV negative, abstracted Historical Provider HEALTH MAINTENANCE Final Result * HIV Screening (04/30/2021) Pathologist [facility] HIV Screening abstracted Historical Provider HEALTH MAINTENANCE Final Result * Hepatitis C Screening (04/30/2021) Pathologist [facility] Hepatitis C Screening abstracted Historical Provider HEALTH MAINTENANCE Final Result * Colonoscopy (01/21/2021) Pathologist [facility] Colonoscopy no interpretation , abstracted Anatomical Region Laterality Modality Other Historical Provider HEALTH MAINTENANCE Final Result from Last 3 Months or Most Recently Relevant to Health Maintenance Insurance [employer] Care Teams Architecture Analyst Relationship Specialty Start Date End Date Dexter Jones MD [address] [place] [address] PCP - General Family Medicine 07/12/24
--- OUTSIDE RECORDS SUMMARY | 2024-11-18 06:55 | XMS_ITS | Encounter Summary ---
Author Organization [facility] Address [address] [place] [address] Care Team Providers Care Hog Sawyer Name Role Phone Tristen Alejandro PA-C Primary Care Provider +1 -[phone] Encounter Details Date Type Department Care Team Description 10/08/2021 Telephone Adult [facility] [address] [place] [address] Tristen Alejandro PA-C [address] [place] [address] Social History Tobacco Use Types Packs/Day Years [...] documented as of this encounter Care Teams Hog Sawyer Relationship Specialty Start Date End Date Tristen Alejandro PA-C [address] [place] [address] PCP - General Internal Medicine 11/18/20 documented as of this encounter
--- OUTSIDE RECORDS SUMMARY | 2024-11-18 06:55 | XMS_ITS | Encounter Summary ---
Author Organization [facility] Address [address] [place] [address] Care Team Providers Care Survey Workers Supervisor Name Role Phone Tristen Alejandro PA-C Primary Care Provider [phone] -[phone] Encounter Details Date Type Department Care Team Description 10/26/2021 Torch Burner Report Medical Records [address] [place] [address] Meir Thibodeaux MD Social History Tobacco Use [...] documented as of this encounter Care Teams Survey Workers Supervisor Relationship Specialty Start Date End Date Tristen Alejandro PA-C [address] [place] [address] PCP - General Internal Medicine 11/18/20 documented as of this encounter
--- OUTSIDE RECORDS SUMMARY | 2024-11-18 06:55 | XMS_ITS | Encounter Summary ---
Author Organization [facility] Address [address] [place] [address] Care Team Providers Care Graduate Student Instructor Name Role Phone Tristen Alejandro PA-C Primary Care Provider +1 -[phone] Encounter Details Date Type Department Care Team Description 11/03/2023 Neon Pumper Report Medical Records [address] [place] [address] Kika Sanchez, REWORK MACHINE OPERATOR Social History Tobacco Use Types Packs/Day Years [...] on filedocumented in this encounter Care Teams Graduate Student Instructor Relationship Specialty Start Date End Date Tristen Alejandro PA-C [address] [place] [address] PCP - General Internal Medicine 11/18/20 documented as of this encounter
--- OUTSIDE RECORDS SUMMARY | 2024-11-18 06:55 | XMS_ITS | Clinical Summary ---
Author Organization [facility] Address [address] [place] [address] Care Team Providers Care Coding Assistant Name Role Phone Tristen Alejandro PA-C [...] age to complete this topic Care Teams Coding Assistant Relationship Specialty Start Date End Date Tristen Alejandro PA-C PCP - General Medical Services 10/13/21
--- OUTSIDE RECORDS SUMMARY | 2024-11-18 06:55 | XMS_ITS | Clinical Summary ---
Author Organization [facility] Address [address] [place] [address] Care Team Providers Care Solderer Production Line Name Role Phone Tristen Alejandro PA-C Primary Care Provider [phone] [phone] Allergies Active Allergy Reactions Severity Noted Date [...] for 180 days. 30 Tablet 5 03/27/2024 Active trazodone (DESYREL) 50 MG tablet Take [...] Alyssa that there is no evidence of Assistant Store Director involvement with the mass that is described. Given its very small size, I agree with Dr. Alejo that this likely represents an incidental finding of no clinical significance. I recommended she follow up with Dr. Alejo or Dr. Love if she has further abdominal pain or rectal bleeding. She agreed. [facility]: EEG 03/11/2020 low-voltage fast EEG with occasional generalized paroxysmal theta bursts. Nonintractable headache 04/20/2020 Pulmonary nodule/ [address] scan 08/27/2018 Chronic abdominal pain 08/27/2018 GERD (gastroesophageal reflux disease) 1 08/14/2017 Introital dyspareunia 06/13/2018 Anxiety 06/13/2018 Overview: 07/05/2019 Followed by [facility]- therapy q 1-2 wks , [...] Done Comments DTAP/TDAP/TD (1 - Tdap) 11/21/1998 MAMMOGRAM 05/17/2024 05/17/2023, 02/2023 (External Completion), 05/13/2022, Additional history exists DEPRESSION SCREENING/FOLLOWUP 07/10/2024 03/27/2024, 08/08/2023, 02/06/2023, Additional history exists SOCIAL NEEDS SCREENING 07/10/2024 08/08/2023 Covid-19 Vaccine (#1) 12/18/2024 Postpo genevieve from 05/24/1980 (Patient Refused) INFLUENZA (Season Ended) 2025 021 (Refused), 03/28/2018 (Refused) BASELINE HEALTH EXAM 40-64 04/10/202604/10, 03/15/2024, 02/20/2024, Additional history exists CERVICAL CANCER SCREENING 09/25/20262023, 07/31/2020, 06/27/2018 CHOLESTEROL SCREENING 04/10/2029 04/10/2024 , 08/09/2023, 08/12/2022, Additional history exists COLON CANCER SCREENING 01/21/2031 01/21/2021, 2016 PNEUMOCOCCAL VACCINE FOR HIGH RISK PATIENTS (#1) 11/21/2044 Care Teams Solderer Production Line Relationship Specialty Start Date End Date Tristen Alejandro PA-C [address] [place] [address] PCP - General Internal Medicine 11/18/20
--- OUTSIDE RECORDS SUMMARY | 2024-11-18 06:55 | XMS_ITS | Encounter Summary ---
Author Organization [facility] Address [address] [place] [address] Care Team Providers Care Social Studies Teacher Name Role Phone Tristen Alejandro PA-C Primary Care Provider +1 -[phone] Reason for Visit * Reason Comments E-prescribe Rx Request Encounter Details Date Type Department Care Team Description 11/02/2022 Refill Adult Medicine [facility] [address] [place] [address] Tristen Alejandro PA-C [address] [place] [address] E-prescribe Rx Request Social History Tobacco Use [...] N/A Patients current insurance carrier is: Payor: [email or web address] / Plan: [facility] / Product Type: MEDICAID RISK documented in this encounter Plan of Treatment Not on file documented as of this encounter Visit Diagnoses Not on filedocumented in this encounter Additional Health Concerns Infection Onset Date Last Indicated Resolved Time COVID-19 Comment:Positive test on 06/0806/08/2023 06/09/2023 11:25 AM EDT documented as of this encounter Care Teams Social Studies Teacher Relationship Specialty Start Date End Date Tristen Alejandro PA-C [address] [place] [address] PCP - General Internal Medicine 11/18/20 documented as of this encounter
--- OUTSIDE RECORDS SUMMARY | 2024-11-18 06:55 | XMS_ITS | Encounter Summary ---
Author Organization [facility] Address [address] [place] [address] Care Team Providers Care Utility Tractor Operator Name Role Phone Tristen Alejandro PA-C Primary Care Provider +1 -[phone] Reason for Visit * Reason Onset Date Comments PT-1 04/09/2024 Encounter Details Date Type Department Care Team Description 04/09/2024 Telephone Adult Medicine [facility] [address] [place] [address] Tristen Alejandro PA-C [address] [place] [address] PT-1 Social History Tobacco Use Types Packs/Day Years [...] on filedocumented in this encounter Care Teams Utility Tractor Operator Relationship Specialty Start Date End Date Tristen Alejandro PA-C [address] [place] [address] PCP - General Internal Medicine 11/18/20 documented as of this encounter
--- OUTSIDE RECORDS SUMMARY | 2024-11-18 06:55 | XMS_ITS | Encounter Summary ---
Author Organization [facility] Address [address] [place] [address] Care Team Providers Care Mr Teacher Name Role Phone Tristen Alejandro PA-C Primary Care Provider +1 -[phone] Encounter Details Date Type Department Care Team Description 12/13/2021 Telephone Gastroenterology - [place] [address] [facility] [address] [place] [address] Irena Lozano MD Social History [...] documented as of this encounter Care Teams Mr Teacher Relationship Specialty Start Date End Date Tristen Alejandro PA-C [address] [place] [address] PCP - General Internal Medicine 11/18/20 documented as of this encounter
--- OUTSIDE RECORDS SUMMARY | 2024-11-18 06:55 | XMS_ITS | Encounter Summary ---
Author Organization [facility] Address [address] [place] [address] Care Team Providers Care Manager Books Name Role Phone Tristen Alejandro PA-C Primary Care Provider +1 -[phone] Encounter Details Date Type Department Care Team Description 10/08/2021 Sap Trainer Report Medical Records [address] [place] [address] [facility] Social History Tobacco [...] as of this encounter Care Teams Manager Books Relationship Specialty Start Date End Date Tristen Alejandro PA-C [address] [place] [address] PCP - General Internal Medicine 11/18/20 documented as of this encounter
--- OUTSIDE RECORDS SUMMARY | 2024-11-18 06:55 | XMS_ITS | Encounter Summary ---
Author Organization [facility] Address [address] [place] [address] Care Team Providers Care Adventure Guide Name Role Phone Tristen Alejandro PA-C Primary Care Provider +1 -[phone] Reason for Visit * Reason Onset Date Comments REFERRAL 11/01/2023 Testing for auti sm Encounter Details Date Type Department Care Team Description 11/01/2023 Telephone Adult Medicine [facility] [address] [place] [address] Tristen Alejandro PA-C [address] [place] [address] REFERRAL (Testing for autism) Social History Tobacco [...] on filedocumented in this encounter Care Teams Adventure Guide Relationship Specialty Start Date End Date Tristen Alejandro PA-C [address] [place] [address] PCP - General Internal Medicine 11/18/20 documented as of this encounter
--- OUTSIDE RECORDS SUMMARY | 2024-11-18 06:55 | XMS_ITS | Encounter Summary ---
Author Organization [facility] Address [address] [place] [address] Care Team Providers Care Driving Instructor Name Role Phone Dexter Jones MD Primary Care Provider [phone] Encounter Details Date Type Department Care Team (Late st Contact Info) Description 10/09/2024 Lab Requisition [facility] - Main Lab [address] [facility] [place] [address] Tate Conrad PA [address] [place] [id number] Other microscopic hematuria Social History Tobacco Use [...] AM EDT) Final Diagnosis A. Urine, Voided, ([id number]): Negative for high grade urothelial carcinoma. 10/15/2024 4:[address] [facility] Clinical Information Other microscopic hematuria R31.29 Urine cytology 10/15/2024 4:[address] [facility] Gross Description A. Urine, Voided, ([id number]): Received one ThinPrep slide for cytology. 10/15/2024 4:[address] [facility] Disclaimer Unless otherwise specified, all tissue is 10% NB formalin fixed and paraffin embedded. Technical pathology services provided by [facility] at [address], [place] [address] (CLIA #[id number]/Sa elias Diaz MD, Cement Block Maker) 10/15/2024 4:[address] [facility] Tissue Urine specimen from urethra / Unknown 10/08/2024 10/09/2024 1:36 PM EDT us Tate R [place] PA LAB PATHOLOGY ORDERABLES Final Result [facility] [address] [place] [address], documented in this encounter Visit Diagnoses Diagnosis Other microscopic hematuria documented in this encounter Care Teams Driving Instructor Relationship Specialty Start Date End Date Dexter Jones MD [address] [place] [phone] PCP - General Family Medicine 07/12/24 documented as of this encounter
--- OUTSIDE RECORDS SUMMARY | 2024-11-18 06:55 | XMS_ITS | Encounter Summary ---
Author Organization [facility] Address [address] [place] [address] Care Team Providers Care Test Preparation Tutor Name Role Phone Tristen Alejandro PA-C Primary Care Provider +1 -[phone] Reason for Visit * Reason Onset Date Comments Prior Authorization 01/17/2024 CTA head and CTA neck Encounter Details Date Type Department Care Team Description 01/17/2024 Telephone Adult Medicine [facility] [address] [place] [address] Tristen Alejandro PA-C [address] [place] [address] Prior Authorization (CTA head and CTA neck) [...] Benitez - 01/17/2024 12:56 PM EDT Per [facility] no auth required - call reference # [id number]. Tori is out of [facility]. Orders faxed to [facility] to schedule appt. They will call patient. documented in this encounter Plan of Treatment Not on file documented as of this encounter Visit Diagnoses Not on filedocumented in this encounter Care Teams Test Preparation Tutor Relationship Specialty Start Date End Date Tristen Alejandro PA-C [address] [place] [address] PCP - General Internal Medicine 11/18/20 documented as of this encounter
--- OUTSIDE RECORDS SUMMARY | 2024-11-18 06:55 | XMS_ITS | Encounter Summary ---
Author Organization [facility] Address [address] [place] [address] Care Team Providers Care Lead Security Officer Name Role Phone Tristen Alejandro PA-C Primary Care Provider [phone] [phone] Reason for Visit * Reason Onset Date Comments Provider Call Back 08/03/2022 Encounter Details Date Type Department Care Team Description 08/03/2022 Telephone Gastroenterology - [place] [address] [facility] [address] [place] [address] Irena Lozano MD Provider Call [...] as of this encounter Care Teams Lead Security Officer Relationship Specialty Start Date End Date Tristen Alejandro PA-C [address] [place] [address] PCP - General Internal Medicine 11/18/20 documented as of this encounter
--- OUTSIDE RECORDS SUMMARY | 2024-11-18 06:55 | XMS_ITS | Encounter Summary ---
Author Organization [facility] Address [address] [place] [address] Care Team Providers Care Sewing Inspector Name Role Phone Tristen Alejandro PA-C Primary Care Provider +1 -[phone] Encounter Details Date Type Department Care Team Description 01/18/2022 Dice Person Report Medical Records [address] [place] [address] Meir Georges MD Social History Tobacco Use [...] documented as of this encounter Care Teams Sewing Inspector Relationship Specialty Start Date End Date Tristen Alejandro PA-C [address] [place] [address] PCP - General Internal Medicine 11/18/20 documented as of this encounter
--- OUTSIDE RECORDS SUMMARY | 2024-11-18 06:55 | XMS_ITS | Encounter Summary ---
Author Organization [facility] Address [address] [place] [address] Care Team Providers Care String Top Sealer Name Role Phone Tristen Alejandro PA-C Primary Care Provider +1 -[phone] Encounter Details Date Type Department Care Team Description 12/30/2021 Hospital Medical Records [address] [place] [address] Irena Lozano MD Social History Tobacco Use [...] suspected to have Coronavirus/COVID-19? No / Unsure 12/22/2021 12:48 PM EDT documented as of this encounter Plan of Treatment Not on file documented as of this encounter Visit Diagnoses Not on filedocumented in this encounter Additional Health Concerns Infection Onset Date Last Indicated Resolved Time COVID-19 Comment:Positive test on 06/0806/08/2023 06/09/2023 11:25 AM EDT documented as of this encounter Care Teams String Top Sealer Relationship Specialty Start Date End Date Tristen Alejandro PA-C [address] [place] [address] PCP - General Internal Medicine 11/18/20 documented as of this encounter
[2024-12-17 14:24] VITALS: BMI 19.7
--- NOTE | 2024-12-18 12:04 | HO.ANESPROP2 ---
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) Microscopic hematuria (Acute) Past Medical History Medical History Pulmonary nodule 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 History of episiotomy 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 Hx of solitary pulmonary nodule Microscopic hematuria Family History Family History Father Cancer of lung Cancer of kidney Family history of problems with anesthesia: No Surgical History Surgical History History of esophagogastroduodenoscopy (EGD) Hx of colonoscopy History of Problems with Anesthesia: No Social History Social History Household Members: Children Housing: Apartment Are you a primary customer care specialist to a significant other at home: No Do you presently have visiting nurse or other home services: No Alcohol intake: never Patient Tobacco Use Status: Never used Tobacco e-Cigarette/Vaping Use: Never Used Have you been hit, kicked, punched, or otherwise hurt by someone within the past year? If so, by whom?: No Are you DNR?: No Advance Directives: No Advance Directives Information Provided: Yes Poor oral hygiene: No service: No Meds Allergies Allergy/AdvReac Type Severity Reaction Status Date / Time Milk Containing Products Allergy Mild Unknown Verified 12/19/24 09:36 (Dairy) Home Medications ?Medication ?Instructions ?Recorded ?Confirmed ?Last Taken ?Type acetaminophen 500 mg tablet 1,000 mg PO Q6H PRN Pain 10/26/21 12/19/24 Unknown History (Tylenol Extra Strength) cetirizine 10 mg tablet 10 mg PO DAILY 07/18/23 12/19/24 Unknown History cholecalciferol (vitamin D3) 25 25 mcg PO DAILY 04/03/24 12/17/24 Unknown History mcg (1,000 unit) tablet (Vitamin D3) tretinoin 0.1 % topical cream appl topical 09/20/24 Unknown History (Retin-A) Exam Height,Weight and Vital Signs: Height 5 ft 8 in Weight 58.74 kg Assessment and Plan Assessment Anesthesia Assessment: Chart Reviewed Final Anesthetic Review Family History of Problems with Anesthesia: No History of Problems with Anesthesia: No Documented by User: Doris Feliz MD 12/19/24 10:09 [facility] Past Medical History Medical History Pulmonary nodule 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 History of episiotomy 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 Hx of solitary pulmonary nodule Microscopic hematuria Family History Family History Father Cancer of lung Cancer of kidney Surgical History Surgical History History of esophagogastroduodenoscopy (EGD) Hx of colonoscopy Social History Social History Household Members: Children Housing: Apartment Are you a primary customer care specialist to a significant other at home: No Do you presently have visiting nurse or other home services: No Alcohol intake: never Patient Tobacco Use Status: Never used Tobacco e-Cigarette/Vaping Use: Never Used Have you been hit, kicked, punched, or otherwise hurt by someone within the past year? If so, by whom?: No Are you DNR?: No Advance Directives: No Advance Directives Information Provided: Yes Poor oral hygiene: No service: No Meds Allergies Allergy/AdvReac Type Severity Reaction Status Date / Time Milk Containing Products Allergy Mild Unknown Verified 12/19/24 09:36 (Dairy) Home Medications ?Medication ?Instructions ?Recorded ?Confirmed ?Last Taken ?Type acetaminophen 500 mg tablet 1,000 mg PO Q6H PRN Pain 10/26/21 12/19/24 Unknown History (Tylenol Extra Strength) cetirizine 10 mg tablet 10 mg PO DAILY 07/18/23 12/19/24 Unknown History cholecalciferol (vitamin D3) 25 25 mcg PO DAILY 04/03/24 12/17/24 Unknown History mcg (1,000 unit) tablet (Vitamin D3) tretinoin 0.1 % topical cream appl topical 09/20/24 Unknown History (Retin-A) Exam Airway Mallampati Class: II TM Dist: >3cm Neck ROM: Full Heart: rrr Lungs: cta Assessment and Plan Assessment Anesthesia Assessment: Anesthesia Plan Discussed Final Anesthetic Review NPO: Yes ASA Class: II Final Preanesthetic Review: No Changes in Pt Med Stat, Meds/Allgs Chart Reviewed, Consent Obtained/Reviewed and Anes Risks/Benef Reviewed Patient Risk: Low Procedure Risk: Low Anesthetic Plan Anesthetic Plan: MAC: Disposition: Standard PACU
[2024-12-19] MEDS: Lactated Ringers 1,000 ML 100 ML IVCONT (09:27)
[2024-12-19 09:34] VITALS: BMI 19.8
[2024-12-19 09:35] LABS: UPreg QC Valid YES; Urine Pregnancy NEGATIVE (NEGATIVE)
[2024-12-19 09:49] VITALS: BP 94/65; PULSE 82; RESP 18; TEMP 36.8; O2SAT 98
--- NOTE | 2024-12-19 10:08 | MHC.SHP ---
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 Hx of solitary pulmonary nodule Microscopic hematuria) History of Previous Operations: Relevant previous surgery/procedure and date(s) (History of esophagogastroduodenoscopy (EGD) Hx of colonoscopy) Allergies: Allergies Allergy/AdvReac Type Severity Reaction Status Date / Time Milk Containing Products Allergy Mild Unknown Verified 12/19/24 09:36 (Dairy) Review of Systems Sugical H&P ROS: Negative: Constitution, Cardiovascular, Respiratory, Neurological, Psychiatric, Hem-Onc, Allergic/Immunologic, Gastrointestinal, Genitourinary, Musculoskeletal, Integumentary, Endocrine and Eyes/Ears/Nose/Throat Exam Surgical H&P Exam: Normal: HEENT, Normal: Heart, Normal: Lungs, Normal: Extremities, Normal: Abdomen, Normal: Skin and Normal: Neurological Plan Diagnosis/Plan: Unchanged I have reviewed the history and physical and performed a pertinent physical examination on my patient. No changes have occurred unless specified. Time Spent With Patient Time: Total time managing care of this patient today ____ minutes.
--- NOTE | 2024-12-19 10:49 | P.OPN-COLO_ITS ---
Colonoscopy Operative Note Operative Note Date of Service: 12/19/24 Narrative: Operative Information Procedure Description: EGD, Colonoscopy Indication: [] Anesthesia: [] FLEXIBLE TRANSORAL UPPER GASTROINTESTINAL ENDOSCOPY AND COLONOSCOPY PROCEDURE NOTE UPPER ENDOSCOPY Consent: Indications for the procedure and potential complications of bleeding, perforation, reaction to medications and missed diagnosis were discussed with the patient and informed consent was obtained. Instrument: Olympus GIF H 190 J mid size upper endoscope Monitoring: Vital signs and clinical assessment, continuous EKG monitoring, Pulse oximetry, Carbon Dioxide monitoring and blood pressure monitoring were done throughout the procedure. Procedure: The patient was placed in the left lateral decubitis position and pre-procedure medications were administered and a bite block was placed. The endoscope was inserted into the mouth and advanced under direct vision to the third part of duodenum. A careful inspection was made as the upper endoscope was withdrawn including a retroflexed examination of the proximal stomach; Findings and interventions are described below. Findings: Larynx: normal Esophagus: GE junction at 37 cm, diaphragm hiatus at 37 cm, bx taken from GEj, distal and proximal esophagus, mild esophagitis at GEJ. Few proximal inlet patches noted. Stomach: patch erythema . Biopsies were obtained. Grade 2 flap valve on retroflexed examination of the cardia. there was reduced gastric movement Duodenum: Normal bulb and descending duodenum, bx taken COLONOSCOPY Instrument: Olympus variable stiffness pediatric scope 190L Colonoscopy Monitoring: Vital signs and clinical assessment, continuous EKG monitoring, Pulse oximetry, Carbon Dioxide monitoring and blood pressure monitoring were done throughout the procedure. Colon withdrawal time was 9 minutes. Procedure: The patient was placed in the left lateral decubitis position and pre-procedure medications were administered. After a digital rectal examination of the ano-rectum, the video colonoscope was inserted into the rectum and advanced through the colon to the cecum/TI. The colonoscope was slowly withdrawn in a retrograde panoramic fashion and the colon mucosa was carefully examined including a retroflexed view of the rectum. Findings and interventions are described below. Procedure Difficulty:moderate--tortuous colon Findings: Terminal Ileum-normal bx taken random colon bx taken Cecum:normal Ascending Colon: normal rigth sided retroflexion- nml Transverse Colon -normal Descending Colon:normal Sigmoid Colon: normal Rectum: Retroflexion with small internal hemorrhoids, grade I Anorectum - normal Colon preparation: Nelson Bowel Preparation Scale Right colon; 2 Transverse colon: 2 Left colon; 2 (0 = Unprepared colon segment with mucosa not seen due to solid stool that cannot be cleared. 1 = Portion of mucosa of the colon segment seen, but other areas of the colon segment not well seen due to staining, residual stool and/or opaque liquid. 2 = Minor amount of residual staining, small fragments of stool and/or opaque liquid, but mucosa of colon segment seen well. 3 = Entire mucosa of colon segment seen well with no residual staining, small fragments of stool or opaque liquid) Impression and Post Procedure Diagnosis: Endoscopy Findings: gastritis mild esophagitis reduced gastric movement Colonoscopy Findings: tortuous colon small internal hemorrhoids Plan: Await Pathology results--samples also taken for disaccharidases Repeat Colonoscopy in 10 years or earlier if clinically indicated High fiber diet leaflet avoid straining at stool, epsom salts and sitz bath, anusol supps or cream consider GES if ongoing sx Above findings were reviewed with the patient and relevant handouts were provided if indicated.
[2024-12-19 10:53] VITALS: BP 97/54; PULSE 76; RESP 16; TEMP 36.2; O2SAT 97
[2024-12-19 11:08] VITALS: BP 104/61; PULSE 74; RESP 16; O2SAT 100
[2024-12-19 11:23] VITALS: BP 101/56; PULSE 68; RESP 16; TEMP 36.6; O2SAT 100
[2024-12-24 15:13] LABS: Maltase 203.6 (100.0-224.4); Palatinase 18.6 (5.0-26.3)
== END 2024-12-19 12:20 | disposition home or self-care (01) ==
PROVIDERS: Nurse Practitioner; PCP Family Medicine; Visit Provider Internal Medicine Gastroenterology
PROC: (CPT 45380; principal; 2024-12-19 11:40)
DX: R19.4 Change in bowel habit (principal); K56.2 Volvulus; K64.0 First degree hemorrhoids; K58.2 Mixed irritable bowel syndrome; R10.13 Epigastric pain; K21.9 Gastro-esophageal reflux disease without esophagitis; D13.0 Benign neoplasm of esophagus; R14.0 Abdominal distension (gaseous); K22.89 Other specified disease of esophagus; K20.80 Other esophagitis without bleeding; K29.70 Gastritis, unspecified, without bleeding; K31.84 Gastroparesis; K44.9 Diaphragmatic hernia without obstruction or gangrene; Q45.3 Other congenital malformations of pancreas and pancreatic duct; Z79.899 Other long term (current) drug therapy; Z91.011 Allergy to milk products
CPT/HCPCS: 45380; 43239; 36415; 81025; 82657; 88305; 88313; 88342; J2405; J2704

== ENCOUNTER → 2024-12-19 09:18 | Outpatient (BNV) | payer OTHER, SELFPAY | PROVIDERS: PCP Family Medicine; Visit Provider Internal Medicine Gastroenterology | DX: Z12.11 Encounter for screening for malignant neoplasm of colon (principal); K56.2 Volvulus; K64.0 First degree hemorrhoids; K20.90 Esophagitis, unspecified without bleeding; K29.70 Gastritis, unspecified, without bleeding; K31.84 Gastroparesis | CPT/HCPCS: 43239; 45380 ==

== ENCOUNTER 2025-01-30 09:01 | Outpatient (AMB) | payer OTHER, SELFPAY ==
--- OUTSIDE RECORDS SUMMARY | 2025-01-30 09:28 | XMS_ITS | Encounter Summary ---
Author Organization [facility] Address [address] [place] [address] Phone Care Team Providers Care Gas Fitter Helper Name Role Phone Dexter Jones MD Primary Care Provider [phone] Encounter Details Date Type Department Care Team (Late st Contact Info) Description 09/18/2024 Telephone Acceptd [facility] Medicine [address] [place] [address] [place] [address] [place] [address] Social History Tobacco Use Types Packs/Day Years Used Date Smoking Tobacco: Never Smokeless Tobacco: Never Child or Family Care Answer Date Record ed Do you have problems with on e of the following making it difficult for you to work, study, or receive health care? Childcare 06/03/2024 Education Answer Date Recorded Are you interested in help w ith more adult education (for example, completing high school, GED, job training, learning the [place] language, technical skills, or developing parenting skills)? Yes 06/03/2024 Are you concerned about learning? Not on file 06/03/2024 Yes 06/03/2024 No 06/03/2024 Food Answer Date Recorded Within the past 6 months we worried whether our food would run out before we got money to buy more. Often True 06/03/2024 Within the past 6 months the food we bought just didn't last and we didn't have enough money to get more. Often True Residential Stability Answer Date Recor ded What is your housing situation today? I have charley bingham 06/03/2024 How many times have you move d in the past 12 months? Zero (I did not move) 06/03/2024 Paying for Meds Answer Date Recorded Do you have trouble paying for medicines? No 06/03/2024 Paying Utility Bills Answer Date Record ed Do you have trouble paying your heating or elect ricity bill? No 06/03/2024 Transportation Answer Date Recorded Has the lack of transportati on kept you from medical appointments or from getting medications? Yes 06/03/2024 Unemployment Answer Date Recorded Are you currently unemployed or working on a part-time or temporary basis, and looking for work? I choose not to answer 06/03/2024 Digital Access Answer Date Recorded No 06/03/2024 Yes 06/03/2024 Do you have reliable internet access at home? Ye s 06/03/2024 Do you have a device (e.g., phone, tablet, computer) with a working camera? Yes 06/03/2024 SNAP & WIC Answer Date Recorded Do you receive benefits from SNAP (the Supplemental Nutrition Assistance Program) or the Food Stamp Program? Yes 06/03/2024 SNAP is a free program, interested in learning m ore? Not on file 06/03/2024 Can we help you enroll in SNAP? Not on file 06/03/2024 Benefits received from WIC? Not on file 05/11 WIC is a free program, interested in learning mo re? Not on file 06/03/2024 Can we help you enroll in WIC? Not on file 1 08/03/2023 Intimate Partner Violence Answer Date R ecorded Denied Basic Needs Not on file 06/03/2024 In the past 12 months have y ou been in a relationship with a person who hurts, threatens, or tries to control you? No 06/03/2024 Worried food would run out Not on file 06/03 In the past 12 months have y ou been in a relationship with a person who hurts, threatens, or tries to control you? No 06/03/2024 Comments Unknown Sex and Gender Information Value Date Recorded Sex Assigned at Female 11/03/2023 2:29 PM EDT Legal Sex Female 11:36 AM EDT Gender Identity Female 11/03/2023 2:29 PM EDT Sexual Orientation Straight 11/03/2023 2: 29 PM EDT documented as of this encounter Plan of Treatment Upcoming Encounters Date Type Department Care Team (Late st Contact Info) Description 02/17/2025 3:50 PM EDT Office Visit [facility] [address] [place] [address] Modesta Olmos MD [address] [facility], [address] [place] [id number] 02/18/2025 3:30 PM EDT Office Visit [facility] [address] [address] Dexter Jones MD [address] [place] [phone] 04/18/2025 1:00 PM EDT Office Visit [facility] Department of Neurology [address] [place] [address] Sara Thomas MD, PhD [address] [place] [address] [email or web address] documented as of this encounter Visit Diagnoses Not on filedocumented in this encounter Additional Health Concerns Assessment Noted Time PHQ-9 Depression Total Score: 8 06/28/20 11:06 AM EST PHQ-2 Depression Total Score: 3 06/28/20 11:06 AM EST documented as of this encounter Care Teams Gas Fitter Helper Relationship Specialty Start Date End Date Dexter Jones MD [address] [place] [id number] PCP - General Family Medicine 06/03/24 documented as of this encounter Additional Source Comments The information contained in this document represents components of the legal health record. It is not the complete legal health record.[facility]
--- OUTSIDE RECORDS SUMMARY | 2025-01-30 09:28 | XMS_ITS | Encounter Summary ---
Author Organization [employer] Address [address] [place] [address] Care Team Providers Care Broaching Machine Operator Name Role Phone Dexter Jones MD Primary Care Provider Encounter Details Date Type Department Care Team (Late st Contact Info) Description 10/09/2024 Lab Requisition [facility] - Main Lab [address] [facility] [place] [address] Tate Conrad PA [address] [place] [phone] Other microscopic hematuria Social History Tobacco Use [...] AM EDT) Final Diagnosis A. Urine, Voided, ([id number]): Negative for high grade urothelial carcinoma. 10/15/2024 4:06 PM EDT [facility] Clinical Information Other microscopic hematuria R31.29 Urine cytology 10/15/2024 4:06 PM EDT [facility] Gross Description A. Urine, Voided, ([id number]): Received one ThinPrep slide for cytology. 10/15/2024 4:06 PM EDT [facility] Disclaimer Unless otherwise specified, all tissue is 10% NB formalin fixed and paraffin embedded. Technical pathology services provided by [facility] at [address], [place] [address] (CLIA #[id number]/Sa elias Diaz MD, Team Assembler) 10/15/2024 4:06 PM EDT [facility] Tissue Urine specimen from urethra / Unknown 10/08/2024 10/09/2024 1:36 PM EDT us Tate R Houston PA LAB PATHOLOGY ORDERABLES Final Result [facility] [address] [place] [address], documented in this encounter Visit Diagnoses Diagnosis Other microscopic hematuria documented in this encounter Care Teams Broaching Machine Operator Relationship Specialty Start Date End Date Dexter Jones MD [address] [place] [phone] PCP - General Family Medicine 07/12/24 documented as of this encounter
--- OUTSIDE RECORDS SUMMARY | 2025-01-30 09:28 | XMS_ITS | Encounter Summary ---
Author Organization [facility] Address [address] [place] [address] Care Team Providers Care Machine Precision Etcher Name Role Phone Rupa Potter MD Primary Care Provider Un available Radha Ramirez MD Primary Care Provider Tristen Alejandro PA-C Primary Care Provider [phone] Radha Ramirez MD Primary Care Provider Tristen Alejandro PA-C Primary Care Provider [phone] Radha Ramirez MD Primary Care Provider Tristen Alejandro PA-C Primary Care Provider [phone] Reason for Visit * Reason Onset Date Comments er follow up 08/24/2018 Encounter Details Date Type Department Care Team Description 08/24/2018 Telephone Adult [address] [phone] Rupa Potter MD er follow up Social [...] noon PM Provider visit is scheduled with: [facility] center patient was treated at: [facility] Date of visit: 08/17/2018 Was this only [...] as of this encounter Care Teams Machine Precision Etcher Relationship Specialty Start Date End Date Rupa Potter MD PCP - General Internal Medicine 04/08/18 Radha Ramirez MD [address] [place] [phone] PCP - General Internal Medicine 03/27/19 05/03/20 Tristen Alejandro PA-C [address] [place] [phone] PCP - General Internal Medicine 05/04/20 07/07/20 Radha Ramirez MD [address] [place] [phone] PCP - General Internal Medicine 07/08/20 10/27/20 Tristen Alejandro PA-C [address] [place] [phone] PCP - General Internal Medicine 10/28/20 11/16/20 Radha Ramirez MD [address] [place] [phone] PCP - General Internal Medicine 11/17/20 11/17/20 Tristen Alejandro PA-C [address] [place] [id number] PCP - General Internal Medicine 11/18/20 documented as of this encounter
--- OUTSIDE RECORDS SUMMARY | 2025-01-30 09:28 | XMS_ITS | Clinical Summary ---
Author Organization [facility] Address [address] [place] [address] Care Team Providers Care Mobile Health Vehicle Operator Name Role Phone Tristen Alejandro PA-C [...] 82 02/18/2022 1:15 PM EDT Temperature 36.5 C (97.7 F) 02/18/2022 1:15 PM EDT Respiratory Rate - - Oxygen Saturation 99% [...] Cervical Cancer Screening (P ap Smear) 11/21/2000 Colon Cancer Screening (Colonoscopy) 11/21/2024 Influenza Vaccine (#1) 2025 Pneumococcal Vaccine Aged Out No long er eligible based on patient's age to complete this topic RSV Ped < 20 months Aged Out No longe r eligible based on patient's age to complete this topic Care Teams Mobile Health Vehicle Operator Relationship Specialty Start Date End Date Tristen Alejandro, PAFrantzC PCP - General Medical Services 10/13/21
--- NOTE | 2025-01-30 09:31 | AM.OFFVISNUR ---
Intake Visit Reasons: H Pylori BT. Hold PPI + Pepcid Intake Note: Pt presents for H Pylori BT. Protocols reviewed with pt and confirmed to be followed. Pt advised of instructions for the test and began testing at 925. Testing was concluded at 940. No questions or additional concerns per pt at the end of testing. Advised pt that we will contact them with results when they are obtained. Hairspring Staker Required: No Accompanied by: Self / Same As Patient Allergies Milk Containing Products (Dairy) Allergy (Mild, Verified 12/19/24 09:36) Unknown Assessment & Plan Assessment & Plan (1) Gastroesophageal reflux disease: Code(s): K21.9 - Gastro-esophageal reflux disease without esophagitis Coding Level of Care Code Established Pt Est Pt Level 1 (68573) Patient Type Established Diagnoses Gastroesophageal reflux disease K21.9
== END 2025-01-30 09:44 | disposition home or self-care (01) ==
LOC: HO.HGI 09:01
PROVIDERS: PCP Family Medicine; Visit Provider Nurse Practitioner Family
DX: K21.9 Gastro-esophageal reflux disease without esophagitis (principal)
CPT/HCPCS: 99211

== ENCOUNTER 2025-01-30 09:01 | Outpatient (REF) | payer OTHER, SELFPAY ==
--- OUTSIDE RECORDS SUMMARY | 2025-01-30 16:39 | XMS_ITS ---
Author Name [facility] Organization Unknown Care Team Organization Name Specialty Phone Email Start Date End [facility] Tristen Alejandro Primary Care 05/17/2022
== END 2025-01-30 09:02 | disposition home or self-care (01) ==
LOC: HO.LNP 09:01
PROVIDERS: Internal Medicine Gastroenterology; PCP Family Medicine; Visit Provider Nurse Practitioner Family
DX: K29.80 Duodenitis without bleeding (principal)
CPT/HCPCS: 83013

== ENCOUNTER 2025-02-05 09:41 | Outpatient (AMB) | payer OTHER, SELFPAY ==
--- NOTE | 2025-02-05 09:53 | A.OFFVIS_ITS ---
Vital Signs 02/05/25 10:12 Height 5 ft 1 in Weight 129 lb BMI 24.4 BP 98/66 Blood Pressure Location Rt brachial Position Sitting Pulse 84 Pulse Source Pulse Oximeter Pulse Oximetry (%) 97 Oxygen Delivery Method Room Air Intake Visit Reasons: s/p duo. GERD mgmt. Intake Note: ESTABLISHED PATIENT for dyspepsia / GERD mgmt. S/P duo + H Pylori BT Chief Complaint; Pt denies any new changes or sx since last visit. Maintenance Team Member Required: No Accompanied by: Mother Allergies Milk Containing Products (Dairy) Allergy (Mild, Verified 02/05/25 09:54) Unknown HPI HPI s/p duo. 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 Continue avoiding dietary triggers or melena snacking. Staying upright for minimum 3 hours after meals discussed with patient. Patient denies any issues with anesthesia in the past. No history of sleep apnea. Not on any anticoagulation medication. Patient will be sent for upper endoscopy as she continues to have epigastric pain despite taking the PPI and H2 olman. What to expect before during and after procedure discussed with patient. Stressed the importance of clear liquid diet and good bowel prep take before procedure. I will see patient after the procedure, as well as needed basis. She is agreeable to this plan and verbalizes understanding of instructions. She was given the opportunity to ask questions and all questions answered. ? Thank you for allowing me to participate in her care New bisacodyl (Dulcolax (bisacodyl)) take 4 tabs at noon the day before your colonoscopy 20 mg (4 x 5 mg) PO ONCE 1 day 4 tabs 0RF constipation Z12.11 polyethylene glycol 3350 (Miralax) As directed by gastroenterology department at [facility] 238 grams PO ONCE 238 grams 0RF Z12.11 UPPER ENDOSCOPY AND COLONOSCOPY Findings: Larynx: normal Esophagus: GE junction at 37 cm, diaphragm hiatus at 37 cm, bx taken from GEj, distal and proximal esophagus, mild esophagitis at GEJ. Few proximal inlet patches noted. Stomach: patch erythema . Biopsies were obtained. Grade 2 flap valve on retroflexed examination of the cardia. there was reduced gastric movement Duodenum: Normal bulb and descending duodenum, bx taken COLONOSCOPY Instrument: Olympus variable stiffness pediatric scope 190L Colonoscopy Monitoring: Vital signs and clinical assessment, continuous EKG monitoring, Pulse oximetry, Carbon Dioxide monitoring and blood pressure monitoring were done throughout the procedure. Colon withdrawal time was 9 minutes. Procedure: The patient was placed in the left lateral decubitis position and pre-procedure medications were administered. After a digital rectal examination of the ano-rectum, the video colonoscope was inserted into the rectum and advanced through the colon to the cecum/TI. The colonoscope was slowly withdrawn in a retrograde panoramic fashion and the colon mucosa was carefully examined including a retroflexed view of the rectum. Findings and interventions are described below. Procedure Difficulty:moderate--tortuous colon Findings: Terminal Ileum-normal bx taken random colon bx taken Cecum:normal Ascending Colon: normal rigth sided retroflexion- nml Transverse Colon -normal Descending Colon:normal Sigmoid Colon: normal Rectum: Retroflexion with small internal hemorrhoids, grade I Anorectum - normal Colon preparation: [place] Bowel Preparation Scale Right colon; 2 Transverse colon: 2 Left colon; 2 (0 = Unprepared colon segment with mucosa not seen due to solid stool that cannot be cleared. 1 = Portion of mucosa of the colon segment seen, but other areas of the colon segment not well seen due to staining, residual stool and/or opaque liquid. 2 = Minor amount of residual staining, small fragments of stool and/or opaque liquid, but mucosa of colon segment seen well. 3 = Entire mucosa of colon segment seen well with no residual staining, small fragments of stool or opaque liquid) Impression and Post Procedure Diagnosis: Endoscopy Findings: gastritis mild esophagitis reduced gastric movement Colonoscopy Findings: tortuous colon small internal hemorrhoids Plan: Await Pathology results--samples also taken for disaccharidases Repeat Colonoscopy in 10 years or earlier if clinically indicated High fiber diet leaflet avoid straining at stool, epsom salts and sitz bath, anusol supps or cream consider GES if ongoing sx PATHOLOGY RESULTS Diagnosis A. Duodenum, biopsy: Duodenal mucosa with mild patchy nonspecific increase in intraepithelial lymphocytes; preserved villous architecture; negative for metaplasia/dysplasia; see comment. B. Stomach, pouch, biopsy: Gastric antral and body type mucosa with mild chronic gastritis; negative for H pylori/metaplasia/dysplasia. C. Gastroesophageal junction, biopsy: Squamocolumnar junctional mucosa with mild to moderate chronic inflammation; negative for intestinal metaplasia/dysplasia. D. Esophagus, distal, biopsy: Squamous mucosa within normal limits; negative for inflammation/fungus/ dysplasia/malignancy. E. Esophagus, proximal, biopsy: Squamous mucosa within normal limits; negative for inflammation/ fungal organisms/dysplasia/malignancy. F. Terminal ileum, biopsy: Small intestinal mucosa within normal limits; negative for active ileitis/ granuloma/dysplasia. G. Colon, biopsies: Colonic mucosa within normal limits; negative for active/chronic/microscopic colitis. Comment (A): The findings are mild and nonspecific and can be seen in association with celiac disease, peptic duodenitis, H pylori gastritis, drug/medication and idiopathic inflammatory bowel disease among other causes. In most of the cases no definite cause is identified. Clinical correlation is recommended TODAY'S VISIT Patient is here today for follow-up and to discuss upper endoscopy and colonoscopy results. Patient denies any ill effects from the prep, anesthesia or procedure itself Patient did H pylori testing that came back negative. In the past we did tissue transglutaminase and they were negative. Tissue lactase low. 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 She has not restarted her Nexium yet. H pylori breath test negative. Currently patient reports that she has been feeling well and is trying as best as she can to avoid dietary triggers. Colonoscopy was negative for polyps, recommendation for 10 years colonoscopy. Patient denies any dyspepsia, dysphagia or odynophagia. Denies melena, hematochezia, unintentional weight loss or ribbon like stools. Patient denies any nausea or vomiting. So far she has been doing well. Stressed with her son as he is only in summer school for 3 hours a day. Reduced gastric movement noted on upper endoscopy. 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 Hx of solitary pulmonary nodule Microscopic hematuria Surgical History History of esophagogastroduodenoscopy (EGD) Hx of colonoscopy Family History Father Cancer of lung Cancer of kidney Social History Household Members: Children Housing: Apartment Are you a primary livestock caretaker to a significant other at home: No Do you presently have visiting nurse or other home services: No 75 years or older and lives alone: No Alcohol intake: never Patient Tobacco Use Status: Never used Tobacco e-Cigarette/Vaping Use: Never Used service: No Review of Systems Const Denies weight gain and Denies weight loss ENT Reports no additional complaints, Denies dysphagia and Denies odynophagia Card Reports no additional complaints Resp Reports no additional complaints GI Reports abdominal pain (LUQ), Denies belching, Denies melena, Denies bloating, Denies change in bowel habits, Denies dysphagia, Denies excessive flatus, Denies dyspepsia, Reports heartburn (Improved), Denies diarrhea, Denies loose stools, Denies nausea, Denies odynophagia and Denies vomiting Reports no additional complaints Musc Reports no additional complaints Neuro Reports no additional complaints Psych Reports no additional complaints Endo Reports no additional complaints Physical Exam Vital Signs: Last Vital Signs Pulse 84 02/05/25 10:12 BP 98/66 02/05/25 10:12 Pulse Ox 97 02/05/25 10:12 Oxygen Delivery Method Room Air 02/05/25 10:12 BMI result Body Mass Index 24.4 Const General: healthy appearing, no acute distress and well developed Nutritional Appearance: well nourished Orientation/consciousness: patient oriented x3 Resp Effort & Inspection: normal respiratory effort, able to speak in complete sentences, no tracheal deviation and symmetric chest movement Auscultation: clear to auscultation bilaterally Cardio Rate: regular rate GI Inspection: Yes normal to inspection and No distended Palpation (GI): Soft to palpation, not firm, nontender and No hepatosplenomegaly present Auscultation: normal bowel sounds General: Yes no CVA tenderness Back/Spine/Pelvis Back: no CVA tenderness Skin General skin exam: elasticity normal, turgor normal and dry skin Neuro General: patient oriented x3 Psych Other: Patient is tearful Appearance: grossly normal Mental Status: mental status grossly normal Affect: Sad affect present (Patient is crying, her dad yesterday) and Anxious affect present Results Reviewed Results Reviewed: Laboratory Tests 12/19/24 01/30/25 10:30 09:40 Tissue Lactase 5.0 L Tissue Maltase 203.6 Tissue Palatinase 18.6 Tissue Sucrase 63.0 H. pylori Breath Test Negative Assessment & Plan Assessment & Plan (1) Irritable bowel syndrome: Code(s): K58.9 - Irritable bowel syndrome, unspecified Qualifiers: Irritable bowel syndrome type: without diarrhea Qualified Code(s): K58.9 - Irritable bowel syndrome, unspecified (2) Gastroesophageal reflux disease: Code(s): K21.9 - Gastro-esophageal reflux disease without esophagitis Qualifiers: Esophagitis presence: without esophagitis Qualified Code(s): K21.9 - Gastro-esophageal reflux disease without esophagitis (3) Epigastric discomfort: Code(s): R10.13 - Epigastric pain (4) Dyspepsia: Code(s): R10.13 - Epigastric pain (5) Postprandial abdominal bloating: Code(s): R14.0 - Abdominal distension (gaseous) Plan Patient will restart Nexium and we will discuss in 2 months continuation or slowly weaning her off. Avoid dietary triggers in late night snacking. Staying upright for minimal 3 hours after meals discussed with patient. Decreased stomach motility noted on endoscopy. Will send patient for GES. Patient will continue to avoid lactose. Patient will follow-up in 2 months, sooner on as needed basis. Patient is agreeable to this plan and verbalizes understanding of instructions. She was given the opportunity to ask questions and all questions answered. Thank you for allowing me to participate in her care Orders: Orders NM gastric emptying study Today R68.81 - Early satiety Medications: New Lactobacillus rhamnosus GG (Probiotic Digestive Care) ONE CAP orally DAILY 30 caps 2RF Refilled famotidine 20 mg PO BEDTIME 90 tabs 1RF K21.9 - Gastro-esophageal reflux disease without esophagitis esomeprazole magnesium (Nexium) 40 mg PO DAILY 90 caps 3RF 90 days K21.9 - Gastro-esophageal reflux disease without esophagitis Coding Level of Care Code Est Pt Level 4 (54386) Complex EM visit Add On G2211 Diagnoses Irritable bowel syndrome without diarrhea K58.9 Irritable bowel syndrome type: without diarrhea Gastroesophageal reflux disease without esophagitis K21.9 Esophagitis presence: without esophagitis Epigastric discomfort R10.13 Dyspepsia R10.13 Postprandial abdominal bloating R14.0 Time Spent (min) 40 Comment 25 minutes spent with patient and additional 15 minutes spent reviewing her records
[2025-02-05 10:12] VITALS: BP 98/66; PULSE 84; O2SAT 97; BMI 24.4
--- OUTSIDE RECORDS SUMMARY | 2025-02-05 10:16 | XMS_ITS | Encounter Summary ---
Author Organization [facility] Address [address] [place] [address] Care Team Providers Care Operations And Intelligence Assistant Name Role Phone Dexter Jones MD Primary Care Provider Encounter Details Date Type Department Care Team (Late st Contact Info) Description 10/09/2024 Lab Requisition [facility] - Main Lab [address] [facility] [place] [address] Tate Conrad PA [address] [place] [phone] Other microscopic hematuria Social History Tobacco Use [...] AM EDT) Final Diagnosis A. Urine, Voided, ([id number]): Negative for high grade urothelial carcinoma. 10/15/2024 4:06 PM EDT [facility] Clinical Information Other microscopic hematuria R31.29 Urine cytology 10/15/2024 4:06 PM EDT [facility] Gross Description A. Urine, Voided, ([id number]): Received one ThinPrep slide for cytology. 10/15/2024 4:06 PM EDT [facility] Disclaimer Unless otherwise specified, all tissue is 10% NB formalin fixed and paraffin embedded. Technical pathology services provided by [facility] at [address], [place] [address] (CLIA #[id number]/Sa elias Diaz MD, Printer Machine) 10/15/2024 4:06 PM EDT [facility] Tissue Urine specimen from urethra / Unknown 10/08/2024 10/09/2024 1:36 PM EDT us Tate R Houston PA LAB PATHOLOGY ORDERABLES Final Result [facility] [address] [place] [address], documented in this encounter Visit Diagnoses Diagnosis Other microscopic hematuria documented in this encounter Care Teams Operations And Intelligence Assistant Relationship Specialty Start Date End Date Dexter Jones MD [address] [place] [phone] PCP - General Family Medicine 07/12/24 documented as of this encounter
--- OUTSIDE RECORDS SUMMARY | 2025-02-05 10:16 | XMS_ITS | Clinical Summary ---
Author Organization [facility] Address [address] [place] [address] Care Team Providers Care Habilitation Assistant Name Role Phone Tristen Alejandro PA-C [...] age to complete this topic Care Teams Habilitation Assistant Relationship Specialty Start Date End Date Tristen Alejandro, PAFrantzC PCP - General Medical Services 10/13/21
--- OUTSIDE RECORDS SUMMARY | 2025-02-05 10:16 | XMS_ITS | Encounter Summary ---
Author Organization [facility] Address [address] [place] [address] Phone Care Team Providers Care Wiping Rag Washer Name Role Phone Dexter Jones MD Primary Care Provider [phone] Encounter Details Date Type Department Care Team (Late st Contact Info) Description 09/18/2024 Telephone Mark [facility] [address] [place] [address] Yariel [place], [place] [phone] [place] [address] Social History Tobacco Use Types Packs/Day Years [...] high school, GED, job training, learning the Sudan[place] language, technical skills, or developing parenting skills)? [...] Visit [facility] [address] [place] [address] Modesta Olmos MD [address] [facility], [address] [place] [phone] 02/18/2025 3:30 PM EDT Office Visit [facility] [address] [address] Dexter Jones MD [address] [place] [phone] 04/18/2025 1:00 PM EDT Office Visit [facility] Department of Neurology [address] [place] [address] Sara Thomas MD, PhD [address] [place] [address] [email or web address] documented as of this encounter Visit Diagnoses Not on filedocumented in this encounter Additional Health Concerns Assessment Noted Time PHQ-9 Depression Total Score: 8 06/28/20 11:06 AM EST PHQ-2 Depression Total Score: 3 06/28/20 11:06 AM EST documented as of this encounter Care Teams Wiping Rag Washer Relationship Specialty Start Date End Date Dexter Jones MD [address] [place] [id number] PCP - General Family Medicine 06/03/24 documented as of this encounter Additional Source Comments The information contained in this document represents components of the legal health record. It is not the complete legal health record.[facility]
--- OUTSIDE RECORDS SUMMARY | 2025-02-05 10:16 | XMS_ITS | Encounter Summary ---
Author Organization [facility] Address [address] [place] [address] Care Team Providers Care Government Employee Name Role Phone Rupa Potter MD Primary Care Provider Un available Radha Ramirez MD Primary Care Provider Tristen Alejandro PA-C Primary Care Provider [phone] Radha Ramirez MD Primary Care Provider Tristen Alejandro PA-C Primary Care Provider [phone] Radha Ramirez MD Primary Care Provider [phone] Tristen Alejandro PA-C Primary Care Provider [phone] Reason for Visit * Reason Onset Date Comments er follow up 08/24/2018 Encounter Details Date Type Department Care Team Description 08/24/2018 Telephone Adult [address] [phone] Rupa Potter MD er follow up Social [...] Hospital/ center patient was treated at: [facility] Date of visit: 08/17/2018 Was [...] documented as of this encounter Care Teams Government Employee Relationship Specialty Start Date End Date Rupa Potter MD PCP - General Internal Medicine 04/08/18 Radha Ramirez MD [address] [place] [id number] PCP - General Internal Medicine 03/27/19 05/03/20 Tristen Alejandro PA-C [address] [place] [phone] PCP - General Internal Medicine 05/04/20 07/07/20 Radha Ramirez MD [address] [place] [phone] PCP - General Internal Medicine 07/08/20 10/27/20 Tristen Alejandro PA-C [address] [place] [id number] PCP - General Internal Medicine 10/28/20 11/16/20 Radha Ramirez MD [address] [place] [phone] PCP - General Internal Medicine 11/17/20 11/17/20 Tristen Alejandro PA-C [address] [place] [phone] PCP - General Internal Medicine 11/18/20 documented as of this encounter
== END 2025-02-05 10:41 | disposition home or self-care (01) ==
LOC: HO.HGI 09:42
PROVIDERS: PCP Family Medicine; Visit Provider Nurse Practitioner Family
DX: K58.9 Irritable bowel syndrome, unspecified (principal); K21.9 Gastro-esophageal reflux disease without esophagitis; R10.13 Epigastric pain; R14.0 Abdominal distension (gaseous)
CPT/HCPCS: 99214; G2211

== ENCOUNTER → 2025-03-26 09:29 | Outpatient (REF) | payer OTHER, SELFPAY ==
--- OUTSIDE RECORDS SUMMARY | 2025-03-20 13:09 | XMS_ITS | Encounter Summary ---
Author Organization [facility] Address [address] [place] [address] Phone Care Team Providers Care Revenue Integrity Analyst Name Role Phone Dexter Jones MD Primary Care Provider [phone] Reason for Referral * Hospital - Outpatient - Closed Specialty Diagnoses / Procedures Referred By Contac t Referred To Contact Radiology Diagnoses Postmenopausal bleeding Procedures US Pelvis Modesta Olmos MD [address] [place] [address], [address] [address] Phone: tel: fax: [email or web address]:[email or web address] Referral ID Status Reason Start Date Expiration Date Visits Re quested Visits Authorized [id number] Closed 02/17/2025 1 1 Reason for Visit * Hospital - Outpatient - Closed Specialty Diagnoses / Procedures Referred By Contac t Referred To Contact Radiology Diagnoses Postmenopausal bleeding Procedures US Pelvis Modesta Olmos MD [address] [facility], [address] [place] [address] Phone: tel: fax: mailto:[email or web address] Referral ID Status Reason Start Date Expiration Date Visits Re quested Visits Authorized [id number] Closed 02/17/2025 1 1 Encounter Details Date Type Department Care Team (Latest Contact Info) Description 03/20/2025 1:09 PM EDT - 03/20/2025 11:59 PM EDT Hospital Encounter [facility], OB Ultrasound [address] [place] [address] Modesta Olmos MD [address] [facility], [address] [place] [address] [email or web address] Discharge Disposition: Home or Self Care Social History Tobacco Use Types Packs/Day Years [...] high school, GED, job training, learning the Azerbaijani language, technical skills, or developing parenting skills)? [...] your housing situation today? I have charley sing 06/03/2024 How many times have you move [...] Intimate Partner Violence Answer Date R ecorded Are you denied basic needs s uch as food, clothing, or medical care? No 09/27/2024 In the past 12 months have y ou been in a relationship with a person who hurts, threatens, or tries to control you? No 09/27/2024 Are you denied basic needs s uch as food, clothing, or medical care? No 09/27/2024 In the past 12 months have y ou been in a relationship with a person who hurts, threatens, or tries to control you? No 09/27/2024 Comments No Sex and Gender Information Value Date Recorded Sex Assigned at Female 11/03/2023 2:29 PM EDT Legal Sex Female 11:36 AM EDT Gender Identity Female 11/03/2023 2:29 PM EDT Sexual Orientation Straight 11/03/2023 2: 29 PM EDT documented as of this encounter Medications at Time of Discharge CHOLECALCIFEROL 25 mcg (1,000 unit) tabletIndication s:Low vitamin D level Take 1 tablet (1,000 Units total) by mouth daily. 90 tablet 3 09/19/2024 esomeprazole (NEXIUM) 40 MG capsule 02/05/2025 famotidine (PEPCID) 20 MG tablet Take 20 mg by mouth nightly at bedtime. at bedtime. 06/12/2024 hydrOXYzine (ATARAX) 25 MG tabletIndication s:Sleep disturbance,Gene ralized anxiety disorder TAKE 1 TABLET (25 MG TOTAL) BY MOUTH NIGHTLY AT BEDTIME NEEDED FOR ANXIETY (INSOMNIA). 90 tablet 3 12/27/2024 RETIN-A 0.1 % creamIndications :Other acne Apply topically nightly at bedtime. 45 g 2 11/26/2024 sertraline (ZOLOFT) 25 MG tabletIndication s:Severe episode of recurrent major depressive disorder, with psychotic features TAKE 1 TABLET (25 MG TOTAL) BY MOUTH DAILY. 90 tablet 3 12/27/2024 sucralfate (CARAFATE) 100 mg/mL suspension TAKE 10 ML ORALLY AT BEDTIME 03/06/2025 documented as of this encounter Plan of Treatment Upcoming Encounters Date Type Department Care Team (Late st Contact Info) Description 01/15/2025 Procedure Pass [address] [address] 04/01/2025 10:00 AM EDT Office Visit [facility] Medical [address] [address] Dexter Jones MD [address] [place] [address] 7 [place] [address] 04/18/2025 1:00 PM EDT [facility] Visit [facility] [address] [place] [address] Sara Thomas MD, PhD [address] [place] [address] [email or web address] 09/30/2025 10:15 AM EDT Appointment [address] [address] Modesta Olmos MD [address] [facility], [address] [place] [address] documented as of this encounter Procedures Procedure Name Priority Date/Time Associated Diagnosis Comments US PELVIS TRANSABDOMINAL PLUS TRANSVAGINAL Routine 03/20/2025 1:50 PM EDT Postmenopausal bleeding documented in this encounter Results * US PELVIS TRANSABDOMINAL PLUS TRANSVAGINAL (03/20/2025 1:50 PM EDT) Anatomical Region Laterality Modality Pelvis, Uterus/Adnexa Ultrasound 03/20/2025 1:51 PM EDT Impressions 03/21/2025 3:37 PM EDT Unremarkable WELDER METAL FAB study with normal ovaries and a thin endometrium Narrative 03/21/2025 3:37 PM EDT US PELVIS TRANSABDOMINAL AND TRANSVAGINAL Referring clinician's provided indication for this examination in Epic: Postmenopausal Bleeding; FSH last year 117, amenorrhea x 3 years Procedure: US PELVIS TRANSABDOMINAL AND TRANSVAGINAL 03/20/2025 1:11 PM US Indications: Postmenopausal Bleeding; FSH last year 117, amenorrhea x 3 years. Comparison: No relevant recent comparisons. Technique: Transabdominal sonography of the pelvis was performed. In addition, transvaginal imaging was performed to better evaluate the adnexae and ovaries. Color Doppler imaging was performed to assess vascularity. No 3-D images were acquired. Reported LMP: FINDINGS: Uterus: The uterus measurements acquired; 5.71 cm x 3.25 cm x 2.89 cm with volume of 28.08 ml. The uterus is anteverted in its positioning. The myometrium is heterogeneous. Endometrium: The endometrium measures 0.15 cm and appears grossly normal. No endometrial masses. No fluid is identified within the endometrial canal. No focal cervical masses. Ovaries: The right ovary measures 1.85 cm x 1.21 cm x 1.21 cm with volume of 1.42 ml. Appears grossly normal Right Adnexa: wnl The left ovary measures 1.90 cm x 1.43 cm x 1.03 cm with volume of 1.47 ml. Appears grossly normal Left Adnexa: wnl Cul de Sac: There is no evidence of free pelvic fluid. Tech Comments: Procedure Note Braden Adrian MD - 03/21/2025 US PELVIS TRANSABDOMINAL AND TRANSVAGINAL Referring clinician's provided indication for this examination in Epic:Postmenopausal Bleeding; FSH last year 117, amenorrhea x 3 years Procedure: US PELVIS TRANSABDOMINAL AND TRANSVAGINAL 03/20/2025 1:11 PM US Indications: Postmenopausal Bleeding; FSH last year 117, amenorrhea x 3years. Comparison: No relevant recent comparisons. Technique: Transabdominal sonography of the pelvis was performed. Inaddition, transvaginal imaging was performed to better evaluate theadnexae and ovaries. Color Doppler imaging was performed to assessvascularity. No 3-D images were acquired. Reported LMP: FINDINGS: Uterus: The uterus measurements acquired; 5.71 cm x 3.25 cm x 2.89 cm with volumeof 28.08 ml. The uterus is anteverted in its positioning. Themyometrium is heterogeneous. Endometrium: The endometrium measures 0.15 cm and appears grossly normal. Noendometrial masses. No fluid is identified within the endometrialcanal. No focal cervical masses. Ovaries: The right ovary measures 1.85 cm x 1.21 cm x 1.21 cm with volume of 1.42ml. Appears grossly normal Right Adnexa: wnl The left ovary measures 1.90 cm x 1.43 cm x 1.03 cm with volume of 1.47ml. Appears grossly normal Left Adnexa: wnl Cul de Sac: There is no evidence of free pelvic fluid. Tech Comments: IMPRESSION: Unremarkable WELDER METAL FAB study with normal ovaries and a thin endometrium Modesta Olmos MD IM US PELVIS Final Result documented in this encounter Visit Diagnoses Diagnosis Postmenopausal bleeding documented in this encounter Additional Health Concerns Assessment Noted Time PHQ-9 Depression Total Score: 8 06/28/20 24 11:06 AM EST PHQ-2 Depression Total Score: 3 06/28/20 24 11:06 AM EST documented as of this encounter Care Teams Revenue Integrity Analyst Relationship Specialty Start Date End Date Dexter Jones MD [address] [place] [address], [address] [place] [address] PCP - General Family Medicine 06/03/24 documented as of this encounter Additional Source Comments The information contained in this document represents components of the legal health record. It is not the complete legal health record.[facility]
--- NOTE | ~2025-03-26 | NM_ITS ---
EXAMINATION: GA RADIONUCLIDE SOLID FOOD GASTRIC EMPTYING 4-HOUR STUDY CLINICAL INFORMATION: R68.81 - Early satiety COMPARISON: There are no prior studies available for comparison. TECHNIQUE: A standard meal consisting of 4 oz of Egg Beaters brand tagged with 0.90 mCi Tc-99m Sulfur Colloid, 2 oz water and 2 slices of toast with jelly was administered orally to the patient. Images were obtained using a dual head gamma camera in the anterior and posterior projections over of the stomach immediately post ingestion and at hourly intervals up to 4 hours post ingestion. The anterior and posterior counts at each time interval were averaged using the geometric mean and expressed as percentage of the immediate post ingestion counts. FINDINGS: There is visualization of activity in the stomach immediately post ingestion. As the study progresses, there is clearance of activity from the stomach and visualization of progressively increasing small bowel activity. Retention in the stomach at each time interval was: 1 hour 80% (normal 37%-90%) 2 hours 68% (normal 30%-60%) 3 hours 49% 4 hours 20% (normal 0%-10%) GA/GA gastric emptying study IMPRESSION: Delayed gastric emptying. For solid meal, rapid gastric emptying is less than 30% at 60 minutes. Delayed gastric emptying criteria is more than 60% remaining at 120 minutes or more than 10% at 240 minutes. The 4-hour value is the best discriminator of a normal or abnormal result). Gastric emptying study grading per JNMT Consensus Recommendations in 2008 (https://tech.snmjournals.org/content/36/1/44) Grade 1 (mild retention): 11-20% at 4h Grade 2 (moderate retention): 21-35% at 4h Grade 3 (severe retention): 36-50% at 4h Grade 4 (very severe retention): >50% retention at 4h Electronically signed by: Cheikh Dickinson MD 03/26/2025 02:19 PM EDT
--- OUTSIDE RECORDS SUMMARY | 2025-03-26 11:11 | XMS_ITS | Clinical Summary ---
Author Organization [facility] Address [address] [place] [address] Care Team Providers Care Tablet Machine Operator Name Role Phone Tristen Alejandro [...] age to complete this topic Care Teams Tablet Machine Operator Relationship Specialty Start Date End Date Tristen Alejandro, PAFrantzC PCP - General Medical Services 10/13/21
--- OUTSIDE RECORDS SUMMARY | 2025-03-26 11:11 | XMS_ITS | Encounter Summary ---
Author Organization [facility] Address [address] [place] [address] Phone Care Team Providers Care Pack Worker Name Role Phone Dexter Jones MD Primary Care Provider [phone] Encounter Details Date Type Department Care Team ([facility] st Contact Info) Description 09/18/2024 Telephone [facility] Medicine [address] [place], [place] [id number] [place] [phone] [place], [place] [id number] Social History Tobacco Use Types Packs/Day Years [...] high school, GED, job training, learning the Micronesian language, technical skills, or developing parenting skills)? [...] st Contact Info) Description 01/15/2025 Procedure Pass [address] [address] 04/01/2025 10:00 AM EDT Office Visit [facility] Medicine [address] [place] [address] Dexter Jones MD [address] [facility] 7 [place] [address] [email or web address] 04/18/2025 1:00 PM EDT Office Visit [facility] of [facility] [address] [place] [address] Sara Thomas MD, PhD [address] [place] [address] [email or web address] 09/30/2025 10:15 AM EDT Appointment [address] [address] Modesta Olmos MD [address] [place] [address], [address] [place] [address] [email or web address] documented as of this encounter Visit Diagnoses Not on filedocumented in this encounter Additional Health Concerns Assessment Noted Time PHQ-9 Depression Total Score: 8 06/28/20 11:06 AM EST PHQ-2 Depression Total Score: 3 06/28/20 11:06 AM EST documented as of this encounter Care Teams Pack Worker Relationship Specialty Start Date End Date Dexter Jones MD [address] [place] [address] 7 [place] [address] [email or web address] PCP - General Family Medicine 06/03/24 documented as of this encounter Additional Source Comments The information contained in this document represents components of the legal health record. It is not the complete legal health record.[facility]
--- OUTSIDE RECORDS SUMMARY | 2025-03-26 11:11 | XMS_ITS | Encounter Summary ---
Author Organization [facility] Address [address] [place] [address] Phone Care Team Providers Care Oil Well Services Supervisor Name Role Phone Dexter Jones MD Primary Care Provider [phone] Reason for Visit * Reason Onset Date Comments Triage 01/23/2025 Yellow - Vaginal Discharge Encounter Details Date Type Department Care Team (Late st Contact Info) Description 01/23/2025 Nurse Triage [facility] [address] [place] [address] Dexter Jones MD [address] [place] [address] [address] [place] [address] [email or web address] Triage (Yellow - Vaginal Discharge) Social History Tobacco Use Types Packs/Day Years [...] high school, GED, job training, learning the Togolese language, technical skills, or developing parenting skills)? [...] PM EDT documented as of this encounter Progress Notes * Lucas Gallardo RN - 01/23/2025 2:55 PM EDT Noted * Dexter Jones MD - 01/23/2025 2:50 PM EDT Agreed that patient needs to be seen by either urgent care or [employer] provider for pelvic exam. * Lucas Gallardo RN - 01/23/2025 12:56 PM EDT Not sexually active, spoke with urology - advised to speak with OB, has called OBGYN, no menstruation for many year. Light brown vaginal discharge that odors, advised this could be BV, hx of BV in July, pcp treated with metronidazole, pt states that she did not actually take the med, has follow up with building contractor in feb, offered appt for today, unable to come in, advised no other appt till next week, advised seeking care through building contractor or [facility]. Pt will call back tomorrow am to see if there are any cancellations for tomorrow if unable to get to [facility] or get help from [employer]. Fyi to pcp Reason for Disposition Bad smelling vaginal discharge Protocols used: Vaginal Kiezmsunn-Lhaum-UD Nurse Triage Encounter Note Reason for Triage Alyssa Dean contacted office for Triage Yellow - Vaginal Discharge Call Disposition Schedule Visit With 3 Business Days Disposition Comments: Patient/caregiver understands and will follow disposition: Yes Initial Symptom Screening and Assessment IA Symptom Onset Less than 24 hours Symptom Severity Mild - does not interfere with normal activities Symptom Pattern Intermittent (comes and goes) Aggravating factors or triggers Unsure Home Treatments None Location? Other Other related symptoms vaginal discharge light brown, Abdomen Symptoms (GI and ) Female Genitalia Foul smelling discharge; Other (comment) Genitalia injury? No Care Advice Patient/Caregiver understands and will follow care advice?: Yes, with modifications Vaginal Oekuqrxgr-Cyqxo-SN Lucas Gallardo RN [facility] Jan 23, 2025 01:25 PM Disposition and First Aid SEE IN OFFICE WITHIN 3 DAYS: * You need to be examined. * Let me give you an appointment. Possible Vaginal Yeast Infection ANTIFUNGAL MEDICINE FOR YEAST INFECTION: * There are a number of vdyj-upp-wniloxp antifungal medicines for the treatment of yeast infections. * These antifungal medicines are available as creams, ointments, and suppositories. * Use the medicine for 3 to 7 days. * Available in the [place].: Femstat-3, miconazole (Monistat-3, Monistat-7), clotrimazole (Iova-Ibbqtsdc-5, Mycelex-7), butoconazole (Femstat-3). * Available in [place]: Miconazole (Monistat-3) and clotrimazole (Canesten-3, Myclo-Gyne). GENITAL HYGIENE: * Keep your genital area clean. Use mild soaps, but do not use them on your vulva. Wash the vulva area only with water. Gently pat the vulva area dry after washing. * Keep your genital area dry. Wear cotton underwear or underwear with a cotton crotch. * Use unscented 100% cotton menstrual pads. * Use adequate lubrication for sexual intercourse. * DO NOT douche. * DO NOT use feminine hygiene products or perfumed soaps. EXPECTED COURSE: * If no improvement within 3 days, you will need to be examined by a doctor (or GYM INSTRUCTOR/PA). * Do not use the yeast medicine during the 24 hours prior to your appointment. Reason: Interferes with examination. Patient will call back with additional questions or if symptoms change or worsen Lucas Gallardo RN Reason for Disposition and Assessment * Janeth Yadav - 01/23/2025 12:38 PM EDT Red Yellow Green Guidelines Select Red, Yellow, Green Triage Intake *Route to appropriate staff member/pool according to practice guidelines* Yellow Call Intake Call Back Number: (if not patient, name/relationship) [phone] Yellow Symptom: Triage (Yellow - Vaginal Discharge) When did these symptoms start? today Have you ever experienced these symptoms before? Any additional information: Pt reports brown colored discharge with an odor. No burning, pain or any other symptoms. She is very concerned and is asking if there are any additional tests she can have done. Route Normal Priority Encounter to account adjuster Reason for Call = TRIAGE Comment = YELLOW + symptom documented in this encounter Plan of Treatment Upcoming Encounters Date Type Department Care Team (Late st Contact Info) Description 01/15/2025 Procedure Pass [address] [address] 04/01/2025 10:00 AM EDT Office Visit [address] [address] Dexter Jones MD [address] [place] [address] 7 [place] [address] 04/18/2025 1:00 PM EDT [facility] [address] [place] [address] Sara Thomas MD, PhD [address] [place] [address] [email or web address] 09/30/2025 10:15 AM EDT Appointment [address] [address] Modesta Olmos MD [address] [place] [address], [address] [place] [address] [email or web address] documented as of this encounter Visit Diagnoses Not on filedocumented in this encounter Additional Health Concerns Assessment Noted Time PHQ-9 Depression Total Score: 8 06/28/20 11:06 AM EST PHQ-2 Depression Total Score: 3 06/28/20 11:06 AM EST documented as of this encounter Care Teams Oil Well Services Supervisor Relationship Specialty Start Date End Date Dexter Jones MD [address] [place] [address], [address] [place] [address] [email or web address] PCP - General Family Medicine 06/03/24 documented as of this encounter Additional Source Comments The information contained in this document represents components of the legal health record. It is not the complete legal health record.[facility]
--- OUTSIDE RECORDS SUMMARY | 2025-03-26 11:11 | XMS_ITS | Clinical Summary ---
Author Organization [facility] Address [address] [place] [address] Phone Care Team Providers Care Forester Silviculture Name Role Phone Dexter Jones MD Primary Care Provider [phone] Allergies Active Allergy Reactions Criticality Noted Date Comments Lactose 03/27/2018 Medications famotidine (PEPCID) 20 MG tablet Take 20 mg by mouth nightly at bedtime. at bedtime. 06/12/20 24 Active CHOLECALCIFERO L 25 mcg (1,000 unit) tabletIndicati ons:Low vitamin D level Take 1 tablet (1,000 Units total) by mouth daily. 90 tablet 3 09/20/19 25 Active RETIN-A 0.1 % creamIndicatio ns:Other acne Apply topically nightly at bedtime. 45 g 2 11/27/19 25 Active hydrOXYzine (ATARAX) 25 MG tabletIndicati ons:Sleep disturbance,Ge neralized anxiety disorder TAKE 1 TABLET (25 MG TOTAL) BY MOUTH NIGHTLY AT BEDTIME NEEDED FOR ANXIETY (INSOMNIA). 90 tablet 3 12/28/19 25 Active sertraline (ZOLOFT) 25 MG tabletIndicati ons:Severe episode of recurrent major depressive disorder, with psychotic features TAKE 1 TABLET (25 MG TOTAL) BY MOUTH DAILY. 90 tablet 3 12/28/19 25 Active esomeprazole (NEXIUM) 40 MG capsule 02/06/20 25 Active sucralfate (CARAFATE) 100 mg/mL suspension TAKE 10 ML ORALLY AT BEDTIME 03/06/20 Active ketoconazole (NIZORAL) 2 % shampooIndicat ions:Psoriasis of scalp Apply topically 2 (two) times a week. Apply to damp skin, lather, leave on 5 minutes, and rinse 120 mL 5 09/20/19 25 025 Discontinued Active Problems Patient Care Coordination No te Formatting of this note migh t be different from the original. This patient is enrolled and engaged in the [facility] Medicaid ACO [LTSS] Community Partners Program for support with health-related social needs (HRSN) and community-based care coordination. Care Plan received on 03/06/25, uploaded to the Media tab of the Chart. [facility] Contact: Carmen Baldwin Community Partner Agency: [employer] Community Partner Regional Vice President Surgical Sales: Carmen Hurley [facility] Partner Regional Vice President Surgical Sales Contact Information: For additional information or questions regarding the [facility], please reach out to the [facility] Contact or the [facility] team, Problem Noted Date Diagnosed Date Postmenopausal bleeding 03/20/2025 Assessment & Plan (03/20/2025 3:32 PM EDT): Endometrium 1.5 mm, no tissue sample needed RTO if bleeding recurs or persists Early menopause 01/15/2025 Overview (01/15/2025): Menses ceased around age 37; had normal FH in 2021 (age 41), mildly high in 2022 and was 117 (menopause ) in 2023, age 44 Mother went through menopause mid to late 40s Assessment & Plan (01/15/2025 5:26 PM EDT): Discussed that this is slightly early menopause, there are some benefits of starting HRT even if her hot flashes are not significant enough to warrant treatment, discussed some benefits on cardiovascular health and bone density health long- term, little to no significant increased risk of breast cancer, would encourage her to consider this for about 5 years, but not absolutely necessary Gastroesophageal reflux dise ase with esophagitis without hemorrhage 01/12/2025 Severe episode of recurrent major depressive disorder, with psychotic features 09/20/2024 Sleep disturbance 09/20/2024 Low vitamin D level 09/20/2024 Migraine without aura and wi thout status migrainosus, not intractable 07/28/2024 Assessment & Plan (07/28/2024 9:28 PM EST): Alyssa is experiencing intermittent migraines without aura. No red flag symptoms. Given that she is having difficulty breaking these we discussed abortive medications. I have recommended she begin sumatriptan PRN at first sign of beginning of migraine. Educated on medication administration, benefits, risks, and side effects profile. Encouraged to follow up if not improving with this treatment plan. Generalized anxiety disorder 06/24/2024 Assessment & Plan (07/28/2024 9:34 PM EST): Alyssa is experiencing significant anxiety that is effecting her day to day life and likely contributing to her many medical concerns. Denies SI/HI. She is open to beginning to work with a psychiatrist and therapist. I have given her resources for these today. Assessment & Plan (06/28/2024 11:49 AM EST): I suspect her anxiety is under managed by current medications and that her recent chest pain is from anxiety. EKG done in office showing NSR with no ST-T wave abnormalities to indicate ischemia. I did try to discuss prn medications or changing her current medication but she is quite tangential in our conversation. Can be furthered discussed at follow up with her PCP. Likely the underlying reason for a lot of recent symptoms she expresses concern about. Chronic abdominal pain 06/24/2024 Assessment & Plan (06/28/2024 11:49 AM EST): She has notes from recent EGDs at [facility] showing gastritis. She is maintained on famotidine and pantoprazole. Likely exacerbated by extreme anxiety. Paperwork to be scanned into the system. Follow up with GI as scheduled, continue current medications. Hematuria 06/24/2024 Overview (01/15/2025): Reports microhematuria and normal CT scan and normal cystoscopy with urology Pain in wrist 06/24/2024 Assessment & Plan (06/28/2024 11:49 AM EST): She was told by [facility] that she has tendonitis. She is asking to see rheumatology. I did explain that they typically would not manage this. Advised RICE and offered PT. She would like to see PT for ongoing pain. Orders: Ambulatory referral to [facility] Physical Therapy Resolved Problems Problem Noted Date Diagnosed Date Resolved Date Vaginal discharge 07/28/2024 07/28/2024 Assessment & Plan (07/28/2024 9:31 PM EST): Alyssa is experiencing thick white vaginal discharge, not described as clumpy. She has no vaginal itching or pain. Pelvic exam performed, vaginitis swab obtained. Etiology not clear on exam, discharge may be consistent with normal physiologic discharge. Encounters Date Type Department Care Team Description 03/20/2025 2:30 PM EDT [facility] Visit [facility] [address] [place] [address] Modesta Olmos MD Postmenopausal bleeding (Primary Dx) 03/20/2025 1:09 PM EDT - 03/20/2025 11:59 PM EDT Hospital Encounter [facility] [address] [place] [address] Modesta Olmos MD Discharge Disposition: Home or Self Care 03/20/2025 Nurse Triage [facility] [address] [place] [address] Dexter Jones MD Triage (RED - SOB pt was running yesterday, but today pt is having SOB, she is drinking plenty of water. ) 03/06/2025 Documentation [facility] [address] [place] [address] Dexter Jones MD 02/18/2025 3:30 PM EDT Office Visit [facility] [address] [place] [address] Dexter Jones MD Onychomycosis of toenail (Primary Dx); Gastroesophageal reflux disease with esophagitis without hemorrhage; Postmenopausal bleeding 02/18/2025 Telephone [facility] [address] [place] [address] Jelena Jernigan CMA 02/17/2025 3:50 PM EDT Office Visit [facility] [address] [place] [address] [place] [address] Modesta Olmos MD Encounter for gynecological examination without abnormal finding (Primary Dx); Postmenopausal bleeding 02/03/2025 Orders Only [address] [address] Dona Morgan MD 01/23/2025 Nurse Triage [facility] [address] [place] [address] [place] [address] Benito Sim RN Postmenopausal Bleeding 01/23/2025 Nurse Triage [address] [address] Dexter Jones MD Triage (Yellow - Vaginal Discharge) 01/15/2025 3:30 PM EDT [facility] [address] [place] [address] [place] [address] Modesta Olmos MD Early menopause (Primary Dx); Encounter for screening mammogram for malignant neoplasm of breast; Benign essential microscopic hematuria 01/14/[address] [address] Dexter Jones MD Results (Blood work) 01/09/2025 3:30 PM EDT Office Visit [address] [address] Dexter Jones MD Suprapubic pain, acute (Primary Dx); Generalized anxiety disorder; Severe episode of recurrent major depressive disorder, with psychotic features; Benign essential microscopic hematuria; Gastroesophageal reflux disease with esophagitis without hemorrhage 01/07/[address] [address] Yariel Dee [place] 01/01/2025 Telephone [facility] [address] [place] [address] Unknown, Unknown, MD Appointment 12/30/2024 Telephone [facility] [address] [address] Dexter Jones MD PT1 (Pt requesting a PT1 form) 12/27/2024 Telephone [facility] [address] [place], [place] [id number] Clare Pan LPN street worker Call Back 12/26/2024 Refill [facility] [address] [place] [address] Dexter Jones MD Med Change Request from Last 3 Months Family History Medical History Relation Comments Autism Brother traits, not diag nosed Lung cancer Father non-smoker, was around other people who were smokers Anxiety disorder Mother Autism spectrum disorder Son OCD Spectrum disorder Son Relation Status Comments Brother Father Mother Son Alive Social History Tobacco Use Types Packs/Day Years Used Date Smoking Tobacco: Never Smokeless Tobacco: Never Tobacco Cessation:Counseling Given: Not Answered Child or Family Care Answer Date Record ed Do you have problems with on e of the following making it difficult for you to work, study, or receive health care? Childcare 06/03/2024 Education Answer Date Recorded Are you interested in help w ith more adult education (for example, completing high school, GED, job training, learning the [place] language, technical skills, or developing parenting skills)? [...] Orientation Straight 11/03/2023 2: 29 PM EDT Last Filed Vital Signs Vital Sign Reading Time Taken Comments Blood Pressure 106/70 03/20/2025 3:03 PM EDT Pulse 77 02/18/2025 3:20 PM EDT Temperature 36.8 C (98.2 F) 02/18/2025 3:20 PM EDT Respiratory Rate - - Oxygen Saturation 98% 02/18/2025 3:20 PM EDT Inhaled Oxygen Concentration - - Weight 59 kg (130 lb) 03/20/2025 3:03 PM EDT Height 152.4 cm (5') 02/17/2025 4:10 PM EDT Body Mass Index 25.39 02/17/2025 4:10 PM EDT Plan of Treatment Upcoming Encounters Date Type Department Care Team (Late st Contact Info) Description 01/15/2025 Procedure Pass [address] [address] 04/01/2025 10:00 AM EDT Office Visit [facility] [address] [place] [address] Dexter Jones MD [address] [place] [address] [address] [place] [address] 04/18/2025 1:00 PM EDT Office Visit [facility] [address] [place] [address] Sara Thomas MD, PhD [address] [place] [address] [email or web address] 09/30/2025 10:15 AM EDT Appointment [address] [address] Modesta Olmos MD [address] [place] [address] [email or web address] Health Maintenance Due Date Last Done Comments Adult Td,Tdap Booster 1980 HEPATITIS C SCREENING 11/21/1997 HIV ONE-TIME SCREENING (18-6 5 YEARS) 11/21/1997 SCREENING FOR DIABETES 11/21/2014 COLOGUARD 11/21/2024 COLONOSCOPY 11/21/2024 COLORECTAL CANCER SCREENING 11/21/2024 FIT TEST 11/21/2024 FOBT 11/21/2024 SIGMOIDOSCOPY 11/21/2024 VIRTUAL COLONOSCOPY 11/21/2024 INFLUENZA VACCINE (#1) 2025 COVID-19 VACCINE (1 - 2023-2 5 season) 2025 DEPRESSION SCREENING 09/27/2025 09/27/2024, 06/28/2024 MAMMOGRAM 05/23/2026 05/23/2024, 05/23/2024 PAP SMEAR 09/25/2028 09/26/2023, 07/31/2020 LIPID PANEL 04/10/2029 04/10/2024 SMOKING STATUS SCREENING (On ce After 26 Yrs) Completed 03/20/2025 HEPATITIS A VACCINES Aged Out No long er eligible based on patient's age to complete this topic HIB VACCINES Aged Out No longer eligi ble based on patient's age to complete this topic MENINGOCOCCAL VACCINES (ACWY) Aged Out No longer eligible based on patient's age to complete this topic MENINGOCOCCAL VACCINES (B) Aged Out N o longer eligible based on patient's age to complete this topic PNEUMOCOCCAL VACCINES (0-49 years) Aged Out No longer eligible b ased on patient's age to complete this topic Medical Devices Not on file Procedures Procedure Name Priority Date/Time Associated Diagnosis Comments US PELVIS TRANSABDOMINAL PLUS TRANSVAGINAL Routine 03/20/2025 1:50 PM EDT Postmenopausal bleeding OUTSIDE LAB Routine 02/03/2025 1:17 PM EDT URINE SEDIMENT Routine 01/09/2025 4:51 PM EDT URINALYSIS W/REFLEX URINE CULTURE Routine 01/09/2025 4:51 PM EDT Suprapubic pain, acute HM PAP SMEAR FOR RESULT ENTRY ONLY Routine 09/26/2023 from Last 3 Months or Most Recently Relevant to Health Maintenance Results * US PELVIS TRANSABDOMINAL PLUS TRANSVAGINAL (03/20/2025 1:50 PM EDT) Anatomical Region Laterality Modality Pelvis, Uterus/Adnexa Ultrasound 03/20/2025 1:51 PM EDT Impressions 03/21/2025 3:37 PM EDT Unremarkable SCHOOL COMMUNITY RELATIONS COORDINATOR study with normal ovaries and a thin endometrium Narrative 03/21/2025 3:37 PM EDT US PELVIS TRANSABDOMINAL AND TRANSVAGINAL Referring clinician's provided indication for this examination in [facility]: Postmenopausal Bleeding; FSH last year 117, amenorrhea [...] clinician's provided indication for this examination in [facility]:Postmenopausal Bleeding; FSH last year 117, amenorrhea x [...] free pelvic fluid. Tech Comments: IMPRESSION: Unremarkable SCHOOL COMMUNITY RELATIONS COORDINATOR study with normal ovaries and a thin endometrium Modesta Olmos MD IMG US PELVIS Final Result * Outside Lab (02/03/2025 1:17 PM EDT) Historical Provider LAB BLOOD ORDERABLES Geeta l Result * (ABNORMAL) Urinalysis w/reflex Urine Culture (01/09/2025 4:51 PM EDT) COLOR Yellow Yellow [facility] CLARITY Clear [facility] GLUCOSE Negative Negative [facility] BILI Negative Negative [facility] KETONES Negative Negative [facility] SPECIFIC GRAVITY 1.025 1.005 - 1.030 [facility] BLOOD 1+(A) Negative [facility] PH 6.0 5.0 - 8.0 [facility] Protein-UA Negative Negative [facility] NITRITE Negative Negative [facility] Leukocyte esterase, ur 1+(A) Negative [facility] Urine (Urine) 01/09/2025 4:5 1 PM EDT 01/09/2025 7:52 PM EDT Dexter Jones MD URINE ORDERABLES Final Result Performing Organization Address [facility]/ZIP Co de Phone Number [address] [address] * (ABNORMAL) Urine sediment (01/09/2025 4:51 PM EDT) WBC 5-10(A) NONE SEEN /hpf [facility] RBC 3-5(A) NONE SEEN /hpf [facility] URINE EPITHELIAL 0-4(A) NONE SEEN [facility] MUCUS NONE SEEN NONE SEEN /hpf [facility] BACTERIA NONE SEEN NONE SEEN /hpf [facility] 01/09/2025 4:51 PM EDT 01/09/2025 7:52 PM EDT Dexter Jones MD URINE ORDERABLES Final Result Performing Organization Address [facility] Co de Phone Number [address] [address] * PAP SMEAR FOR RESULT ENTRY ONLY (09/26/2023) HM Pap smear NIL and neg HPV Dona Morgan MD HEALTH MAINTENANCE Final Result from Last 3 Months or Most Recently Relevant to Health Maintenance Insurance [facility] Care Teams Forester Silviculture Relationship Specialty Start Date End Date Dexter Jones MD [address] [place] [address] [address] [place] [address] [email or web address] PCP - General Family Medicine 06/03/24 Additional Source Comments The information contained in this document represents components of the legal health record. It is not the complete legal health record.[facility]
--- OUTSIDE RECORDS SUMMARY | 2025-03-26 11:12 | XMS_ITS | Clinical Summary ---
Author Organization [facility] Address [address] [place] [address] Phone Care Team Providers Care Dog Control Officer Name Role Phone Dexter Jones MD Primary Care Provider [phone] Allergies Active Allergy Reactions Criticality Noted Date [...] Alyssa that there is no evidence of Tick Inspector involvement with the mass that is described. [...] Anxiety 06/13/2018 Overview (04/15/2024): 07/05/2019 Followed by [facility]- therapy q 1-2 wks , [...] abnormal - H Pylori ESOPHAGOGASTRODUODENOSCOPY 08/11/2021 PROCEDURE: ND EGD TRANSORAL BIOPSY SINGLE/MULTIPLE; COMMENT: normal, random biopsy pending ESOPHAGOGASTRODUODENOSCOPY 12/30/2021 PROCEDURE: ND EGD TRANSORAL BIOPSY SINGLE/MULTIPLE; COMMENT: normal, biopsy [...] 03/28/2018 DX:Psycho social stressors; COMMENT: Living in long term wih 3 year old son who has [...] 11/21/1998 Social Influencers of Health Screening 06/18/2022 Depression Screening 07/10/2024 03/27/2024 COVID-19 Vaccine ( season) 2025 Influenza Vaccine (#1) 2025 Breast Cancer Screening 05/23/2026 05/23/20 24, 05/17/2023, [...] 5 Years) and At-Risk Patients (6 to 49 Years) Aged Out No longer eligible based [...] PM EST No mammographic evidence of malignancy. No suspicious interval change. A negative mammogram in the presence of a clinically suspicious palpable abnormality does not preclude the possibility of malignancy or alter the indications for biopsy. ASSESSMENT: BI-RADS 1: NEGATIVE RECOMMENDATION(S): 1: Routine screening mammogram BILATERAL in 1 year. -------- FINAL REPORT -------- Dictated By: Levi Boyd Dictated Date: 05/23/2024 14:45 ET Assigned Physician: Levi Boyd Reviewed and Electronically Signed By: Levi Boyd Signed Date: 05/23/2024 14:50 ET Workstation ID: [id number] Transcribed By: Self Edit Transcribed Date: 05/23/2024 14:45 ET Narrative 05/23/2024 2:50 PM EST EXAM: SCREENING MAMMOGRAPHY, BILATERAL HISTORY: SCREENING. Cousin with history of breast cancer. COMPARISON: 05/17/2023, 05/13/2022, 07/13/2021, 07/28/2020 TECHNIQUE: Synthesized CC and MLO projections of each breast. Tomosynthesis of each breast in the CC and MLO projections. ADDITIONAL IMAGING: None Computer-aided detection was employed with the [employer] AI 3-D. TISSUE DENSITY: There are scattered areas of fibroglandular density. (BI-RADS category B) FINDINGS: RIGHT BREAST: No suspicious mass. No suspicious calcification. No distortion. No additional suspicious right breast findings LEFT BREAST: No suspicious mass. No suspicious calcification. No distortion. No additional suspicious left breast findings Procedure [...] Signed Date: 05/23/2024 14:50 ET Workstation ID: [id number] Transcribed By: Self Edit Transcribed Date: 05/23/2024 14:45 ET Tristen FLOREZ IMG BI PROCEDURES Final R esult * (ABNORMAL) Lipid panel (04/10/2024) Pathologist [facility] LDL/HDL Ratio 2 0 - 4 Triglycerides 69 0 - 150 mg/dL Cholesterol 257(A) 0 - 200 mg/dL HDL 116 >=40 mg/dL LDL Cholesterol 128(A) 0 - 100 mg/dL Blood Venous blood specimen / Unknown Result [facility] Historical Provider LAB BLOOD ORDERABLES Geeta l Result * Depression Screening (03/27/2024) Pathologist [facility] Depression Screening abstracted Historical Provider HEALTH MAINTENANCE Final Result * Cervical Cancer Screening: HPV (09/26/2023) Pathologist [facility] Cervical Cancer Screening: HPV negative, abstracted Historical Provider HEALTH MAINTENANCE Final Result * HIV Screening (04/30/2021) Pathologist [facility] HIV Screening abstracted [facility] Provider HEALTH MAINTENANCE Final Result * Hepatitis C Screening (04/30/2021) Pathologist [facility] Hepatitis C Screening abstracted [facility] Provider HEALTH MAINTENANCE Final Result * Colonoscopy (01/21/2021) Pathologist [facility] Colonoscopy no interpretation , abstracted Anatomical Region Laterality Modality Other Historical Provider HEALTH MAINTENANCE Final Result from Last 3 Months or Most Recently Relevant to Health Maintenance Insurance [facility] PL[facility] Care Teams Dog Control Officer Relationship Specialty Start Date End Date Dexter Jones MD [address] [place] [address] PCP - General Family Medicine 07/12/24
--- OUTSIDE RECORDS SUMMARY | 2025-03-26 11:12 | XMS_ITS | Encounter Summary ---
Author Organization [facility] Address [address] [place] [address] Phone Care Team Providers Care Director Student Union Name Role Phone Dexter Jones MD Primary Care Provider [phone] Reason for Visit * Reason Onset Date Comments Triage 03/20/2025 RED - SOB pt was running yesterday, but today pt is having SOB, she is drinking plenty of water. Encounter Details Date Type Department Care Team (Late st Contact Info) Description 03/20/2025 Nurse Triage [facility] [address] [place] [address] Dexter Jones MD [address], [address] [place], [place] [phone] [email or web address] Triage (RED - SOB pt was running yesterday, but today pt is having SOB, she is drinking plenty of water. ) Social History Tobacco Use Types Packs/Day Years [...] high school, GED, job training, learning the Ugandan language, technical skills, or developing parenting skills)? [...] as of this encounter Progress Notes * Sophie Jeffrey RN - 03/21/2025 8:39 AM EDT Spoke with patient. Advised. Patient verbalized understanding. * Dexter Jones MD - 03/20/2025 5:12 PM EDT Yes, it is fine for patient to take Tums as needed. She should make dietary adjustments as she is not able to tolerate these drinks which are potentially causing increased reflux disease. No other advice regarding the shortness of breath except to go to the emergency room if the symptoms get worse.Will discuss the rest of her symptoms at her upcoming appointment in 2 weeks. * Lucas Gallardo RN - 03/20/2025 4:38 PM EDT Pt reports that she thinks that SOB/breathing issues is triggered by gerd/anxiety, states she noticed GERD symptoms yesterday mid day - bloating,belching, burning of chest. Lingered all day, in the afternoon she had to physically run to store and back home - and that was what provoked GERD symptomsfurther and pt noticed some breathing issues. Adds that she never feels safe when she is out of home. Symptoms gradually clamed down and resolve. Pt had [facility] at [facility] today. Had some anxiety aboutstaff present during exam, began experincing sob again - suspects it related to GERD that is made worse with anxiety, has burping sensation, hx of GERD. Reports she is drinking more coke, has been getting drinks from [employer]. She is aware that she does not tolerate these food and drinks well. Is amenable to making dietary adjustments. Advised on anxiety/stress management - slowing down, deep breathing exercises. States that she had appt with pcp coming up. Is on esomeprazole and sucralfate. ?'s if its ok for her to take tums PRN? ?'s if there are any other advisements. To pcp Is aware to head to ER if there is any severe chest pain and tightness, and progressive sob. Deniesany of theses symptoms currently. * Sophie Jeffrey RN - 03/20/2025 4:25 PM EDT LVM for patient to return call. * Ailyn Smiley - 03/20/2025 4:12 PM EDT CD PEN Top Smart Phrases: Red Yellow Green Guidelines Select Red, Yellow, Green Triage Intake *Route to appropriate staff member/pool according to practice guidelines* Red Call Intake Call Back Number: (if not patient, name/relationship and if patient is with caller) [phone] Red Symptom(s): Triage (RED - SOB pt was running yesterday, but today pt is having SOB, she is drinking plenty of water. ) When did these symptoms start? Yesterday 03/19/25 Have you ever experienced these symptoms before? YES around 3 years pt was diagnosed with GERD Additional information: Pt wants to be seen tomorrow. 03/21/25 (Call was transferred to 2259 Lucas Gallardo) Transfer LIVE call to RN for prompt triage Reason for Call = TRIAGE Comment = RED + symptom Route TE directly to the RN receiving the warm transfer, NOT the nursing pool documented in this encounter Plan of Treatment Upcoming Encounters Date Type Department Care Team (Late st Contact Info) Description 01/15/2025 Procedure Pass [address] [address] 04/01/2025 10:00 AM EDT Office Visit [facility] Medicine [address] [place] [address] Dexter Jones MD [address] [place] [address] 04/18/2025 1:00 PM EDT Office Visit [facility] Department of Neurology [address] [place] [address] Sara Thomas MD, PhD [address] [place] [address] [email or web address] 09/30/2025 10:15 AM EDT Appointment [address] [address] Modesta Olmos MD [address] [place] [address] [email or web address] documented as of this encounter Visit Diagnoses Not on filedocumented in this encounter Additional Health Concerns Assessment Noted Time PHQ-9 Depression Total Score: 8 06/28/20 11:06 AM EST PHQ-2 Depression Total Score: 3 06/28/20 11:06 AM EST documented as of this encounter Care Teams Director Student Union Relationship Specialty Start Date End Date Dexter Jones MD [address] [place] [address] PCP - General Family Medicine 06/03/24 documented as of this encounter Additional Source Comments The information contained in this document represents components of the legal health record. It is not the complete legal health record.[facility]
--- OUTSIDE RECORDS SUMMARY | 2025-03-26 11:12 | XMS_ITS | Encounter Summary ---
Author Organization [facility] Address [address] [place] [address] Phone Care Team Providers Care Clinical Rehab Specialist Name Role Phone Dexter Jones MD Primary Care Provider [phone] Encounter Details Date Type Department Care Team ([facility] st Contact Info) Description 02/18[facility] [address] [place], [place] [phone] Jelena Jeringan [facility] [address] [place], [place] [phone] [email or web address] Social History Tobacco Use Types Packs/Day Years [...] high school, GED, job training, learning the Lebanese language, technical skills, or developing parenting skills)? [...] as of this encounter Progress Notes * Crystal Pinzon - 02/19/2025 9:04 AM EDT PT 1 request submitted * Jelena Jernigan CMA - 02/18/2025 3:22 PM EDT Patient calls regarding a PT1 form. Patient's pick up and delivery driver address: [address] [place] [address] Office/Provider name/address/phone number: [phone] [facility] Does the clinic/facility you are going to exceed 25 miles from your pick-up area? No If yes, please explain need to go to this specific office: What patient is being seen for: Is there a medical reason why patient cannot take public transportation? Dr. Jones knows it How many times a week/month will patient be seen: 2x/ month How long will patient require these services: 1 yr Does the patient need a wheelchair van: No Does the patient have a service animal: No Pt would like a note saying she can have breaks if she needs to use the restroom documented in this encounter Plan of Treatment Upcoming Encounters Date Type Department Care Team (Late st Contact Info) Description 01/15/2025 Procedure Pass [facility] [address] [place] [address] 04/01/2025 10:00 AM EDT Office Visit [facility] [address] [place] [address] Dexter Jones MD [address] [facility] [place] [address] 04/18/2025 1:00 PM EDT Office Visit [facility] of [facility]rology [address] [place] [address] Sara Thomas MD, PhD 60 [place] [address] [email or web address] 09/30/2025 10:15 AM EDT Appointment [address] [address] Modesta Olmos MD [address] [facility] [place] [address] [email or web address] documented as of this encounter Visit Diagnoses Not on filedocumented in this encounter Additional Health Concerns Assessment Noted Time PHQ-9 Depression Total Score: 8 06/28/20 11:06 AM EST PHQ-2 Depression Total Score: 3 06/28/20 11:06 AM EST documented as of this encounter Care Teams Clinical Rehab Specialist Relationship Specialty Start Date End Date Dexter Jones MD [address] [place] [address] 7 [place] [address] [email or web address] PCP - General Family Medicine 06/03/24 documented as of this encounter Additional Source Comments The information contained in this document represents components of the legal health record. It is not the complete legal health record.[facility]
--- OUTSIDE RECORDS SUMMARY | 2025-03-26 11:12 | XMS_ITS | Encounter Summary ---
Author Organization [employer] Address [address] [place] [address] Care Team Providers Care Clinic Scheduler Name Role Phone Dexter Jones MD Primary Care Provider [phone] Encounter Details Date Type Department Care Team (Late st Contact Info) Description 10/09/[address] [facility] Main Lab [address] [facility] [place] [address] Tate Conrad PA [address] [place] [phone] Other microscopic hematuria Social History Tobacco Use [...] AM EDT) Final Diagnosis A. Urine, Voided, ([id number]): Negative for high grade urothelial carcinoma. 10/15/2024 4:06 PM EDT [facility] Clinical Information Other microscopic hematuria R31.29 Urine cytology 10/15/2024 4:06 PM EDT [facility] Gross Description A. Urine, Voided, ([id number]): Received one ThinPrep slide for cytology. 10/15/2024 4:06 PM EDT [facility] Disclaimer Unless otherwise specified, all tissue is 10% NB formalin fixed and paraffin embedded. Technical pathology services provided by [facility] at [address], [place] [address] (CLIA #[id number]/Sa elias Diaz MD, Service Order Dispatcher) 10/15/2024 4:06 PM EDT [facility] Tissue Urine specimen from urethra / Unknown 10/08/2024 10/09/2024 1:36 PM EDT us Tate R Houston PA LAB PATHOLOGY ORDERABLES Final Result [facility] [address] [place] [address], documented in this encounter Visit Diagnoses Diagnosis Other microscopic hematuria documented in this encounter Care Teams Clinic Scheduler Relationship Specialty Start Date End Date Dexter Jones MD [address] [place] [phone] PCP - General Family Medicine 07/12/24 documented as of this encounter
--- OUTSIDE RECORDS SUMMARY | 2025-03-26 11:12 | XMS_ITS | Encounter Summary ---
Author Organization [facility] Address [address] [place] [address] Phone Care Team Providers Care Preform Machine Operator Name Role Phone Dexter Jones MD Primary Care Provider [phone] Encounter Details Date Type Department Care Team (Late st Contact Info) Description 08/01/2024 Telephone [facility] Medicine [address] [place], [place] [phone] Dexter Jones MD [address] [facility] [address] [facility] [address] [place], [place] [phone] Social History Tobacco Use Types Packs/Day Years [...] high school, GED, job training, learning the Azeri language, technical skills, or developing parenting skills)? [...] st Contact Info) Description 01/15/2025 Procedure Pass [address] [address] 04/01/2025 10:00 AM EDT Office Visit [facility] [address] [place] [address] Dexter Jones MD [address] [place] [address] 7 [place] [address] [email or web address] 04/18/2025 1:00 PM EDT Office Visit [facility] [address] [place] [address] Sara Thomas MD, PhD [address] [place] [address] [email or web address] 09/30/2025 10:15 AM EDT Appointment [address] [address] Modesta Olmos MD [address] [facility], [address] [place] [address] [email or web address] documented as of this encounter Visit Diagnoses Not on filedocumented in this encounter Additional Health Concerns Infection Onset Date Last Indicated Resolved Time CoV-Risk 08/20/2024 08/20/2024 08/31/2024 1:22 AM EST Assessment Noted Time PHQ-9 Depression Total Score: 8 06/28/20 24 11:06 AM EST PHQ-2 Depression Total Score: 3 06/28/20 11:06 AM EST documented as of this encounter Care Teams Preform Machine Operator Relationship Specialty Start Date End Date Dexter Jones MD [address] [place] [address], [address] [place] [address] [email or web address] PCP - General Family Medicine 06/03/24 documented as of this encounter Additional Source Comments The information contained in this document represents components of the legal health record. It is not the complete legal health record.[facility]
--- OUTSIDE RECORDS SUMMARY | 2025-03-26 11:12 | XMS_ITS | Encounter Summary ---
Author Organization [facility] Address [address] [place] [address] Phone Care Team Providers Care Merchandise Pickup/Receiving Associate Name Role Phone Dexter Jones MD Primary Care Provider [phone] Encounter Details Date Type Department Care Team (Late st Contact Info) Description 11/26/2024 Procedure Pass [facility], [facility] [address] [place] [address] Social History Tobacco Use Types Packs/Day Years [...] high school, GED, job training, learning the Uzbek language, technical skills, or developing parenting skills)? [...] st Contact Info) Description 01/15/2025 Procedure Pass [address] [address] 04/01/2025 10:00 AM EDT Office Visit [facility] Family Medicine [address] [place] [address] Dexter Jones MD [address] [place] [address] [email or web address] 04/18/2025 1:00 PM EDT Office Visit [facility] Department of Neurology [address] [place] [address] Sara Thomas MD, PhD 60 [place] [address] [email or web address] 09/30/2025 10:15 AM EDT Appointment [address] [address] Modesta Olmos MD [address] [facility], [address] [address] [email or web address] documented as of this encounter Visit Diagnoses Not on filedocumented in this encounter Additional Health Concerns Assessment Noted Time PHQ-9 Depression Total Score: 8 06/28/20 11:06 AM EST PHQ-2 Depression Total Score: 3 06/28/20 11:06 AM EST documented as of this encounter Care Teams Merchandise Pickup/Receiving Associate Relationship Specialty Start Date End Date Dexter Jones MD [address] [place] [address] [email or web address] PCP - General Family Medicine 06/03/24 documented as of this encounter Additional Source Comments The information contained in this document represents components of the legal health record. It is not the complete legal health record.[facility]
--- OUTSIDE RECORDS SUMMARY | 2025-03-26 11:12 | XMS_ITS | Encounter Summary ---
Author Organization [facility] Address [address] [place] [address] Phone Care Team Providers Care Hand Miter Operator Name Role Phone Dexter Jones MD Primary Care Provider [phone] Reason for Visit * Reason Comments Med Change Request Encounter Details Date Type Department Care Team ([facility] st Contact Info) Description 12/26/2024 Refill [facility] [address] [place], [place] [phone] Dexter Jones MD [address] [place] [address] [address] [place] [address] [email or web address] Med Change Request Social History Tobacco Use Types Packs/Day [...] high school, GED, job training, learning the Pakistani language, technical skills, or developing parenting skills)? [...] as of this encounter Progress Notes * Akua Melchor PA-C - 12/27/2024 11:25 AM EDT * Priscila Conner MA - 12/27/2024 9:52 AM EDT Rx Care Gap Status - Instructions for Clinical Staff (prescriber discretion applies): n/a Visit Info Last visit: 11/26/2024 Dexter Jones MD - [facility] > Requested f/u: Return in about 4 weeks (around 12/24/2024) for Recheck. Upcoming visit: 01/09/2025 Dexter Jones MD - Family Medicine [facility] ACTIONS TAKEN BY Priscila Conner MA - Refill protocol passed: no action needed. Allergy / Rhinitis / Urticaria Rx Protocol - hydroxyzine HCl Criteria met; renew for up to 12 months. Visit in the past 24 months: Yes Antidepressant / Anxiolytics (Non-Benzodiazepine) Rx Protocol - sertraline HCl Criteria met; renew for up to 12 months. Visit in the past 14 months: Yes documented in this encounter Plan of Treatment Upcoming Encounters Date Type Department Care Team (Late st Contact Info) Description 01/15/2025 Procedure Pass [facility] [address] [place] [address] 04/01/2025 10:00 AM EDT Office Visit [facility] [address] [place] [address] Dexter Jones MD [address] [facility] 7 [place] [address] 04/18/2025 1:00 PM EDT Office Visit [facility] Department of Neurology [address] [place] [address] Sara Thomas MD, PhD 60 [place] [address] [email or web address] 09/30/2025 10:15 AM EDT Appointment [facility] 30 [place] [address] Modesta Olmos MD 22 [facility] [address] [place] [address] [email or web address] documented as of this encounter Visit Diagnoses Diagnosis Sleep disturbance Unspecified sleep disturbance Generalized anxiety disorder Severe episode of recurrent major depressive disorder, with psychotic features documented in this encounter Additional Health Concerns Assessment Noted Time PHQ-9 Depression Total Score: 8 06/28/20 11:06 AM EST PHQ-2 Depression Total Score: 3 06/28/20 11:06 AM EST documented as of this encounter Care Teams Hand Miter Operator Relationship Specialty Start Date End Date Dexter Jones MD [address] [facility] 7 [place] [address] PCP - General Family Medicine 06/03/24 documented as of this encounter Additional Source Comments The information contained in this document represents components of the legal health record. It is not the complete legal health record.[facility]
== END ==
LOC: HO.NUCMED 09:29
PROVIDERS: PCP Family Medicine; Visit Provider Nurse Practitioner Family
DX: R68.81 Early satiety (principal)
CPT/HCPCS: 78264; A9541

== ENCOUNTER → 2025-03-26 09:31 | Outpatient (BNV) | payer OTHER, SELFPAY | PROVIDERS: PCP Family Medicine; Visit Provider Radiology Diagnostic Radiology | DX: R68.81 Early satiety (principal) | CPT/HCPCS: 78264 ==

== ENCOUNTER 2025-04-09 11:13 | Outpatient (AMB) | payer OTHER, SELFPAY ==
--- NOTE | 2025-04-09 11:15 | A.OFFVIS_ITS ---
Vital Signs 04/09/25 11:21 Height 5 ft 1 in Weight 129 lb BMI 24.4 BP 102/62 Blood Pressure Location Rt brachial Position Sitting Pulse 86 Pulse Source Pulse Oximeter Pulse Oximetry (%) 96 Oxygen Delivery Method Room Air Intake Visit Reasons: 2 mos FUV. GERD mgmt. Intake Note: ESTABLISHED PATIENT for dyspepsia / GERD mgmt. Chief Complaint; C.O. worsening chronic sx despite current therapies. Pt would like to review results of recent imaging from nuclear medicine. Special Programs Director Required: No Accompanied by: Mother Allergies Milk Containing Products (Dairy) Allergy (Mild, Verified 04/09/25 11:15) Unknown HPI HPI 2 mos FUV. GERD mgmt.: Details: LAST VISIT Irritable bowel syndrome Gastroesophageal reflux disease Epigastric discomfort Dyspepsia Postprandial abdominal bloating Plan Patient will restart Nexium and we will discuss in 2 months continuation or slowly weaning her off. Avoid dietary triggers in late night snacking. Staying upright for minimal 3 hours after meals discussed with patient. Decreased stomach motility noted on endoscopy. Will send patient for GES. Patient will continue to avoid lactose. Patient will follow-up in 2 months, sooner on as nee ded basis. Patient is agreeable to this plan and verbalizes understanding of instructions. She was given the opportunity to ask questions and all questions answered. ? Thank you for allowing me to participate in her care Orders NM gastric emptying study Today R68.81 New Lactobacillus rhamnosus GG (Probiotic Digestive Care) ONE CAP orally DAILY 30 caps 2RF Refilled famotidine 20 mg PO BEDTIME 90 tabs 1RF K21.9 esomeprazole magnesium (Nexium) 40 mg PO DAILY 90 caps 3RF 90 days K21.9 TODAY'S VISIT Patient is here today for follow-up and to discuss GES results. Study showed that patient has gastroparesis. Patient still complains of epigastric burning occasionally depending on what she eats. Currently she is taking Nexium in the morning and famotidine at bedtime.. Occasional dyspepsia without dysphagia or odynophagia. Patient reports that she is not moving her bowels every day. Patient reports that she is under lot of stress and feels like that is not helping her with her bowels. Frequently when she has urge to go to the bathroom she is busy running around and does not have that time to sit in try to have a bowel movement. Patient is trying to avoid dietary triggers as much as she can. She admits that she still drink Coke and has chocolate occasionally. Patient denies any melena, hematochezia, unintentional weight loss or ribbon like s tools. Patient denies any nausea or vomiting. [facility] Medical History (Updated 04/09/25 @ 12:[address] 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 History of episiotomy 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 Hx of solitary pulmonary nodule Microscopic hematuria Surgical History History of esophagogastroduodenoscopy (EGD) Hx of colonoscopy Family History Father Cancer of lung Cancer of kidney Social History Household Members: Children Housing: Apartment Are you a primary progressive care manager to a significant other at home: No Do you presently have visiting nurse or other home services: No 75 years or older and lives alone: No Alcohol intake: never Patient Tobacco Use Status: Never used Tobacco e-Cigarette/Vaping Use: Never Used service: No Review of Systems Const Denies weight gain and Denies weight loss ENT Reports no additional complaints, Denies dysphagia and Denies odynophagia Card Reports no additional complaints Resp Reports no additional complaints GI Reports abdominal pain (LUQ), Denies belching, Denies melena, Denies bloating, Denies change in bowel habits, Reports constipation, Denies dysphagia, Denies excessive flatus, Denies dyspepsia, Reports heartburn (Improved), Denies diarrhea, Denies loose stools, Denies nausea, Denies odynophagia and Denies vomiting Reports no additional complaints Musc Reports no additional complaints Neuro Reports no additional complaints Psych Reports no additional complaints Endo Reports no additional complaints Physical Exam Vital Signs: Last Vital Signs Pulse 86 04/09/25 11:21 BP 102/62 04/09/25 11:21 Pulse Ox 96 04/09/25 11:21 Oxygen Delivery Method Room Air 04/09/25 11:21 BMI result Body Mass Index 24.4 Const General: healthy appearing, no acute distress and well developed Nutritional Appearance: well nourished Orientation/consciousness: patient oriented x3 Resp Effort & Inspection: normal respiratory effort, able to speak in complete sentences, no tracheal deviation and symmetric chest movement Auscultation: clear to auscultation bilaterally Cardio Rate: regular rate GI Inspection: Yes normal to inspection and No distended Palpation (GI): Soft to palpation, not firm, nontender and No hepatosplenomegaly present Auscultation: normal bowel sounds General: Yes no CVA tenderness Back/Spine/Pelvis Back: no CVA tenderness Skin General skin exam: elasticity normal, turgor normal and dry skin Neuro General: patient oriented x3 Psych Other: Patient is tearful Appearance: grossly normal Mental Status: mental status grossly normal Affect: Sad affect present (Patient is crying, her dad yesterday) and Anxious affect present Results Reviewed Results Reviewed: LAST VISIT FINDINGS: There is visualization of activity in the stomach immediately post ingestion. As the study progresses, there is clearance of activity from the stomach and visualization of progressively increasing small bowel activity. Retention in the stomach at each time interval was: 1 hour 80% (normal 37%-90%) 2 hours 68% (normal 30%-60%) 3 hours 49% 4 hours 20% (normal 0%-10%) ND/ND gastric emptying study IMPRESSION: Delayed gastric emptying. Assessment & Plan Assessment & Plan (1) Irritable bowel syndrome: Code(s): K58.9 - Irritable bowel syndrome, unspecified Qualifiers: Irritable bowel syndrome type: without diarrhea Qualified Code(s): K 58.9 - Irritable bowel syndrome, unspecified (2) Gastroesophageal reflux disease: Code(s): K21.9 - Gastro-esophageal reflux disease without esophagitis Qualifiers: Esophagitis presence: esophagitis presence not specified Qualified Code(s): K21.9 - Gastro-esophageal reflux disease without esophagitis (3) Epigastric discomfort: Code(s): R10.13 - Epigastric pain (4) Dyspepsia: Code(s): R10.13 - Epigastric pain (5) Postprandial abdominal bloating: Code(s): R14.0 - Abdominal distension (gaseous) (6) Gastroparesis: Code(s): K31.84 - Gastroparesis Category: Medical Plan Will stop Nexium and patient will start taking pantoprazole. Discussed with patient avoiding dietary triggers and late night snacking. Patient is very anxious under lot of stress. Diagnosed with gastroparesis via GES, 20% left in the stomach at 4th hour. Not typically with treat with Reglan, however due to patient and anxiety and the fact that this is long-term use we will avoid that due to side effects. I will put patient on Motegrity. She is constipated as well which could be contributing to inability to empty completely. Discussed with patient gastroparesis diet. Information on what to avoid and with patient should eat given to patient. Patient will return in 3 months, sooner on as needed basis. She is agreeable to this plan and verbalizes understanding of instructions. She was given the opportunity to ask questions and all questions answered. Thank you for allowing me to participate in her care Medications: New pantoprazole take one tablet half an hour before breakfast 40 mg PO DAILY 30 tabs 2RF K21.9 - Gastro-esophageal reflux disease without esophagitis prucalopride (Motegrity) 2 mg PO DAILY 30 tabs 2RF K59.04 - Chronic idiopathic constipation Discontinued esomeprazole magnesium (Nexium) Discontinued Reason: Doctor's Order 40 mg PO DAILY 90 days 90 caps 3RF K21.9 - Gastro-esophageal reflux disease without esophagitis Coding Level of Care Code Est Pt Level 4 (08221) Complex EM visit Add On G2211 Diagnoses Irritable bowel syndrome without diarrhea K58.9 Irritable bowel syndrome type: without diarrhea Gastroesophageal reflux disease, unspecified whether esophagitis present K21.9 Esophagitis presence: esophagitis presence not specified Epigastric discomfort R10.13 Dyspepsia R10.13 Postprandial abdominal bloating R14.0 Gastroparesis K31.84 Time Spent (min) 40 Comment 25 minutes spent with patient and additional 15 minutes spent reviewing her records
[2025-04-09 11:21] VITALS: BP 102/62; PULSE 86; O2SAT 96; BMI 24.4
--- OUTSIDE RECORDS SUMMARY | 2025-04-09 12:50 | XMS_ITS | Encounter Summary ---
Author Organization [facility] Address [address] [place] [address] Phone Care Team Providers Care Account Consultant Name Role Phone Dexter Jones MD Primary Care Provider [phone] Encounter Details Date Type Department Care Team (Late st Contact Info) Description 08/01/2024 Telephone [facility] Medicine [address] [place], [place] [id number] Dexter Jones MD [address] [facility] [address] [place], [place] [phone] [email or web address] Social History Tobacco Use Types Packs/Day Years [...] high school, GED, job training, learning the Luxembourgish language, technical skills, or developing parenting skills)? [...] st Contact Info) Description 01/15/2025 Procedure Pass [address] [address] 04/18/2025 1:00 PM EDT Office Visit [facility] Department of Neurology [address] [place] [address] Sara Thomas MD, PhD [address] [place] [address] [email or web address] 04/25/2025 9:45 AM EDT Office Visit [facility] [address] [place] [address] Unknown, Unknown, MD Kellogg, Josiah Wayne MD [address] [place] [address] 05/09/2025 10:30 AM EDT Office Visit [facility] [address] [address] Dexter Jones MD [address] [place] [address] [address] [place] [address] 09/30/2025 10:15 AM EDT Appointment [address] [address] Modesta Olmos MD [address] [place] [address], [address] [place] [address] documented as of this encounter Visit Diagnoses Not on filedocumented in this encounter Additional Health Concerns Infection Onset Date Last Indicated Resolved Time CoV-Risk 08/20/2024 08/20/2024 08/31/2024 1:22 AM EST Assessment Noted Time PHQ-9 Depression Total Score: 8 06/28/20 11:06 AM EST PHQ-2 Depression Total Score: 3 06/28/20 11:06 AM EST documented as of this encounter Care Teams Account Consultant Relationship Specialty Start Date End Date Dexter Jones MD [address] [place] [address], [address] [place] [address] [email or web address] PCP - General Family Medicine 06/03/24 documented as of this encounter Additional Source Comments The information contained in this document represents components of the legal health record. It is not the complete legal health record.[facility]
--- OUTSIDE RECORDS SUMMARY | 2025-04-09 12:50 | XMS_ITS | Clinical Summary ---
Author Organization [facility] Address [address] [place] [phone] Phone Care Team Providers Care Office Agent Name Role Phone Dexter Jones MD Primary Care Provider [phone] Allergies Active Allergy Reactions Criticality Noted Date Comments Lactose 03/27/2018 Medications CHOLECALCIFERO L 25 mcg (1,000 unit) tabletIndicati [...] TAKE 10 ML ORALLY AT BEDTIME 03/06/20 25 Active famotidine (PEPCID) 20 MG tablet Take 20 mg by mouth nightly at bedtime. at bedtime. 06/12/20 24 025 Discontinued(No longer taking) ketoconazole (NIZORAL) 2 % shampooIndicat ions:Psoriasis of scalp Apply topically 2 (two) times a week. Apply to damp skin, lather, leave on 5 minutes, and rinse 120 mL 5 09/20/19 25 025 Discontinued Active Problems Patient Care Coordination No te Formatting of this note migh t be different from the original. This patient is enrolled and engaged in the [facility] [place] [[place]] Community Partners Program for support with health-related social needs (HRSN) and community-based care coordination. Care Plan received on 03/06/25, uploaded to the Media tab of the Chart. [facility] Contact: Carmen Baldwin Community Partner Agency: [employer] Community Partner Livestock Caretaker: Carmen Hurley [facility] Partner Livestock Caretaker Contact Information: For additional information or questions regarding the [facility] Program, please reach out to the [facility] Contact or the [facility] team, Problem Noted Date Diagnosed Date Delayed gastric emptying 04/01/2025 Fibromyalgia affecting forearm 04/01/2025 Postmenopausal bleeding 03/20/2025 Assessment & Plan (03/20/2025 [...] She has notes from recent EGDs at [facility] showing gastritis. She is maintained on famotidine and pantoprazole. Likely exacerbated by extreme anxiety. Paperwork to be scanned into the system. Follow up with GI as scheduled, continue current medications. Hematuria 06/24/2024 Overview (01/15/2025): Reports microhematuria and normal CT scan and normal cystoscopy with urology Pain in wrist 06/24/2024 Assessment & Plan (06/28/2024 11:49 AM EST): She was told by [facility] that she has tendonitis. She is asking to see rheumatology. I did explain that they typically would not manage this. Advised RICE and offered PT. She would like to see PT for ongoing pain. Orders: Ambulatory referral to [facility] Physical Therapy Resolved Problems Problem Noted Date [...] Encounters Date Type Department Care Team Description 04/01/2025 10:00 AM EDT Office Visit [facility] [address] [place] [address] Dexter Jones MD Delayed gastric emptying (Primary Dx); Postmenopausal bleeding; Dry skin dermatitis; Gastroesophageal reflux disease with esophagitis without hemorrhage; Fibromyalgia affecting forearm; Hypoglycemia; Primary insomnia 03/26/2025 Orders Only [facility] [address] [place] [address] Provider, MD Dona 03/20/2025 2:30 PM EDT Office Visit [facility] [address] [place] [address] Modesta Olmos MD Postmenopausal bleeding (Primary Dx) 03/20/2025 1:09 PM EDT - 03/20/2025 11:59 PM EDT Hospital Encounter [facility] OB Ultrasound [address] [place] [address] Modesta Olmos MD Discharge Disposition: Home or Self Care 03/20/2025 Nurse Triage [facility] [address] [place] [address] Dexter Jones MD Triage (RED - SOB pt was running yesterday, but today pt is having SOB, she is drinking plenty of water. ) 03/06/2025 Documentation [facility] [address] [place] [address] Dexter Jones MD 02/18/2025 3:30 PM EDT Office Visit [address] [address] Dexter Jones MD Onychomycosis of toenail (Primary Dx); Gastroesophageal reflux disease with esophagitis without hemorrhage; Postmenopausal bleeding 02/18/[address] [address] Jelena Jernigan CMA 02/17/2025 3:50 PM EDT Office Visit [facility] [address] [place] [address] [place] [address] Modesta Olmos MD Encounter for gynecological examination without abnormal finding (Primary Dx); Postmenopausal bleeding 02/03/2025 Orders Only [address] [address] Dona Morgan MD 01/23/2025 Nurse Triage [facility] [address] [place] [address] [place] [address] Benito Sim RN Postmenopausal Bleeding 01/23/2025 Nurse Triage [address] [address] Dexter Jones MD Triage (Yellow - Vaginal Discharge) 01/15/2025 3:30 PM EDT Office Visit [facility] [address] [place] [address] [place] [address] Modesta Olmos MD Early menopause (Primary Dx); Encounter for screening mammogram for malignant neoplasm of breast; Benign essential microscopic hematuria 01/14/[address] [address] Dexter Jones MD Results (Blood work) 01/09/2025 3:30 PM EDT Office Visit [facility] [address] [place] [address] Dexter Jones MD Suprapubic pain, acute (Primary Dx); Generalized anxiety disorder; Severe episode of recurrent major depressive disorder, with psychotic features; Benign essential microscopic hematuria; Gastroesophageal reflux disease with esophagitis without hemorrhage 01/07/2025 Telephone [facility] [address] [address] Yariel Dee MA from Last 3 Months Family History Medical [...] high school, GED, job training, learning the Occitan language, technical skills, or developing parenting skills)? [...] Sign Reading Time Taken Comments Blood Pressure 100/70 04/01/2025 10:08 AM EDT Pulse 74 04/01/2025 10:08 AM EDT Temperature 36.8 C (98.2 F) 02/18/2025 3:20 PM EDT Respiratory Rate - - Oxygen Saturation 99% 04/01/2025 10:08 AM EDT Inhaled Oxygen Concentration - - Weight 60.8 kg (134 lb) 04/01/2025 10:08 AM EDT Height 152.4 cm (5') 04/01/2025 10:08 AM EDT Body Mass Index 26.17 04/01/2025 10:08 AM EDT Plan of Treatment Upcoming Encounters Date Type Department Care Team (Late st Contact Info) Description 01/15/2025 Procedure Pass [address] [address] 04/18/2025 1:00 PM EDT Office Visit [facility] Department of Neurology [address] [place] [address] Sara Thomas MD, PhD [address] [place] [address] [email or web address] 04/25/2025 9:45 AM EDT Office Visit [facility] [address] [place] [address] Unknown, Keenan, Josiah Apodaca MD [address] [place] [address] 05/09/2025 10:30 AM EDT Office Visit [facility] [address] [address] Dexter Jones MD [address] [place] [address], [facility] [address] [place] [address] 09/30/2025 10:15 AM EDT Appointment [address] [address] Modesta Olmos MD [address] [place] [address], [address] [place] [address] [email or web address] Health Maintenance Due Date Last Done Comments Adult Td,Tdap Booster 1980 HEPATITIS C SCREENING 11/21/1997 HIV ONE-TIME SCREENING (18-6 5 YEARS) 11/21/1997 SCREENING FOR DIABETES 11/21/2014 COLOGUARD 11/21/2024 COLONOSCOPY 11/21/2024 COLORECTAL CANCER SCREENING 11/21/2024 FIT TEST 11/21/2024 FOBT 11/21/2024 SIGMOIDOSCOPY 11/21/2024 VIRTUAL COLONOSCOPY 11/21/2024 INFLUENZA VACCINE (#1) 2025 COVID-19 VACCINE ( - 2023-2 5 season) 2025 DEPRESSION SCREENING [...] Name Priority Date/Time Associated Diagnosis Comments OUTSIDE NM IMAGING REPORT ONLY Routine 03/26/2025 4:31 PM EDT US PELVIS TRANSABDOMINAL PLUS TRANSVAGINAL Routine 03/20/2025 1:50 PM EDT Postmenopausal bleeding OUTSIDE LAB Routine 02/03/2025 1:17 PM EDT URINE SEDIMENT Routine 01/09/2025 4:51 PM EDT URINALYSIS W/REFLEX URINE CULTURE Routine 01/09/2025 4:51 PM EDT Suprapubic pain, acute PAP SMEAR FOR RESULT ENTRY ONLY Routine 09/26/2023 from Last 3 Months or Most Recently Relevant to Health Maintenance Results * Outside NM Imaging Report Only (03/26/2025 4:31 PM EDT) us Historical Provider MD CAMP [facility] ABDOMEN Final Res ult * US PELVIS TRANSABDOMINAL PLUS TRANSVAGINAL (03/20/2025 1:50 PM EDT) Anatomical Region Laterality Modality Pelvis, Uterus/Adnexa Ultrasound 03/20/2025 1:51 PM EDT Impressions 03/21/2025 3:37 PM EDT Unremarkable STOREROOM ATTENDANT study with normal ovaries and a thin [...] free pelvic fluid. Tech Comments: IMPRESSION: Unremarkable STOREROOM ATTENDANT study with normal ovaries and a thin endometrium Modesta Olmos MD IMJoseph US PELVIS Final Result * Outside Lab (02/03/2025 1:17 PM EDT) Historical Provider LAB BLOOD ORDERABLES Geeta l Result * (ABNORMAL) Urinalysis w/reflex Urine Culture (01/09/2025 4:51 PM EDT) COLOR Yellow Yellow [facility] CLARITY Clear [facility] GLUCOSE Negative Negative [facility] BILI Negative Negative [facility] KETONES Negative Negative [facility] SPECIFIC GRAVITY 1.025 1.005 - 1.030 [facility] BLOOD 1+(A) Negative [facility] PH 6.0 5.0 - 8.0 [facility] Protein-UA Negative Negative [facility] NITRITE Negative Negative [facility] Leukocyte esterase, ur 1+(A) Negative [facility] Urine (Urine) 01/09/2025 4:5 1 PM EDT 01/09/2025 7:52 PM EDT us Dexter Jones MD URINE ORDERABLES Final Result Performing Organization Address City/[facility]/ZIP Co de Phone Number [address] [address] * (ABNORMAL) Urine sediment (01/09/2025 4:51 PM EDT) WBC 5-10(A) NONE SEEN /hpf [facility] RBC 3-5(A) NONE SEEN /hpf [facility] URINE EPITHELIAL 0-4(A) NONE SEEN [facility] MUCUS NONE SEEN NONE SEEN /hpf [facility] BACTERIA NONE SEEN NONE SEEN /hpf [facility] 01/09/2025 4:51 PM EDT 01/09/2025 7:52 PM EDT us Dexter Jones MD URINE ORDERABLES Final Result Performing Organization Address City/[facility]/ZIP Co de Phone Number [address] [address] * HM PAP SMEAR FOR RESULT ENTRY ONLY (09/26/2023) HM Pap smear NIL and neg HPV us Historical [facility] [employer] Final Result from Last 3 Months or Most Recently Relevant to Health Maintenance [facility] Care Teams Office Agent Relationship Specialty Start Date End Date Dexter Jones MD [address] [place] [address], [address] [place] [address] [email or web address] PCP - General Family Medicine 06/03/24 Additional Source Comments The information contained in this document represents components of the legal health record. It is not the complete legal health record.[facility]
--- OUTSIDE RECORDS SUMMARY | 2025-04-09 12:50 | XMS_ITS | Encounter Summary ---
Author Organization [facility] Address [address] [place] [address] Phone Care Team Providers Care Works Manager Name Role Phone Dexter Jones MD Primary Care Provider [phone] Encounter Details Date Type Department Care Team ([facility] st Contact Info) Description 09/18/2024 Telephone [employer] [facility] Medicine [address] [place], [place] [phone] Yariel DeeDE [place], [place] [address] [place], [place] [phone] Social History Tobacco Use Types Packs/Day Years [...] high school, GED, job training, learning the Peruvian language, technical skills, or developing parenting skills)? [...] st Contact Info) Description 01/15/2025 Procedure Pass [address] [address] 04/18/2025 1:00 PM EDT Office Visit [facility]'s Department of Neurology 60 [place] [address] Sara Thomas MD, PhD 60 [place] [address] [email or web address] 04/25/2025 9:45 AM EDT Office Visit [facility] Gastroenterology Clinic [address] [place] [address] Unknown, Unknown, Josiah Apodaca MD [address] [place] [address] 05/09/2025 10:30 AM EDT Office Visit [facility] [address] [address] Dexter Jones MD [address] [place] [address] 7 [place] [address] 09/30/2025 10:15 AM EDT Appointment [address] [address] Modesta Olmos MD [address] [place] [address], [address] [place] [address] documented as of this encounter Visit Diagnoses Not on filedocumented in this encounter Additional Health Concerns Assessment Noted Time PHQ-9 Depression Total Score: 8 06/28/20 11:06 AM EST PHQ-2 Depression Total Score: 3 06/28/20 11:06 AM EST documented as of this encounter Care Teams Works Manager Relationship Specialty Start Date End Date Dexter Jones MD [address] [place] [address], [address] [place] [address] [email or web address] PCP - General Family Medicine 06/03/24 documented as of this encounter Additional Source Comments The information contained in this document represents components of the legal health record. It is not the complete legal health record.[facility]
--- OUTSIDE RECORDS SUMMARY | 2025-04-09 12:50 | XMS_ITS | Encounter Summary ---
Author Organization [facility] Address [address] [place] [address] Phone Care Team Providers Care Special Programs Director Name Role Phone Dexter Jones MD Primary Care Provider [phone] Encounter Details Date Type Department Care Team ([facility] st Contact Info) Description 02/18/2025 Telephone [employer] [facility] Medicine [address] [place], [place] [phone] Jelena Jernigan [facility] [address] [place], [place] [phone] [email or web address] Social History Tobacco Use Types Packs/Day Years [...] high school, GED, job training, learning the Dominican language, technical skills, or developing parenting skills)? [...] Patient calls regarding a PT1 form. Patient's picker / packer address: [address] [place] [address] Office/Provider name/address/phone number: [phone] [facility] Does the clinic/facility you [...] Contact Info) Description 01/15/2025 Procedure Pass [address] [address] 04/18/2025 1:00 PM EDT [facility] Visit [facility] 60 [place] [address] Sara Thomas MD, PhD [address] [place] [address] [email or web address] 04/25/2025 9:45 AM EDT Office Visit [facility] Gastroenterology Clinic 10 [place] [address] Unknown, Unknown, MD Kellogg, Josiah Wayne MD [address] [address] 05/09/2025 10:30 AM EDT Office Visit [facility] [address] [place] [address] Dexter Joens MD 234 [facility] 7 [place] [address] 09/30/2025 10:15 AM EDT Appointment [facility] 30 [place] [address] Modesta Olmos MD [address] [place] [address], [address] [place] [address] [email or web address] documented as of this encounter Visit Diagnoses Not on filedocumented in this encounter Additional Health Concerns Assessment Noted Time PHQ-9 Depression Total Score: 8 06/28/20 11:06 AM EST PHQ-2 Depression Total Score: 3 06/28/20 11:06 AM EST documented as of this encounter Care Teams Special Programs Director Relationship Specialty Start Date End Date Dexter Jones MD 234 [facility], [facility] 7 [place] [address] PCP - General Family Medicine 06/03/24 documented as of this encounter Additional Source Comments The information contained in this document represents components of the legal health record. It is not the complete legal health record.[facility]
--- OUTSIDE RECORDS SUMMARY | 2025-04-09 12:50 | XMS_ITS | Encounter Summary ---
Author Organization [facility] Address [address] [place] [address] Care Team Providers Care Partnership Development Manager Name Role Phone Dexter Jones MD Primary Care Provider [phone] Encounter Details Date Type Department Care Team (Late st Contact Info) Description 10/09/2024 Lab Requisition [facility] - Main Lab [address] [facility] [place] [address] Tate Conrad PA [address] [place] [phone] Other microscopic hematuria Social History Tobacco Use [...] AM EDT) Final Diagnosis A. Urine, Voided, ([id number]): Negative for high grade urothelial carcinoma. 10/15/2024 4:[address] [facility] Clinical Information Other microscopic hematuria R31.29 Urine cytology 10/15/2024 4:[address] [facility] Gross Description A. Urine, Voided, ([id number]): Received one ThinPrep slide for cytology. 10/15/2024 4:[address] [facility] Disclaimer Unless otherwise specified, all tissue is 10% NB formalin fixed and paraffin embedded. Technical pathology services provided by [facility] at [address], [place] [address] (CLIA #[id number]/Sa elias Diaz MD, Rolling Machine Operator) 10/15/2024 4:[address] [facility] Tissue Urine specimen from urethra / Unknown 10/08/2024 10/09/2024 1:36 PM EDT us Tate R Houston PA LAB PATHOLOGY ORDERABLES Final Result [facility] [address] [place] [address], documented in this encounter Visit Diagnoses Diagnosis Other microscopic hematuria documented in this encounter Care Teams Partnership Development Manager Relationship Specialty Start Date End Date Dexter Jones MD [address] [place] [phone] PCP - General Family Medicine 07/12/24 documented as of this encounter
--- OUTSIDE RECORDS SUMMARY | 2025-04-09 12:50 | XMS_ITS | Encounter Summary ---
Author Organization [facility] Address [address] [place] [address] [place] [address] Phone Care Team Providers Care Site Interpreter Name Role Phone Dexter Jones MD Primary Care Provider [phone] Reason for Referral * Hospital - Outpatient - Closed Specialty Diagnoses / Procedures Referred By Mara grier Referred To Contact Radiology Procedures Outside NM Imaging Report Only [facility] [address] [place] [address] Phone: tel: fax: Referral ID Status Reason Start Date Expiration Date Visits Re quested Visits Authorized [id number] Closed 03/26/2025 1 1 Encounter Details Date Type Department Care Team (Late st Contact Info) Description 03/26/2025 Orders Only [facility] [address] [place] [address] ProviderDona MD [address] [place] [address] Social History Tobacco Use Types Packs/Day Years [...] high school, GED, job training, learning the Zambian language, technical skills, or developing parenting skills)? [...] st Contact Info) Description 01/15/2025 Procedure Pass [address] [address] 04/18/2025 1:00 PM EDT Office Visit [facility] Department of Neurology 60 [place] [address] Sara Thomas MD, PhD 60 [place] [address] [email or web address] 04/25/2025 9:45 AM EDT Office Visit [facility] Gastroenterology Clinic [address] [place] [address] Unknown, Keenan, Josiah Apodaca MD [address] [place] [address] 05/09/2025 10:30 AM EDT Office Visit [facility] [address] [place] [address] Dexter Jones MD 234 [facility], [address] [place] [address] 09/30/2025 10:15 AM EDT Appointment [facility], [facility] 30 [place] [address] Modesta Olmos MD 22 [facility], [address] [place] [address] documented as of this encounter Procedures Procedure Name Priority Date/Time Associated Diagnosis Comments OUTSIDE NM IMAGING REPORT ONLY Routine 03/26/2025 4:31 PM EDT documented in this encounter Results * Outside NM Imaging Report Only (03/26/2025 4:31 PM EDT) us Historical Provider MD CAMP NM ABDOMEN Final Res ult documented in this encounter Visit Diagnoses Not on filedocumented in this encounter Additional Health Concerns Assessment Noted Time PHQ-9 Depression Total Score: 8 06/28/20 11:06 AM EST PHQ-2 Depression Total Score: 3 06/28/20 11:06 AM EST documented as of this encounter Care Teams Site Interpreter Relationship Specialty Start Date End Date Dexter Jones MD [address] [place] [address] 7 [place] [address] PCP - General Family Medicine 06/03/24 documented as of this encounter Additional Source Comments The information contained in this document represents components of the legal health record. It is not the complete legal health record.[facility]
--- OUTSIDE RECORDS SUMMARY | 2025-04-09 12:50 | XMS_ITS | Clinical Summary ---
Author Organization [facility] Address [address] [place] [address] Care Team Providers Care Brushing Operator Name Role Phone Tristen Alejandro PA-C [...] age to complete this topic Care Teams Brushing Operator Relationship Specialty Start Date End Date Tristen Alejandro, PAFrantzC PCP - General Medical Services 10/13/21
--- OUTSIDE RECORDS SUMMARY | 2025-04-09 12:50 | XMS_ITS | Encounter Summary ---
Author Organization [facility] Address [address] [place] [address] Phone Care Team Providers Care Batch Freezer Name Role Phone Dexter Jones MD Primary Care Provider [phone] Encounter Details Date Type Department Care Team (Late st Contact Info) Description 11/26/2024 Procedure Pass [facility], [facility] [address] [place] [address] Social History Tobacco Use Types Packs/Day Years [...] high school, GED, job training, learning the Wolof language, technical skills, or developing parenting skills)? [...] st Contact Info) Description 01/15/2025 Procedure Pass [address] [address] 04/18/2025 1:00 PM EDT Office Visit [facility]'s Department of Neurology 60 [place] [address] Sara Thomas MD, PhD 60 [place] [address] [email or web address] 04/25/2025 9:45 AM EDT Office Visit [facility] Gastroenterology Clinic [address] [place] [address] Unknown, Keenan, Josiah Apodaca MD [address] [place] [address] 05/09/2025 10:30 AM EDT Office Visit [address] [address] Dexter Jones MD [address] [place] [address] 7 [place] [address] 09/30/2025 10:15 AM EDT Appointment [address] [address] Modesta Olmos MD [address] [place] [address], [facility] [address] [place] [address] documented as of this encounter Visit Diagnoses Not on filedocumented in this encounter Additional Health Concerns Assessment Noted Time PHQ-9 Depression Total Score: 8 06/28/20 24 11:06 AM EST PHQ-2 Depression Total Score: 3 06/28/20 11:06 AM EST documented as of this encounter Care Teams Batch Freezer Relationship Specialty Start Date End Date Dexter Jones MD [address] [place] [address], [address] [place] [address] [email or web address] PCP - General Family Medicine 06/03/24 documented as of this encounter Additional Source Comments The information contained in this document represents components of the legal health record. It is not the complete legal health record.[facility]
--- OUTSIDE RECORDS SUMMARY | 2025-04-09 12:50 | XMS_ITS | Clinical Summary ---
Author Organization [facility] Address [address] [place] [address] Phone Care Team Providers Care Sole Skiver Name Role Phone Dexter Jones MD Primary Care Provider [phone] Allergies Active Allergy Reactions Criticality Noted Date [...] Alyssa that there is no evidence of Consulting Technical Director involvement with the mass that is [...] 06/13/2018 Overview (04/15/2024): 07/05/2019 Followed by [facility]- therapy q 1-2 wks , [...] abnormal - H Pylori ESOPHAGOGASTRODUODENOSCOPY 08/11/2021 PROCEDURE: [place] EGD TRANSORAL BIOPSY SINGLE/MULTIPLE; COMMENT: normal, random biopsy pending ESOPHAGOGASTRODUODENOSCOPY 12/30/2021 PROCEDURE: [place] EGD TRANSORAL BIOPSY SINGLE/MULTIPLE; COMMENT: normal, biopsy [...] of 3 - 19+ 3-dose series) 11/21/1998 HPV Vaccines (1 - 3-dose SCDM series) 11/21/2006 Social Influencers of Health Screening 06/18/2022 Depression Screening 07/10/2024 03/27/2024 COVID-19 Vaccine ( season) 2025 Influenza Vaccine (#1) 2025 Breast Cancer Screening 05/23/2026 05/23/20 24, 05/17/2023, 02/20/2020, Additional history exists Cervical Cancer Screening: HPV 09/25/2028 09/26/2023 Cholesterol Screening (Lipid Panel) 04/10/2029 04/10/2024, 04/10/2024 Colorectal Cancer Screening: Colonoscopy 01/21/2031 01/21/2021 RSV Immunization Adult Patients (1 - 1-dose 75+ series) 11/21/2054 HIV Screening Completed 04/30/2021 Hepatitis C Screening [...] Signed Date: 05/23/2024 14:50 ET Workstation ID: [id number] Transcribed By: Self Edit Transcribed Date: 05/23/2024 [...] Signed Date: 05/23/2024 14:50 ET Workstation ID: [id number] Transcribed By: Self Edit Transcribed Date: 05/23/2024 [...] LAB BLOOD ORDERABLES Geeta l Result * Hm Depression Screening (03/27/2024) HM Depression Screening abstracted [facility] Provider HEALTH MAINTENANCE Final Result * Cervical Cancer Screening: HPV (09/26/2023) Pathologist formerly [facility] Cervical Cancer Screening: HPV negative, abstracted [facility] Provider HEALTH MAINTENANCE Final Result * HIV Screening (04/30/2021) [facility] HIV Screening abstracted [facility] Provider HEALTH MAINTENANCE Final Result * Hepatitis C Screening (04/30/2021) Pathologist formerly [facility] Hepatitis C Screening abstracted [facility] Provider HEALTH MAINTENANCE Final Result * Colonoscopy (01/21/2021) Pathologist formerly [facility] Colonoscopy no interpretation , abstracted Anatomical Region Laterality Modality Other [facility] Provider HEALTH MAINTENANCE Final Result from Last 3 Months or Most Recently Relevant to Health Maintenance Insurance [facility] Care Teams Sole Skiver Relationship Specialty Start Date End Date Dexter Jones MD [address] [place] [address] PCP - General Family Medicine 07/12/24
== END 2025-04-09 11:39 | disposition home or self-care (01) ==
LOC: HO.HGI 11:14
PROVIDERS: PCP Family Medicine; Visit Provider Nurse Practitioner Family
DX: K58.9 Irritable bowel syndrome, unspecified (principal); K21.9 Gastro-esophageal reflux disease without esophagitis; R10.13 Epigastric pain; R14.0 Abdominal distension (gaseous); K31.84 Gastroparesis
CPT/HCPCS: 99214; G2211